=== PATIENT | male | born 1965 | race Caucasian/White ===

== ENCOUNTER → 2018-01-29 12:42 | Outpatient (CLI) | payer MEDICAID, SELFPAY | PROVIDERS: Family Provider Family Medicine; PCP Family Medicine | DX: S12.501A Unspecified nondisplaced fracture of sixth cervical vertebra, initial encounter for closed fracture (principal) | CPT/HCPCS: 72125 ==

== ENCOUNTER 2018-08-09 09:48 | Emergency (ER) | payer MEDICAID, SELFPAY ==
[2018-08-09 09:51] VITALS: BP 162/92; PULSE 89; RESP 16; TEMP 36.3; O2SAT 97; BMI 32.5
[2018-08-09 09:52] VITALS: BP 162/92; PULSE 89; RESP 16; TEMP 36.3; O2SAT 97
--- NOTE | 2018-08-09 10:00 | VDLE_ITS ---
Reason For Study: LEG SWELLING RIGHT LEFT CFV is compressible, spontaneous, phasic, GSV is normal. competent and demonstrates normal CFV is compressible, spontaneous, phasic, augmentation. competent, and demonstrates normal Procedure augmentation. Exam performed portable in ED. FV is compressible, spontaneous, phasic, A preliminary report was called and/or faxed competent and demonstrates normal to Dr. Escobar. augmentation. POP V is compressible, spontaneous, phasic, competent and demonstrates normal augmentation. T/P Trunk is compressible. PTV is compressible. LT PerV is compressible. Interpretation Summary There is no evidence of left lower extremity deep vein thrombosis. Left greater saphenous vein appears patent and compressible segmentally. Normal flow patterns right common femoral vein Ordering Physician: Damian Escobar Referring Physician: MD Jojo Azael Performed By: Nita Gay RVT
[2018-08-09 10:20] LABS: Absolute Lymphocyte Count 1.88 X10^3/ul (0.83-4.51); Absolute Neutrophil Count 8.6 X10^3/uL (2.0-7.7); Basophil# 0.04 X10^3/uL; Basophil% 0.3 % (0-1); Eosinophil# 0.06 X10^3/uL; Eosinophils% 0.5 % (0-5); Hematocrit 43.2 % (40-54); Hemoglobin 14.3 g/dl (13.0-16.5); Lymphocyte # 1.88 X10^3/ul (4.0); Lymphocyte % 16.4 % (19-41); Mean Corp Hgb Conc 33.1 g/gl (32-36); Mean Corpuscular Hgb 30.2 pg (27.0-32.0); Mean Corpuscular Volume 91.1 fL (80-94); Mean Platelet Vol. 10.2 fl (6.2-12.0); Monocyte# 0.88 X10^3/uL; Monocyte% 7.7 % (0-10); Neutrophil # 8.56 X10^3/uL (2.7-7.7); Neutrophil % 74.9 % (47-70); Platelet Count 170 K/mm3 (150-450); RBC Distribution Width CV 13.5 % (11.6-14.6); RBC Distribution Width SD 44.6 fl (35.1-43.9); Red Blood Count 4.74 M/mm3 (4.6-6.2); White Blood Count 11.4 K/mm3 (4.4-11.0)
[2018-08-09 10:21] LABS: POSITIVE COUNT NO; POSITIVE DIFFERENTIAL NO; POSITIVE MORPHOLOGY NO
[2018-08-09 10:33] LABS: Anion Gap 9 (5-15); BUN 19 mg/dL (7-18); BUN/Creat Ratio 18.8 RATIO (10-20); Calcium,Total 8.6 mg/dL (8.5-10.1); Chloride 95 mmol/L (98-107); Creatinine, Serum 1.01 mg/dL (0.70-1.30); EST Glomerular Filtration Rate 82 mL/min (>60); Est Glom Filt Rate - Afr Amer 99 mL/min (>60); Estimated Creatinine Clearance 96.69 ml/min; Glucose 139 mg/dL (74-106); Potassium 2.7 mmol/L (3.5-5.1); Sodium Level 131 mmol/L (136-145)
--- NOTE | 2018-08-09 10:34 | ED.RN ---
md and nurse notifieed of k+ level of 2.7.
--- NOTE | 2018-08-09 12:56 | ED.VIS.GEN ---
History of Present Illness Chief Complaint: Cellulitis Detail of Chief Complaint: Redness, swelling and discomfort left leg Informant: Patient Onset: Yesterday Context: Sudden Onset Timing: Continuous Quality: Swelling, discoloration and discomfort Location: Left leg circumferential Current Severity: Moderate Maximum Severity: Moderate Worsened by: Nothing Relieved by: Nothing Associated Symptoms: Previously described Narrative: Patient is a middle-aged male who presents with concern for infection of his left leg. He denies history of PE or DVT. Denies chest pain, he denies shortness of breath. He denies fever, chills night sweats. He denies weight gain weight loss. He denies myalgias arthralgias. There is no history of trauma. He has no symptoms of claudication. Prior similar symptoms: No Recent Illness/Hospitalization: No Past Medical History - Allergies and Home Meds Allergies/Adverse Reactions: Allergies Penicillins [PCN] Allergy (Verified 08/09/18 09:52) Shortness of breath Primary Care Physician: Azael Uribe MD [Primary Care Provider] - Prior records reviewed: Yes Past Medical History: - - GERD and hypertension Surgical History: noncontributory Smoking Status: Current every day smoker Alcohol: Rare Review of Systems General: Denies: Chills, Fever, Malaise, Subjective, Sweats, Weight loss Eyes: Denies: Visual changes - bilaterally, Blurred Vision - bilaterally, Diplopia ENT: Denies: Rhinorrhea, Sore throat Cardiovascular: Denies: Chest pain, Palpitations Respiratory: Denies: Dyspnea, Cough, Dyspnea on exertion Gastrointestinal: Denies: Abdominal pain, Nausea, Vomiting, Diarrhea, Melena, Hematochezia Genitourinary: Denies: Dysuria, Hematuria, Frequency Musculoskeletal: Reports: Extremity Pain. Denies: Myalgias, Arthralgias, Back pain Skin: Denies: Rash, Wounds Neurological: Denies: Headache, Weakness, Numbness Endocrine: Denies: Polyuria, Polydipsia Hematologic: Denies: Easy bruising Allergy: Denies: Uticaria Physical Exam Vital Signs/Narrative: Vital Signs Temp Pulse Resp BP Pulse Ox 08/09/18 09:52 97.3 F L 89 16 162/92 H 97 08/09/18 09:51 97.3 F L 89 16 162/92 H 97 Inital Vital Signs reviewed: Yes General: Well nourished, Well developed, No Acute Distress Head: Normocephalic, Atraumatic Eyes: Perrl, EOMI. Negative for: Pale conjunctiva, Scleral icterus ENT: Moist mucous membranes, No rhinorrhea, TM's clear. Negative for: Sinus tenderness Neck: Supple, Nontender, No lymphadenopathy, No JVD Cardiovascular: Regular rate, Regular rhythm, No murmurs, Normal S1, Normal S2 Respiratory: No distress, CTA bilaterally, Chest nontender Back: Nontender, Normal Inspection. Negative for: CVA tenderness Extremities: Tenderness, Edema, Calf Tenderness, - - Inguinal nodes appreciated on left. Negative for: Nontender, No edema Skin: Normal color, Rash - In the proximity of the kneecap it blanches otherwise it does not.. Negative for: No rash, Cyanosis, Jaundice Neurological: Alert, Oriented x3, Cranial nerves II-XII grossly intact, Normal Strength, Normal Sensation, Normal Gait Psychological: Normal affect, Normal Mood Diagnostic/Tx/Re-eval Laboratory Results 08/09/18 08/09/18 10:11 10:11 WBC 11.4 H RBC 4.74 Hgb 14.3 Hct 43.2 MCV 91.1 MCH 30.2 MCHC 33.1 RDW 13.5 RDW Differential 44.6 H Plt Count 170 MPV 10.2 Immature Gran % (Auto) 0.200 Neut % (Auto) 74.9 H Lymph % (Auto) 16.4 L [place] % (Auto) 7.7 Eos % (Auto) 0.5 Baso % (Auto) 0.3 Absolute Neuts (auto) 8.6 H Absolute Lymphs (auto) 1.88 Total Counted Not Reportable Sodium 131 L Potassium 2.7 L* Chloride 95 L Carbon Dioxide 27.0 Anion Gap 9 BUN 19 H Creatinine 1.01 Estim Creat Clear Calc 96.69 Est GFR (MDRD) Af Amer 99 Est GFR (MDRD) Non-Af 82 BUN/Creatinine Ratio 18.8 Glucose 139 H Calcium 8.6 Venous Doppler was interpreted as negative for DVT. - Rhythm Strip Rhythm Strip: Sinus Rhythm Rate: 88 Ectopy: None - Medical Decision Making Differential diagnosis includes cellulitis, DVT. Will obtain venous duplex study. If negative will treat as cellulitis. For strep and staph coverage patient received vancomycin the department. Was determined that he did not have an anaphylactic reaction to penicillin. He did not have hives, nausea vomiting orthostatic symptoms or hypotension. He reported shortness of breath. He will receive a prescription for cephalexin and Bactrim. He is to follow-up in 2 weeks for wound check with Dr. Bryson Beckwith his PCP. He was unable he was instructed to return to the emergency department for reevaluation or if his symptoms worsen. Patient has no SIRS criteria therefore will manage as outpatient. ED Disposition - Plan for ED Patient: Disposition: Home or Assisted Living Diagnosis: Cellulitis of left leg without foot, Hypokalemia Instructions: Discharge Instructions for Cellulitis Prescriptions: Potassium Chl Soln 20 meq PO BID #120 udc Smz/Tmp Ds [Bactrim Ds] 1 tab PO BID #14 tab Cephalexin [Keflex] 500 mg PO 4X/DAY #30 cap Referrals: Azael Uribe MD [Primary Care Provider] - 2 Days for wound check Additional Instructions: If you are unable to see Dr. Uribe in 2 days for reevaluation of your infected leg please return to the emergency department. If your symptoms worsen or if you develop temperature greater than 100 and shaking chills return immediately. Also will need potassium level reassessed in 5-7 days.
[2018-08-09 13:00] VITALS: BP 141/92; PULSE 71; RESP 17; TEMP 36.3; O2SAT 96
== END 2018-08-09 14:04 | disposition home or self-care (01) ==
PROVIDERS: Emergency Provider Emergency Medicine; Family Provider Family Medicine; PCP Family Medicine
DX: L03.116 Cellulitis of left lower limb (principal); E87.6 Hypokalemia; I10 Essential (primary) hypertension; K21.9 Gastro-esophageal reflux disease without esophagitis; F17.200 Nicotine dependence, unspecified, uncomplicated
CPT/HCPCS: 80048; 85025; 93971; 96365; 96366; 99284; J7030; J7040; A4216

== ENCOUNTER 2019-11-19 13:19 | Inpatient (IN) | payer MEDICAID, SELFPAY ==
[2019-11-19] VITALS (18 sets, daily range): BP systolic 94–137; BP diastolic 37–57; PULSE 66–95; RESP 17–35; TEMP 36.2–37.7; O2SAT 95–98; BMI 28.8; BMI 27.7
--- NOTE | 2019-11-19 13:32 | CT_ITS ---
STUDY: CT BRAIN WITHOUT CONTRAST REASON FOR EXAM: Male, 54 years old. OVERDOSE RADIATION DOSAGE (If Supplied By Facility): CTDIvol = ( 44.99 ) mGy, DLP = ( 796.11 ) mGycm TECHNIQUE: Transaxial CT imaging of the brain was performed without administration of intravenous contrast material. Individualized dose optimization techniques were used for this CT. COMPARISON: Comparison is made with prior study dated October 25, 2008. FINDINGS: Normal soft tissue structures. Normal calvarium. Normal size ventricles and extra-axial spaces for the patient''s age. Normal white matter tracts of the cerebral hemispheres. Small old lacunar infarct in the left basal ganglion. This is unchanged. Normal brainstem. Normal cerebellum. There is no intracranial hemorrhage. There are no findings of an acute ischemic infarction. 1.5 cm x 1.3 cm polyp or retention cyst at the base of the left maxillary sinus. CT/Brain/Head without Contrast IMPRESSION: Focal old lacunar infarct in the left basal ganglion. Electronically Signed: Matt Gardner, at 14:35 EDT , Service support ,
--- NOTE | 2019-11-19 13:32 | RAD_ITS ---
STUDY: X-RAY CHEST REASON FOR EXAM: Male, 54 years old. Shortness of breath. TECHNIQUE: Single AP portable view of the chest. COMPARISON: Comparison is made with prior study dated October 08, 2016. FINDINGS: EKG electrodes are seen. Hyperinflation. There is no demonstrated pleural abnormality. Normal size heart. Normal mediastinum and marjan. Normal visualized pulmonary arteries. There is atherosclerotic calcification of the aortic arch with tortuosity. Normal visualized thoracic spine. Normal visualized ribs, clavicles, and shoulders. There is no demonstrated abnormality of the visualized soft tissue structures of the upper abdomen. RAD/Chest 1 View (Portable) IMPRESSION: Hyperinflation. The lungs are clear. Electronically Signed: Matt Gardner, at 14:28 EDT , Service support ,
--- NOTE | 2019-11-19 13:33 | EKG12_ITS ---
Test Reason : OVERDOSE Blood Pressure : / mmHG Vent. Rate : 080 BPM Atrial Rate : 080 BPM P-R Int : 138 ms QRS Dur : 088 ms QT Int : 368 ms P-R-T Axes : 063 041 057 degrees QTc Int : 424 ms Normal sinus rhythm Normal ECG Confirmed by SAMANTHA YEUNG, ROSINA ([id number]), content editor MELY GARCIA ([id number] on 11/21/2019 11:11:06 AM Referred By: RHIANNON Confirmed By:ROSINA SINGH MD
--- NOTE | 2019-11-19 13:43 | ED.VIS.GEN ---
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 Per reports police were at the patient's house earlier this morning around 8:30 AM. When they went back this afternoon they found the patient seated in a car with the windows up inside a garage. The vehicle was not running. Patient's mental status was altered. He was found with multiple syringes and spoons around him. Family member who called did state that the patient has a history of heroin and fentanyl abuse. EMS gave 4 mg of Narcan. Patient did have some improvement in mental status. Nursing staff reports patient was in a very heavy black sweatshirt that was soaked with sweat. EMS had commented that the temperature inside the car was very high. Past Medical History - Allergies and Home Meds Allergies/Adverse Reactions: Allergies Penicillins [PCN] Allergy (Verified 11/19/19 13:24) Shortness of breath Primary Care Physician: Azael Uribe MD [Primary Care Provider] - Prior records reviewed: Yes Surgical History: noncontributory Smoking Status: Current every day smoker Review of Systems ROS: Unable to Obtain - Patient not answering questions at this time. Physical Exam Vital Signs/Narrative: Vital Signs Temp Pulse Resp BP Pulse Ox 11/19/19 13:20 97.5 F L 95 35 H 124/37 H 95 Inital Vital Signs reviewed: Yes General: Well nourished, Well developed, - - Patient lying in bed. Eyes are open and he looks around the room. He does not answer questions. Head: Normocephalic ENT: Moist mucous membranes Neck: Supple Cardiovascular: Regular rate, Regular rhythm Respiratory: No distress, - - Rales bilaterally. Abdomen: Soft, Nontender Extremities: Nontender Skin: Normal color Neurological: Alert - Looks around the room but does not answer questions. Diagnostic/Tx/Re-eval Impressions Brain CT 11/19/19 13:32 IMPRESSION: Focal old lacunar infarct in the left basal ganglion. Electronically Signed: Matt Gardner, at 14:35 EDT , Service support , Chest X-Ray 11/19/19 13:32 IMPRESSION: Hyperinflation. The lungs are clear. Electronically Signed: Matt Gardner, at 14:28 EDT , Service support , 11/19/19 13:32 Brain/Head without Contrast [CT] Stat Chest 1 View (Portable) [RAD] Stat Laboratory Results 11/19/19 11/19/19 11/19/19 13:25 13:25 13:25 WBC 14.3 H RBC 4.18 L Hgb 12.3 L Hct 36.3 L MCV 86.8 MCH 29.4 MCHC 33.9 RDW Std Deviation 41.2 RDW Coeff of John 13.1 Plt Count 75 L MPV 12.1 H Immature Gran % (Auto) 1.700 H Neut % (Auto) 83.7 H Lymph % (Auto) 5.9 L [place] % (Auto) 8.6 Eos % (Auto) 0.0 Baso % (Auto) 0.1 Absolute Neuts (auto) 12.0 H Absolute Lymphs (auto) 0.85 Nucleated RBC % 0 Platelet Estimate MOD DEC Sodium 127 L Potassium 4.2 Chloride 96 L Carbon Dioxide 21.0 Anion Gap 10 BUN 33 H Creatinine 1.19 Estim Creat Clear Calc 73.27 Est GFR (MDRD) Af Amer 82 Est GFR (MDRD) Non-Af 68 BUN/Creatinine Ratio 27.7 H Glucose 121 H Calcium 8.4 L Total Bilirubin 1.20 H Direct Bilirubin 0.63 H AST 67 H ALT 43 Alkaline Phosphatase 80 Troponin I 0.924 H* Total Protein 7.5 Albumin 2.2 L Globulin 5.3 H Lipase 136 Ethyl Alcohol < 3.0 - EKG Initial EKG Interpretation: Sinus Rhythm - Sinus at 80 with no acute ischemia. - Medical Decision Making Patient continues to be alert and look around the room while here, but is still not answering questions. Lung sounds remain with rales but chest x-ray reveals no focal infiltrate. Troponin is elevated at 0.9. I am unsure if he may have had an arrhythmia while he was sitting inside this hot car. He will be admitted for further evaluation. At this time I do not feel the patient's mental status is adequate to have him take oral aspirin for us. He will be ordered rectal aspirin. I spoke with the hospitalist for admission. ED Disposition - Plan for ED Patient: Disposition: Acute Care Hospital [facility] Diagnosis: Altered mental status, Overdose, Elevated troponin Referrals: Azael Uribe MD [Primary Care Provider] -
[2019-11-19 13:45] LABS: Absolute Lymphocyte Count 0.85 X10^3/uL (0.83-4.51); Basophil# 0.02 X10^3/uL; Basophil% 0.1 % (0-1); Hematocrit 36.3 % (40-54); Hemoglobin 12.3 g/dL (13.0-16.5); Lymphocyte # 0.85 X10^3/ul (4.0); Lymphocyte % 5.9 % (19-41); Mean Corp Hgb Conc 33.9 g/dL (32-36); Mean Corpuscular Hgb 29.4 pg (27.0-32.0); Mean Corpuscular Volume 86.8 fL (80-94); Mean Platelet Vol. 12.1 fl (6.2-12.0); Monocyte# 1.23 X10^3/uL; Monocyte% 8.6 % (0-10); NRBC Flagged by Analyzer 0 % (0-5); Neutrophil % 83.7 % (47-70); POSITIVE COUNT YES; POSITIVE MORPHOLOGY YES; Platelet Count 75 K/mm3 (150-450); RBC Distribution Width CV 13.1 % (11.6-14.6); RBC Distribution Width SD 41.2 fl (35.1-43.9); Red Blood Count 4.18 M/mm3 (4.6-6.2); White Blood Count 14.3 K/mm3 (4.4-11.0)
[2019-11-19 13:46] LABS: Differential Indicated SCAN CRITERIA MET
[2019-11-19] MEDS: 0.9% Normal Saline 1,000 ML 1000 ML IV (14:00)
[2019-11-19 14:02] LABS: AST(SGOT) 67 U/L (15-37); Alanine Aminotransfer ALT/SGPT 43 U/L (16-61); Albumin, Serum 2.2 g/dL (3.2-5.0); Alkaline Phosphatase 80 U/L (45-117); Anion Gap 10 (5-15); BUN 33 mg/dL (7-18); BUN/Creat Ratio 27.7 RATIO (10-20); Bilirubin, Direct 0.63 mg/dL (0.00-0.30); Calcium,Total 8.4 mg/dL (8.5-10.1); Chloride 96 mmol/L (98-107); Creatinine, Serum 1.19 mg/dL (0.70-1.30); EST Glomerular Filtration Rate 68 mL/min (>60); Est Glom Filt Rate - Afr Amer 82 mL/min (>60); Estimated Creatinine Clearance 73.27 ml/min; Globulin 5.3 g/dL (2.2-4.2); Glucose 121 mg/dL (74-106); Lipase 136 U/L (73-393); Potassium 4.2 mmol/L (3.5-5.1); Protein, Total 7.5 g/dL (6.4-8.2); Sodium Level 127 mmol/L (136-145)
[2019-11-19 14:05] LABS: Alcohol, Blood (Medical)-Serum < 3.0 mg/dL
[2019-11-19 14:13] LABS: Platelet Estimate MOD DEC (ADEQ)
--- NOTE | 2019-11-19 14:44 | NURSING ---
DR MARTINO FPR DR NAVARRO
--- NOTE | 2019-11-19 14:48 | NURSING ---
icu ams, od, elevated trop torin
--- NOTE | 2019-11-19 14:59 | NURSING ---
ICU 4
--- NOTE | 2019-11-19 15:13 | HP.PCM_ITS ---
<Ced Arrington - Last Filed: 11/19/19 15:13> Problem List (1) Overdose Status: Acute (2) Elevated troponin Status: Acute (3) Aspiration into airway Status: Acute (4) Altered mental status Status: Acute History of Present Illness Date of Admission: 11/19/19 Chief Complaint: altered mental status The patient is a 54 year old M with pmhx of opiate abuse who presented to the ER by squad after being found unresponsive. Police went to his house in the morning and his behavior was abnormal, they went back to check on him later and found him in the car (which was off) in the garage with needles around him, unresponsive. He later admitted to using fentanyl and heroin, and uses daily, and denies other drug use or drinking. He was given narcan twice and brought to the ER. He remains lethargic and confused. He was able to wake up and with repeated questioning able to tell me his name, , place, year, and president. He is maintaining adequate sats in the ER however is significantly rhonchorous in the upper airway as well as on auscultation lending suspicion for an aspiration event. He is very tachypneic tho denies SOB. On my ROS he seemed to stare and shake his head no with everything I asked him, so I am not confident his answers are accurate. When he is not being interviewed his tachypnea impr oves to the 20s, tho he is 40s when interviewed. He has an elevated troponin however he denies CP, pressure, tightness, heaviness, LH/dizziness, or LE edema. He denies a hx of heart or lung disease. ER staff checked with his pharmacy, at one point he had an albuterol inhaler but has not recently filled it. [] Past Medical History Allergies Penicillins [PCN] Allergy (Verified 11/19/19 13:24) Shortness of breath Home Medications: Ambulatory Orders Medication Instructions Recorded Albuterol Sulfate [Ventolin Hfa] 2 puff INHALATION Q4H PRN PRN 11/19/19 Omeprazole 20 mg PO DAILY 11/19/19 Surgical History: noncontributory Psychiatric History: No pertinent psych hx Lives: Alone Smoking Status: Current every day smoker Tobacco Use: Cigarettes Alcohol: None Drugs: Heroin, - - fentanyl - *Family History Maternal History Items: No pertinent history Paternal History Items: No pertinent history Review of Systems Constitutional: Denies: Chills, Fever, Weight Change HEENT: Denies: Head Aches, Sinus Congestion, Sinus Drainage Cardiovascular: Denies: Chest Pain, Palpitations Respiratory: Reports: Cough. Denies: Shortness of Breath, Shortness of breath at rest, Sputum production Gastrointestinal: Denies: Abdominal Pain, Diarrhea, Nausea, Vomiting Genitourinary: Denies: Dysuria Musculoskeletal: Denies: Joint Pain, Joint Tenderness Skin: Reports: - - stage 1 pressure wound buttocks and sacral coccygeal area. no open areas.. Denies: Rash, Wounds Neurological: Denies: Numbness, Tingling, Focal weakness Psychiatric: Denies: Anxiety, Depression, Homicidal Ideations, Suicidal Ideations Hematologic/ Lymphatic: Denies: Easy Bruising, Easy Bleeding VTE Information - Inpt Only VTE Present on Admission: No VTE Mechan Device Prophylaxis: None VTE Pharm Prophylaxis ordered?: Yes Patient Problems: Active and Suspected Problems Altered mental status (Acute) Overdose (Acute) Elevated troponin (Acute) Aspiration into airway (Acute) - Physical Exam Vitals/I&O's: Vital Signs Temp Pulse Resp BP Pulse Ox 97.5 F L 80 29 H 121/47 H 95 11/19/19 13:20 11/19/19 14:33 11/19/19 14:33 11/19/19 14:33 11/19/19 14:33 Oxygen Delivery Method Room Air Weight: 201 lb 0.985 oz Body Mass Index (BMI) 28.8 General: Alert, Oriented x3, Cooperative, Lethargic HEENT: Atraumatic, PERRLA, EOMI, Normocephalic Neck: Supple, No JVD, Negative Carotid Bruits Lungs: Normal air movement, No rhonchi Cardiovascular: Regular rate, No murmurs Abdomen: Bowel Sounds Present, Soft, Non Tender Extremities: No edema, Capillary Refill Less than 3 Seconds Skin: No rashes, No breakdown Musculoskeletal: No Tenderness to Palpation of Joints or Extremities Neurological: Cranial nerves II-XII grossly intact Psych/Mental Status: - - delayed response time, has difficulty focusing, Alert and oriented to time, place, person, mood and affect Laboratory Results 11/19/19 13:25: WBC 14.3 H, RBC 4.18 L, Hgb 12.3 L, Hct 36.3 L, MCV 86.8, MCH 29.4, MCHC 33.9, RDW Std Deviation 41.2, RDW Coeff of John 13.1, Plt Count 75 L, MPV 12.1 H, Immature Gran % (Auto) 1.700 H, Neut % (Auto) 83.7 H, Lymph % (Auto) 5.9 L, Upson % (Auto) 8.6, Eos % (Auto) 0.0, Baso % (Auto) 0.1, Absolute Neuts (auto) 12.0 H, Absolute Lymphs (auto) 0.85, Nucleated RBC % 0, Platelet Estimate MOD 11/19/19 13:25: Sodium 127 L, Potassium 4.2, Chloride 96 L, Carbon Dioxide 21.0, Anion Gap 10, BUN 33 H, Creatinine 1.19, Estim Creat Clear Calc 73.27, Est GFR (MDRD) Af Amer 82, Est GFR (MDRD) Non-Af 68, BUN/Creatinine Ratio 27.7 H, Glucose 121 H, Calcium 8.4 L, Total Bilirubin 1.20 H, Direct Bilirubin 0.63 H, AST 67 H, ALT 43, Alkaline Phosphatase 80, Troponin I 0.924 H*, Total Protein 7.5, Albumin 2.2 L, Globulin 5.3 H, Lipase 136 11/19/19 13:25: Ethyl Alcohol < 3.0 Current Medications Levofloxacin (Levaquin Iv) 750 mg in 150 mls @ 100 mls/hr IV X1 ONE Stop: 11/19/19 16:39 Metronidazole (Flagyl) 500 mg in 100 mls @ 100 mls/hr IV X1 ONE Stop: 11/19/19 16:09 Assessment/Plan All Active Problems Altered mental status (Acute) Overdose (Acute) Elevated troponin (Acute) Aspiration into airway (Acute) 1. Acute opiate overdose - found unresponsive with pinned pupils and with needles around him. He admits to daily fentanyl and heroin abuse unclear how much. Denies other drug use. Admit to ICU, provide IV fluids with LR @ 75cc/hr. Initiate opiate withdrawal protocol. EtOH neg. Tox screen pending. 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 Suspected aspiration pna - cxr is without infiltrate at this time, however with the above and his severe rhonchi and tachypnea, leukocytosis, left shit, pulse > 90 he is presumed sepsis, elevated T and direct bili and AST, decreased platelets. Lipase neg. Lactate pending. Given levaquin/flagyl in ER, will do renetta on floor. Provide aerosols, incentive spirometer, PEP therapy. UA pending, obtain blood cx. Currently afebrile. -CXR with hyperinflation, hx smoking. suspect underlying lung disease. 3. NSTEMI - Trop 0.924. EKG unremarkable. No CP/pressure/tightness. Repeat EKG on the floor and in the AM. Cycle enzymes. Maintain on heart monitor. Obtain Echo in AM. Continue rectal aspirin. When able to tolerate PO initiate asp/statin. 4. Thrombocytopenia - will need to trend with ongoing aspirin. This presents a significant challenge given his NSTEMI 5. Stage 1 pressure ulcer sacral/coccygeal - wound care consult. 6. 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 Gaffney. <Keely Gaffney - Last Filed: 11/19/19 16:19> History of Present Illness Date of Admission: 11/19/19 I agree with the above based my own independent history and exam The patient is a 54 year old M presented for the above. He was given narcan 4 mg by the squad and this improved his mental status some but overall his MS does not appear to be at baseline. He interacts some but doesn't answer all questions. He does admit to daily IV opiate use but was not willing to tell me the amount of opiates he uses daily. Family members who called the ED did confirm that he has a h/o opiate abuse. He does remain lethargic but is A&Ox3 at this time. His afebrile and BP/HR are within normal range, but he had marked tachypnea and his R lung was diffusely rhonchorous with upper airway rhonchi noted as well. His sats were WNL on RA. CXR is unremarkable. His white count is mildly elevated at 14.3. His Na is 127 but he appears to be volume depleted with mild TRENT. LFT's are WNL. He denies pain, SOB, N/V/Abdominal pain. Past Medical History Allergies Penicillins [PCN] Allergy (Verified 11/19/19 13:24) Shortness of breath Review of Systems Constitutional: Denies: Anorexia, Chills, Fever, Malaise, Weakness, Weight Change, Fatigue Eyes: Denies: Blurred vision, Double vision, Pain, Redness HEENT: Denies: Difficulty Hearing, Difficulty Swallowing, Ear Pain, Head Aches, Nasal bleeding, Nasal Congestion, Sinus Congestion, Sore Throat Cardiovascular: Denies: Chest Pain, Chest Pressure, Chest Tightness, Heaviness, Light Headedness, Palpitations, Syncope Respiratory: Denies: Cough, Hemoptysis, Pleuritic Pain, Shortness of Breath, Shortness of breath at rest, Shortness of breath upon exertion, Sputum production, Wheezing Genitourinary: Denies: Dysuria, Hematuria, Retention, Urgency Musculoskeletal: Denies: Back Pain, Joint Pain, Joint stiffness, Joint swelling, Joint Tenderness, Muscle pain, Neck Pain Skin: Denies: Dryness, Jaundice, Lesions, Pruritis, Rash, Skin Changes, Wounds Neurological: Denies: Balance problems, Double vision, Slurred speech, Focal weakness, Headaches, Numbness, Tingling, Tremor, Seizures Psychiatric: Denies: Anxiety, Depression, Homicidal Ideations, Suicidal Ideations Endocrine: Denies: Change in Body Habitus, Heat/ Cold Intolerance, Polydipsia, Polyuria Hematologic/ Lymphatic: Denies: Easy Bruising, Easy Bleeding, Hx of blood clot - Physical Exam Vitals/I&O's: Vital Signs Temp Pulse Resp BP Pulse Ox 97.5 F L 80 29 H 121/47 H 95 11/19/19 13:20 11/19/19 14:33 11/19/19 14:33 11/19/19 14:33 11/19/19 14:33 Oxygen Delivery Method Room Air Weight: 91.2 kg Body Mass Index (BMI) 28.8 General: Alert, Oriented x3, Cooperative, Well developed, Well nourished, Lethargic, - - tachypnea but denies SOB, disheveled WM lying in reclined bed with mask on, audible upper airway rhonchi, awake but slow to answer questions HEENT: Atraumatic, PERRLA, EOMI, Normocephalic, EAC Clear Oral: Moist Mucosa, No Gingival or Mucosal Lesions/ Ulcerations, - - poor dentition Neck: Supple, No JVD, Negative Carotid Bruits, No Nodes, No Nuchal Rigidity, Trachea Midline, Thyroid Normal Size and Texture Lungs: Diminished - diffusely diminished, Rhonchi - upper airway and R lung diffusely but worse at RLL, Tachypneic, - Cardiovascular: Regular rate, Regular Rhythm, Normal S1, Normal S2, No murmurs, No Ectopic Activity, No rub noted, No Gallop Abdomen: Bowel Sounds Present, Soft, Non Tender, Non-Distended, No Hepato- splenomegaly, No hernias noted Extremities: No clubbing, No cyanosis, No edema, Capillary Refill Less than 3 Seconds, Peripheral Pulses Normal Skin: No rashes, No breakdown, - - multiple tattoos, feet dirty with skin peeling Musculoskeletal: No Tenderness to Palpation of Joints or Extremities, No Muscle Wasting Lymphatic: No Cervical, Supraclavicular, or Inguinal Adenopathy Neurological: Cranial nerves II-XII grossly intact, Deep Tendon Reflexes 2+/4 and Symmetrical, Neuro grossly intact, Motor Exam 5/5 strength throughout, Muscle tone normal, Coordination normal Psych/Mental Status: Alert and oriented to time, place, person, mood and affect Laboratory Results 11/19/19 13:25: WBC 14.3 H, RBC 4.18 L, Hgb 12.3 L, Hct 36.3 L, MCV 86.8, MCH 29.4, MCHC 33.9, RDW Std Deviation 41.2, RDW Coeff of John 13.1, Plt Count 75 L, MPV 12.1 H, Immature Gran % (Auto) 1.700 H, Neut % (Auto) 83.7 H, Lymph % (Auto) 5.9 L, Upson % (Auto) 8.6, Eos % (Auto) 0.0, Baso % (Auto) 0.1, Absolute Neuts (auto) 12.0 H, Absolute Lymphs (auto) 0.85, Nucleated RBC % 0, Platelet Estimate MOD DEC 11/19/19 13:25: Sodium 127 L, Potassium 4.2, Chloride 96 L, Carbon Dioxide 21.0, Anion Gap 10, BUN 33 H, Creatinine 1.19, Estim Creat Clear Calc 73.27, Est GFR (MDRD) Af Amer 82, Est GFR (MDRD) Non-Af 68, BUN/Creatinine Ratio 27.7 H, Glucose 121 H, Calcium 8.4 L, Total Bilirubin 1.20 H, Direct Bilirubin 0.63 H, AST 67 H, ALT 43, Alkaline Phosphatase 80, Troponin I 0.924 H*, Total Protein 7.5, Albumin 2.2 L, Globulin 5.3 H, Lipase 136 11/19/19 13:25: Ethyl Alcohol < 3.0 Current Medications Levofloxacin (Levaquin Iv) 750 mg in 150 mls @ 100 mls/hr IV X1 ONE Stop: 11/19/19 16:39 Metronidazole (Flagyl) 500 mg in 100 mls @ 100 mls/hr IV X1 ONE Stop: 11/19/19 16:09 Assessment/Plan Agree with the above with the additional addendum Acute Opiate OD -LR at 75 cc/hr -NPO until passes eval -Tox pending IVDU-opiates -check HIV and hep studies -opiate detox order set in place TRENT -suspect dehydration -IVF and repeat in am -if not getting better would pursue further w/u NSTEMI -No CP -EKG with no changes c/w acute ischemia -suspect trop elevation 2/2 stress induced ischemia with OD -will cycle troponins -repeat EKG in am -tele -ECHO to evaluate for WMA -rectal ASA given in ED and will continue daily Suspected Aspiration PNA -CXR WNL on admission but pt dry -repeat CXR in am -Meropenem for now and if d/c prior to rx completed could complete with levoquin (Day 06/10) -blood cx ordered -Lactate pending -hyperinflation therapy -IS if pt able Tobacco Abuse -2PPD smoker -nicotine Patch 21 mcg Hyponatremia -suspect hypovolemic with TRENT -repeat in am after hydration Hyperbilirubinemia -may be related to dehydration -repeat in am -Hep studies pending Thrombocytopenia -75,000 on admission -was 170 on 08/09/2018 but this is the only other lab we have -trend -check am coags--> consider evaluation of spleen if still low Inpatient E&M: 82157 Init Hosp L3
[2019-11-19] MEDS: levoFLOXacin IV 750 MG/150 ML BAG 100 MG IV (16:25)
[2019-11-19] MEDS: metroNIDAZOLE 500 MG/100 ML BAG 100 MG IV (16:26)
[2019-11-19 16:44] LABS: Lactic Acid 1.6 mmol/L (0.4-1.9)
--- NOTE | 2019-11-19 16:44 | ED.RN ---
PATIENT GAVE PERMISSION FOR HIS NIECE, KAREN, TO BE GIVEN INFORMATION AND UPDATED. KAREN'S PHONE NUMBER IS [phone]
[2019-11-19 17:05] LABS: Amphetamine Urine VISTA NEGATIVE (<1000 ng/mL); Barbiturate Urine VISTA NEGATIVE (< 200 ng/mL); Benzodiazepine Urine VISTA NEGATIVE (< 200 ng/mL); Cocaine Urine VISTA NEGATIVE (< 300 ng/mL); Ecstacy Urine VISTA NEGATIVE (< 500 ng/mL); Methadone Urine VISTA NEGATIVE (< 300 ng/mL); PCP Urine VISTA NEGATIVE (< 25 ng/mL); THC Urine VISTA NEGATIVE (< 50 ng/mL); Vista UDS pH Range 6
[2019-11-19 17:30] LABS: CPK Total, Creatine Kinase 90 U/L (39-308)
[2019-11-19] MEDS: Lactated Ringers 1,000 ML 75 ML IV (17:44)
[2019-11-19] MEDS: Ipratropium/Albuterol Sulfate 3 ML AMPUL.NEB INHALATION (19:10)
[2019-11-19] MEDS: Methocarbamol 750 MG Tablet 1500 MG PO (20:44)
[2019-11-19] MEDS: Aspirin 325 MG Tablet PO (22:07)
[2019-11-20] VITALS (32 sets, daily range): BP systolic 81–115; BP diastolic 34–59; PULSE 68–82; RESP 19–35; TEMP 36.1–36.5; O2SAT 96–99
[2019-11-20 04:35] LABS: International Normalized Ratio 1.5; Partial Thromboplast Time 32.3 Seconds (24.1-36.2); Prothrombin Time (Protime)PT. 17.9 SECONDS (11.7-14.9)
[2019-11-20 04:38] LABS: Absolute Lymphocyte Count 1.19 X10^3/uL (0.83-4.51); Absolute Neutrophil Count 5.6 X10^3/uL (2.0-7.7); Basophil# 0.01 X10^3/uL; Basophil% 0.1 % (0-1); Eosinophil# 0.01 X10^3/uL; Eosinophils% 0.1 % (0-5); Lymphocyte # 1.19 X10^3/ul (4.0); Lymphocyte % 14.9 % (19-41); Mean Corp Hgb Conc 35.5 g/dL (32-36); Mean Corpuscular Hgb 30.6 pg (27.0-32.0); Mean Corpuscular Volume 86.4 fL (80-94); Mean Platelet Vol. 12.2 fl (6.2-12.0); Monocyte% 13.8 % (0-10); NRBC Flagged by Analyzer 0 % (0-5); Neutrophil # 5.59 X10^3/uL (2.7-7.7); Neutrophil % 70.2 % (47-70); POSITIVE COUNT YES; Platelet Count 53 K/mm3 (150-450); RBC Distribution Width SD 40.6 fl (35.1-43.9); Red Blood Count 3.59 M/mm3 (4.6-6.2)
[2019-11-20 04:40] LABS: Differential Indicated SCAN CRITERIA MET
[2019-11-20 05:09] LABS: ALB/GLOB Ratio 0.4 RATIO (0.9-2.4); AST(SGOT) 59 U/L (15-37); Alanine Aminotransfer ALT/SGPT 37 U/L (16-61); Albumin, Serum 1.7 g/dL (3.2-5.0); Alkaline Phosphatase 59 U/L (45-117); Anion Gap 9 (5-15); BUN 30 mg/dL (7-18); BUN/Creat Ratio 35.8 RATIO (10-20); Calcium,Total 7.6 mg/dL (8.5-10.1); Chloride 100 mmol/L (98-107); Creatinine, Serum 0.84 mg/dL (0.70-1.30); EST Glomerular Filtration Rate 101 mL/min (>60); Est Glom Filt Rate - Afr Amer 123 mL/min (>60); Globulin 4.5 g/dL (2.2-4.2); Glucose 129 mg/dL (74-106); Phosphorus 3.4 mg/dL (2.5-4.9); Potassium 3.7 mmol/L (3.5-5.1); Protein, Total 6.2 g/dL (6.4-8.2); Sodium Level 131 mmol/L (136-145)
[2019-11-20] MEDS: hydrOXYzine PAM 25 MG Capsule 50 MG PO (05:25)
[2019-11-20] MEDS: Methocarbamol 750 MG Tablet 1500 MG PO (05:25)
[2019-11-20] MEDS: Lactated Ringers 1,000 ML 75 ML IV (05:25)
[2019-11-20] MEDS: 0.9% Saline Lock 10 ML Syringe IV (05:27)
[2019-11-20 05:35] LABS: Differential Comment SCANNED; Platelet Estimate MOD DEC (ADEQ)
--- NOTE | 2019-11-20 05:55 | ECHOD_ITS ---
Reason For Study: NSTEMI Procedure This was a 2D Doppler, Color Flow transthoracic echocardiogram. Exam performed portable in ICU/CCU. Left Ventricle Normal LV size. The estimated ejection fraction is 70 %. No evidence for diastolic dysfunction. No regional wall motion abnormalities noted. Right Ventricle Normal RV size. Normal systolic function. Atria Normal left atrium. Normal right atrium. No doppler evidence for ASD. Mitral Valve There is no mitral valve stenosis. Trivial mitral valve insufficiency. Tricuspid Valve There is no tricuspid stenosis. Trivial tricuspid valve insufficiency. Unable to estimate RV systolic pressure due to insufficient tricuspid regurgitant envelope. Aortic Valve Trisinus/trileaflet aortic valve. Mild diffuse aortic valve thickening. There is a filamentous vegetation on the ventricular side of the aortic valve that measures about 3cm x 0.2cm. Mild aortic stenosis. Moderately severe (3+) aortic valve insufficiency. Pulmonic Valve There is no pulmonic valvular stenosis. No pulmonic valve insufficiency identified. Great Vessels Normal aortic root. Pericardium/Pleural No pericardial effusion. MMode/2D Measurements & Calculations LVIDd: 5.3 cm IVSd: 0.93 cm LVOT diam: 2.0 cm LVIDs: 3.4 cm LVPWd: 0.83 cm LVOT area: 3.3 cm2 RVDd: 4.0 cm FS: 36.8 % Ao root diam: 3.3 cm LAV(MOD-bp): 63.4 ml LA A4 area: 20.0 cm2 LAV(MOD-bp) Indexed: 30.9 ml/m2 LAV(MOD-sp2): 66.9 ml LAV(MOD-sp4): 58.1 ml LA dimension(2D): 4.1 cm RA A4 area: 12.6 cm2 Time Measurements MV dec time: 0.28 sec Doppler Measurements & Calculations MV E max cameron: 104.8 cm/sec Lat Peak E' Cameron: 7.9 cm/sec Med Peak E' Cameron: 11.6 cm/sec MV A max cameron: 66.9 cm/sec E/E' lat: 13.2 E/E' med: 9.1 MV E/A: 1.6 Ao V2 max: 268.6 cm/sec AI max cameron: 326.2 cm/sec LV V1 max: 202.7 cm/sec Ao max P.9 mmHg AI max P.6 mmHg LV V1 max P.4 mmHg Ao V2 mean: 192.7 cm/sec AI dec slope: 359.5 cm/sec2 LV V1 mean P.2 mmHg Ao mean P.4 mmHg AI P1/2t: 265.8 msec LV V1 mean: 130.9 cm/sec Ao V2 VTI: 53.1 cm LV V1 VTI: 39.3 cm HERMELINDO(I,D): 2.4 cm2 HERMELINDO(V,D): 2.5 cm2 SV(LVOT): 128.7 ml PA V2 max: 95.2 cm/sec TR max cameron: 268.5 cm/sec TR max P.8 mmHg Interpretation Summary The estimated ejection fraction is 70 %. No evidence for diastolic dysfunction. Trivial mitral valve insufficiency. Mild aortic stenosis. Moderately severe (3+) aortic valve insufficiency. There is a filamentous vegetation on the ventricular side of the aortic valve that measures about 3cm x 0.2cm. 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 Ordering Physician: Ced Arrington Referring Physician: DAVID MURPHY Performed By: Avani Lemos, EBENEZER, RVT
--- NOTE | 2019-11-20 05:55 | EKG12_ITS ---
Test Reason : AM EKG Blood Pressure : / mmHG Vent. Rate : 068 BPM Atrial Rate : 068 BPM P-R Int : 164 ms QRS Dur : 096 ms QT Int : 418 ms P-R-T Axes : 062 048 060 degrees QTc Int : 444 ms Sinus rhythm with Premature ventricular complexes or Fusion complexes Otherwise normal ECG When compared with ECG of 19-NOV-2019 13:43, MANUAL COMPARISON REQUIRED, DATA IS UNCONFIRMED Confirmed by KASANDRA YEUNG, FELIBERTO ([id number]), script editor JEREMY STEVEN ([id number]) on 11/25/2019 11:04:57 AM Referred By: GUNNER Confirmed By:FELIBERTO SLAUGHTER MD
--- NOTE | 2019-11-20 06:09 | PCM.CON.CC ---
Reason for Consult Date of Consultation: 11/20/19 Reason for Consultation: Opiate overdose History of Present Illness: The patient is a 54-year-old male, with a history as outlined below, who presented to the emergency department on November 18 with encephalopathy. The patient was apparently found by local police inside a parked vehicle surrounded by drug paraphernalia. The patient was noted to be febrile by EMS staff. He was given a total of 4 mg of Narcan. The patient does have a history of chronic heroin dependency. In addition, the patient reports that he smokes 2 packs of cigarettes per day. The patient denies any alcohol dependency. On presentation to the emergency department, the patient was noted to have a low-grade fever but was hemodynamically stable. Laboratory evaluation revealed an elevated white blood cell count of 14,000. Chemistry profile was notable for a sodium of 127, chloride of 96, and creatinine of 1.19. Lactate was within normal limits. Total bili was elevated at 1.2 with an AST elevation of 67. Troponin was elevated to 0.924. Ironically, toxicology screen was negative. CT head revealed evidence of an old lacunar infarct in the left basal ganglion. Plain film chest x-ray revealed no acute cardiopulmonary process. Given the patient's depressed mental state, he was admitted to the medical intensive care unit for overnight monitoring. No overnight issues were identified by the ICU nursing staff. The patient is alert and oriented this morning. His only complaint is for that of chronic low back pain. Past Medical History Allergies Penicillins [PCN] Allergy (Verified 11/19/19 13:24) Shortness of breath Home Medications: Ambulatory Orders Medication Instructions Recorded Albuterol Sulfate [Ventolin Hfa] 2 puff INHALATION Q4H PRN PRN 11/19/19 Omeprazole 20 mg PO DAILY 11/19/19 Surgical History: noncontributory Psychiatric History: No pertinent psych hx Lives: Alone Smoking Status: Current every day smoker Tobacco Use: Cigarettes Alcohol: None Drugs: Heroin, - - fentanyl - *Family History Maternal History Items: No pertinent history Paternal History Items: No pertinent history Review of Systems Constitutional: Denies: Chills, Fever Eyes: Denies: Blurred vision, Double vision HEENT: Denies: Head Aches, Sinus Congestion, Sinus Drainage Cardiovascular: Denies: Chest Pain, Palpitations Respiratory: Denies: Cough, Shortness of breath at rest, Sputum production Gastrointestinal: Denies: Abdominal Pain, Nausea, Vomiting Genitourinary: Denies: Dysuria Musculoskeletal: Reports: Back Pain Skin: Denies: Rash, Wounds Neurological: Denies: Numbness, Tingling, Focal weakness Psychiatric: Denies: Anxiety, Depression, Homicidal Ideations, Suicidal Ideations Hematologic/ Lymphatic: Denies: Easy Bruising, Easy Bleeding Objective: The patient's most recent lab work, culture data and imaging studies have all been personally reviewed. - Physical Exam Vitals/I&O's: Vital Signs Temp Pulse Resp BP Pulse Ox 97.6 F L 73 20 H 98/50 L 98 11/20/19 00:00 11/20/19 05:00 11/20/19 05:00 11/20/19 05:00 11/20/19 05:00 Oxygen Flow Rate (L/min) 2 Oxygen Delivery Method Room Air Weight: 193 lb 9.054 oz Body Mass Index (BMI) 27.7 Intake and Output for Last 24 Hours 11/18/19 11/19/19 11/20/19 23:59 23:59 23:59 Intake Total 1450 / 1500 1418.25 / 1418.25 Output Total 350 / 350 450 / 450 Balance 1100 / 1150 968.25 / 968.25 General: Alert, Cooperative, No apparent distress HEENT: Atraumatic, Normocephalic Oral: No Gingival or Mucosal Lesions/ Ulcerations Neck: Supple, No Nodes, Trachea Midline Lungs: No rhonchi, No wheeze, No rales, Diminished Cardiovascular: Regular rate, Regular Rhythm Abdomen: Bowel Sounds Present, Soft, Non Tender Extremities: No clubbing, No cyanosis, No edema Skin: No breakdown Musculoskeletal: No Muscle Wasting Lymphatic: No Cervical, Supraclavicular, or Inguinal Adenopathy Neurological: Neuro grossly intact Psych/Mental Status: Normal Affect, Appropriate Labs (Last 48 Hours) 11/19/19 11/19/19 11/19/19 13:25 13:25 13:25 WBC 14.3 H RBC 4.18 L Hgb 12.3 L Hct 36.3 L MCV 86.8 MCH 29.4 MCHC 33.9 RDW Std Deviation 41.2 RDW Coeff of John 13.1 Plt Count 75 L MPV 12.1 H Immature Gran % (Auto) 1.700 H Neut % (Auto) 83.7 H Lymph % (Auto) 5.9 L Worth % (Auto) 8.6 Eos % (Auto) 0.0 Baso % (Auto) 0.1 Absolute Neuts (auto) 12.0 H Absolute Lymphs (auto) 0.85 Nucleated RBC % 0 Differential Comment Platelet Estimate MOD DEC PT INR APTT Sodium 127 L Potassium 4.2 Chloride 96 L Carbon Dioxide 21.0 Anion Gap 10 BUN 33 H Creatinine 1.19 Estim Creat Clear Calc 73.27 Est GFR (MDRD) Af Amer 82 Est GFR (MDRD) Non-Af 68 BUN/Creatinine Ratio 27.7 H Glucose 121 H Lactic Acid Calcium 8.4 L Phosphorus Total Bilirubin 1.20 H Direct Bilirubin 0.63 H AST 67 H ALT 43 Alkaline Phosphatase 80 Total Creatine Kinase Troponin I 0.924 H* Total Protein 7.5 Albumin 2.2 L Globulin 5.3 H Albumin/Globulin Ratio Lipase 136 Urine Opiates Screen Urine Methadone Screen Ur Barbiturates Screen Ur Phencyclidine Scrn Ur Amphetamines Screen U Methamphetamin-MDMA U Benzodiazepines Scrn Urine Cocaine Screen U Cannabinoids Screen Ur Drug Screen Comment Ethyl Alcohol < 3.0 Hep Bs Antigen Hep Bs Antibody Hepatitis C Antibody HIV 1&2 Antibody 11/19/19 11/19/19 11/19/19 13:25 15:20 15:55 WBC RBC Hgb Hct MCV MCH MCHC RDW Std Deviation RDW Coeff of John Plt Count MPV Immature Gran % (Auto) Neut % (Auto) Lymph % (Auto) Worth % (Auto) Eos % (Auto) Baso % (Auto) Absolute Neuts (auto) Absolute Lymphs (auto) Nucleated RBC % Differential Comment Platelet Estimate PT INR APTT Sodium Potassium Chloride Carbon Dioxide Anion Gap BUN Creatinine Estim Creat Clear Calc Est GFR (MDRD) Af Amer Est GFR (MDRD) Non-Af BUN/Creatinine Ratio Glucose Lactic Acid 1.6 Calcium Phosphorus Total Bilirubin Direct Bilirubin AST ALT Alkaline Phosphatase Total Creatine Kinase 90 Troponin I Total Protein Albumin Globulin Albumin/Globulin Ratio Lipase Urine Opiates Screen NEGATIVE Urine Methadone Screen NEGATIVE Ur Barbiturates Screen NEGATIVE Ur Phencyclidine Scrn NEGATIVE Ur Amphetamines Screen NEGATIVE U Methamphetamin-MDMA NEGATIVE U Benzodiazepines Scrn NEGATIVE Urine Cocaine Screen NEGATIVE U Cannabinoids Screen NEGATIVE Ur Drug Screen Comment Ethyl Alcohol Hep Bs Antigen Hep Bs Antibody Hepatitis C Antibody HIV 1&2 Antibody 11/19/19 11/19/19 11/19/19 17:30 17:30 20:35 WBC RBC Hgb Hct MCV MCH MCHC RDW Std Deviation RDW Coeff of John Plt Count MPV Immature Gran % (Auto) Neut % (Auto) Lymph % (Auto) Worth % (Auto) Eos % (Auto) Baso % (Auto) Absolute Neuts (auto) Absolute Lymphs (auto) Nucleated RBC % Differential Comment Platelet Estimate PT INR APTT Sodium Potassium Chloride Carbon Dioxide Anion Gap BUN Creatinine Estim Creat Clear Calc Est GFR (MDRD) Af Amer Est GFR (MDRD) Non-Af BUN/Creatinine Ratio Glucose Lactic Acid Calcium Phosphorus Total Bilirubin Direct Bilirubin AST ALT Alkaline Phosphatase Total Creatine Kinase Troponin I 0.817 H* 1.010 H* Total Protein Albumin Globulin Albumin/Globulin Ratio Lipase Urine Opiates Screen Urine Methadone Screen Ur Barbiturates Screen Ur Phencyclidine Scrn Ur Amphetamines Screen U Methamphetamin-MDMA U Benzodiazepines Scrn Urine Cocaine Screen U Cannabinoids Screen Ur Drug Screen Comment Ethyl Alcohol Hep Bs Antigen Pending Hep Bs Antibody Pending Hepatitis C Antibody Pending HIV 1&2 Antibody Pending 11/20/19 11/20/19 11/20/19 00:09 04:10 04:10 WBC 8.0 RBC 3.59 L Hgb 11.0 L Hct 31.0 L MCV 86.4 MCH 30.6 MCHC 35.5 RDW Std Deviation 40.6 RDW Coeff of John 13.0 Plt Count 53 L MPV 12.2 H Immature Gran % (Auto) 0.900 Neut % (Auto) 70.2 H Lymph % (Auto) 14.9 L Worth % (Auto) 13.8 H Eos % (Auto) 0.1 Baso % (Auto) 0.1 Absolute Neuts (auto) 5.6 Absolute Lymphs (auto) 1.19 Nucleated RBC % 0 Differential Comment SCANNED Platelet Estimate MOD DEC PT INR APTT Sodium 131 L Potassium 3.7 Chloride 100 Carbon Dioxide 22.0 Anion Gap 9 BUN 30 H Creatinine 0.84 Estim Creat Clear Calc 103.80 Est GFR (MDRD) Af Amer 123 Est GFR (MDRD) Non-Af 101 BUN/Creatinine Ratio 35.8 H Glucose 129 H Lactic Acid Calcium 7.6 L Phosphorus 3.4 Total Bilirubin 0.70 Direct Bilirubin AST 59 H ALT 37 Alkaline Phosphatase 59 Total Creatine Kinase Troponin I 1.090 H* Total Protein 6.2 L Albumin 1.7 L Globulin 4.5 H Albumin/Globulin Ratio 0.4 L Lipase Urine Opiates Screen Urine Methadone Screen Ur Barbiturates Screen Ur Phencyclidine Scrn Ur Amphetamines Screen U Methamphetamin-MDMA U Benzodiazepines Scrn Urine Cocaine Screen U Cannabinoids Screen Ur Drug Screen Comment Ethyl Alcohol Hep Bs Antigen Hep Bs Antibody Hepatitis C Antibody HIV 1&2 Antibody 11/20/19 04:10 WBC RBC Hgb Hct MCV MCH MCHC RDW Std Deviation RDW Coeff of John Plt Count MPV Immature Gran % (Auto) Neut % (Auto) Lymph % (Auto) Worth % (Auto) Eos % (Auto) Baso % (Auto) Absolute Neuts (auto) Absolute Lymphs (auto) Nucleated RBC % Differential Comment Platelet Estimate PT 17.9 H INR 1.5 APTT 32.3 Sodium Potassium Chloride Carbon Dioxide Anion Gap BUN Creatinine Estim Creat Clear Calc Est GFR (MDRD) Af Amer Est GFR (MDRD) Non-Af BUN/Creatinine Ratio Glucose Lactic Acid Calcium Phosphorus Total Bilirubin Direct Bilirubin AST ALT Alkaline Phosphatase Total Creatine Kinase Troponin I Total Protein Albumin Globulin Albumin/Globulin Ratio Lipase Urine Opiates Screen Urine Methadone Screen Ur Barbiturates Screen Ur Phencyclidine Scrn Ur Amphetamines Screen U Methamphetamin-MDMA U Benzodiazepines Scrn Urine Cocaine Screen U Cannabinoids Screen Ur Drug Screen Comment Ethyl Alcohol Hep Bs Antigen Hep Bs Antibody Hepatitis C Antibody HIV 1&2 Antibody Clinical Impression(s) from Imaging Studies Brain CT 11/19/19 13:32 IMPRESSION: Focal old lacunar infarct in the left basal ganglion. Electronically Signed: Matt Gardner, at 14:35 EDT , Service support , Chest X-Ray 11/19/19 13:32 IMPRESSION: Hyperinflation. The lungs are clear. Electronically Signed: Matt Gardner, at 14:28 EDT , Service support , Current Medications Albuterol/Ipratropium (Duoneb) 3 ml INHALATION Q4HWA.RT [facility] Last Admin: 11/19/19 19:10 Dose: 3 ml Documented by: Aspirin (Aspirin, Baby) 81 mg PO DAILY@0800 [facility] Atorvastatin Calcium (Lipitor) 40 mg PO QHS [facility] Buprenorphine HCl (Buprenorphine Hcl) 0 mg SL Q8H [facility]; Taper Stop: 11/22/19 15:44 Clonidine (Catapres) 0.1 mg PO Q8H PRN PRN PRN Reason: RESTLESSNESS Dicyclomine HCl (Bentyl) 20 mg PO Q6H PRN PRN PRN Reason: Abdominal Discomfort Gabapentin (Neurontin) 300 mg PO Q8H PRN PRN PRN Reason: moderate to severe anxiety Hydroxyzine Pamoate (Vistaril Pamoate Capsule) 50 mg PO Q6H PRN PRN PRN Reason: mild anxiety Last Admin: 11/20/19 05:25 Dose: 50 mg Documented by: Meropenem 1 gm/ Sodium (Chloride) 120 mls @ 33 mls/hr IV Q8 [facility] Last Admin: 11/20/19 05:25 Dose: 33 mls/hr Documented by: Lactated Ringer's () 1,000 mls @ 75 mls/hr IV .[id number] [facility] Last Admin: 11/20/19 05:25 Dose: 75 mls/hr Documented by: Sodium Chloride () 250 mls @ 15 mls/hr IV .[id number] PRN PRN Reason: Saline Flush Sodium Chloride () 250 mls @ 15 mls/hr IV .[id number] PRN PRN Reason: Additional IVPB Infusion Loperamide HCl (Imodium) 2 mg PO Q4H PRN PRN PRN Reason: LOOSE STOOLS Methocarbamol (Methocarbamol) 1,500 mg PO Q6H PRN PRN PRN Reason: MUSCLE SPASM Last Admin: 11/20/19 05:25 Dose: 1,500 mg Documented by: Nicotine (Nicoderm Cq (Pbkc)) 21 mg TRANSDERM. DAILY [facility] Last Admin: 11/19/19 17:44 Dose: 21 mg Documented by: Ondansetron HCl (Zofran Odt) 8 mg PO Q8H PRN PRN PRN Reason: NAUSEA Ondansetron HCl (Zofran) 4 mg IV Q6H PRN PRN PRN Reason: NAUSEA Pantoprazole Sodium (Protonix) 20 mg PO DAILY [facility] Sodium Chloride () 10 - 40 ml IV UD PRN PRN Reason: SALINE FLUSH Last Admin: 11/20/19 05:27 Dose: 40 ml Documented by: Trazodone HCl (Desyrel) 100 mg PO QHS PRN PRN PRN Reason: INSOMNIA Assessment/Plan RECOMMENDATIONS: 1. Continue gentle fluid hydration. 2. Await infectious disease consultation. 3. Physical therapy evaluation. 4. Obtain repeat blood and urine cultures. 5. Continue antimicrobials. 6. Continue Protonix. IMPRESSIONS: 1. Severe sepsis The patient technically met severe sepsis criteria, due to positive SIRS criteria along with evidence of organ dysfunction, based upon platelet count of 75,000. The patient's hemodynamics have been rather tenuous as well. Preliminary blood culture was positive on November 18. Echocardiogram revealed evidence of a filamentous vegetation involving the aortic valve concerning for infective endocarditis. The patient is on appropriate antimicrobials. Infectious diseases consultation is pending. Vasopressors will be initiated if clinically indicated. 2. Acute encephalopathy secondary to opiate overdose Improved at this time. Agree with starting buprenorphine, given history of heroin dependency. 3. Acute kidney injury Likely prerenal in etiology. Anticipate improvement with volume expansion. Continue fluids as ordered. Continue to monitor urine output. No current indication for renal replacement therapy. 4. Non-ST segment elevation AR Likely secondary to demand ischemia in the setting of #1. Cardiology consultation is pending. Continue current medical management. 5. History of tobacco dependency/GERD Complicates care, management, recovery and prognosis. The patient does report a 2 pack/day smoking history. I personally spent 5 minutes discussing the deleterious effects of continued tobacco use with the patient, including modalities which could be utilized to achieve a smoke-free lifestyle. Nicotine replacement therapy will be utilized while the patient is admitted to the hospital. This note was generated with [employer] dictation software. It may contain incorrect words, spelling, and punctuation that were not noted in checking the note before signing. Inpatient E&M: 43185 Init Hosp L3 - Behavior Interventions Behavior Intervention: 72242 Smoking Cessation 3-10 min
--- NOTE | 2019-11-20 07:09 | PCM.PN.HOSP ---
Patient Problems: Active and Suspected Problems Altered mental status (Acute) Overdose (Acute) Elevated troponin (Acute) Aspiration into airway (Acute) Reason for Visit: Unresponsiveness secondary to opioid use/IV fentanyl and heroin. Objective: Hypotension. Patient is mild lethargic but answers questions appropriately. Awake and oriented x3. Vitals/I&O's: Vital Signs Temp Pulse Resp BP Pulse Ox 97.4 F L 68 30 H 98/47 L 96 11/20/19 06:00 11/20/19 06:00 11/20/19 06:00 11/20/19 06:00 11/20/19 06:00 Oxygen Flow Rate (L/min) 2 Oxygen Delivery Method Room Air Weight: 194 lb 10.691 oz Body Mass Index (BMI) 27.7 Intake and Output for Last 24 Hours 11/18/19 11/19/19 11/20/19 23:59 23:59 23:59 Intake Total 1450 / 1500 1418.25 / 1418.25 Output Total 350 / 350 850 / 850 Balance 1100 / 1150 568.25 / 568.25 General: Oriented x3, Cooperative, Lethargic HEENT: Atraumatic, PERRLA, EOMI, Normocephalic Oral: Dry Mucosa Neck: Supple, No JVD, Negative Carotid Bruits, Negative Hepatojugular Reflux Lungs: Clear to auscultation, Normal air movement, No rhonchi, No wheeze, No rales Cardiovascular: Regular rate, Regular Rhythm, Normal S1, Normal S2, No murmurs Abdomen: Bowel Sounds Present, Soft, Non Tender, Non-Distended Extremities: No clubbing, No cyanosis, No edema Skin: No rashes, No breakdown Musculoskeletal: No Tenderness to Palpation of Joints or Extremities Neurological: Cranial nerves II-XII grossly intact, Deep Tendon Reflexes 2+/4 and Symmetrical, Neuro grossly intact Laboratory Results 11/19/19 13:25: WBC 14.3 H, RBC 4.18 L, Hgb 12.3 L, Hct 36.3 L, MCV 86.8, MCH 29.4, MCHC 33.9, RDW Std Deviation 41.2, RDW Coeff of John 13.1, Plt Count 75 L, MPV 12.1 H, Immature Gran % (Auto) 1.700 H, Neut % (Auto) 83.7 H, Lymph % (Auto) 5.9 L, Todd % (Auto) 8.6, Eos % (Auto) 0.0, Baso % (Auto) 0.1, Absolute Neuts (auto) 12.0 H, Absolute Lymphs (auto) 0.85, Nucleated RBC % 0, Platelet Estimate MOD 11/19/19 13:25: Sodium 127 L, Potassium 4.2, Chloride 96 L, Carbon Dioxide 21.0, Anion Gap 10, BUN 33 H, Creatinine 1.19, Estim Creat Clear Calc 73.27, Est GFR (MDRD) Af Amer 82, Est GFR (MDRD) Non-Af 68, BUN/Creatinine Ratio 27.7 H, Glucose 121 H, Calcium 8.4 L, Total Bilirubin 1.20 H, Direct Bilirubin 0.63 H, AST 67 H, ALT 43, Alkaline Phosphatase 80, Troponin I 0.924 H*, Total Protein 7.5, Albumin 2.2 L, Globulin 5.3 H, Lipase 136 11/19/19 13:25: Ethyl Alcohol < 3.0 11/19/19 13:25: Total Creatine Kinase 90 11/19/19 15:20: Urine Opiates Screen NEGATIVE, Urine Methadone Screen NEGATIVE, Ur Barbiturates Screen NEGATIVE, Ur Phencyclidine Scrn NEGATIVE, Ur Amphetamines Screen NEGATIVE, U Methamphetamin-MDMA NEGATIVE, U Benzodiazepines Scrn NEGATIVE, Urine Cocaine Screen NEGATIVE, U Cannabinoids Screen NEGATIVE, Ur Drug Screen Comment 11/19/19 15:55: Lactic Acid 1.6 11/19/19 17:30: Hep Bs Antigen Pending, Hep Bs Antibody Pending, Hepatitis C Antibody Pending, HIV 1&2 Antibody Pending 11/19/19 17:30: Troponin I 0.817 H* 11/19/19 20:35: Troponin I 1.010 H* 11/20/19 00:09: Troponin I 1.090 H* 11/20/19 04:10: WBC 8.0, RBC 3.59 L, Hgb 11.0 L, Hct 31.0 L, MCV 86.4, MCH 30.6, MCHC 35.5, RDW Std Deviation 40.6, RDW Coeff of John 13.0, Plt Count 53 L, MPV 12.2 H, Immature Gran % (Auto) 0.900, Neut % (Auto) 70.2 H, Lymph % (Auto) 14.9 L, Todd % (Auto) 13.8 H, Eos % (Auto) 0.1, Baso % (Auto) 0.1, Absolute Neuts (auto) 5.6, Absolute Lymphs (auto) 1.19, Nucleated RBC % 0, Differential Comment SCANNED, Platelet Estimate MOD 11/20/19 04:10: Sodium 131 L, Potassium 3.7, Chloride 100, Carbon Dioxide 22.0, Anion Gap 9, BUN 30 H, Creatinine 0.84, Estim Creat Clear Calc 103.80, Est GFR (MDRD) Af Amer 123, Est GFR (MDRD) Non-Af 101, BUN/Creatinine Ratio 35.8 H, Glucose 129 H, Calcium 7.6 L, Phosphorus 3.4, Total Bilirubin 0.70, AST 59 H, ALT 37, Alkaline Phosphatase 59, Total Protein 6.2 L, Albumin 1.7 L, Globulin 4.5 H, Albumin/Globulin Ratio 0.4 L 11/20/19 04:10: PT 17.9 H, INR 1.5, APTT 32.3 Current Medications Albuterol/Ipratropium (Duoneb) 3 ml INHALATION Q4HWA.RT [facility] Last Admin: 11/19/19 19:10 Dose: 3 ml Documented by: Aspirin (Aspirin, Baby) 81 mg PO DAILY@0800 [facility] Atorvastatin Calcium (Lipitor) 40 mg PO QHS [facility] Buprenorphine HCl (Buprenorphine Hcl) 0 mg SL Q8H [facility]; Taper Stop: 11/22/19 15:44 Clonidine (Catapres) 0.1 mg PO Q8H PRN PRN PRN Reason: RESTLESSNESS Dicyclomine HCl (Bentyl) 20 mg PO Q6H PRN PRN PRN Reason: Abdominal Discomfort Gabapentin (Neurontin) 300 mg PO Q8H PRN PRN PRN Reason: moderate to severe anxiety Hydroxyzine Pamoate (Vistaril Pamoate Capsule) 50 mg PO Q6H PRN PRN PRN Reason: mild anxiety Last Admin: 11/20/19 05:25 Dose: 50 mg Documented by: Meropenem 1 gm/ Sodium (Chloride) 120 mls @ 33 mls/hr IV Q8 [facility] Last Admin: 11/20/19 05:25 Dose: 33 mls/hr Documented by: Lactated Ringer's () 1,000 mls @ 75 mls/hr IV .[id number] [facility] Last Admin: 11/20/19 05:25 Dose: 75 mls/hr Documented by: Sodium Chloride () 250 mls @ 15 mls/hr IV .[id number] PRN PRN Reason: Saline Flush Sodium Chloride () 250 mls @ 15 mls/hr IV .[id number] PRN PRN Reason: Additional IVPB Infusion Loperamide HCl (Imodium) 2 mg PO Q4H PRN PRN PRN Reason: LOOSE STOOLS Methocarbamol (Methocarbamol) 1,500 mg PO Q6H PRN PRN PRN Reason: MUSCLE SPASM Last Admin: 11/20/19 05:25 Dose: 1,500 mg Documented by: Nicotine (Nicoderm Cq (Pbkc)) 21 mg TRANSDERM. DAILY [facility] Last Admin: 11/19/19 17:44 Dose: 21 mg Documented by: Ondansetron HCl (Zofran Odt) 8 mg PO Q8H PRN PRN PRN Reason: NAUSEA Ondansetron HCl (Zofran) 4 mg IV Q6H PRN PRN PRN Reason: NAUSEA Pantoprazole Sodium (Protonix) 20 mg PO DAILY [facility] Sodium Chloride () 10 - 40 ml IV UD PRN PRN Reason: SALINE FLUSH Last Admin: 11/20/19 05:27 Dose: 40 ml Documented by: Trazodone HCl (Desyrel) 100 mg PO QHS PRN PRN PRN Reason: INSOMNIA STROKE Vital Signs/Narrative: Vital Signs Temp Pulse Resp BP Pulse Ox 11/20/19 06:00 97.4 F L 68 30 H 98/47 L 96 11/20/19 05:00 73 20 H 98/50 L 98 11/20/19 04:00 74 32 H 95/47 L 97 Medical Necessity - Tobacco Use Smoking Status: Current every day smoker Tobacco Use: Cigarettes Assessment/Plan All Active Problems Altered mental status (Acute) Overdose (Acute) Elevated troponin (Acute) Aspiration into airway (Acute) This is a 54-year-old gentleman with history of chronic opioid use IV fentanyl and heroin was brought in to ER by EMS for unresponsiveness in his car with needles around suggestive of substance abuse related unresponsiveness. Was given Narcan twice and brought in confused lethargic state. 1. Acute opioid intoxication (IV fentanyl and heroin) with unresponsiveness: The patient is being admitted in ICU. Subsequently, patient woke up and is responsive. Patient called score is 4 which is low and CINA score 2. Blood pressure is low 98/47. In ED, his blood pressure was 100/46. If blood pressure improves and patient MANAGER NICU score gets higher, will start on buprenorphine. 2. Hypotension possible secondary to severe sepsis and dehydration with prerenal azotemia: Patient previous creatinine did not meet criteria for TRENT. Most recent 30/0.84. I am still Ringer lactate 1 L bolus and then normal saline 150 mL/h. 3. Non-STEMI, seems most likely secondary to severe sepsis/infective endocarditis: Patient was admitted with troponin 0.9, peaked up 1.0 9. EKG does not show changes of acute ST-T deviation suggestive of ischemia. Aspirin is contraindicated secondary to thrombocytopenia, 53,000 and patient does not have signs or symptoms of ACS, chest pain or shortness of breath. 4. Severe sepsis secondary to gram-negative chandu bacteremia due to IVDA/infective endocarditis: Gram stain of blood culture is positive of gram-negative rods. On IV meropenem. Discussed with ID. The echo done and report as mentioned below: Interpretation Summary The estimated ejection fraction is 70 %. Trivial mitral valve insufficiency. Mild aortic stenosis.Moderately severe (3+) aortic valve insufficiency. There is a filamentous vegetation on the ventricular side of the aortic valve that measures about 3cm x 0.2cm. 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 Discussed with the collections technician and he advised at least he needs evaluation by cardiac surgeon. I further discussed the findings with the patient and he agreed for transfer to [facility]. I called the transfer line and patient is accepted on cardiac telemetry floor; accepted by Dr. Hope. Patient will be transferred when bed is available. Chest x-ray hyperinflated, looks normal. Incentive spirometry and pep. 5. Hypotonic hypovolemic hyponatremia: Patient admitted with sodium 127 which improved 131. Continue IV fluids. Monitor intake and output. Monitor electrolytes. 6. Abnormal liver chemistry probably secondary to substance abuse: Total bili 1.2, direct 0.6 and AST 67. Monitor liver chemistry test. Hepatitis and HIV test pending. GGT ordered. INR 1.5. PTT normal. A/G ratio less than 0.5. Albumin 2.2. 7. Chronic nicotine use/tobacco: Patient uses 2 packs/day. On nicotine patch. 8. Thrombocytopenia, seems secondary to substance use: Patient admitted with platelet count 75,000 which had dropped to 53,000. Last platelet count was 170,000 in August 2018. Alcohol level is normal. DVT prophylaxis: Pharmacological prophylaxis contraindicated. Bilateral SCDs.
[2019-11-20] MEDS: Ipratropium/Albuterol Sulfate 3 ML AMPUL.NEB INHALATION ×3 (07:11→15:18)
[2019-11-20 08:21] LABS: GGTP 54 U/L (15-85)
--- NOTE | 2019-11-20 08:32 | CASEMGMT ---
Social Work Note Pt is at [facility] for Heroin use and OD. SW placed a call to Go at [facility] and left message asking if she could see pt today regarding substance abuse. Charmaine Ruvalcaba CHOIR LEADER, [employer] DATA HADOOP DEVELOPER
[2019-11-20] MEDS: Pantoprazole Sodium 20 MG Tablet PO (09:14)
[2019-11-20 10:16] LABS: HIV - WCH Non-Reactive (Nonreactive); Hepatitis B Surface Antibody Non-Reactive
[2019-11-20 10:17] LABS: Hepatitis B Surface Antigen REACTIVE (Nonreactive); Hepatitis C Antibody REACTIVE (Nonreactive)
[2019-11-20] MEDS: Lactated Ringers 1,000 ML 125 ML IV (10:17)
[2019-11-20] MEDS: Lactated Ringers 1,000 ML 999 ML IV (11:44)
--- NOTE | 2019-11-20 12:04 | CASEMGMT ---
Physician would like to transfer patient to a tertiary care center. Per [employer] website the following facilities are in network: [facility], [facility], [facility], [facility], and [facility]. Saira ESPINOSA
--- NOTE | 2019-11-20 13:13 | PCM.RX.CS ---
Consult Pharmacy has been consulted to manage selected antiobiotic: Vancomycin Type of Consult: New start Suspected Infection: Endocarditis Prior Doses of Antibiotics Received/Current Regimen: Loading dose of 2000mg IV x1 given 11/19 @ 1254 Labs: Sodium 131 mmol/L (136-145) L 11/20/19 04:10 Potassium 3.7 mmol/L (3.5-5.1) 11/20/19 04:10 Chloride 100 mmol/L (98-107) 11/20/19 04:10 Carbon Dioxide 22.0 mmol/L (21.0-32.0) 11/20/19 04:10 Anion Gap 9 (5-15) 11/20/19 04:10 BUN 30 mg/dL (7-18) H 11/20/19 04:10 Creatinine 0.84 mg/dL (0.70-1.30) 11/20/19 04:10 Est GFR (MDRD) Af Amer 123 mL/min (>60) 11/20/19 04:10 Est GFR (MDRD) Non-Af 101 mL/min (>60) 11/20/19 04:10 BUN/Creatinine Ratio 35.8 RATIO (10-20) H 11/20/19 04:10 Glucose 129 mg/dL (74-106) H 11/20/19 04:10 Microbiology: Microbiology 11/19/19 18:05 Blood Culture (Wb) - Right Forearm Blood Culture - Preliminary Weight used for dosin kg Estimated Creatinine Clearance: 104 Goal Trough: 15-20 mcg/mL Pharmacy Plan for Drug Dosing: New start for infective endocarditis. Loading dose given. 1. Will start 1000mg IV Q8H starting @ 2100 (8 hours after loading dose) 2. Trough ordered prior to 4th dose of new regimen. 3. Pharmacy Service will continue to monitor and adjust dosing as required. Labs to be done on [date and time ordered]: 11/21/19 @ 1230
--- NOTE | 2019-11-20 13:40 | SEPSIS_ITS ---
Sepsis Note - Physical Exam/Vitals Objective: Temp Pulse Resp BP Pulse Ox 97.7 F L 71 29 H 105/45 L 98 11/20/19 19:28 11/20/19 19:28 11/20/19 19:28 11/20/19 19:28 11/20/19 19:28 General: Alert, Oriented x3, Cooperative Lungs: Clear to auscultation, Diminished - Air entry diminished in bilateral lung bases Cardiovascular: Regular rate, Regular Rhythm, Normal S1, Normal S2, Murmur - Early diastolic murmur present over aortic area. Capillary Refill: <3 seconds Peripheral Pulses: Normal Skin Color: [place] - Assessment/Plan As the blood pressure continued to be low even after IV bolus Ringer lactate therapy. Patient is positive fluid balance of 3.8 L. Levophed drip low-dose started as per rainbow trout farm manager recommendation. Impression: Septic shock secondary to gram-negative chandu bacteremia due to IVDA/infective endocarditis - Attestation Sepsis Attestation: Sepsis re-evaluation was performed
[2019-11-20] MEDS: 0.9% Normal Saline 1,000 ML 150 ML IV (13:41)
--- NOTE | 2019-11-20 14:42 | PCM.CONS.C ---
Reason for Consult Date of Consultation: 11/20/19 Reason for Consultation: Infective endocarditis History of Present Illness: The patient is a 54 year old M with pmhx of opiate abuse who presented to the ER by squad after being found unresponsive. Police went to his house in the morning and his behavior was abnormal, they went back to check on him later and found him in the car (which was off) in the garage with needles around him, unresponsive. He later admitted to using fentanyl and heroin, and uses daily, and denies other drug use or drinking. He was given narcan twice and brought to the ER. Patient was then admitted to the ICU and overnight his mental status improved. Currently the patient is oriented x3. He was febrile and blood cultures positive for gram-negative rods. 2D echo revealed preserved EF, moderate to severe aortic insufficiency, filamentous vegetation in the aortic valve. Patient currently denies any chest pain, shortness of breath, dizziness. Telemetry has remained unremarkable. EKG reveals sinus rhythm with no evidence of heart block. Review of systems: All systems reviewed. All else is negative except that in HPI. Past Medical History Allergies/Adverse Reactions: Allergies Penicillins [PCN] Allergy (Verified 11/19/19 13:24) Shortness of breath Home Medications: Ambulatory Orders Medication Instructions Recorded Albuterol Sulfate [Ventolin Hfa] 2 puff INHALATION Q4H PRN PRN 11/19/19 Omeprazole 20 mg PO DAILY 11/19/19 Surgical History: noncontributory Psychiatric History: No pertinent psych hx - *Family History Maternal History Items: No pertinent history Paternal History Items: No pertinent history Lives: Alone Smoking Status: Current every day smoker Tobacco Use: Cigarettes Alcohol: None Drugs: Heroin, - - fentanyl Objective: Vital Signs Temp Pulse Resp BP Pulse Ox 97.6 F L 71 29 H 89/46 L 98 11/20/19 14:00 11/20/19 14:00 11/20/19 14:00 11/20/19 14:00 11/20/19 14:00 Oxygen Flow Rate (L/min) 2 Oxygen Delivery Method Room Air Weight: 194 lb 10.691 oz Body Mass Index (BMI) 27.7 Intake and Output for Last 24 Hours 11/18/19 11/19/19 11/20/19 23:59 23:59 23:59 Intake Total 1450 / 1500 4054.50 / 4054.50 Output Total 350 / 350 1350 / 1350 Balance 1100 / 1150 2704.50 / 2704.50 General: Awake, Alert, Oriented x 3 HEENT: Atraumatic Oral: Moist Mucosa Neck: Supple Lungs: Clear to auscultation Cardiovascular: Regular Rhythm Abdomen: Soft Extremities: No edema Skin: No Rashes Psych/Mental Status: Appropriate 11/19/19 15:55: Lactic Acid 1.6 11/19/19 17:30: Troponin I 0.817 H* 11/19/19 20:35: Troponin I 1.010 H* 11/20/19 00:09: Troponin I 1.090 H* 11/20/19 04:10: WBC 8.0, RBC 3.59 L, Hgb 11.0 L, Hct 31.0 L, MCV 86.4, MCH 30.6, MCHC 35.5, Plt Count 53 L, MPV 12.2 H, Immature Gran % (Auto) 0.900, Neut % (Auto) 70.2 H, Lymph % (Auto) 14.9 L, [place] % (Auto) 13.8 H, Eos % (Auto) 0.1, Baso % (Auto) 0.1, Absolute Neuts (auto) 5.6, Nucleated RBC % 0 11/20/19 04:10: Sodium 131 L, Potassium 3.7, Chloride 100, Carbon Dioxide 22.0, Anion Gap 9, BUN 30 H, Creatinine 0.84, Est GFR (MDRD) Af Amer 123, Est GFR (MDRD) Non-Af 101, BUN/Creatinine Ratio 35.8 H, Glucose 129 H, Calcium 7.6 L, Phosphorus 3.4, Total Bilirubin 0.70 11/20/19 04:10: PT 17.9 H, INR 1.5, APTT 32.3 Rhythm: EKG: ECHO: Stress Test: Cardiac Cath: PCI: CT Surgery: Holter monitor: EPS: PPM: CXR: Chest CT Scan: Assessment/Plan 1. Infective endocarditis: Patient has history of IV drug abuse and has vegetation associated with aortic valve. He also had fever and blood culture that is positive for gram-negative rods. He has moderate to severe aortic insufficiency as well. I would recommend ID consult for management of infective endocarditis. In addition I would recommend a MEAGHAN to see if patient has abscess formation. He does have a large mobile vegetation that is at risk for embolization. While this is a relative indication for surgery, he has history of IV drug use which necessitates us to treat this medically as much as possible. He does not have any evidence of heart failure, high-grade AV blocks. He may benefit from being evaluated at a center that has CT surgery availability in case patient deteriorates and ends up needing urgent surgery. If patient is here overnight we will proceed with MEAGHAN. If there is a bed available at [facility] he can be transferred there and further work-up can be done there.
--- NOTE | 2019-11-20 15:34 | CHAPLAIN ---
Type of Pastoral Visit _x__ Initial Visit ___ Follow-up Visit ___ On-call Visit ___ General Patient Visit ___ Spiritual Assessment ___ Family Conference ___ Bereavement ___ Rapid Response ___ Code Blue ___ Other (describe below) Pastoral Care Referral From _x__ Patient ___ Family _x__ Nurse ___ Physician ___ Dynamometer Tuner ___ Shoer ___ Other (describe below) Sacrament/Intervention _x__ Active listening ___ Anointing ___ Sikhism ___ Bereavement ___ Communion _x__ Malina exploration ___ _x__ Life review _x__ Prayer ___ Reconciliation ___ Sacrament of Sick _x__ Supportive presence ___ Wedding ___ Other (describe below) Pastoral Comments RN suggested that patient would be willing to have supportive visit from this target network analyst; in fact when asked the pt was very eager to talk and have emotional and spiritual support at this time; pt was talkative and expressive about his health need and DR recommendation for heart medications that may lead to surgery; pt talks of being unsettled about decisions; pt also expresses questions of spiritual nature; pt identifies as person of Judaism and beliefs; pt welcomed prayer and presence; pt would welcome future visits of spiritual support from target network analyst
[2019-11-20] MEDS: TITRATION PARAMETER CHANGE 1 EACH IV (17:37)
--- NOTE | 2019-11-20 18:03 | PCM.DC.SUM ---
Discharge Date and Diagnosis Date of Admission: 11/19/19 Date of Discharge: 11/20/19 - Primary Discharge Diagnosis Acute Problems: Active Problems Altered mental status (Acute) Overdose (Acute) Elevated troponin (Acute) Aspiration into airway (Acute) Hospital Course and Treatment Imaging Results: 11/20/19 05:55 Echo Complete [ECHO] AM (NON MEDS) Consultations 11/19/19 16:49 Consult: Onc/Wound/apprentice painter brush Routine Comment: Reason for Consult:: pressure injury sacral/coccygeal Summary of Care Provided: [] This is a 54-year-old gentleman with history of chronic opioid use IV fentanyl and heroin was brought in to ER by EMS for unresponsiveness in his car with needles around suggestive of substance abuse related unresponsiveness. Was given Narcan twice and brought in confused lethargic state. 1. Acute opioid intoxication (IV fentanyl and heroin) with unresponsiveness: The patient is being admitted in ICU. Subsequently, patient woke up and is responsive. Patient called score is 4 which is low and CINA score 2. Blood pressure is low 98/47. In ED, his blood pressure was 100/46. Initially patient was resuscitated with IV fluid bolus but then he started on Levophed drip. If blood pressure improves and patient FIRE CODE INSPECTOR score gets higher, can start on buprenorphine. 2. Septic shock secondary to gram-negative chandu bacteremia due to IVDA/infective endocarditis: Patient was given 1 L Ringer lactate in the morning. Total positive fluid balance 3.8 L. Started on Levophed drip through peripheral line, low-dose. Patient has contraindication for central line/PICC line for now as he is bacteremic. Gram stain of blood culture is positive of gram-negative rods. On IV vancomycin and meropenem. Discussed with ID. The echo done and report as mentioned below: Interpretation Summary The estimated ejection fraction is 70 %. Trivial mitral valve insufficiency. Mild aortic stenosis.Moderately severe (3+) aortic valve insufficiency. There is a filamentous vegetation on the ventricular side of the aortic valve that measures about 3cm x 0.2cm. 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 Discussed with the weight yardage checker and he advised at least he needs evaluation by cardiac surgeon. I further discussed the findings with the patient and he agreed for transfer to [facility]. I called the transfer line and Initially patient was accepted on cardiac telemetry floor by Dr. Hope but as patient required Levophed drip therefore discussed with mortar man Dr. David for transfer to ICU and he was accepted. Patient is transferred to ICU in the evening. 3. Dehydration with mild prerenal azotemia: Patient previous creatinine did not meet criteria for TRENT. Most recent 30/0.84. I am still Ringer lactate 1 L bolus and then normal saline 150 mL/h. Chest x-ray hyperinflated, looks normal. Incentive spirometry and pep. 4. Non-STEMI, seems most likely secondary to septic shock/infective endocarditis: Patient was admitted with troponin 0.9, peaked up 1.0 9. EKG does not show changes of acute ST-T deviation suggestive of ischemia. Aspirin is contraindicated secondary to thrombocytopenia, 53,000 and patient does not have signs or symptoms of ACS, chest pain or shortness of breath. 5. Hypotonic hypovolemic hyponatremia: Patient admitted with sodium 127 which improved 131. Continue IV fluids. Monitor intake and output. Monitor electrolytes. 6. Abnormal liver chemistry probably secondary to substance abuse: Total bili 1.2, direct 0.6 and AST 67. Monitor liver chemistry test. Hepatitis and HIV test pending. GGT ordered. INR 1.5. PTT normal. A/G ratio less than 0.5. Albumin 2.2. 7. Chronic nicotine use/tobacco: Patient uses 2 packs/day. On nicotine patch. 8. Thrombocytopenia, seems secondary to substance use: Patient admitted with platelet count 75,000 which had dropped to 53,000. Last platelet count was 170,000 in August 2018. Alcohol level is normal. DVT prophylaxis: Pharmacological prophylaxis contraindicated. Bilateral SCDs. Discharge medication reconciliation done. Discharge follow-up instructions completed. Discharge process discussed with the patient and all questions were answered to patient's satisfaction. Total time spent, exact 35 minutes on discharge meds reconciliation, examination, coordination of care with nurses and ancillary staff, review of imaging and blood test and discussion with the patient on follow-up instructions Subjective: Please see physical findings and progress note of same day and sepsis note. Patient was seen and examined in afternoon. - Physical Exam Vitals/I&O's: Vital Signs Temp Pulse Resp BP Pulse Ox 97 F L 78 34 H 105/59 L 97 11/20/19 12:00 11/20/19 13:00 11/20/19 13:00 11/20/19 13:00 11/20/19 13:00 Oxygen Flow Rate (L/min) 2 Oxygen Delivery Method Room Air Weight: 194 lb 10.691 oz Body Mass Index (BMI) 27.7 Intake and Output for Last 24 Hours 11/18/19 11/19/19 11/20/19 23:59 23:59 23:59 Intake Total 1450 / 1500 3604.50 / 3604.50 Output Total 350 / 350 1350 / 1350 Balance 1100 / 1150 2254.50 / 2254.50 Microbiology Past 72 Hours 11/19/19 18:05 Blood Culture (Wb) - Right Forearm Blood Culture - Preliminary Laboratory Results 11/19/19 13:25: Platelet Estimate MOD 11/19/19 13:25: Sodium 127 L, Potassium 4.2, Chloride 96 L, Carbon Dioxide 21.0, Anion Gap 10, BUN 33 H, Creatinine 1.19, Estim Creat Clear Calc 73.27, Est GFR (MDRD) Af Amer 82, Est GFR (MDRD) Non-Af 68, BUN/Creatinine Ratio 27.7 H, Glucose 121 H, Calcium 8.4 L, Total Bilirubin 1.20 H, Direct Bilirubin 0.63 H, AST 67 H, ALT 43, Alkaline Phosphatase 80, Troponin I 0.924 H*, Total Protein 7.5, Albumin 2.2 L, Globulin 5.3 H, Lipase 136 11/19/19 13:25: Ethyl Alcohol < 3.0 11/19/19 13:25: Total Creatine Kinase 90 11/19/19 15:20: Urine Opiates Screen NEGATIVE, Urine Methadone Screen NEGATIVE, Ur Barbiturates Screen NEGATIVE, Ur Phencyclidine Scrn NEGATIVE, Ur Amphetamines Screen NEGATIVE, U Methamphetamin-MDMA NEGATIVE, U Benzodiazepines Scrn NEGATIVE, Urine Cocaine Screen NEGATIVE, U Cannabinoids Screen NEGATIVE, Ur Drug Screen Comment 11/19/19 15:55: Lactic Acid 1.6 11/19/19 17:30: Hep Bs Antigen REACTIVE, Hep Bs Antibody Non-Reactive, Hepatitis C Antibody REACTIVE, HIV 1&2 Antibody Non-Reactive 11/19/19 17:30: Troponin I 0.817 H* 11/19/19 20:35: Troponin I 1.010 H* 11/20/19 00:09: Troponin I 1.090 H* 11/20/19 04:10: WBC 8.0, RBC 3.59 L, Hgb 11.0 L, Hct 31.0 L, MCV 86.4, MCH 30.6, MCHC 35.5, RDW Std Deviation 40.6, RDW Coeff of John 13.0, Plt Count 53 L, MPV 12.2 H, Immature Gran % (Auto) 0.900, Neut % (Auto) 70.2 H, Lymph % (Auto) 14.9 L, [place] % (Auto) 13.8 H, Eos % (Auto) 0.1, Baso % (Auto) 0.1, Absolute Neuts (auto) 5.6, Absolute Lymphs (auto) 1.19, Nucleated RBC % 0, Differential Comment SCANNED, Platelet Estimate MOD 11/20/19 04:10: Sodium 131 L, Potassium 3.7, Chloride 100, Carbon Dioxide 22.0, Anion Gap 9, BUN 30 H, Creatinine 0.84, Estim Creat Clear Calc 103.80, Est GFR (MDRD) Af Amer 123, Est GFR (MDRD) Non-Af 101, BUN/Creatinine Ratio 35.8 H, Glucose 129 H, Calcium 7.6 L, Phosphorus 3.4, Total Bilirubin 0.70, AST 59 H, ALT 37, Alkaline Phosphatase 59, Total Protein 6.2 L, Albumin 1.7 L, Globulin 4.5 H, Albumin/Globulin Ratio 0.4 L 11/20/19 04:10: PT 17.9 H, INR 1.5, APTT 32.3 11/20/19 04:10: GGT 54 Current Medications Acetaminophen (Tylenol) 500 mg PO Q4H PRN PRN PRN Reason: Temp > 100.4 F Al Hydroxide/Mg Hydroxide (Mylanta Ii) 30 ml PO Q6H PRN PRN PRN Reason: dyspesia Albuterol/Ipratropium (Duoneb) 3 ml INHALATION Q4HWA.RT SMILEY Last Admin: 11/20/19 11:15 Dose: 3 ml Documented by: Atorvastatin Calcium (Lipitor) 40 mg PO QHS SMILEY Bisacodyl (Dulcolax) 10 mg RECTAL DAILY PRN PRN Reason: Constipation Buprenorphine HCl (Buprenorphine Hcl) 4 mg SL Q8H SMILEY; Taper Stop: 11/24/19 11:29 Clonidine (Catapres) 0.1 mg PO Q8H PRN PRN PRN Reason: RESTLESSNESS Dicyclomine HCl (Bentyl) 20 mg PO Q6H PRN PRN PRN Reason: Abdominal Discomfort Gabapentin (Neurontin) 300 mg PO Q8H PRN PRN PRN Reason: moderate to severe anxiety Hydroxyzine Pamoate (Vistaril Pamoate Capsule) 25 mg PO Q6H PRN PRN PRN Reason: mild anxiety Sodium Chloride () 250 mls @ 15 mls/hr IV .[id number] PRN PRN Reason: Saline Flush Meropenem 1 gm/ Sodium (Chloride) 120 mls @ 33 mls/hr IV Q8 SMILEY Vancomycin IV Pharmacy to Dose (1 ea/ Sodium Chloride) 500 mls @ 250 mls/hr IV X1 PRN; Protocol PRN Reason: Rx to Dose Vancomycin HCl 2,000 mg/ (Sodium Chloride) 540 mls @ 250 mls/hr IV X1 ONE Stop: 11/20/19 14:39 Last Admin: 11/20/19 12:54 Dose: 250 mls/hr Documented by: Sodium Chloride () 1,000 mls @ 150 mls/hr IV .[id number] [facility] Last Admin: 11/20/19 13:41 Dose: 150 mls/hr Documented by: Vancomycin HCl (Vancomycin) 1,000 mg in 200 mls @ 200 mls/hr IV Q8H SMILEY Ibuprofen (Motrin) 600 mg PO Q8H PRN PRN PRN Reason: Pain Score 1-10/10 Loperamide HCl (Imodium) 2 mg PO Q4H PRN PRN PRN Reason: LOOSE STOOLS Methocarbamol (Methocarbamol) 1,500 mg PO Q6H PRN PRN PRN Reason: MUSCLE SPASM Last Admin: 11/20/19 05:25 Dose: 1,500 mg Documented by: Nicotine (Nicoderm Cq (Pbkc)) 21 mg TRANSDERM. DAILY [facility] Last Admin: 11/20/19 09:13 Dose: Not Given Documented by: Nutritional Formula (Lactose Free) (Ensure Enlive) 120 ml PO 4X/DAY [facility] Last Admin: 11/20/19 13:41 Dose: Not Given Documented by: Ondansetron HCl (Zofran Odt) 8 mg PO Q8H PRN PRN PRN Reason: NAUSEA Ondansetron HCl (Zofran) 4 mg IV Q6H PRN PRN PRN Reason: NAUSEA Pantoprazole Sodium (Protonix) 20 mg PO DAILY SMILEY Last Admin: 11/20/19 09:14 Dose: 20 mg Documented by: Senna (Senokot) 2 tablet PO QHS PRN PRN Reason: Constipation Sodium Chloride () 10 - 40 ml IV UD PRN PRN Reason: SALINE FLUSH Last Admin: 11/20/19 05:27 Dose: 40 ml Documented by: Trazodone HCl (Desyrel) 50 mg PO QHS PRN PRN PRN Reason: .INSOMNIA Home Medications: Medications to take at Discharge Albuterol Sulfate [Ventolin Hfa] 2 puff INHALATION Q4H PRN PRN 11/19/19 Omeprazole 20 mg PO DAILY 11/19/19 Primary Care Physician: Azael Uribe MD [Primary Care Provider] - Medical Necessity - Tobacco Use Smoking Status: Current every day smoker Tobacco Use: Cigarettes Meaningful Use Info Meaningful Use Diagnoses (Choose all that apply): None applicable Inpatient E&M: 71277 [facility] Hosp
== END 2019-11-20 18:45 | disposition short-term general hospital (02) | DRG 812 ==
LOC: ED 14:38 → ICU 16:27
PROVIDERS: Hospitalist; Physician Assistant; Admitting Provider Internal Medicine; Emergency Provider Emergency Medicine; PCP Family Medicine; Visit Provider Internal Medicine
DX: T40.4X1A Poisoning by other synthetic narcotics, accidental (unintentional), initial encounter (principal); A41.50 Gram-negative sepsis, unspecified; R65.21 Severe sepsis with septic shock; J69.0 Pneumonitis due to inhalation of food and vomit; I33.0 Acute and subacute infective endocarditis; I21.4 Non-ST elevation (NSTEMI) myocardial infarction; F11.129 Opioid abuse with intoxication, unspecified; G93.40 Encephalopathy, unspecified; E86.0 Dehydration; I35.1 Nonrheumatic aortic (valve) insufficiency; E87.1 Hypo-osmolality and hyponatremia; R17 Unspecified jaundice; F17.210 Nicotine dependence, cigarettes, uncomplicated; T40.601A Poisoning by unspecified narcotics, accidental (unintentional), initial encounter; D69.6 Thrombocytopenia, unspecified; L89.151 Pressure ulcer of sacral region, stage 1; E86.1 Hypovolemia; Z86.73 Personal history of transient ischemic attack (TIA), and cerebral infarction without residual deficits; Z79.891 Long term (current) use of opiate analgesic
CPT/HCPCS: 70450; 71045; 80048; 80053; 80076; 80307; 80320; 82550; 82977; 83605; 83690; 84100; 84484; 85025; 85610; 85730; 86703; 86706; 86803; 87040; 87077; 87086; 87186; 87340; 92610; 93005; 93306; 94640; 94667; 94668; 97162; 97166; 97802; 99251; 99285; 99406; J2185; J7030; J7040; J7050; J7120; A4216; G0463; G0480

== ENCOUNTER → 2020-01-21 13:32 | Outpatient (CLI) | payer MEDICAID, SELFPAY ==
[2020-01-20 15:00] VITALS: BMI 26.9
--- NOTE | 2020-01-21 13:34 | VDLE_ITS ---
Reason For Study: PAIN, EDEMA RIGHT LEFT GSV is normal. CFV is compressible, spontaneous, phasic, CFV is compressible, spontaneous, phasic, competent, and demonstrates normal competent and demonstrates normal augmentation. augmentation. FV is compressible, spontaneous, phasic, FV is compressible, spontaneous, phasic, competent and demonstrates normal competent and demonstrates normal augmentation. augmentation. POP V is compressible, spontaneous, phasic, POP V is compressible, spontaneous, phasic, competent and demonstrates normal competent and demonstrates normal augmentation. augmentation. T/P Trunk is compressible. T/P Trunk is compressible. PTV is compressible. PTV is compressible. LT PerV is compressible. RT PerV is compressible. LT GSV is compressible above the knee and has Procedure been harvested for CABG below the knee. Exam performed in department. A preliminary report was called and/or faxed to [facility]. Interpretation Summary No evidence for acute deep venous thrombosis bilateral lower extremities. Patent and compressible right great saphenous vein Surgically harvested left below-knee great saphenous vein, patent and compressible proximally Ordering Physician: Paul Downs Referring Physician: DAVID MURPHY Performed By: Avani Lemos, EBENEZER, RVT
== END ==
PROVIDERS: PCP Family Medicine; Referring Provider Specialist; Visit Provider Specialist
DX: M79.606 Pain in leg, unspecified (principal); R60.0 Localized edema
CPT/HCPCS: 93970

== ENCOUNTER → 2020-09-02 16:07 | Outpatient (CLI) | payer MEDICAID, SELFPAY ==
[2020-09-02 15:24] VITALS: BMI 37.6
[2020-09-02 17:08] LABS: Absolute Lymphocyte Count 1.96 X10^3/uL (0.83-4.51); Absolute Neutrophil Count 3.7 X10^3/uL (2.0-7.7); Basophil# 0.06 X10^3/uL; Basophil% 0.9 % (0-1); Eosinophil# 0.08 X10^3/uL; Eosinophils% 1.2 % (0-5); Hematocrit 39.4 % (40-54); Hemoglobin 11.8 g/dL (13.0-16.5); Lymphocyte # 1.96 X10^3/ul (4.0); Lymphocyte % 30.4 % (19-41); Mean Corp Hgb Conc 29.9 g/dL (32-36); Mean Corpuscular Hgb 25.4 pg (27.0-32.0); Mean Corpuscular Volume 84.9 fL (80-94); Mean Platelet Vol. 10.6 fl (6.2-12.0); Monocyte# 0.63 X10^3/uL; Monocyte% 9.8 % (0-10); NRBC Flagged by Analyzer 0 % (0-5); Neutrophil % 57.4 % (47-70); Platelet Count 115 K/mm3 (150-450); RBC Distribution Width CV 15.1 % (11.6-14.6); RBC Distribution Width SD 47.1 fl (35.1-43.9); Red Blood Count 4.64 M/mm3 (4.6-6.2); White Blood Count 6.5 K/mm3 (4.4-11.0)
[2020-09-02 18:04] LABS: ALB/GLOB Ratio 0.6 RATIO (0.9-2.4); AST(SGOT) 109 U/L (15-37); Alanine Aminotransfer ALT/SGPT 113 U/L (16-61); Albumin, Serum 3.4 g/dL (3.2-5.0); Alkaline Phosphatase 129 U/L (45-117); Anion Gap 1 (5-15); BUN 14 mg/dL (7-18); BUN/Creat Ratio 13.9 RATIO (10-20); Calcium,Total 8.5 mg/dL (8.5-10.1); Chloride 102 mmol/L (98-107); Creatinine, Serum 1.01 mg/dL (0.70-1.30); EST Glomerular Filtration Rate 82 mL/min (>60); Est Glom Filt Rate - Afr Amer 99 mL/min (>60); Globulin 5.9 g/dL (2.2-4.2); Glucose 100 mg/dL (74-106); Potassium 4.2 mmol/L (3.5-5.1); Protein, Total 9.3 g/dL (6.4-8.2); Sodium Level 134 mmol/L (136-145)
[2020-09-02 18:36] LABS: BNP,B-Type NATRIURETIC PEPTIDE 18.3 pg/mL (0-100)
== END ==
PROVIDERS: PCP Family Medicine; Visit Provider Physician Assistant Medical
DX: R06.00 Dyspnea, unspecified (principal); I35.8 Other nonrheumatic aortic valve disorders; E78.5 Hyperlipidemia, unspecified; Z95.3 Presence of xenogenic heart valve; Z95.1 Presence of aortocoronary bypass graft
CPT/HCPCS: 36415; 80053; 83880; 85025

== ENCOUNTER → 2020-09-10 13:01 | Outpatient (CLI) | payer MEDICAID, SELFPAY ==
[2020-09-02 15:24] VITALS: BMI 37.6
--- NOTE | 2020-09-10 13:06 | ECHOCS_ITS ---
Reason For Study: S/P CABG, S/P AVR Procedure This was a 2D Doppler, Color Flow transthoracic echocardiogram. The study was technically difficult. Exam performed in department. Left Ventricle Normal LV size. The estimated ejection fraction is 65 %. No evidence for diastolic dysfunction. No regional wall motion abnormalities noted. Right Ventricle Normal RV size. Normal systolic function. Atria Normal left atrium. Normal right atrium. No doppler evidence for ASD. Mitral Valve There is no mitral valve stenosis. No mitral valve insufficiency. Tricuspid Valve There is no tricuspid stenosis. Unable to estimate RV systolic pressure due to inadequate jet, pulmonary artery pressure probably normal. Aortic Valve There is no aortic stenosis. No aortic valve insufficiency. Stable appearing bioprosthetic aortic valve apparatus. Pulmonic Valve There is no pulmonic valvular stenosis. No pulmonic valve insufficiency. Great Vessels Normal aortic root. Pericardium/Pleural No pericardial effusion. Medication 22 gauge I.V. with prn adaptor inserted into right arm. Diluted definity 2ml given slow IV push to enhance endocardial definition. MMode/2D Measurements & Calculations LVIDd: 4.8 cm IVSd: 1.1 cm LVOT diam: 2.0 cm LVIDs: 3.1 cm LVPWd: 1.1 cm RVDd: 4.2 cm FS: 35.4 % LVOT area: 3.0 cm2 Ao root diam: 3.2 cm LAV(MOD-bp): 38.2 ml LVAd ap4: 35.7 cm2 LAV(MOD-bp) Indexed: 15.0 ml/m2 EDV(MOD-sp4): 124.8 ml LAV(MOD-sp2): 42.3 ml EDV(sp4-el): 130.5 ml LAV(MOD-sp4): 33.3 ml LVAs ap4: 19.5 cm2 ESV(MOD-sp4): 42.5 ml ESV(sp4-el): 44.9 ml EF(MOD-sp4): 65.9 % EF(sp4-el): 65.6 % SV(MOD-sp4): 82.3 ml SV(sp4-el): 85.6 ml LA A4 area: 13.7 cm2 LA dimension(2D): 3.5 cm RA A4 area: 14.6 cm2 Time Measurements MV dec time: 0.27 sec Doppler Measurements & Calculations MV E max cameron: 128.8 cm/sec Lat Peak E' Cameron: 13.4 cm/sec Med Peak E' Camerno: 11.5 cm/sec MV A max cameron: 109.5 cm/sec E/E' lat: 9.6 E/E' med: 11.2 MV E/A: 1.2 Ao V2 max: 311.7 cm/sec LV V1 max: 134.7 cm/sec SV(LVOT): 98.3 ml Ao max P.9 mmHg LV V1 max P.3 mmHg Ao V2 mean: 235.5 cm/sec LV V1 mean P.2 mmHg Ao mean P.0 mmHg LV V1 mean: 95.1 cm/sec Ao V2 VTI: 67.2 cm LV V1 VTI: 32.9 cm HERMELINDO(I,D): 1.5 cm2 HERMELINDO(V,D): 1.3 cm2 PA V2 max: 111.6 cm/sec TR max cameron: 260.7 cm/sec TR max P.2 mmHg ECHO/Echo Complete W/ Contrast Interpretation Summary The estimated ejection fraction is 65 %. No evidence for diastolic dysfunction. Stable appearing bioprosthetic aortic valve apparatus. The study was technically difficult. Contrast injection was performed. Ordering Physician: Almaz Araya/BECKY Referring Physician: DAVID MURPHY Performed By: Mel Arnold RDCS
== END ==
PROVIDERS: PCP Family Medicine; Referring Provider Physician Assistant Medical; Visit Provider Physician Assistant Medical
DX: R06.00 Dyspnea, unspecified (principal); I35.8 Other nonrheumatic aortic valve disorders; E78.5 Hyperlipidemia, unspecified; Z95.1 Presence of aortocoronary bypass graft; Z95.3 Presence of xenogenic heart valve
CPT/HCPCS: 93306; Q9957; A4216; C8929

== ENCOUNTER → 2021-04-18 10:03 | Outpatient (CLI) | payer MEDICAID, SELFPAY ==
[2021-04-18 11:02] LABS: AST(SGOT) 106 U/L (15-37); Alanine Aminotransfer ALT/SGPT 109 U/L (16-61); Alkaline Phosphatase 150 U/L (45-117); Bilirubin, Direct 0.25 mg/dL (0.00-0.30); Cholesterol 108 mg/dL (200); Globulin 6.4 g/dL (2.2-4.2); High Density Lipoprotein 33 mg/dL; Protein, Total 9.4 g/dL (6.4-8.2); Triglycerides 85 mg/dL; Very Low Density Lipoprotein 17 mg/dL (5-40)
== END ==
PROVIDERS: PCP Family Medicine; Visit Provider Nurse Practitioner Gerontology
DX: E83.42 Hypomagnesemia (principal); E78.5 Hyperlipidemia, unspecified
CPT/HCPCS: 36415; 80061; 80076; 83735

== ENCOUNTER 2021-09-05 06:22 | Inpatient (IN) | payer MEDICAID, SELFPAY ==
[2021-09-05] VITALS (14 sets, daily range): BP systolic 109–178; BP diastolic 57–99; PULSE 90–108; RESP 16–18; TEMP 37.2–39.4; O2SAT 88–98; BMI 44.4; BMI 43.0
--- NOTE | 2021-09-05 06:39 | CT_ITS ---
EXAM: CT HEAD WITHOUT INTRAVENOUS CONTRAST : 1965 CLINICAL INDICATION: Altered mental status TECHNIQUE: Multiple axial images were obtained of the head without intravenous contrast. This CT exam was performed using one or more of the following dose reduction techniques: automated exposure control, adjustment of the mA and/or kV according to patient size, and/or use of iterative reconstruction technique. This report was created using [employer] report generation technology. COMPARISON: 11/19/19 FINDINGS: BRAIN AND EXTRA-AXIAL SPACES: Chronic lacunar infarcts in the basal ganglia bilaterally. No intra- or extra-axial hemorrhage. No intracranial mass or mass effect. Posterior fossa structures are unremarkable. Ventricles are appropriate for age. No hydrocephalus. Basal cisterns are patent. BONES/JOINTS: Unremarkable. No discrete lytic or blastic abnormalities. SINUSES: Bilateral maxillary sinus disease. MASTOID AIR CELLS: Unremarkable. Clear. ORBITS: Visualized globes, extraocular muscles, optic nerves and retrobulbar fat appear unremarkable. CT/Brain/Head without Contrast IMPRESSION: 1. No acute intracranial abnormalities. 2. Chronic lacunar infarcts in the basal ganglia bilaterally. 3. Bilateral maxillary sinus disease. Individualized dose optimization techniques were used for this CT. at 0756 Reported and signed by: Tim Zhao MD Electronically Signed: Tim Zhao MD at 7:55 EDT ,
--- NOTE | 2021-09-05 06:39 | RAD_ITS ---
STUDY: X-RAY CHEST REASON FOR EXAM: Male, 55 years old. fever TECHNIQUE: AP COMPARISON: 11/19/2019 FINDINGS: EKG leads project over the chest. Mild coarsening of the interstitial lung markings/central pulmonary vessels but no airspace consolidation. Lungs are relatively hypoinflated. There is no demonstrated pleural abnormality. Normal size heart. Sternal wires/plates and mediastinal surgical clips compatible with prior CABG. Normal visualized pulmonary arteries. There is atherosclerotic tortuosity of the aortic arch and descending thoracic aorta. Normal visualized thoracic spine. Normal visualized ribs, clavicles, and shoulders. There is no demonstrated abnormality of the visualized soft tissue structures of the upper abdomen. RAD/Chest 1 View (Portable) IMPRESSION: No airspace consolidation or pleural effusion. Hypoinflation likely accentuated bronchovascular markings. Electronically Signed: Blair Townsend MD (Brooks) at 8:15 EDT Reading Location ID and State: [id number] , Service support ,
--- NOTE | 2021-09-05 06:39 | EKG12_ITS ---
Test Reason : Blood Pressure : / mmHG Vent. Rate : 104 BPM Atrial Rate : 104 BPM P-R Int : 144 ms QRS Dur : 090 ms QT Int : 344 ms P-R-T Axes : 059 076 035 degrees QTc Int : 452 ms Sinus tachycardia occasional PVCs non specific T wave abnormality Confirmed by SAMANTHA YEUNG, ROSINA ([id number]), digital editor LAZARO SWENSON ([id number]) on 09/07/2021 11:32:55 AM Referred By: ROGERIO Confirmed By:ROSINA SINGH MD
[2021-09-05 06:46] LABS: Bedside Glucose 124 mg/dL (74-106)
[2021-09-05] MEDS: 0.9% Normal Saline 1,000 ML 999 ML IV (06:55)
--- NOTE | 2021-09-05 07:03 | CT_ITS ---
STUDY: CT ABDOMEN AND PELVIS WITH CONTRAST REASON FOR EXAM: Male, 55 years old. Fever, lethargy RADIATION DOSAGE (If Supplied By Facility): CTDIvol = ( 15.41 ) mGy, DLP = ( 1241.62 ) mGycm TECHNIQUE: Transaxial images were obtained from the dome of the diaphragm to the symphysis pubis without oral contrast. IV 100mL Isovue-300 was administered. Sagittal and coronal images were reconstructed. Limited by motion. Individualized dose optimization techniques were used for this CT. COMPARISON: None. FINDINGS: The visualized lung bases are unremarkable. The visualized portions of the heart are within normal limits. Normal liver. Normal gallbladder and extrahepatic biliary system. Spleen is enlarged measuring up to 14 cm in craniocaudal length. Normal pancreas. Normal bilateral adrenal glands. Normal right kidney. Normal left kidney. Normal visualized stomach. Normal small intestine. Fecal residue in the colon but no colon wall thickening or pericolonic stranding. There is non-visualization of the appendix. There is diffuse atherosclerotic calcification of the abdominal aorta, without a demonstrated aneurysm. Normal inferior vena cava. There is borderline retroperitoneal and iliac chain lymphadenopathy with enlarged nodes no greater than 10mm in the short axis diameter. Normal urinary bladder. There is a left-sided inguinal hernia containing adipose tissue. There are diffuse degenerative changes of the visualized lumbar spine. CT/Abdomen/Pelvis W IV Cont ONLY IMPRESSION: 1. No acute inflammatory process or bowel obstruction. 2. Mild splenomegaly. Reactive appearing lymph nodes of the retroperitoneum and bilateral iliac chains. Electronically Signed: Blair Townsend MD (Brooks) at 8:14 EDT ,
[2021-09-05 07:05] LABS: Bacteria 0 SEEN /hpf (None Seen); Mucous, Urine 0 SEEN /hpf (<or=2+); Red Blood Cells-Urine 0 SEEN /hpf (0-5); White Blood Cells 0 SEEN /hpf (0-5)
[2021-09-05 07:06] LABS: Absolute Lymphocyte Count 1.33 X10^3/uL (0.83-4.51); Absolute Neutrophil Count 6.5 X10^3/uL (2.0-7.7); Basophil# 0.02 X10^3/uL; Basophil% 0.2 % (0-1); Eosinophil# 0.04 X10^3/uL; Eosinophils% 0.5 % (0-5); Hematocrit 37.4 % (40-54); Hemoglobin 11.7 g/dL (13.0-16.5); Lymphocyte # 1.33 X10^3/ul (0.83-4.51); Lymphocyte % 16.2 % (19-41); Mean Corp Hgb Conc 31.3 g/dL (32-36); Mean Corpuscular Hgb 24.9 pg (27.0-32.0); Mean Corpuscular Volume 79.6 fL (80-94); Mean Platelet Vol. 10.4 fl (6.2-12.0); Monocyte# 0.33 X10^3/uL; NRBC Flagged by Analyzer 0 % (0-5); Neutrophil # 6.48 X10^3/uL (2.7-7.7); Platelet Count 119 K/mm3 (150-450); RBC Distribution Width SD 43.6 fl (35.1-43.9); White Blood Count 8.2 K/mm3 (4.4-11.0)
[2021-09-05 07:10] LABS: Color, Urine Yellow (Yellow); Glucose, Dipstick Normal (Normal); Ketone-Dipstick Negative (Negative); Leukocyte Esterase-Dipstick Negative /ul (Negative); Nitrite-Dipstick Negative (Negative); Occult Blood-Urine Negative /ul (Negative); Protein-Dipstick Negative (Negative); Specific Gravity, Urine 1.005 (1.002-1.030); Urine Bilirubin Dipstick Negative (Negative); Urine Clarity Clear (Clear); Urine Urobilinogen Normal (Normal)
--- NOTE | 2021-09-05 07:15 | EX.ED.DYSGE1 ---
HPI History of Present Illness Chief Complaint: Fever Narrative Narrative: Patient is a 55-year-old male brought in secondary to altered mental status. He does not offer history because of the change in mental status. According to his sister he did not feel well last night and had shaking chills. Following this onset of the shaking chills he progressed to a few bouts of of nausea with vomiting. After this he had depression of his mental status and EMS was called. Sister does report a remote history of heroin abuse which led to endocarditis which he had fixed about 1 year ago and since that time has been clean on his Subutex [facility] Medical History Altered mental status Aortic valve endocarditis Aspiration into airway Cerebrovascular disease, unspecified Elevated troponin Hyperlipidemia Nonrheumatic aortic (valve) insufficiency Overdose Home Medications albuterol sulfate 2 puff INHALATION Q4H PRN PRN 11/19/19 [History Last Taken Unknown] albuterol sulfate 2.5 mg INHALATION Q2H PRN ml 01/20/20 [History Last Taken Unknown] aspirin 81 mg chewable tablet 81 mg PO DAILY 01/20/20 [History Last Taken Unknown] budesonide 0.5 mg/2 mL suspension for nebulization 0.5 mg INHALATION BID 01/20/20 [History Last Taken Unknown] pantoprazole 40 mg tablet,delayed release 40 mg PO DAILY 01/20/20 [History Last Taken Unknown] atorvastatin 20 mg tablet 20 mg PO QHS #90 tablet 09/02/20 [Rx Last Taken Unknown] furosemide 20 mg tablet 20 mg PO QAM #90 tablet 09/02/20 [Rx Last Taken Unknown] metoprolol tartrate 25 mg tablet 25 mg PO BID #180 tablet 09/02/20 [Rx Last Taken Unknown] buprenorphine 8 mg-naloxone 2 mg sublingual tablet 1 tab SUBLINGUAL BID tab 03/21/21 [History Last Taken Unknown] Allergy/AdvReac Type Severity Reaction Status Date / Time Penicillins [PCN] Allergy Shortness Verified 03/21/21 15:49 of breath Family History Mother Hypertension Diabetes Father Cancer Grandmother Diabetes Surgical History History of aortic valve replacement with bioprosthetic valve (11/28/19) History of coronary artery bypass graft (11/28/19) History of foot surgery History of tonsillectomy and adenoidectomy Social History (Reviewed 03/21/21 @ 15:49 by Pam Curiel DIESEL TRUCK TECHNICIAN, DIESEL TRUCK TECHNICIAN-C) Smoking Status: Current every day smoker tobacco type: cigarettes quit status: has quit before alcohol intake: never substance use type: former substance user Date of last use: November 19, 2019 now on suboxone, heroin and other details: fentanyl caffeine: Yes Type: carbonated beverages Number of servings: 2 and coffee Number of servings: 2 ROS ROS ED Review of Systems ROS Unobtainable: due to encephalopathy and due to mental status EXAM Physical Exam Const Vital Signs: 09/05/21 06:23 09/05/21 07:56 Temperature 101.4 F H 101 F H Temperature Source Temporal Temporal Pulse Rate 94 98 Respiratory Rate 17 16 Blood Pressure 178/99 H 167/73 H Blood Pressure Mean 125 104 Pulse Ox 96 98 Oxygen Delivery Method Room Air Nasal Cannula Oxygen Flow Rate (L/min) 3 Positive well nourished, well developed and obese General Appearance ED: well developed Nutritional Appearance: obese HEENT Reports moist mucous membranes HEENT Narrative: No tongue or cheek biting to suggest seizure activity. No airway edema or compromise Eyes PERRL and EOMs intact bilaterally General Eye ED: Yes scleral icterus Neck supple Neck Narrative: No meningeal signs Chest Wall palpation of chest normal Resp Resp Narrative: Breath sounds are diminished throughout. There are brief periods of apnea. There is rhonchi present in bilateral bases Cardio regular rhythm Rate: tachycardic and other Other Details: Tachycardic rate with regular rhythm with occasional ectopic beat noted. Radial pulses are +2-4 bilaterally are equal and symmetric GI normal to inspection, nondistended, normoactive bowel sounds, non-tender, non-distended and no masses GI Narrative: No voluntary guarding or rigidity no pulsatile mass or fluid wave noted Auscultation: normoactive bowel sounds Palpation: soft Extremity Extremity Narrative: Patient has trace-+1 pitting edema to the bilateral lower extremities with chronic stasis changes Neuro Neuro Narrative: Patient is obtunded with GCS of 12. He is protecting his airway and will localize and withdraw to pain. There is no obvious focal neurologic deficit. Skin Skin Narrative: Chronic stasis changes to the bilateral lower legs as documented above with faint jaundice noted MDM MDM MDM Narrative Medical decision making narrative: Patient presented to the ER obtunded but was still protecting his airway and therefore there is no need for emergent intubation. Also there are no obvious signs of focal neurologic deficits I did not feel patient warranted a stroke activation. With sister reported he complained of shaking chills then bouts of nausea and vomiting I do feel patient most likely has some type of underlying infection leading to his fever chills and change in mental status. At this time patient will undergo a large work-up including CTs of his head and abdomen as well as chest x-ray along with blood cultures and urine sample. He will be given IV fluids and rectal Tylenol. I feel that even if work-up does not reveal an obvious source that of his mental status remains diminished no need placed in the hospital for further care. Lab Data Labs: Laboratory Results - last 24 hr 09/05/21 09/05/21 09/05/21 06:35 06:35 06:35 WBC 8.2 RBC 4.70 Hgb 11.7 L Hct 37.4 L MCV 79.6 L MCH 24.9 L MCHC 31.3 L RDW Std Deviation 43.6 RDW Coeff of John 15.0 H Plt Count 119 L MPV 10.4 Immature Gran % (Auto) 0.100 Neut % (Auto) 79.0 H Lymph % (Auto) 16.2 L Glenn % (Auto) 4.0 Eos % (Auto) 0.5 Baso % (Auto) 0.2 Absolute Neuts (auto) 6.5 Absolute Lymphs (auto) 1.33 Nucleated RBC % 0 Sodium 137 Potassium 4.0 Chloride 100 Carbon Dioxide 32.0 Anion Gap 5 BUN 13 Creatinine 1.07 Estim Creat Clear Calc 83.08 Est GFR (MDRD) Af Amer 92 Est GFR (MDRD) Non-Af 76 BUN/Creatinine Ratio 12.1 Glucose 137 H Lactic Acid Calcium 8.4 L Total Bilirubin 0.60 Direct Bilirubin 0.19 AST 80 H ALT 99 H Alkaline Phosphatase 116 Ammonia Troponin I High Sens 5 Total Protein 8.7 H Albumin 3.3 Globulin 5.4 H Lipase 92 Urine Color Urine Clarity Urine pH Ur Specific [place] Urine Protein Urine Glucose (UA) Urine Ketones Urine Occult Blood Urine Nitrite Urine Bilirubin Urine Urobilinogen Ur Leukocyte Esterase Urine RBC Urine WBC Ur Squamous Epith Cells Urine Bacteria Urine Mucus Urine Opiates Screen Urine Methadone Screen Ur Barbiturates Screen Ur Phencyclidine Scrn Ur Amphetamines Screen MDMA (Ecstasy) Screen U Benzodiazepines Scrn Urine Cocaine Screen U Cannabinoids Screen Ur Drug Screen Comment Ethyl Alcohol < 3.0 POC Glucose 09/05/21 09/05/21 09/05/21 06:35 06:35 06:35 WBC RBC Hgb Hct MCV MCH MCHC RDW Std Deviation RDW Coeff of John Plt Count MPV Immature Gran % (Auto) Neut % (Auto) Lymph % (Auto) Glenn % (Auto) Eos % (Auto) Baso % (Auto) Absolute Neuts (auto) Absolute Lymphs (auto) Nucleated RBC % Sodium Potassium Chloride Carbon Dioxide Anion Gap BUN Creatinine Estim Creat Clear Calc Est GFR (MDRD) Af Amer Est GFR (MDRD) Non-Af BUN/Creatinine Ratio Glucose Lactic Acid 2.5 H* Calcium Total Bilirubin Direct Bilirubin AST ALT Alkaline Phosphatase Ammonia Troponin I High Sens Total Protein Albumin Globulin Lipase Urine Color Yellow Urine Clarity Clear Urine pH 7.0 Ur Specific [place] 1.005 Urine Protein Negative Urine Glucose (UA) Normal Urine Ketones Negative Urine Occult Blood Negative Urine Nitrite Negative Urine Bilirubin Negative Urine Urobilinogen Normal Ur Leukocyte Esterase Negative Urine RBC 0 SEEN Urine WBC 0 SEEN Ur Squamous Epith Cells 0-5 SEEN Urine Bacteria 0 SEEN Urine Mucus 0 SEEN Urine Opiates Screen NEGATIVE Urine Methadone Screen NEGATIVE Ur Barbiturates Screen NEGATIVE Ur Phencyclidine Scrn NEGATIVE Ur Amphetamines Screen NEGATIVE MDMA (Ecstasy) Screen NEGATIVE U Benzodiazepines Scrn NEGATIVE Urine Cocaine Screen NEGATIVE U Cannabinoids Screen NEGATIVE Ur Drug Screen Comment Ethyl Alcohol POC Glucose 09/05/21 09/05/21 06:39 07:11 WBC RBC Hgb Hct MCV MCH MCHC RDW Std Deviation RDW Coeff of John Plt Count MPV Immature Gran % (Auto) Neut % (Auto) Lymph % (Auto) Glenn % (Auto) Eos % (Auto) Baso % (Auto) Absolute Neuts (auto) Absolute Lymphs (auto) Nucleated RBC % Sodium Potassium Chloride Carbon Dioxide Anion Gap BUN Creatinine Estim Creat Clear Calc Est GFR (MDRD) Af Amer Est GFR (MDRD) Non-Af BUN/Creatinine Ratio Glucose Lactic Acid Calcium Total Bilirubin Direct Bilirubin AST ALT Alkaline Phosphatase Ammonia 89.0 H Troponin I High Sens Total Protein Albumin Globulin Lipase Urine Color Urine Clarity Urine pH Ur Specific [place] Urine Protein Urine Glucose (UA) Urine Ketones Urine Occult Blood Urine Nitrite Urine Bilirubin Urine Urobilinogen Ur Leukocyte Esterase Urine RBC Urine WBC Ur Squamous Epith Cells Urine Bacteria Urine Mucus Urine Opiates Screen Urine Methadone Screen Ur Barbiturates Screen Ur Phencyclidine Scrn Ur Amphetamines Screen MDMA (Ecstasy) Screen U Benzodiazepines Scrn Urine Cocaine Screen U Cannabinoids Screen Ur Drug Screen Comment Ethyl Alcohol POC Glucose 124 H ABG Data ABG results: ABG 09/05/21 07:09 Specimen Type ART Sample Site L Radial pH 7.48 H Bicarbonate Actual 28.6 H Total CO2 30 Base Excess 5 H O2 Saturation 87 L ABG pCO2 38.6 ABG pO2 50 L Moustapha Test Positive O2 Delivery Device Room Air Radiography Diagnostic Testing: Clinical Impression(s) from Imaging Studies Brain CT 09/05/21 06:39 IMPRESSION: 1. No acute intracranial abnormalities. 2. Chronic lacunar infarcts in the basal ganglia bilaterally. 3. Bilateral maxillary sinus disease. Individualized dose optimization techniques were used for this CT. at 0756 Reported and signed by: Tim Zhao MD Electronically Signed: Tim Zhao MD at 7:55 EDT , Discharge Plan Triage Chief Complaint: Fever ED Provider: Chris Lester Dx/Rx/DC Orders Prescriptions: No Action albuterol sulfate 2.5 mg /3 mL (0.083 %) solution for nebulization 2.5 mg INHALATION Q2H PRNRF: 0 aspirin [Aspirin Childrens] 81 mg tablet,chewable 81 mg PO DAILY RF: 0 budesonide 0.5 mg/2 mL suspension for nebulization 0.5 mg INHALATION BID RF: 0 pantoprazole 40 mg tablet,delayed release (DR/EC) 40 mg PO DAILY RF: 0 atorvastatin 20 mg tablet 20 mg PO QHS Qty: 90 RF: 3 furosemide 20 mg tablet 20 mg PO QAM Qty: 90 RF: 3 metoprolol tartrate 25 mg tablet 25 mg PO BID Qty: 180 RF: 3 buprenorphine-naloxone 8-2 mg tablet, sublingual 1 tab sublingual BID RF: 0 albuterol sulfate 18 GM HFA aerosol inhaler 2 puff inhalation Q4H PRN PRN (Reason: Sob &/Or Wheezing) RF: 0 Primary Care Provider: Azael Uribe
[2021-09-05 07:16] LABS: Allen Test Positive; Base Excess 5 mmol/L (-2 to +2); Bicarbonate 28.6 mmol/L (22-26); Blood Gas Specimen Type ART; O2 Delivery Device Room Air; PO2 50 mmHG (75-100); SITE L Radial; SO2 87 % (95-99); Total Carbon Dioxide 30 mmol/L; pCO2 38.6 mmHg (35-45); pH 7.48 (7.35-7.45)
[2021-09-05 07:17] LABS: Vista UDS pH Range 6
[2021-09-05 07:19] LABS: Amphetamine Urine VISTA NEGATIVE (<1000 ng/mL); Barbiturate Urine VISTA NEGATIVE (< 200 ng/mL); Benzodiazepine Urine VISTA NEGATIVE (< 200 ng/mL); Cocaine Urine VISTA NEGATIVE (< 300 ng/mL); Ecstacy Urine VISTA NEGATIVE (< 500 ng/mL); Methadone Urine VISTA NEGATIVE (< 300 ng/mL); PCP Urine VISTA NEGATIVE (< 25 ng/mL); THC Urine VISTA NEGATIVE (< 50 ng/mL)
[2021-09-05 07:23] LABS: AST(SGOT) 80 U/L (15-37); Alanine Aminotransfer ALT/SGPT 99 U/L (16-61); Albumin, Serum 3.3 g/dL (3.2-5.0); Alkaline Phosphatase 116 U/L (45-117); Anion Gap 5 (5-15); BUN 13 mg/dL (7-18); BUN/Creat Ratio 12.1 RATIO (10-20); Bilirubin, Direct 0.19 mg/dL (0.00-0.30); Calcium,Total 8.4 mg/dL (8.5-10.1); Chloride 100 mmol/L (98-107); Creatinine, Serum 1.07 mg/dL (0.70-1.30); EST Glomerular Filtration Rate 76 mL/min (>60); Est Glom Filt Rate - Afr Amer 92 mL/min (>60); Estimated Creatinine Clearance 83.08 ml/min; Globulin 5.4 g/dL (2.2-4.2); Glucose 137 mg/dL (74-106); Lipase 92 U/L (73-393); Protein, Total 8.7 g/dL (6.4-8.2); Sodium Level 137 mmol/L (136-145); Troponin-I HS 5 pg/mL (3.0-78.0)
[2021-09-05] MEDS: Acetaminophen 650 MG Suppository RC (07:26)
[2021-09-05 07:27] LABS: Squamous Epithelial Cells - UA 0-5 SEEN /hpf (0-5)
--- NOTE | 2021-09-05 07:37 | ED.RN ---
PT LACTIC ACID OF 2.[address] BEATTY AWARE
[2021-09-05 07:38] LABS: Lactic Acid 2.5 mmol/L (0.4-1.9)
[2021-09-05 07:44] LABS: Alcohol, Blood (Medical)-Serum < 3.0 mg/dL
[2021-09-05] MEDS: Clindamycin 900 MG/50 ML BAG 75 MG IV (08:59)
--- NOTE | 2021-09-05 09:51 | NURSING ---
DR KIMBALL FOR DR VOGT
[2021-09-05] MEDS: levoFLOXacin IV 750 MG/150 ML BAG 100 MG IV (10:00)
--- NOTE | 2021-09-05 10:13 | NURSING ---
QUYEN KIMBALL AMS, REBECCA
[2021-09-05 10:54] LABS: Reflex Lactate? Y
--- NOTE | 2021-09-05 11:27 | HP.PCM.HOS_ITS ---
HPI - General General Date of Admission: 09/05/21 HPI Narrative SOREN DE GUZMAN, is a 55 M who presents to the hospital with altered mental status. He is not alert enough to provide any history so the history is obtained from chart review as there is no family members present. Per report he was not feeling last night with shaking and chills, this progressed to having an episode of nausea and vomiting and then his mental status decreased so EMS was called. Family does mention a history of having endocarditis from heroin abuse but family states that he has been clean for about a year now. ER he was found to be tachycardic with a fever to 102.9, white count is normal however. Renal function is stable hemoglobin is normal couple he does have an elevated total protein and total globulin unsure as to the relevance at this time. Upon chart review it does look like he tested positive for hepatitis B surface antigen 2 years ago as well as hepatitis C and it was noticed that his ammonia was elevated. He was given a dose of Levaquin in the ER however chest x-ray was unremarkable for an infiltrate and urine was clean. [facility] Medical History (Updated 09/05/21 @ 11:[address] Dhiraj Gill MD) Altered mental status Aortic valve endocarditis Aspiration into airway Cerebrovascular disease, unspecified Elevated troponin Hyperlipidemia Nonrheumatic aortic (valve) insufficiency Overdose Home Medications albuterol sulfate 2 puff INHALATION Q4H PRN PRN 11/19/19 [History Last Taken Unknown] albuterol sulfate 2.5 mg INHALATION Q2H PRN ml 01/20/20 [History Last Taken Un known] aspirin 81 mg chewable tablet 81 mg PO DAILY 01/20/20 [History Last Taken Unknown] budesonide 0.5 mg/2 mL suspension for nebulization 0.5 mg INHALATION BID 01/20/20 [History Last Taken Unknown] pantoprazole 40 mg tablet,delayed release 40 mg PO DAILY 01/20/20 [History Last Taken Unknown] atorvastatin 20 mg tablet 20 mg PO QHS #90 tablet 09/02/20 [Rx Last Taken Unknown] furosemide 20 mg tablet 20 mg PO QAM #90 tablet 09/02/20 [Rx Last Taken Unknown] metoprolol tartrate 25 mg tablet 25 mg PO BID #180 tablet 09/02/20 [Rx Last Taken Unknown] buprenorphine 8 mg-naloxone 2 mg sublingual tablet 1 tab SUBLINGUAL BID tab 03/21/21 [History Last Taken Unknown] Allergy/AdvReac Type Severity Reaction Status Date / Time Penicillins [PCN] Allergy Shortness Verified 03/21/21 15:49 of breath Family History (Reviewed 03/21/21 @ 15:49 by Pam Curiel FRONT DESK ADMINISTRATOR, FRONT DESK ADMINISTRATOR-C) Mother Hypertension Diabetes Father Cancer Grandmother Diabetes Surgical History History of aortic valve replacement with bioprosthetic valve (11/28/19) History of coronary artery bypass graft (11/28/19) History of foot surgery History of tonsillectomy and adenoidectomy Social History (Reviewed 03/21/21 @ 15:49 by Pam Curiel FRONT DESK ADMINISTRATOR, FRONT DESK ADMINISTRATOR-C) Smoking Status: Current every day smoker tobacco type: cigarettes quit status: has quit before alcohol intake: never substance use type: former substance user Date of last use: November 19, 2019 now on suboxone, heroin and other details: fentanyl caffeine: Yes Type: carbonated beverages Number of servings: 2 and coffee Number of servings: 2 ROS Review of Systems ROS Unobtainable: due to mental status Vital Signs Vital Signs Vital Signs: 09/05/21 06:23 09/05/21 07:56 09/05/21 09:01 Temperature 101.4 F H 101 F H Temperature Source Temporal Temporal Pulse Rate 94 98 104 H Respiratory Rate 17 16 18 Blood Pressure 178/99 H 167/73 H 145/90 H Blood Pressure Mean 125 104 108 Blood Pressure Source Blood Pressure Position Blood Pressure Location Pulse Ox 96 98 98 Oxygen Delivery Method Room Air Nasal Cannula Nasal Cannula Oxygen Flow Rate (L/min) 3 3 09/05/21 09:58 09/05/21 11:19 Temperature 99 F 102.9 F H Temperature Source Temporal Oral Pulse Rate 90 103 H Respiratory Rate 18 16 Blood Pressure 122/61 H 111/58 L Blood Pressure Mean 81 75 Blood Pressure Source Monitor Blood Pressure Position Semi-Fowlers Blood Pressure Location Right Arm Pulse Ox 94 95 Oxygen Delivery Method Nasal Cannula Room Air Oxygen Flow Rate (L/min) Weight Weight: 318 lb 5.56 oz Body Mass Index (BMI) 44.4 Physical Exam Const no apparent distress General Appearance: lethargic HEENT normocephalic Mouth: dry mucous membranes Eyes PERRL and conjunctivae normal Neck supple and no JVD Resp normal respiratory effort, no retractions and no use of accessory muscles Auscultation: rhonchi and diminished lung sounds; Negative for crackles, rales or wheezes Cardio regular rhythm, S1 normal heart sound, S2 normal heart sound and no murmurs Rate: tachycardic GI soft to palpation, non-tender and non-distended; Negative for hepatosplenomegaly Extremity no clubbing, cyanosis or edema Skin Skin Narrative: Erythema over the left lower extremity compared to right lower extremity. No signs of swelling Neuro no focal motor deficits Sensorium / Orientation: lethargic Psych Mood & Affect: flat affect Results Lab / Micro Data Result Diagrams: 09/05/21 06:35 09/05/21 06:35 Labs: Laboratory Results - last 24 hr 09/05/21 06:35: WBC 8.2, RBC 4.70, Hgb 11.7 L, Hct 37.4 L, MCV 79.6 L, MCH 24.9 L, MCHC 31.3 L, RDW Std Deviation 43.6, RDW Coeff of John 15.0 H, Plt Count 119 L , MPV 10.4, Immature Gran % (Auto) 0.100, Neut % (Auto) 79.0 H, Lymph % (Auto) 16.2 L, [place] % (Auto) 4.0, Eos % (Auto) 0.5, Baso % (Auto) 0.2, Absolute Neuts ( auto) 6.5, Absolute Lymphs (auto) 1.33, Nucleated RBC % 0 09/05/21 06:35: Sodium 137, Potassium 4.0, Chloride 100, Carbon Dioxide 32.0, Anion Gap 5, BUN 13, Creatinine 1.07, Estim Creat Clear Calc 83.08, Est GFR (MDRD) Af Amer 92, Est GFR (MDRD) Non-Af 76, BUN/Creatinine Ratio 12.1, Glucose 137 H, Calcium 8.4 L, Total Bilirubin 0.60, Direct Bilirubin 0.19, AST 80 H, ALT 99 H, Alkaline Phosphatase 116, Troponin I High Sens 5, Total Protein 8.7 H, Albumin 3.3, Globulin 5.4 H, Lipase 92 09/05/21 06:35: Ethyl Alcohol < 3.0 09/05/21 06:35: Lactic Acid 2.5 H* 09/05/21 06:35: Urine Opiates Screen NEGATIVE, Urine Methadone Screen NEGATIVE, Ur Barbiturates Screen NEGATIVE, Ur Phencyclidine Scrn NEGATIVE, Ur Amphetamines Screen NEGATIVE, MDMA (Ecstasy) Screen NEGATIVE, U Benzodiazepines Scrn NEGATIVE, Urine Cocaine Screen NEGATIVE, U Cannabinoids Screen NEGATIVE, Ur Drug Screen Comment 09/05/21 06:35: Urine Color Yellow, Urine Clarity Clear, Urine pH 7.0, Ur Specific [place] 1.005, Urine Protein Negative, Urine Glucose (UA) Normal, Urine Ketones Negative, Urine Occult Blood Negative, Urine Nitrite Negative, Urine Bilirubin Negative, Urine Urobilinogen Normal, Ur Leukocyte Esterase Negative, Urine RBC 0 SEEN, Urine WBC 0 SEEN, Ur Squamous Epith Cells 0-5 SEEN, Urine Bacteria 0 SEEN, Urine Mucus 0 SEEN 09/05/21 06:39: POC Glucose 124 H 09/05/21 07:11: Ammonia 89.0 H Micro: Microbiology 09/05/21 06:35 Nasal Secretion SARS-CoV-2 Antigen (Rapid) - Final ABG Data ABG results: ABG 09/05/21 07:09 Specimen Type ART Sample Site L Radial pH 7.48 H Bicarbonate Actual 28.6 H Total CO2 30 Base Excess 5 H O2 Saturation 87 L ABG pCO2 38.6 ABG pO2 50 L Moustapha Test Positive O2 Delivery Device Room Air Radiology Impression Brain CT 09/05/21 06:39 IMPRESSION: 1. No acute intracranial abnormalities. 2. Chronic lacunar infarcts in the basal ganglia bilaterally. 3. Bilateral maxillary sinus disease. Individualized dose optimization techniques were used for this CT. at 0756 Reported and signed by: Tim Zhao MD Electronically Signed: Tim Zhao MD at 7:55 EDT , Chest X-Ray 09/05/21 06:39 IMPRESSION: No airspace consolidation or pleural effusion. Hypoinflation likely accentuated bronchovascular markings. Electronically Signed: Blair Townsend MD (Brooks) at 8:15 EDT , Abdomen/Pelvis CT 09/05/21 07:03 IMPRESSION: 1. No acute inflammatory process or bowel obstruction. 2. Mild splenomegaly. Reactive appearing lymph nodes of the retroperitoneum and bilateral iliac chains. Electronically Signed: Blair Townsend MD (Brooks) at 8:14 EDT , Assessment & Plan Assessment/Plan (1) Cellulitis: (2) Sepsis: PLAN: 1. Cellulitis with sepsis based on SIRS but not sepsis based on qSOFA/metabolic encephalopathy ?It does look like he has some redness and warmth on his left lower extremity up to his groin which could explain the reactive retroperitoneal adenopathy on CT scan ?Continue with Ancef ?Blood cultures are pending given his previous valve repair and history of endocarditis with drug use ?Urine culture is also pending however UA was not consistent with a UTI ?We will continue with IV fluids 2. Encephalopathy due to hyperammonemia/elevated LFTs/history of IV drug use ?INR is pending to evaluate liver function ?Hepatitis panel is pending, he had a previous hepatitis panel 2 years ago with hepatitis B surface antigen was reactive as was hepatitis C ?Hepatitis panel does come back positive this could explain the elevation in total protein ?May need to get gastroenterology involved ?Continue with lactulose p.o. twice daily ?Can continue with his Subutex when verified and he is more alert 3. HTN/HLD/status post aortic valve repair ?We will continue to hold his Lasix secondary to the requirement for fluids ?Once his medications are verified can restart his metoprolol and Lipitor ?Blood culture pending if positive given his aortic valve replacement his history of IV drug use and previous endocarditis will likely need a MEAGHAN 4. GERD ?Stable ?Continue with PPI DVT: Lovenox Charges/Coding Visit Charges Inpatient E&M: 99839 Init Hosp L3
[2021-09-05] MEDS: 0.9% Normal Saline 1,000 ML 75 ML IV (11:54)
[2021-09-05 12:18] LABS: International Normalized Ratio 1.2; Prothrombin Time (Protime)PT. 14.8 SECONDS (11.7-14.9)
[2021-09-05 12:54] LABS: Lactic Acid 3.1 mmol/L (0.4-1.9)
[2021-09-05] MEDS: Cefazolin 1 GM/50 ML BAG IV ×2 (14:39→22:31)
[2021-09-05] MEDS: Lactulose 20 GM/30 ML UDC PO (15:31)
[2021-09-05] MEDS: Metoprolol Tartrate 25 MG Tablet PO (22:32)
[2021-09-05] MEDS: 0.9% Saline Lock 10 ML Syringe IV (22:34)
[2021-09-05] MEDS: BUPRENORPHINE HCL 8 MG TAB.SUBL SL (23:20)
[2021-09-06] VITALS (13 sets, daily range): BP systolic 105–129; BP diastolic 57–78; PULSE 77–88; RESP 16–18; TEMP 36.6–37.4; O2SAT 94–98
[2021-09-06] MEDS: 0.9% Normal Saline 1,000 ML 75 ML IV ×2 (02:09→15:29)
[2021-09-06] MEDS: Cefazolin 1 GM/50 ML BAG IV (06:19)
[2021-09-06 06:25] LABS: Absolute Lymphocyte Count 1.23 X10^3/uL (0.83-4.51); Absolute Neutrophil Count 15.9 X10^3/uL (2.0-7.7); Basophil# 0.05 X10^3/uL; Basophil% 0.3 % (0-1); Hematocrit 36.3 % (40-54); Hemoglobin 11.3 g/dL (13.0-16.5); Lymphocyte # 1.23 X10^3/ul (0.83-4.51); Lymphocyte % 6.7 % (19-41); Mean Corp Hgb Conc 31.1 g/dL (32-36); Mean Corpuscular Hgb 25.6 pg (27.0-32.0); Mean Corpuscular Volume 82.1 fL (80-94); Mean Platelet Vol. 10.1 fl (6.2-12.0); Monocyte# 0.89 X10^3/uL; Monocyte% 4.8 % (0-10); NRBC Flagged by Analyzer 0 % (0-5); Neutrophil # 15.87 X10^3/uL (2.7-7.7); Neutrophil % 86.4 % (47-70); POSITIVE COUNT YES; POSITIVE MORPHOLOGY YES; Platelet Count 97 K/mm3 (150-450); RBC Distribution Width CV 15.7 % (11.6-14.6); RBC Distribution Width SD 47.3 fl (35.1-43.9); Red Blood Count 4.42 M/mm3 (4.6-6.2); White Blood Count 18.4 K/mm3 (4.4-11.0)
[2021-09-06 06:29] LABS: Differential Indicated SCAN CRITERIA MET
[2021-09-06 06:41] LABS: Anisocytosis 1+
[2021-09-06 07:00] LABS: ALB/GLOB Ratio 0.5 RATIO (0.9-2.4); AST(SGOT) 58 U/L (15-37); Alanine Aminotransfer ALT/SGPT 74 U/L (16-61); Albumin, Serum 2.7 g/dL (3.2-5.0); Alkaline Phosphatase 63 U/L (45-117); Anion Gap 4 (5-15); BUN 27 mg/dL (7-18); BUN/Creat Ratio 20.5 RATIO (10-20); Chloride 100 mmol/L (98-107); Creatinine, Serum 1.32 mg/dL (0.70-1.30); EST Glomerular Filtration Rate 60 mL/min (>60); Est Glom Filt Rate - Afr Amer 72 mL/min (>60); Estimated Creatinine Clearance 65.29 ml/min; Globulin 5.5 g/dL (2.2-4.2); Glucose 124 mg/dL (74-106); Potassium 4.2 mmol/L (3.5-5.1); Protein, Total 8.2 g/dL (6.4-8.2); Sodium Level 133 mmol/L (136-145)
[2021-09-06] MEDS: Aspirin 81 MG TAB.CHEW PO (09:32)
[2021-09-06] MEDS: BUPRENORPHINE HCL 8 MG TAB.SUBL SL ×2 (09:32→21:50)
[2021-09-06] MEDS: Pantoprazole Sodium 40 MG Tablet PO (09:32)
[2021-09-06] MEDS: Enoxaparin 40 MG/0.4 ML Syringe SC (09:35)
--- NOTE | 2021-09-06 10:41 | NURSING ---
Eri, nurse from [facility], called to check on patient and to verify we have his subutex orders. Verified we have what we need and thanks Eri for calling.
--- NOTE | 2021-09-06 11:05 | CASEMGMT ---
SAMMY STEPHEN assessment: Face to Face with patient for initial transition planning/care coordination assessment. SAMMY STEPHEN introduced self and role at [facility], pt voices understanding and consents to assessment. Pt is lying in bed in no distress on room on 2L nc. Pt is A/Ox4 and answers all questions appropriately. Care providers, pharmacy, and demographics verified. Presentation: Pt c/o fever, lethargy Admitting dx: Fever, unknown origin PCP: [facility] Specialists: Hollis/Almaz, cardio [facility]erred [facility]acy: [facility] Insurance: [employer] Prescription Benefit: [employer] Living Will/HPOA: Pt does not have LW/HPOA and declines AD info. LNOK: Nuvia Rouse, son; Alma Cardenas, sister Living Arrangements: Pt lives alone in apt with a few steps in and states no concerns at home. Pt is independent with ADL's. Transportation: Pt's friend drives or he walks and states no transportation concerns. DME/HHC: Pt has a cane at home but does not use and states no further need for DME. Pt states no hx of HHC but has been to SNF in [place] s/p heart surgery and d/t heroin/fentanyl addiction. Pt states in November 2021, he will be clean from heroin/fentanyl for 2 years. Pt states no preference for DME company, if qualifies for home oxygen at d/c. Pt states no concerns with going home at time of discharge. Pt is on disability. Pt states does smoke pack cigarettes daily but but does not drink ETOH. Pt states further concerns/needs. CM to follow for home oxygen need and any further discharge planning/needs. Advised pt to ask for CM if any further questions/concerns/needs arise, voices understanding. Pt Goal: Home Plan[place] SAMMY STEPHEN
[2021-09-06 12:08] LABS: Hepatitis A IgM Antibody Negative (Negative); Hepatitis B Core AB IgM Negative (Negative)
--- NOTE | 2021-09-06 12:33 | CON.PCM.ID_ITS ---
Assessment & Plan Assessment/Plan (1) Sepsis: PLAN: Group B beta-hemolytic strep bacteremia, at this time we will treat with ceftriaxone 2 g IV daily and follow his laboratory studies and clinical course. Also obtain a hepatitis C viral load PCR and repeat the hepatitis B serology including hepatitis B surface antigen and hepatitis B e antigen. HPI Consult Data Date of Consult: 09/06/21 HPI Narrative HPI Narrative: SOREN DE GUZMAN, is a 55 M who presents with acute fever and chills, patient was admitted last evening and placed on Ancef for the concern of left leg cellulitis. Interestingly his admission blood cultures are growing group B beta-hemolytic strep. Patient does have a history of IV drug use, last used illicit drugs 2 years ago and carries a diagnosis of chronic hepatitis C untreated. Patient also had open heart surgery weight described as vascular surgery of his aorta he was in his left leg arterial as autologous graft, this surgery occurred in 2019 at [facility]. Patient states of feeling much better this morning. No cardiopulmonary distress at this time. No gastrointestinal symptoms. Currently on Ancef 1 g IV every 8 hours. [facility] Medical History (Updated 09/05/21 @ 11:[address] Dhiraj Gill MD) Altered mental status Aortic valve endocarditis Aspiration into airway Cerebrovascular disease, unspecified Elevated troponin Hyperlipidemia Nonrheumatic aortic (valve) insufficiency Overdose Medical History unable to obtain Home Medications albuterol sulfate 2 puff INHALATION Q4H PRN PRN 11/19/19 [History Last Taken Unknown] albuterol sulfate 2.5 mg INHALATION Q2H PRN ml 01/20/20 [History Last Taken Unknown] aspirin 81 mg chewable tablet 81 mg PO DAILY 01/20/20 [History Last Taken Unknown] pantoprazole 40 mg tablet,delayed release 40 mg PO DAILY 01/20/20 [History Last Taken Unknown] buprenorphine 8 mg-naloxone 2 mg sublingual tablet 1 tab SUBLINGUAL BID tab 03/21/21 [History Last Taken Unknown] furosemide 20 mg PO QAM 09/05/21 [History Last Taken Unknown] metoprolol tartrate 25 mg PO BID 09/05/21 [History Last Taken Unknown] Allergy/AdvReac Type Severity Reaction Status Date / Time Penicillins [PCN] Allergy Shortness Verified 03/21/21 15:49 of breath Family History (Reviewed 03/21/21 @ 15:49 by Pam Curiel DATA WAREHOUSE CONSULTANT, DATA WAREHOUSE CONSULTANT-C) Mother Hypertension Diabetes Father Cancer Grandmother Diabetes Surgical History History of aortic valve replacement with bioprosthetic valve (11/28/19) History of coronary artery bypass graft (11/28/19) History of foot surgery History of tonsillectomy and adenoidectomy Social History (Reviewed 03/21/21 @ 15:49 by Pam Curiel DATA WAREHOUSE CONSULTANT, DATA WAREHOUSE CONSULTANT-C) Smoking Status: Current every day smoker tobacco type: cigarettes quit status: has quit before alcohol intake: never substance use type: former substance user Date of last use: November 19, 2019 now on suboxone, heroin and other details: fentanyl caffeine: Yes Type: carbonated beverages Number of servings: 2 and coffee Number of servings: 2 Lab / Micro Data Result Diagrams: 09/06/21 06:10 09/06/21 06:10 Labs: Laboratory Results - last 24 hr 09/05/21 11:50: Lactic Acid 3.1 H* 09/06/21 06:10: WBC 18.4 H, RBC 4.42 L, Hgb 11.3 L, Hct 36.3 L, MCV 82.1, MCH 25.6 L, MCHC 31.1 L, RDW Std Deviation 47.3 H, RDW Coeff of John 15.7 H, Plt Count 97 L, MPV 10.1, Immature Gran % (Auto) 1.800 H, Neut % (Auto) 86.4 H, Lymph % (Auto) 6.7 L, [place] % (Auto) 4.8, Eos % (Auto) 0.0, Baso % (Auto) 0.3, Absolute Neuts (auto) 15.9 H, Absolute Lymphs (auto) 1.23, Nucleated RBC % 0, Anisocytosis 1+ 09/06/21 06:10: Sodium 133 L, Potassium 4.2, Chloride 100, Carbon Dioxide 29.0, Anion Gap 4 L, BUN 27 H, Creatinine 1.32 H, Estim Creat Clear Calc 65.29, Est GFR (MDRD) Af Amer 72, Est GFR (MDRD) Non-Af 60, BUN/Creatinine Ratio 20.5 H, Glucose 124 H, Calcium 8.0 L, Total Bilirubin 0.70, AST 58 H, ALT 74 H, Alkaline Phosphatase 63, Total Protein 8.2, Albumin 2.7 L, Globulin 5.5 H, Albumin/Globulin Ratio 0.5 L Micro: Microbiology 09/05/21 06:50 Urine, Clean Catch Urine Culture - Final Mixed Gram Positive Organisms 09/05/21 06:35 Blood Culture (Wb) - Anticubital Left Bacteria Detection (PCR) - Final Streptococcus agalactiae (B) 09/05/21 06:35 Blood Culture (Wb) - Anticubital Left Blood Culture - Preliminary Streptococcus agalactiae (B)
[2021-09-06 14:04] LABS: HEPATITIS B SURFACE AG Positive (Negative)
[2021-09-06 14:06] LABS: Hep C Antibodies >11.0 s/co ratio (0.0-0.9)
[2021-09-06 16:43] LABS: M R Staph aureus DNA By PCR Negative (Negative); Probe Check PASS; Specimen Processing Control PASS; Staph aureus DNA By PCR POSITIVE (Negative)
--- NOTE | 2021-09-06 18:34 | PN.HOSP_ITS ---
Subjective Subjective Patient was seen and examined today, he was alert and answers simple questions appropriately, patient did not appear to understand that he had his aortic valve replaced 2 years ago. I noticed that the patient's white blood cell count was elevated today at 18.4, I made the decision to have infectious diseases see the patient which they did today. Patient's antibiotic was changed to Rocephin today. Patient told me that he has untreated hepatitis C, patient's hepatitis panel came back positive for hepatitis C as well as positive for hepatitis B surface antigen-his core antibody however was negative (IgM) indicating this is probably chronic hepatitis B. I asked the patient today if he has been treated for his hep C, he states that I do not know who to go to-I reminded him that he has a family physician and that he could be referred by his family physician to a specialist to treat this. Objective Data Objective Data Vital Signs: Vital Signs Temp Pulse Resp BP Pulse Ox 98.1 F 86 18 113/71 94 09/06/21 15:25 09/06/21 15:25 09/06/21 15:25 09/06/21 15:25 09/06/21 15:25 Oxygen Flow Rate (L/min) 2 Oxygen Delivery Method Nasal Cannula Weight: 139.3 kg Body Mass Index (BMI) 43.0 Intake & Output: Intake and Output for Last 24 Hours 09/04/21 09/05/21 09/06/21 23:59 23:59 23:59 Intake Total 1950 / 1949 2660.00 / 2660.00 Output Total 700 / 700 Balance 1950 / 1650 1960.00 / 1960.00 Lab / Micro Data Result Diagrams: 09/06/21 06:10 09/06/21 06:10 Labs: Laboratory Results - last 24 hr 09/05/21 06:35: Hepatitis A IgM Ab Negative, Hep Bs Antigen Positive H, Hep B Core IgM Ab Negative, Hepatitis C Ab (EIA) >11.0 H 09/05/21 22:30: S.aureus Protein A PCR POSITIVE H, MRSA (PCR) Negative 09/06/21 06:10: WBC 18.4 H, RBC 4.42 L, Hgb 11.3 L, Hct 36.3 L, MCV 82.1, MCH 25.6 L, MCHC 31.1 L, RDW Std Deviation 47.3 H, RDW Coeff of John 15.7 H, Plt Count 97 L, MPV 10.1, Immature Gran % (Auto) 1.800 H, Neut % (Auto) 86.4 H, Lymph % (Auto) 6.7 L, [place] % (Auto) 4.8, Eos % (Auto) 0.0, Baso % (Auto) 0.3, Absolute Neuts (auto) 15.9 H, Absolute Lymphs (auto) 1.23, Nucleated RBC % 0, Anisocytosis 1+ 09/06/21 06:10: Sodium 133 L, Potassium 4.2, Chloride 100, Carbon Dioxide 29.0, Anion Gap 4 L, BUN 27 H, Creatinine 1.32 H, Estim Creat Clear Calc 65.29, Est GFR (MDRD) Af Amer 72, Est GFR (MDRD) Non-Af 60, BUN/Creatinine Ratio 20.5 H, Glucose 124 H, Calcium 8.0 L, Total Bilirubin 0.70, AST 58 H, ALT 74 H, Alkaline Phosphatase 63, Total Protein 8.2, Albumin 2.7 L, Globulin 5.5 H, Albumi n/Globulin Ratio 0.5 L Micro: Microbiology 09/05/21 06:50 Urine, Clean Catch Urine Culture - Final Mixed Gram Positive Organisms 09/05/21 06:35 Blood Culture (Wb) - Anticubital Left Bacteria Detection (PCR) - Final Streptococcus agalactiae (B) 09/05/21 06:35 Blood Culture (Wb) - Anticubital Left Blood Culture - Preliminary Streptococcus agalactiae (B) 09/05/21 06:35 Nasal Secretion SARS-CoV-2 Antigen (Rapid) - Final Physical Exam Const alert, oriented x3 and no apparent distress Constitutional Narrative: Patient is a poor informant, he appears older than his stated age General Appearance: cooperative, well kempt and well developed Orientation / Consciousness: awake, oriented to person, oriented to place and oriented to time HEENT normocephalic, head/scalp atraumatic and moist oral mucous membranes Head and Scalp: normocephalic Eyes PERRL, EOMs intact bilaterally and conjunctivae normal Neck nuchal rigidity, supple, no JVD, thyroid normal and no carotid bruits General: trachea midline Resp normal respiratory effort, no retractions, no use of accessory muscles and clear to auscultation bilaterally Auscultation: Negative for rales, rhonchi or wheezes Cardio regular rate, regular rhythm, S1 normal heart sound, S2 normal heart sound, no murmurs, no rub and no gallops GI normal to inspection, nondistended, normoactive bowel sounds, soft to palpation, non-tender and non-distended Extremity no clubbing, cyanosis or edema Skin no rashes or lesions noted General Skin Exam: no breakdown Neuro oriented x3, CN's II-XII intact bilaterally, no focal motor deficits and no sensory deficits noted Sensorium / Orientation: awake and alert Speech: speech normal Psych affect normal Assessment & Plan Assessment/Plan (1) Sepsis: PLAN: 1. Group B beta-hemolytic strep bacteremia-etiology unclear at this point, infectious diseases is seeing patient, his antibiotics were changed to Rocephin today, blood cultures are pending #2 metabolic encephalopathy-possibly in part secondary to elevated ammonia level, patient refuses lactulose at this time, he is alert and appropriate to this examiner although he is a poor historian, patient will be observed for any further deterioration in his mental status #3 coronary artery disease-stable at this time, patient will remain on his current medication #4 valvular heart disease-patient has a bioprosthetic aortic valve, he does not appear to know that he had his valve replaced in 2019, he does remember having a coronary artery bypass done at that time. I do not feel the patient needs a echocardiogram done at this time, last echocardiogram done in 2020 approximately 1 year ago showed a normal EF. #5 chronic hep B and C-patient states that he has not received any treatment for chronic hepatitis C, he stated to me that he did not know who to see for this, I personally do not believe that this has not been discussed with him, I may try to reach out to his PCP and have a talk with his PCP by phone tomorrow, patient will need follow-up as an outpatient regarding his positive hepatitis B and C test. I will go over this with him again when he is discharged. #6 hyperlipidemia-patient will need to go back on a statin, I will place him on low-dose Lipitor starting tonight, I do not understand why he was taken off of a statin after his coronary artery bypass surgery. Charges/Coding Visit Charges Inpatient E&M: 57689 Subs Hosp L2
[2021-09-06] MEDS: Metoprolol Tartrate 25 MG Tablet PO (21:43)
[2021-09-06] MEDS: Lactulose 20 GM/30 ML UDC PO (21:43)
[2021-09-06] MEDS: Atorvastatin Calcium 40 MG Tablet PO (21:50)
[2021-09-07] VITALS (12 sets, daily range): BP systolic 111–134; BP diastolic 65–71; PULSE 59–74; RESP 16–18; TEMP 36.7–37.1; O2SAT 93–98
[2021-09-07] MEDS: 0.9% Normal Saline 1,000 ML 75 ML IV ×2 (04:46→17:17)
[2021-09-07 06:25] LABS: ALB/GLOB Ratio 0.5 RATIO (0.9-2.4); AST(SGOT) 39 U/L (15-37); Alanine Aminotransfer ALT/SGPT 53 U/L (16-61); Albumin, Serum 2.4 g/dL (3.2-5.0); Alkaline Phosphatase 68 U/L (45-117); Anion Gap 2 (5-15); BUN 20 mg/dL (7-18); BUN/Creat Ratio 24.4 RATIO (10-20); Calcium,Total 7.9 mg/dL (8.5-10.1); Chloride 102 mmol/L (98-107); Creatinine, Serum 0.82 mg/dL (0.70-1.30); EST Glomerular Filtration Rate 104 mL/min (>60); Est Glom Filt Rate - Afr Amer 125 mL/min (>60); Glucose 102 mg/dL (74-106); Potassium 3.5 mmol/L (3.5-5.1); Protein, Total 7.4 g/dL (6.4-8.2); Sodium Level 134 mmol/L (136-145)
[2021-09-07 08:30] LABS: Hepatitis B Surface Antigen REACTIVE (Nonreactive)
[2021-09-07] MEDS: BUPRENORPHINE HCL 8 MG TAB.SUBL SL ×2 (09:44→21:58)
[2021-09-07] MEDS: Aspirin 81 MG TAB.CHEW PO (09:44)
[2021-09-07] MEDS: Pantoprazole Sodium 40 MG Tablet PO (09:45)
[2021-09-07] MEDS: Metoprolol Tartrate 25 MG Tablet PO ×2 (09:45→21:57)
[2021-09-07] MEDS: Enoxaparin 40 MG/0.4 ML Syringe SC (09:45)
[2021-09-07] MEDS: Lactulose 20 GM/30 ML UDC PO (09:45)
--- NOTE | 2021-09-07 11:08 | PCM.PN.HOSP ---
Subjective Subjective Patient was seen and examined today, he answers simple questions appropriately, he does not appear to this examiner to be confused. Patient remains afebrile at this time, I have ordered a CBC on him today. He is currently on Rocephin per ID. Objective Data Objective Data Vital Signs: Vital Signs Temp Pulse Resp BP Pulse Ox 98.0 F 68 16 134/71 H 97 09/07/21 08:10 09/07/21 09:45 09/07/21 08:10 09/07/21 08:10 09/07/21 08:10 Oxygen Flow Rate (L/min) 2 Oxygen Delivery Method Nasal Cannula Weight: 139.3 kg Body Mass Index (BMI) 43.0 Intake & Output: Intake and Output for Last 24 Hours 09/05/21 09/06/21 09/07/21 23:59 23:59 23:59 Intake Total 1950 / 1950 2882.00 / 2882.00 1050 / 1050 Output Total 1100 / 1100 400 / 400 Balance 1950 / 1650 1782.00 / 1782.00 650 / 650 Lab / Micro Data Result Diagrams: 09/06/21 06:10 09/07/21 04:22 Labs: Laboratory Results - last 24 hr 09/05/21 06:35: Hepatitis A IgM Ab Negative, Hep Bs Antigen Positive H, Hep B Core IgM Ab Negative, Hepatitis C Ab (EIA) >11.0 H 09/05/21 22:30: S.aureus Protein A PCR POSITIVE H, MRSA (PCR) Negative 09/07/21 04:22: Sodium 134 L, Potassium 3.5, Chloride 102, Carbon Dioxide 30.0, Anion Gap 2 L, BUN 20 H, Creatinine 0.82, Estim Creat Clear Calc 105.10, Est GFR (MDRD) Af Amer 125, Est GFR (MDRD) Non-Af 104, BUN/Creatinine Ratio 24.4 H, Glucose 102, Calcium 7.9 L, Total Bilirubin 0.30, AST 39 H, ALT 53, Alkaline Phosphatase 68, Total Protein 7.4, Albumin 2.4 L, Globulin 5.0 H, Albumin/Globulin Ratio 0.5 L 09/07/21 04:22: Hep Bs Antigen REACTIVE Micro: Microbiology 09/05/21 06:35 Blood Culture (Wb) - Left Hand Blood Culture - Preliminary No growth in 48 hours. 09/05/21 06:35 Blood Culture (Wb) - Anticubital Left Bacteria Detection (PCR) - Final Streptococcus agalactiae (B) 09/05/21 06:35 Blood Culture (Wb) - Anticubital Left Blood Culture - Preliminary Streptococcus agalactiae (B) 09/05/21 06:50 Urine, Clean Catch Urine Culture - Final Mixed Gram Positive Organisms 09/05/21 06:35 Nasal Secretion SARS-CoV-2 Antigen (Rapid) - Final Physical Exam Narrative alert, oriented x3 and no apparent distress Constitutional Narrative: Patient is a poor informant, he appears older than his stated age General Appearance: cooperative, well kempt and well developed Orientation / Consciousness: awake, oriented to person, oriented to place and oriented to time HEENT normocephalic, head/scalp atraumatic and moist oral mucous membranes Head and Scalp: normocephalic Eyes PERRL, EOMs intact bilaterally and conjunctivae normal Neck nuchal rigidity, supple, no JVD, thyroid normal and no carotid bruits General: trachea midline Resp normal respiratory effort, no retractions, no use of accessory muscles and clear to auscultation bilaterally Auscultation: Negative for rales, rhonchi or wheezes Cardio regular rate, regular rhythm, S1 normal heart sound, S2 normal heart sound, no murmurs, no rub and no gallops GI normal to inspection, nondistended, normoactive bowel sounds, soft to palpation, non-tender and non-distended Extremity no clubbing, cyanosis or edema Skin no rashes or lesions noted, skin over the lower legs is dry General Skin Exam: no breakdown Neuro oriented x3, CN's II-XII intact bilaterally, no focal motor deficits and no sensory deficits noted Sensorium / Orientation: awake and alert Speech: speech normal Psych affect normal Assessment & Plan Assessment/Plan (1) Sepsis: PLAN: 1. Group B beta-hemolytic strep bacteremia-etiology unclear at this point, infectious diseases is seeing patient, he remains on Rocephin at this time, CBC will be obtained today #2 metabolic encephalopathy-possibly in part secondary to elevated ammonia level, patient refuses lactulose at this time, he is alert and appropriate to this examiner although he is a poor historian, patient will be observed for any further deterioration in his mental status, I will stop his lactulose at this time #3 coronary artery disease-stable at this time, patient will remain on his current medication #4 valvular heart disease-patient has a bioprosthetic aortic valve, he does not appear to know that he had his valve replaced in 2019, he does remember having a coronary artery bypass done at that time. I do not feel the patient needs a echocardiogram done at this time, last echocardiogram done in 2020 approximately 1 year ago showed a normal EF. #5 chronic hep B and C-patient states that he has not received any treatment for chronic hepatitis C, he stated to me that he did not know who to see for this, I personally do not believe that this has not been discussed with him, I may try to reach out to his PCP and have a talk with his PCP by phone tomorrow, patient will need follow-up as an outpatient regarding his positive hepatitis B and C test. I will go over this with him again when he is discharged. #6 hyperlipidemia-patient is on Lipitor currently Charges/Coding Visit Charges Inpatient E&M: 75850 Subs Hosp L2
[2021-09-07 11:27] LABS: Absolute Lymphocyte Count 1.66 X10^3/uL (0.83-4.51); Absolute Neutrophil Count 9.2 X10^3/uL (2.0-7.7); Basophil# 0.05 X10^3/uL; Basophil% 0.4 % (0-1); Eosinophil# 0.07 X10^3/uL; Eosinophils% 0.6 % (0-5); Hematocrit 32.6 % (40-54); Hemoglobin 9.9 g/dL (13.0-16.5); Lymphocyte # 1.66 X10^3/ul (0.83-4.51); Lymphocyte % 13.9 % (19-41); Mean Corp Hgb Conc 30.4 g/dL (32-36); Mean Corpuscular Hgb 25.2 pg (27.0-32.0); Monocyte# 0.95 X10^3/uL; Monocyte% 7.9 % (0-10); NRBC Flagged by Analyzer 0 % (0-5); Neutrophil # 9.17 X10^3/uL (2.7-7.7); Neutrophil % 76.5 % (47-70); POSITIVE COUNT YES; POSITIVE MORPHOLOGY YES; Platelet Count 90 K/mm3 (150-450); RBC Distribution Width CV 15.7 % (11.6-14.6); RBC Distribution Width SD 47.8 fl (35.1-43.9); Red Blood Count 3.93 M/mm3 (4.6-6.2)
[2021-09-07 11:34] LABS: Differential Indicated SCAN CRITERIA MET
[2021-09-07 11:50] LABS: Differential Comment SCANNED
--- NOTE | 2021-09-07 12:48 | PN.ID_ITS ---
Physical Exam Narrative Patient out of bed to chair overall clinically feeling better. No fever overnight. Appetite improved. No cardiopulmonary distress. Tolerating ceftriaxone well. In better spirits. Patient alert responsive does not appear toxic. Lungs are clear heart exam S1-S2 murmur unchanged abdomen is obese but soft. Left lower extremity erythema improved over last 24 hours. ID ID: Route of nutrition/ use of supplements: [] Nutritional Intake: [] IV Site: [] La Catheter: [] Assessment & Plan Assessment/Plan (1) Sepsis: PLAN: Clinically responding to ceftriaxone 2 g IV daily. Group B beta- hemolytic strep bacteremia. Source of the bacteremia left lower extremity c ellulitic process. Overall clinically improving.
--- NOTE | 2021-09-07 16:42 | NURSING ---
This RN taking over care for pt at this time.
[2021-09-07] MEDS: Atorvastatin Calcium 40 MG Tablet PO (21:57)
[2021-09-08] VITALS (7 sets, daily range): BP systolic 108–144; BP diastolic 62–82; PULSE 57–67; RESP 12–18; TEMP 36.5–36.7; O2SAT 92–94
[2021-09-08] MEDS: 0.9% Normal Saline 1,000 ML 75 ML IV (06:54)
[2021-09-08] MEDS: Enoxaparin 40 MG/0.4 ML Syringe SC (08:10)
[2021-09-08] MEDS: Metoprolol Tartrate 25 MG Tablet PO (08:13)
[2021-09-08 08:14] LABS: Absolute Lymphocyte Count 1.47 X10^3/uL (0.83-4.51); Absolute Neutrophil Count 4.1 X10^3/uL (2.0-7.7); Basophil# 0.03 X10^3/uL; Basophil% 0.5 % (0-1); Eosinophil# 0.09 X10^3/uL; Eosinophils% 1.5 % (0-5); Hematocrit 32.8 % (40-54); Hemoglobin 10.1 g/dL (13.0-16.5); Lymphocyte # 1.47 X10^3/ul (0.83-4.51); Lymphocyte % 23.9 % (19-41); Mean Corp Hgb Conc 30.8 g/dL (32-36); Mean Corpuscular Hgb 25.5 pg (27.0-32.0); Mean Corpuscular Volume 82.8 fL (80-94); Mean Platelet Vol. 11.4 fl (6.2-12.0); Monocyte# 0.44 X10^3/uL; Monocyte% 7.1 % (0-10); NRBC Flagged by Analyzer 0 % (0-5); Neutrophil % 66.5 % (47-70); POSITIVE COUNT YES; Platelet Count 91 K/mm3 (150-450); RBC Distribution Width CV 15.8 % (11.6-14.6); RBC Distribution Width SD 47.7 fl (35.1-43.9); Red Blood Count 3.96 M/mm3 (4.6-6.2); White Blood Count 6.2 K/mm3 (4.4-11.0)
[2021-09-08] MEDS: BUPRENORPHINE HCL 8 MG TAB.SUBL SL (08:14)
[2021-09-08] MEDS: Pantoprazole Sodium 40 MG Tablet PO (08:14)
[2021-09-08] MEDS: Aspirin 81 MG TAB.CHEW PO (08:14)
--- NOTE | 2021-09-08 10:59 | PCM.DC ---
Discharge Instructions Diet Discharge Diet: No restrictions Activity Discharge Activity: Return to Normal Activity Weight Bearing Status: Full weight bearing Follow Up Care Test Results: Test results from this visit will be discussed in further detail at your follow-up appointment, if applicable. Discharge Plan Admission Admit Date/Time: 09/05/21 10:01 Primary Reason for Your Visit: cellulitis Attending Provider: Azael Briseno Primary Care Provider: Azael Uribe Consulting Providers: Leo Apodaca Discharge Orders/Prescriptions Prescriptions: New atorvastatin 40 mg Tablet 40 mg PO QHS Qty: 30 RF: 0 cefdinir 300 mg capsule 600 mg PO DAILY Qty: 12 RF: 0 Continued albuterol sulfate 2.5 mg /3 mL (0.083 %) solution for nebulization 2.5 mg INHALATION Q2H PRN (Reason: Shortness Of Breath Or Wheezing) RF: 0 aspirin [Aspirin Childrens] 81 mg tablet,chewable 81 mg PO DAILY RF: 0 pantoprazole 40 mg tablet,delayed release (DR/EC) 40 mg PO DAILY RF: 0 buprenorphine-naloxone 8-2 mg tablet, sublingual 1 tab sublingual BID RF: 0 albuterol sulfate 18 GM HFA aerosol inhaler 2 puff inhalation Q4H PRN PRN (Reason: Sob &/Or Wheezing) RF: 0 furosemide 20 mg tablet 20 mg PO QAM RF: 0 metoprolol tartrate 25 mg tablet 25 mg PO BID RF: 0 Referrals / Follow Up: Azael Uribe MD [Primary Care Provider] - Within 2 Weeks Disposition Disposition (needs filled in before D/C Order can be placed): Home, Self Care
--- NOTE | 2021-09-08 11:43 | CASEMGMT ---
SAMMY STEPHEN NOTE: Pt being discharged home. PT/OT evals reviewed. PT does not recommend additional therapy. OT does. SAMMY STEPHEN to room to discuss discharge planning. Pt denies having any discharge planning needs. He denies needing HHC or OP therapy. SAMMY STEPHEN informed him, if he feels in the future he would like therapy, to discuss this w/his PCP. Pt voices understanding. Pt states his sister will take him home @ d/c Reji ALEJO RN, CM
--- NOTE | 2021-09-08 11:43 | PCM.DC.SUM ---
Providers Date of Admission: 09/05/21 Date of Discharge: 09/08/21 Primary Care Physician: Dr. Azael Uribe MD Consultations 09/06/21 09:56 Consult: Infectious Disease Routine Consulting Provider: eLo Apodaca Reason for Consult: elevated WBC, positive blood culture EMERGENT Consult: No MD Notified: Yes Date Notified: 09/06/21 Time Notified: 09:56 Method of Notification: Verbal Reason For Visit: FEVER OF UNKNWON ORIGIN / AMS Diagnosis Discharge Diagnosis (1) Sepsis: Status: Acute Code(s): A41.9 - Sepsis, unspecified organism Plan: 1. Group B hemolytic strep bacteremia secondary to cellulitis of the left leg #2 cellulitis of the left leg #3 metabolic encephalopathy secondary to elevated ammonia level #4 coronary artery disease #5 valvular heart disease #6 chronic hepatitis B and C #7 hyperlipidemia Medications at Discharge Home Medications albuterol sulfate 2 puff INHALATION Q4H PRN PRN 11/19/19 albuterol sulfate 2.5 mg INHALATION Q2H PRN ml 01/20/20 aspirin 81 mg chewable tablet 81 mg PO DAILY 01/20/20 pantoprazole 40 mg tablet,delayed release 40 mg PO DAILY 01/20/20 buprenorphine 8 mg-naloxone 2 mg sublingual tablet 1 tab SUBLINGUAL BID tab 03/21/21 furosemide 20 mg PO QAM 09/05/21 metoprolol tartrate 25 mg PO BID 09/05/21 atorvastatin 40 mg PO QHS #30 tab 09/08/21 cefdinir 600 mg PO DAILY #12 cap 09/08/21 Hospital Course Operations None Procedures None Summary of Care Provided Minutes Spent on Discharge: 32 Hospital Course: This 55-year-old white male was seen in the emergency room at [facility] with complaints of altered mental status, patient did complain of chills the night before and feeling unwell. In the ER, patient was found to be tachycardic with a fever 102.9, white blood cell count was however normal. Ammonia level was obtained and it was noted to be elevated, on examination, patient's left lower leg was reddened, patient was admitted to PCU for cellulitis and encephalopathy secondary to increased ammonia level. Patient was given lactulose, the following day, patient was seen and evaluated, it was noted that his white blood cell count had elevated, patient was more alert and ultimately refused further lactulose administration and had been started when he was admitted. Patient's blood culture came back positive for group B strep, subsequent blood cultures however were negative. Patient was seen in consultation by infectious diseases, IV antibiotics were administered during his hospitalization, and he improved. Patient had hepatitis B and C studies drawn during his hospitalization which indicated that he has chronic hepatitis B and C, according to the patient, he had not followed up with anybody concerning this. On 09/08/2021, patient was seen and examined: On examination he appeared in good health and spirits. Vital signs as documented. Skin warm and dry and without overt rashes. Neck without JVD, neck was supple, trachea midline, thyroid was normal. Lungs clear bilaterally, normal air movement was noted. Heart exam notable for regular rhythm, normal sounds and absence of murmurs, rubs or gallops. Abdomen unremarkable and without evidence of organomegaly, masses, or abdominal aortic enlargement. Bowel sounds are present, abdomen is not distended. Extremities nonedematous, no cyanosis was noted, no clubbing was noted. Neuro: Cranial nerves II through XII are grossly intact, no focal motor deficits were noted, sensation to light touch and pinprick intact, motor exam 5/5 throughout. Psych: Patient is alert and oriented x3, he does not appear anxious or depressed, he does not appear agitated. Patient appears stable for discharge on 09/08/2021, he was instructed to follow-up with his family physician as an outpatient. I left a voice message on the personal phone of the patient's PCP-Dr. Uribe. Weight / BMI Weight Weight: 139.3 kg Body Mass Index (BMI) 43.0 ABG / Lab / Microbiology Data Result Diagrams: 09/08/21 08:05 09/07/21 04:22 Laboratory: Laboratory Results - last 24 hr 09/07/21 04:22: Differential Comment SCANNED 09/08/21 08:05: WBC 6.2, RBC 3.96 L, Hgb 10.1 L, Hct 32.8 L, MCV 82.8, MCH 25.5 L, MCHC 30.8 L, RDW Std Deviation 47.7 H, RDW Coeff of John 15.8 H, Plt Count 91 L, MPV 11.4, Immature Gran % (Auto) 0.500, Neut % (Auto) 66.5, Lymph % (Auto) 23.9, [place] % (Auto) 7.1, Eos % (Auto) 1.5, Baso % (Auto) 0.5, Absolute Neuts (auto) 4.1, Absolute Lymphs (auto) 1.47, Nucleated RBC % 0 Microbiology: Microbiology 09/06/21 06:10 Blood Culture (Wb) - Right Hand Blood Culture - Preliminary No growth in 48 hours. 09/05/21 06:35 Blood Culture (Wb) - Left Hand Blood Culture - Preliminary No growth in 48 hours. 09/05/21 06:35 Blood Culture (Wb) - Anticubital Left Bacteria Detection (PCR) - Final Streptococcus agalactiae (B) 09/05/21 06:35 Blood Culture (Wb) - Anticubital Left Blood Culture - Preliminary Streptococcus agalactiae (B) 09/05/21 06:50 Urine, Clean Catch Urine Culture - Final Mixed Gram Positive Organisms 09/05/21 06:35 Nasal Secretion SARS-CoV-2 Antigen (Rapid) - Final D/C Instructions Discharge Diet: No restrictions Weight Bearing Status: Full weight bearing Meaningful Use Info Meaningful Use Diagnoses (Choose all that apply): None applicable Discharge Plan Admission Admit Date/Time: 09/05/21 10:01 Primary Reason for Your Visit: cellulitis Attending Provider: Azael Briseno Primary Care Provider: Azael Uribe Consulting Providers: Leo Apodaca Discharge Orders/Prescriptions Prescriptions: New atorvastatin 40 mg Tablet 40 mg PO QHS Qty: 30 RF: 0 cefdinir 300 mg capsule 600 mg PO DAILY Qty: 12 RF: 0 Continued albuterol sulfate 2.5 mg /3 mL (0.083 %) solution for nebulization 2.5 mg INHALATION Q2H PRN (Reason: Shortness Of Breath Or Wheezing) RF: 0 aspirin [Aspirin Childrens] 81 mg tablet,chewable 81 mg PO DAILY RF: 0 pantoprazole 40 mg tablet,delayed release (DR/EC) 40 mg PO DAILY RF: 0 buprenorphine-naloxone 8-2 mg tablet, sublingual 1 tab sublingual BID RF: 0 albuterol sulfate 18 GM HFA aerosol inhaler 2 puff inhalation Q4H PRN PRN (Reason: Sob &/Or Wheezing) RF: 0 furosemide 20 mg tablet 20 mg PO QAM RF: 0 metoprolol tartrate 25 mg tablet 25 mg PO BID RF: 0 Referrals / Follow Up: Azael Uribe MD [Primary Care Provider] - Within 2 Weeks Disposition Disposition (needs filled in before D/C Order can be placed): Home, Self Care Charges/Coding Visit Charges Inpatient E&M: 73123 Disch Hosp
[2021-09-08 21:07] LABS: HCV Quant. RNA PCR HCV Not Detected IU/mL (.)
[2021-09-09 13:39] LABS: Hepatitis Be Ag Positive (Negative)
== END 2021-09-08 12:26 | disposition home or self-care (01) | DRG 720 ==
LOC: ED 09:37 → PCU 10:03
PROVIDERS: Emergency Medicine; Internal Medicine Infectious Disease; Admitting Provider Family Medicine; Emergency Provider Student in an Organized Health Care Education/Training Program; PCP Family Medicine; Visit Provider Internal Medicine
DX: A40.1 Sepsis due to streptococcus, group B (principal); G93.41 Metabolic encephalopathy; E66.01 Morbid (severe) obesity due to excess calories; Z68.41 Body mass index [BMI] 40.0-44.9, adult; B18.1 Chronic viral hepatitis B without delta-agent; B18.2 Chronic viral hepatitis C; E78.5 Hyperlipidemia, unspecified; F17.200 Nicotine dependence, unspecified, uncomplicated; K21.9 Gastro-esophageal reflux disease without esophagitis; I10 Essential (primary) hypertension; I25.10 Atherosclerotic heart disease of native coronary artery without angina pectoris; L03.116 Cellulitis of left lower limb; Z95.2 Presence of prosthetic heart valve
CPT/HCPCS: 36415; 36600; 70450; 71045; 74177; 80048; 80053; 80074; 80076; 80307; 81001; 82077; 82140; 82803; 82962; 83605; 83690; 84484; 85025; 85610; 87040; 87086; 87088; 87149; 87186; 87340; 87350; 87522; 87640; 87811; 93005; 97162; 97166; 97535; 97803; 99285; 99406; J7030; Q9967; A4216; J0696

== ENCOUNTER → 2022-05-02 | Outpatient (CLI) | payer MEDICAID, SELFPAY ==
[2022-05-02 09:30] LABS: AST(SGOT) 24 U/L (15-37); Alanine Aminotransfer ALT/SGPT 23 U/L (16-61); Albumin, Serum 3.6 g/dL (3.2-5.0); Alkaline Phosphatase 103 U/L (45-117); Bilirubin, Direct 0.11 mg/dL (0.00-0.30); Cholesterol 169 mg/dL (200); Globulin 5.5 g/dL (2.2-4.2); High Density Lipoprotein 37 mg/dL; Protein, Total 9.1 g/dL (6.4-8.2); Triglycerides 161 mg/dL; Very Low Density Lipoprotein 32 mg/dL (5-40)
== END | disposition home or self-care (01) ==
PROVIDERS: PCP Family Medicine; Referring Provider Nurse Practitioner Gerontology; Visit Provider Nurse Practitioner Gerontology
DX: E78.5 Hyperlipidemia, unspecified (principal)
CPT/HCPCS: 36415; 80061; 80076

== ENCOUNTER → 2022-07-27 | Outpatient (CLI) | payer MEDICAID, SELFPAY ==
--- NOTE | 2022-07-27 13:50 | RAD_ITS ---
INDICATION: LOCKE EXAMINATION/TECHNIQUE: X-RAY - XR Chest 2 Views COMPARISON: 09/05/2021. FINDINGS: The lungs are clear. Sternal cerclage wires and vascular clips are present from a prior sternotomy and coronary artery bypass graft procedure (CABG). Tortuous and calcified thoracic aorta. The heart is not enlarged. No pleural effusion or pneumothorax. No acute osseous abnormalities. RAD/Chest PA and Lateral IMPRESSION: No acute radiographic abnormalities. Electronically Signed: Gurvinder Gross MD at 18:07 [facility] ,
[2022-07-27 15:16] LABS: Absolute Lymphocyte Count 1.31 X10^3/uL (0.83-4.51); Absolute Neutrophil Count 6.3 X10^3/uL (2.0-7.7); Basophil# 0.05 X10^3/uL; Basophil% 0.6 % (0-1); Eosinophil# 0.01 X10^3/uL; Eosinophils% 0.1 % (0-5); Hematocrit 34.3 % (40-54); Hemoglobin 10.8 g/dL (13.0-16.5); Lymphocyte # 1.31 X10^3/ul (0.83-4.51); Lymphocyte % 15.9 % (19-41); Mean Corp Hgb Conc 31.5 g/dL (32-36); Mean Corpuscular Hgb 24.9 pg (27.0-32.0); Mean Corpuscular Volume 79.2 fL (80-94); Monocyte# 0.54 X10^3/uL; Monocyte% 6.6 % (0-10); NRBC Flagged by Analyzer 0 % (0-5); Neutrophil # 6.29 X10^3/uL (2.7-7.7); Neutrophil % 76.4 % (47-70); Platelet Count 120 K/mm3 (150-450); RBC Distribution Width SD 48.7 fl (35.1-43.9); Red Blood Count 4.33 M/mm3 (4.6-6.2); White Blood Count 8.2 K/mm3 (4.4-11.0)
[2022-07-27 15:38] LABS: BNP,B-Type NATRIURETIC PEPTIDE 253.3 pg/mL (0-100)
[2022-07-27 15:44] LABS: AST(SGOT) 28 U/L (15-37); Alanine Aminotransfer ALT/SGPT 12 U/L (16-61); Albumin, Serum 2.6 g/dL (3.2-5.0); Alkaline Phosphatase 78 U/L (45-117); Anion Gap 7 (5-15); BUN 11 mg/dL (7-18); BUN/Creat Ratio 11.3 RATIO (10-20); Calcium,Total 8.3 mg/dL (8.5-10.1); Chloride 89 mmol/L (98-107); Cholesterol 105 mg/dL (200); Creatinine, Serum 0.98 mg/dL (0.70-1.30); EST Glomerular Filtration Rate 84 mL/min (>60); Est Glom Filt Rate - Afr Amer 102 mL/min (>60); Globulin 5.6 g/dL (2.2-4.2); Glucose 105 mg/dL (74-106); High Density Lipoprotein 14 mg/dL; Potassium 3.1 mmol/L (3.5-5.1); Protein, Total 8.2 g/dL (6.4-8.2); Sodium Level 127 mmol/L (136-145); Triglycerides 132 mg/dL; Very Low Density Lipoprotein 26 mg/dL (5-40)
== END | disposition home or self-care (01) ==
LOC: RAD 13:48
PROVIDERS: PCP Family Medicine; Visit Provider Nurse Practitioner Gerontology
DX: R06.09 Other forms of dyspnea (principal); E78.5 Hyperlipidemia, unspecified
CPT/HCPCS: 36415; 71046; 80048; 80061; 80076; 83880; 85025

== ENCOUNTER 2022-07-31 08:00 | Emergency (ER) | payer MEDICAID, SELFPAY ==
[2022-07-31 08:01] VITALS: BP 116/76; PULSE 102; RESP 18; TEMP 36.6; O2SAT 95; BMI 35.3
[2022-07-31 08:21] VITALS: O2SAT 92
[2022-07-31 08:23] VITALS: PULSE 96; RESP 19; O2SAT 94
[2022-07-31 09:01] VITALS: O2SAT 94
--- NOTE | 2022-07-31 09:10 | RAD_ITS ---
STUDY: X-RAY CHEST REASON FOR EXAM: Male, 56 years old. Chest pain TECHNIQUE: Single AP portable view of the chest. COMPARISON: Comparison is made with prior study dated 07/27/2022. FINDINGS: EKG electrodes are seen. Stable mild degree of increased markings at the lung bases suggestive of mild degree of bibasilar scarring. There is no demonstrated pleural abnormality. Sternal cerclage wires and vascular clips are present from a prior sternotomy and coronary artery bypass graft procedure (CABG). Normal mediastinum and marjan. Normal visualized pulmonary arteries. There is atherosclerotic calcification of the aortic arch with tortuosity. There are diffuse degenerative changes of the visualized thoracic spine. Normal visualized ribs, clavicles, and shoulders. There is no demonstrated abnormality of the visualized soft tissue structures of the upper abdomen. RAD/Chest 1 View (Portable) IMPRESSION: Stable mild degree of increased linear markings at the lung bases suggest mild basilar scarring. Electronically Signed: Matt Gardner MD at 9:50 EST ,
--- NOTE | 2022-07-31 09:15 | EKG12_ITS ---
Test Reason : Blood Pressure : / mmHG Vent. Rate : 092 BPM Atrial Rate : 092 BPM P-R Int : 232 ms QRS Dur : 110 ms QT Int : 386 ms P-R-T Axes : 050 059 002 degrees QTc Int : 477 ms Sinus rhythm with 1st degree A-V block Otherwise normal ECG Confirmed by KASANDRA YEUNG, FELIBERTO ([id number]), video editor JEREMY STEVEN ([id number]) on 08/01/2022 9:54:52 AM Referred By: SIN Confirmed By:FELIBERTO SLAUGHTER MD
[2022-07-31 09:16] LABS: Absolute Neutrophil Count 6.5 X10^3/uL (2.0-7.7); Basophil# 0.04 X10^3/uL; Basophil% 0.5 % (0-1); Eosinophil# 0.03 X10^3/uL; Eosinophils% 0.4 % (0-5); Hematocrit 36.1 % (40-54); Hemoglobin 11.1 g/dL (13.0-16.5); Lymphocyte % 12.4 % (19-41); Mean Corp Hgb Conc 30.7 g/dL (32-36); Mean Corpuscular Hgb 24.6 pg (27.0-32.0); Mean Corpuscular Volume 79.9 fL (80-94); Mean Platelet Vol. 11.5 fl (6.2-12.0); Monocyte# 0.53 X10^3/uL; Monocyte% 6.6 % (0-10); NRBC Flagged by Analyzer 0 % (0-5); Neutrophil # 6.46 X10^3/uL (2.7-7.7); Neutrophil % 79.7 % (47-70); Platelet Count 100 K/mm3 (150-450); RBC Distribution Width CV 17.1 % (11.6-14.6); RBC Distribution Width SD 49.4 fl (35.1-43.9); Red Blood Count 4.52 M/mm3 (4.6-6.2); White Blood Count 8.1 K/mm3 (4.4-11.0)
[2022-07-31 09:38] LABS: Anion Gap 10 (5-15); BUN 10 mg/dL (7-18); BUN/Creat Ratio 10.9 RATIO (10-20); Calcium,Total 8.5 mg/dL (8.5-10.1); Chloride 91 mmol/L (98-107); Creatinine, Serum 0.92 mg/dL (0.70-1.30); EST Glomerular Filtration Rate 91 mL/min (>60); Est Glom Filt Rate - Afr Amer 110 mL/min (>60); Estimated Creatinine Clearance 92.57 ml/min; Glucose 153 mg/dL (74-106); Potassium 3.3 mmol/L (3.5-5.1); Sodium Level 129 mmol/L (136-145); Troponin-I HS (w/2H Reflex) 197 pg/mL (3.0-78.0)
[2022-07-31 09:39] VITALS: BP 94/67; PULSE 88; RESP 19; O2SAT 96
--- NOTE | 2022-07-31 09:48 | EDS_ITS ---
HPI History of Present Illness Chief Complaint: Abn Labs Narrative Narrative: 56-year-old male with history of COPD, asthma, CAD, CABG presenting with dyspnea on exertion. He states has been going on for about a month. He states he recently saw the heart group and had outpatient lab work drawn. Initially he states he was sent to the emergency room due to low hemoglobin and low potassium. He is describing dyspnea with exertion as his chief complaint. When he sitting in bed he does not feel like he having so much difficulty breathing. He states that typically he can walk from his car into the emergency room without being significantly short of breath but today he was out of breath just walking in. He denies fevers, chills, cough. Patient states he has not had any chest pain. [facility] Medical History Altered mental status Aortic valve endocarditis Aspiration into airway Atherosclerotic heart disease of [place] coronary artery without angina pectoris Cellulitis Cerebrovascular disease, unspecified Coronary artery disease Elevated troponin Esophageal reflux Hepatitis C Hyperlipidemia Hyponatremia Nonrheumatic aortic (valve) insufficiency ESA (obstructive sleep apnea) Overdose Sepsis Home Medications albuterol sulfate 90 mcg/actuation aerosol inhaler 2 puff inhalation Q4H PRN PRN Sob &/Or Wheezing 11/19/19 [History Last Taken 07/31/22] albuterol sulfate 2.5 mg/3 mL (0.083 %) solution for nebulization 2.5 mg inhalation Q2H PRN Shortness Of Breath Or Wheezing 01/20/20 [History Last Taken 2 Days Ago ~07/29/22] pantoprazole 40 mg tablet,delayed release 40 mg PO DAILY reflux 01/20/20 [History Last Taken 07/31/22] buprenorphine 8 mg-naloxone 2 mg sublingual tablet 1 tab sublingual BID Check with primary doctor 03/21/21 [History Last Taken 07/31/22] furosemide 20 mg tablet 20 mg PO QAM diuretic 09/05/21 [History Last Taken 07/31/22] metoprolol tartrate 25 mg tablet 25 mg PO BID blood pressure 09/05/21 [History Last Taken 07/31/22] amlodipine 5 mg tablet 5 mg PO DAILY #30 tabs 05/26/22 [Rx Last Taken 07/31/22] aspirin 81 mg chewable tablet (Aspirin Childrens) 81 mg PO BID [place] 07/27/22 [History Last Taken 07/31/22] atorvastatin 20 mg tablet 20 mg PO QHS 07/27/22 [History Last Taken Unknown] potassium chloride 20 mEq tablet,extended release 20 meq PO DAILY #30 tabs 07/28/22 [Rx Last Taken 07/31/22] Allergy/AdvReac Type Severity Reaction Status Date / Time Penicillins [PCN] Allergy Shortness Verified 07/31/22 08:00 of breath Family History Mother Hypertension Diabetes Father Cancer Grandmother Diabetes Surgical History History of aortic valve replacement with bioprosthetic valve (11/28/19) History of coronary artery bypass graft (11/28/19) History of foot surgery History of tonsillectomy and adenoidectomy Social History Smoking Status: Former smoker quit status: has quit before alcohol intake: never substance use type: former substance user Date of last use: November 19, 2019 now on suboxone, heroin and other details: fentanyl caffeine: Yes Type: carbonated beverages Number of servings: 2 and coffee Number of servings: 2 ROS ROS ED Constitutional Constitutional ED: Denies chills, fever(s) or sweats Eyes Eyes: Denies blurry vision or change in vision ENT ENT ED: Denies ear pain or sore throat Cardiovascular Cardiovascular: Denies chest pain, palpitations or racing heartbeat Respiratory/Chest Respiratory/Chest: Reports dyspnea and dyspnea on exertion; Denies sputum Gastrointestinal Gastrointestinal: Denies abdominal pain, constipation, diarrhea, nausea or vomiting Genitourinary Genitourinary ED: Denies dysuria, hematuria or urinary frequency Musculoskeletal Musculoskeletal: Denies arthralgias, myalgias or neck pain Integumentary Denies abscess, Abrasions or rash Neurologic Neurologic: Denies headache(s), paresthesias or weakness Psychiatric Psychiatric: Denies anxiety, depression, suicidal ideation or suicidal thoughts Endocrine Endocrinology: Denies polydipsia or polyuria EXAM Physical Exam Const Vital Signs: 07/31/22 08:01 07/31/22 08:19 07/31/22 08:21 Temperature 97.8 F Temperature Source Temporal Pulse Rate 102 H Respiratory Rate 18 Respiratory Effort Normal Respiratory Pattern Normal Blood Pressure 116/76 Blood Pressure Mean 89 Pulse Ox 95 92 Oxygen Delivery Method Room Air Room Air Oxygen Flow Rate (L/min) 07/31/22 08:23 07/31/22 08:23 07/31/22 09:01 Temperature Temperature Source Pulse Rate 96 Respiratory Rate 19 H Respiratory Effort Respiratory Pattern Blood Pressure Blood Pressure Mean Pulse Ox 94 94 94 Oxygen Delivery Method Nasal Cannula Nasal Cannula Nasal Cannula Oxygen Flow Rate (L/min) 2 2 23 07/31/22 09:39 Temperature Temperature Source Pulse Rate 88 Respiratory Rate 19 H Respiratory Effort Respiratory Pattern Blood Pressure 94/67 Blood Pressure Mean 76 Pulse Ox 96 Oxygen Delivery Method Nasal Cannula Oxygen Flow Rate (L/min) 2 MDM MDM MDM Narrative Medical decision making narrative: Patient presenting with dyspnea on exertion. Patient states has been ongoing for about a month. He initially stated he was sent here by the heart group. He states it was due to low hemoglobin and low potassium. He then stated that he was not actually sent here and he came in his own free will. He does complain of dyspnea on exertion but denies any sort of chest pain. I did obtain an EKG which on my interpretation shows a normal sinus rhythm with a ventricular rate of 92 bpm with first-degree AV block. No ST elevations or depressions. Chest x-ray on my interpretation shows no acute process. CBC shows a white blood cell count of 8.1, hemoglobin 11.1 which is actually increased over previous. Platelet count slightly low at 100 but his platelet count is always low. Renal function is normal. Sodium slightly low at 129. Potassium 3.3. Glucose elevated at 153 without anion gap. BNP was slightly elevated at 175.6 without evidence of CHF on exam or chest x-ray. High-sensitivity troponin came back at 197. Given the patient's dyspnea on exertion I am concerned for ACS equivalent. Discussed with hospitalist for admission. Patient was given aspirin 325 mg. After the patient was admitted to the hospitalist he was brought to my attention that he wants to leave. I went to reassess him and he states that he needs to get his to court otherwise she will go to residential and he is the only one that can drive. He does acknowledge that he was severe disability, injury, and he did sign the appropriate AMA paperwork. I did job placement counselor him that he could return at any time. He stated he will come back later today. Impression: 1. NSTEMI 2. Dyspnea on exertion 3. History of CAD 4. AMA Lab Data Attestation: I reviewed the patient's lab results. Labs: Laboratory Results - last 24 hr 07/31/22 07/31/22 07/31/22 08:20 08:20 08:20 WBC 8.1 RBC 4.52 L Hgb 11.1 L Hct 36.1 L MCV 79.9 L MCH 24.6 L MCHC 30.7 L RDW Std Deviation 49.4 H RDW Coeff of John 17.1 H Plt Count 100 L MPV 11.5 Immature Gran % (Auto) 0.400 Neut % (Auto) 79.7 H Lymph % (Auto) 12.4 L [place] % (Auto) 6.6 Eos % (Auto) 0.4 Baso % (Auto) 0.5 Absolute Neuts (auto) 6.5 Absolute Lymphs (auto) 1.00 Nucleated RBC % 0 Sodium 129 L Potassium 3.3 L Chloride 91 L Carbon Dioxide 28.0 Anion Gap 10 BUN 10 Creatinine 0.92 Estim Creat Clear Calc 92.57 Est GFR (MDRD) Af Amer 110 Est GFR (MDRD) Non-Af 91 BUN/Creatinine Ratio 10.9 Glucose 153 H Calcium 8.5 Troponin I High Sens 197 H* B-Natriuretic Peptide 175.6 H Radiography Diagnostic Testing: Clinical Impression(s) from Imaging Studies Chest X-Ray 07/31/22 09:10 IMPRESSION: Stable mild degree of increased linear markings at the lung bases suggest mild basilar scarring. Electronically Signed: Matt Gardner MD at 9:50 EST , Discharge Plan Triage Chief Complaint: Abn Labs ED Provider: Manfred Green Dx/Rx/DC Orders Clinical Impression: Acute non-ST elevation myocardial infarction (NSTEMI), LOCKE (dyspnea on exertion) Instructions: ED Dyspnea Prescriptions: No Action albuterol sulfate 2.5 mg /3 mL (0.083 %) solution for nebulization 2.5 mg INHALATION Q2H PRN (Reason: Shortness Of Breath Or Wheezing) pantoprazole 40 mg tablet,delayed release (DR/EC) 40 mg PO DAILY aspirin [Aspirin Childrens] 81 mg tablet,chewable 81 mg PO BID buprenorphine-naloxone 8-2 mg tablet, sublingual 1 tab sublingual BID Label Comments: take 1 tablet under the tongue twice a day amlodipine 5 mg tablet 5 mg PO DAILY Qty: 30 11RF atorvastatin 20 mg tablet 20 mg PO QHS albuterol sulfate 18 GM HFA aerosol inhaler 2 puff inhalation Q4H PRN PRN (Reason: Sob &/Or Wheezing) furosemide 20 mg tablet 20 mg PO QAM metoprolol tartrate 25 mg tablet 25 mg PO BID potassium chloride 20 mEq tablet extended release 20 meq PO DAILY Qty: 30 11RF Primary Care Provider: Azael Uribe Referrals: Azael Uribe MD [Primary Care Provider] - Activity Restrictions/Additional Instructions: As discussed today your heart enzymes are elevated and this is concerning for a heart attack. We discussed this at length. I recommended admission and cardiac testing. He did sign out AGAINST MEDICAL ADVICE today. You acknowledged the risk of severe disability, injury, because of this. He will counseled that you can return at any time. Disposition Disposition: Against Medical Advice
[2022-07-31 10:12] LABS: BNP,B-Type NATRIURETIC PEPTIDE 175.6 pg/mL (0-100)
[2022-07-31 11:00] VITALS: BP 115/92
[2022-07-31 11:11] LABS: Reflex Troponin-HS? (from REC) Y
[2022-07-31] MEDS: Aspirin 325 MG Tablet PO (11:16)
--- NOTE | 2022-07-31 11:53 | ED.RN ---
PT STATES THAT HE DOES NOT WANT TO STAY IN THE HOSPITAL AT THIS TIME. PT STATES THAT HE HAS TO TAKE HIS SON TO A DR NOLAND AND HIS SON'S MOTHER TO A COURT APPOINTED DR NOLAND OR SHE WILL GO TO RETIREMENT. THIS RN TELLS PATIENT THAT THERE WOULD BE RISKS OF PT LEAVING SINCE HIS TROP LEVELS ARE ELEVATED. PT STATES HE STILL WANTS TO SPEAK TO THE DR ABOUT LEAVING. THIS RN MAKES DR VOGT AWARE.
[2022-07-31 11:59] LABS: Troponin-I HS 194 pg/mL (3.0-78.0)
== END 2022-07-31 12:03 | disposition left against medical advice (07) ==
PROVIDERS: Emergency Provider Student in an Organized Health Care Education/Training Program; PCP Family Medicine; Visit Provider Student in an Organized Health Care Education/Training Program
DX: I21.4 Non-ST elevation (NSTEMI) myocardial infarction (principal); J44.9 Chronic obstructive pulmonary disease, unspecified; I25.10 Atherosclerotic heart disease of native coronary artery without angina pectoris; Z87.891 Personal history of nicotine dependence; I44.0 Atrioventricular block, first degree; R73.9 Hyperglycemia, unspecified; Z95.1 Presence of aortocoronary bypass graft
CPT/HCPCS: 71045; 85025; 80048; 83880; 84484; 93005; A4216

== ENCOUNTER 2022-07-31 12:52 | Inpatient (IN) | payer MEDICAID, SELFPAY ==
[2022-07-31] VITALS (9 sets, daily range): BP systolic 101–126; BP diastolic 66–91; PULSE 70–102; RESP 16–20; TEMP 35.8–36.8; O2SAT 91–96; BMI 38.8; BMI 37.4
--- NOTE | 2022-07-31 14:02 | HP.PCM.HOS_ITS ---
[facility] - General General Date of Service: 07/31/22 Chief Complaint: Dyspnea with exertion HPI Narrative SOREN DE GUZMAN, is a 56 M who presents 3-month history of dyspnea on exertion. Symptoms have just been progressive during this time. Patient sought evaluation today. In the emergency room, his troponin was 194. It was advised patient be admitted and the hospitalist contacted. In the interim, patient had to leave to do some things as he apparently doing when he drives in his family. He came back shortly afterwards. Subsequent troponin was 197. The hospital service was recontacted for admission. Patient does not have shortness of breath like this before. [facility] Medical History Altered mental status Aortic valve endocarditis Aspiration into airway Atherosclerotic heart disease of [place] coronary artery without angina pectoris Cellulitis Cerebrovascular disease, unspecified Coronary artery disease Elevated troponin Esophageal reflux Hepatitis C Hyperlipidemia Hyponatremia Nonrheumatic aortic (valve) insufficiency ESA (obstructive sleep apnea) Overdose Sepsis Home Medications albuterol sulfate 90 mcg/actuation aerosol inhaler 2 puff inhalation Q4H PRN PRN Sob &/Or Wheezing 11/19/19 [History Last Taken 07/31/22] albuterol sulfate 2.5 mg/3 mL (0.083 %) solution for nebulization 2.5 mg in halation Q2H PRN Shortness Of Breath Or Wheezing 01/20/20 [History Last Taken 07/31/22] pantoprazole 40 mg tablet,delayed release 40 mg PO DAILY reflux 01/20/20 [History Last Taken 07/31/22] buprenorphine 8 mg-naloxone 2 mg sublingual tablet 1 tab sublingual BID Check with primary doctor 03/21/21 [History Last Taken 07/31/22] furosemide 20 mg tablet 20 mg PO QAM diuretic 09/05/21 [History Last Taken 07/31/22] metoprolol tartrate 25 mg tablet 25 mg PO BID blood pressure 09/05/21 [History Last Taken 07/31/22] amlodipine 5 mg tablet 5 mg PO DAILY #30 tabs 05/26/22 [Rx Last Taken 07/31/22] aspirin 81 mg chewable tablet (Aspirin Childrens) 81 mg PO BID heart health 07/27/22 [History Last Taken 07/31/22] atorvastatin 20 mg tablet 20 mg PO QHS 07/27/22 [History Last Taken Unknown] potassium chloride 20 mEq tablet,extended release 20 meq PO DAILY #30 tabs 07/28/22 [Rx Last Taken 07/31/22] Allergy/AdvReac Type Severity Reaction Status Date / Time Penicillins [PCN] Allergy Shortness Verified 07/31/22 12:53 of breath Family History Mother Hypertension Diabetes Father Cancer Grandmother Diabetes Surgical History History of aortic valve replacement with bioprosthetic valve (11/28/19) History of coronary artery bypass graft (11/28/19) History of foot surgery History of tonsillectomy and adenoidectomy Social History Smoking Status: Former smoker quit status: has quit before alcohol intake: never substance use type: former substance user Date of last use: November 19, 2019 now on suboxone, heroin and other details: fentanyl caffeine: Yes Type: carbonated beverages Number of servings: 2 and coffee Number of servings: 2 ROS ROS Narrative States that since May, he is lost roughly 60 pounds. He did have lower extremity edema but that is since resolved. Does have dry skin in the lower extremities. Denies any chest pain or any palpitations. Denies any diaphoresis. No nausea or vomiting. All review of systems were negative except as mentioned above in the history of present illness and the other review of systems. Vital Signs Vital Signs Vital Signs: 07/31/22 12:53 07/31/22 13:16 Temperature 35.8 C L Temperature Source Temporal Pulse Rate 96 Respiratory Rate 18 Respiratory Effort Short of Breath Labored Blood Pressure 115/91 H Blood Pressure Mean 99 Pulse Ox 94 Oxygen Delivery Method Room Air Room Air Physical Exam Const alert and no apparent distress HEENT normocephalic and head/scalp atraumatic Eyes Eyes Narrative: No icterus Neck no lymphadenopathy and no JVD Resp normal respiratory effort, no retractions, no use of accessory muscles and clear to auscultation bilaterally Cardio regular rate, regular rhythm, S1 normal heart sound and S2 normal heart sound GI normal to inspection, nondistended, normoactive bowel sounds, soft to palpation, non-tender and non-distended Extremity normal to inspection and full ROM Skin Skin Narrative: Dry skin in the lower extremities. Neuro moves all extremities and no focal motor deficits Psych affect normal Results Lab / Micro Data Attestation: I reviewed the patient's lab results. EKG Initial EKG: Attestation: I personally reviewed and interpreted this EKG as follows: Prior EKG tracings: available for review EKG Rhythm Intrepretation: Sinus Rhythm Assessment & Plan Assessment/Plan (1) Acute non-ST elevation myocardial infarction (NSTEMI): PLAN: Start weight-based enoxaparin Check echocardiogram Consult cardiology Troponins are slightly elevated but patient does have risk factors. (2) Hyponatremia: PLAN: Unclear etiology Check urine osmolality, urine sodium, serum osmolality Additionally, check TSH and cortisol Check lipid panel PLAN: Plan Chronic conditions * History of opiate abuse: No longer using heroin. Continue with Suboxone * History of aortic valve endocarditis: Status post replacement * History of stroke: Stable VTE prophylaxis: Not indicated as patient will be on therapeutic enoxaparin. Charges/Coding Visit Charges Inpatient E&M: 38207 Init Hosp L3
[2022-07-31 15:43] LABS: Bacteria 0 SEEN /hpf (None Seen); Mucous, Urine 0 SEEN /hpf (<or=2+); Squamous Epithelial Cells - UA 0 SEEN /hpf (0-5)
[2022-07-31 15:59] LABS: Urine Sodium 9 mmol/L (Not Establ.)
[2022-07-31 16:56] LABS: Color, Urine Yellow (Yellow); Glucose, Dipstick Normal (Normal); Ketone-Dipstick Negative (Negative); Leukocyte Esterase-Dipstick Negative /ul (Negative); Nitrite-Dipstick Negative (Negative); Occult Blood-Urine 250 /ul (Negative); Protein-Dipstick 30 mg/dl (Negative); Specific Gravity, Urine 1.005 (1.002-1.030); Urine Bilirubin Dipstick Negative (Negative); Urine Clarity Clear (Clear); Urine Urobilinogen 1 mg/dl (Normal); Urine pH 6.5 (5.0 - 8.0)
[2022-07-31 17:12] LABS: Osmolality, Serum 276 mOsm/KG (275-295); Osmolality, Urine 204 mOsm/KG
[2022-07-31 17:30] LABS: Red Blood Cells-Urine 10-25 SEEN /hpf (0-5); White Blood Cells 0-5 SEEN /hpf (0-5)
--- NOTE | 2022-07-31 18:03 | PCM.CONS.C ---
Assessment & Plan Assessment/Plan (1) LOCKE (dyspnea on exertion): PLAN: He does present with dyspnea on exertion and appears to be in mild congestive heart failure. I would recommend that we obtain an echocardiogram to assess his ventricular function and depending on the findings further recommendations will be made. In the meantime he will be started on a diuretic with intravenous Lasix. (2) Essential hypertension: PLAN: His blood pressure appears to be under good control. We will continue current medical therapy with the beta-juan f as well as the calcium channel juan f. (3) History of aortic valve replacement with bioprosthetic valve: PLAN: He does have a history of aortic valve replacement with a bioprosthetic valve. This will be reevaluated with the echocardiogram. Depending on the findings further recommendations will be made. (4) History of coronary artery bypass graft: PLAN: He did have a history of coronary disease status post coronary bypass grafting. It does not appear that he is any angina at this time. His mild cardiac enzyme elevation which appears to be flat is not suggestive of a non-ST elevation myocardial infarction. Perhaps prior to discharge if pharmacologic myocardial perfusion scan can be performed. HPI Consult Data Date of Consult: 07/31/22 HPI Narrative HPI Narrative: SOREN DE GUZMAN, is a 56 M who presents to the emergency room with a more than 3-month history of progressive shortness of breath. It is not clear why he decided to present at this particular time. His history is significant for hypertension, coronary artery disease, aortic valve replacement with a 21 mm bioprosthetic InspirEase valve and single-vessel saphenous vein graft to the posterior descending artery in 2019. This was following aortic valve insufficiency for endocarditis. He has been seen in the heart group offices in a spotty manner but has not really followed up. He denies any chest pain but says that more recently he has developed significant pedal edema which is now brawny as well as shortness of breath with exertion. He denies any dizziness or diaphoresis near syncope or syncope. He presented to the emergency room was noted to have mild cardiac enzyme elevation and cardiology was called for evaluation and management. [facility] Medical History Altered mental status Aortic valve endocarditis Aspiration into airway Atherosclerotic heart disease of [place] coronary artery without angina pectoris Cellulitis Cerebrovascular disease, unspecified Coronary artery disease Elevated troponin Esophageal reflux Hepatitis C Hyperlipidemia Hyponatremia Nonrheumatic aortic (valve) insufficiency ESA (obstructive sleep apnea) Overdose Sepsis Home Medications albuterol sulfate 90 mcg/actuation aerosol inhaler 2 puff inhalation Q4H PRN PRN Sob &/Or Wheezing 11/19/19 [History Last Taken 07/31/22] albuterol sulfate 2.5 mg/3 mL (0.083 %) solution for nebulization 2.5 mg inhalation Q2H PRN Shortness Of Breath Or Wheezing 01/20/20 [History Last Taken 07/31/22] pantoprazole 40 mg tablet,delayed release 40 mg PO DAILY reflux 01/20/20 [History Last Taken 07/31/22] buprenorphine 8 mg-naloxone 2 mg sublingual tablet 1 tab sublingual BID Check with primary doctor 03/21/21 [History Last Taken 07/31/22] furosemide 20 mg tablet 20 mg PO QAM diuretic 09/05/21 [History Last Taken 07/31/22] metoprolol tartrate 25 mg tablet 25 mg PO BID blood pressure 09/05/21 [History Last Taken 07/31/22] amlodipine 5 mg tablet 5 mg PO DAILY #30 tabs 05/26/22 [Rx Last Taken 07/31/22] aspirin 81 mg chewable tablet (Aspirin Childrens) 81 mg PO BID heart health 07/27/22 [History Last Taken 07/31/22] atorvastatin 20 mg tablet 20 mg PO QHS 07/27/22 [History Last Taken Unknown] potassium chloride 20 mEq tablet,extended release 20 meq PO DAILY #30 tabs 07/28/22 [Rx Last Taken 07/31/22] Allergy/AdvReac Type Severity Reaction Status Date / Time Penicillins [PCN] Allergy Shortness Verified 07/31/22 12:53 of breath Family History Mother Hypertension Diabetes Father Cancer Grandmother Diabetes Surgical History History of aortic valve replacement with bioprosthetic valve (11/28/19) History of coronary artery bypass graft (11/28/19) History of foot surgery History of tonsillectomy and adenoidectomy Social History Smoking Status: Former smoker quit status: has quit before alcohol intake: never substance use type: former substance user Date of last use: November 19, 2019 now on suboxone, heroin and other details: fentanyl caffeine: Yes Type: carbonated beverages Number of servings: 2 and coffee Number of servings: 2 ROS Constitutional Constitutional: Denies fever(s) or weight loss Eyes Eyes: Reports systems reviewed and no addt'l complaints, except as documented ENT HEENT: Reports systems reviewed and no addt'l complaints, except as documented Cardiovascular Cardiovascular: Reports dyspnea at rest, dyspnea on exertion, edema, fatigue and paroxysmal nocturnal dyspnea; Denies chest pain at rest, chest pain with activity or palpitations Respiratory/Chest Respiratory/Chest: Reports dyspnea on exertion, shortness of breath at rest and shortness of breath with exertion; Denies productive cough Gastrointestinal Gastrointestinal: Denies change in bowel habits, nausea, vomiting or weight changes Genitourinary Genitourinary: Denies difficulty urinating Musculoskeletal Musculoskeletal: Denies joint stiffness or muscle weakness Integumentary Integumentary: Denies lesions Neurologic Neurologic: Denies dizziness or syncope Psychiatric Psychiatric: Denies anxiety Endocrine Endocrinology: Denies excessive sweating or fatigue Hematologic/Lymphatic Hematologic/Lymphatic: Denies anemia Allergic/Immunologic Allergic/Immunologic: Denies seasonal rhinorrhea Physical Exam Const alert, oriented x3 and no apparent distress General Appearance: cooperative HEENT hearing grossly normal bilaterally Head and Scalp: atraumatic Eyes EOMs intact bilaterally Neck General: normal visual inspection Chest inspection of chest normal and palpation of chest normal Resp normal respiratory effort Auscultation: clear to auscultation bilaterally Cardio regular rate, regular rhythm, S1 normal heart sound and S2 normal heart sound Jugular Venous Distention: JVD Heart Sounds: murmur systolic GI normal to inspection, nondistended, normoactive bowel sounds Extremity normal capillary refill General Extremity: edema bilateral Peripheral Pulses: Yes pulses 2+ throughout and femoral pulses present Skin Skin Narrative: Significant excoriations and brawny edema Neuro oriented x3 and CN's II-XII intact bilaterally Psych Appearance: grossly normal and appropriate Risk Stratification Risk Stratification Applicable: No Objective Data Vital Signs: Vital Signs Temp Pulse Resp BP Pulse Ox O2 Del Method O2 Flow Rate 96.5 F L 70 18 108/88 H 94 Nasal Cannula 2 07/31/22 12:53 07/31/22 17:06 07/31/22 17:06 07/31/22 17:06 07/31/22 17:06 07/31/22 17:06 07/31/22 17:06 Oxygen Flow Rate (L/min) 2 Oxygen Delivery Method Nasal Cannula Weight: 270 lb 8.115 oz Body Mass Index (BMI) 38.8 Lab / Micro Data Labs: Laboratory Results - last 24 hr 07/31/22 15:30: Serum Osmolality 276 07/31/22 15:30: Urine Color Yellow, Urine Clarity Clear, Urine pH 6.5, Ur Specific [place] 1.005, Urine Protein 30 H, Urine Glucose (UA) Normal, Urine Ketones Negative, Urine Occult Blood 250 H, Urine Nitrite Negative, Urine Bilirubin Negative, Urine Urobilinogen 1 H, Ur Leukocyte Esterase Negative, Urine RBC 10-25 SEEN, Urine WBC 0-5 SEEN, Ur Squamous Epith Cells 0 SEEN, Urine Bacteria 0 SEEN, Urine Mucus 0 SEEN 07/31/22 15:30: Urine Osmolality 204, Ur Random Sodium 9 Cardiology Labs/Tests 07/31/22 15:30: Serum Osmolality 276 07/31/22 15:30: Urine Color Yellow, Urine Clarity Clear, Urine pH 6.5, Ur Specific [place] 1.005, Urine Protein 30 H, Urine Glucose (UA) Normal, Urine Ketones Negative, Urine Occult Blood 250 H, Urine Nitrite Negative, Urine Bilirubin Negative, Urine Urobilinogen 1 H, Ur Leukocyte Esterase Negative, Urine RBC 10-25 SEEN, Urine WBC 0-5 SEEN Rhythm: EKG: ECHO: Stress Test: Cardiac Cath: PCI: CT Surgery: Holter monitor: EPS: PPM: CXR: Chest CT Scan:
--- NOTE | 2022-07-31 18:10 | ECHOD_ITS ---
Reason For Study: VALVE EVAL Procedure This was a 2D Doppler, Color Flow transthoracic echocardiogram. The study was technically difficult. Contrast injection was performed. Exam performed portable in patient room. Left Ventricle Normal LV size. Left ventricular systolic function is normal. The estimated ejection fraction is 50 %. No regional wall motion abnormalities noted. Right Ventricle Normal RV size. Atria Normal left atrium. Normal right atrium. Mitral Valve Mitral valve not well visualized. Tricuspid Valve The tricuspid valve is not well visualized. Aortic Valve Peak aortic valve gradient 56 mmHg. Mean aortic valve gradient 38 mmHg. Moderate aortic stenosis. Bioprosthetic aortic valve. Great Vessels Normal aortic root. The pulmonary is not well visualized. Pericardium/Pleural No pericardial effusion. Medication Diluted definity 2ml given slow IV push to enhance endocardial definition. MMode/2D Measurements & Calculations LVIDd: 5.8 cm IVSd: 1.3 cm LVOT diam: 2.0 cm LVIDs: 4.1 cm LVPWd: 1.5 cm LVOT area: 3.0 cm2 FS: 30.2 % LAV(MOD-sp4): 68.7 ml LA A4 area: 21.7 cm2 RA A4 area: 20.3 cm2 Time Measurements MV dec time: 0.24 sec Doppler Measurements & Calculations MV E max cameron: 102.7 cm/sec Lat Peak E' Cameron: 14.3 cm/sec Med Peak E' Cameron: 8.1 cm/sec MV A max cameron: 93.9 cm/sec E/E' lat: 7.2 E/E' med: 12.7 MV E/A: 1.1 MV V2 max: 121.5 cm/sec MV dec slope: 437.2 cm/sec2 Ao V2 max: 373.2 cm/sec MV max P.0 mmHg Ao max P.8 mmHg MV V2 mean: 87.5 cm/sec Ao V2 mean: 293.8 cm/sec MV mean P.3 mmHg Ao mean P.5 mmHg MV V2 VTI: 47.8 cm Ao V2 VTI: 90.4 cm MVA(VTI): 1.5 cm2 AV (velocity ratio): 0.27 HERMELINDO(I,D): 0.80 cm2 HERMELINDO(V,D): 0.81 cm2 LV V1 max: 100.1 cm/sec SV(LVOT): 72.3 ml LV V1 max P.0 mmHg LV V1 mean P.1 mmHg LV V1 mean: 67.0 cm/sec LV V1 VTI: 24.0 cm ECHO/Echo Complete W/ Contrast Interpretation Summary Normal LV size. Left ventricular systolic function is normal. The estimated ejection fraction is 50 %. Mean aortic valve gradient 38 mmHg. Contrast injection was performed. Ordering Physician: Dallas Urbano Referring Physician: JEFFREY Performed By: Huong Jones RCS
[2022-07-31 20:32] LABS: Troponin-I HS 162 pg/mL (3.0-78.0)
[2022-07-31 21:31] LABS: Troponin-I HS 161 pg/mL (3.0-78.0)
[2022-07-31] MEDS: Atorvastatin Calcium 20 MG Tablet PO (22:21)
[2022-07-31] MEDS: Metoprolol Tartrate 25 MG Tablet PO (22:21)
[2022-07-31] MEDS: Enoxaparin 100 MG/ML Syringe SC (22:29)
[2022-08-01] VITALS (8 sets, daily range): BP systolic 94–122; BP diastolic 64–88; PULSE 68–84; RESP 12–18; TEMP 36.6–37.4; O2SAT 88–94; BMI 37.7
[2022-08-01 01:48] LABS: Troponin-I HS 176 pg/mL (3.0-78.0)
--- NOTE | 2022-08-01 03:00 | NURSING ---
took over care of patient from SAMMY Khan at 0300
[2022-08-01] MEDS: Enoxaparin 100 MG/ML Syringe SC ×2 (05:12→17:23)
[2022-08-01 05:54] LABS: Absolute Lymphocyte Count 1.07 X10^3/uL (0.83-4.51); Absolute Neutrophil Count 3.8 X10^3/uL (2.0-7.7); Basophil# 0.04 X10^3/uL; Basophil% 0.7 % (0-1); Eosinophil# 0.02 X10^3/uL; Eosinophils% 0.4 % (0-5); Hematocrit 33.2 % (40-54); Hemoglobin 10.3 g/dL (13.0-16.5); Lymphocyte # 1.07 X10^3/ul (0.83-4.51); Lymphocyte % 19.9 % (19-41); Mean Corpuscular Hgb 24.6 pg (27.0-32.0); Mean Corpuscular Volume 79.2 fL (80-94); Mean Platelet Vol. 10.9 fl (6.2-12.0); Monocyte# 0.45 X10^3/uL; Monocyte% 8.4 % (0-10); NRBC Flagged by Analyzer 0 % (0-5); Neutrophil # 3.77 X10^3/uL (2.7-7.7); Neutrophil % 70.2 % (47-70); POSITIVE COUNT YES; Platelet Count 91 K/mm3 (150-450); RBC Distribution Width CV 16.9 % (11.6-14.6); RBC Distribution Width SD 48.2 fl (35.1-43.9); Red Blood Count 4.19 M/mm3 (4.6-6.2); White Blood Count 5.4 K/mm3 (4.4-11.0)
[2022-08-01 06:31] LABS: ALB/GLOB Ratio 0.4 RATIO (0.9-2.4); AST(SGOT) 34 U/L (15-37); Alanine Aminotransfer ALT/SGPT 15 U/L (16-61); Albumin, Serum 2.2 g/dL (3.2-5.0); Alkaline Phosphatase 66 U/L (45-117); Anion Gap 6 (5-15); BUN 9 mg/dL (7-18); BUN/Creat Ratio 11.3 RATIO (10-20); Calcium,Total 7.9 mg/dL (8.5-10.1); Chloride 93 mmol/L (98-107); Cholesterol 95 mg/dL (200); Creatinine, Serum 0.79 mg/dL (0.70-1.30); EST Glomerular Filtration Rate 107 mL/min (>60); Est Glom Filt Rate - Afr Amer 130 mL/min (>60); Estimated Creatinine Clearance 107.81 ml/min; Globulin 5.2 g/dL (2.2-4.2); Glucose 114 mg/dL (74-106); High Density Lipoprotein 15 mg/dL; Potassium 3.7 mmol/L (3.5-5.1); Protein, Total 7.4 g/dL (6.4-8.2); Sodium Level 128 mmol/L (136-145); Thyroid Stim Hormone (TSH) 2.39 uIU/mL (0.358-3.74); Triglycerides 110 mg/dL; Very Low Density Lipoprotein 22 mg/dL (5-40)
--- NOTE | 2022-08-01 07:46 | PCM.PN.CARD ---
Subjective Subjective Patient seen and evaluated. Objective Data Vital Signs: Vital Signs Temp Pulse Resp BP Pulse Ox O2 Del Method O2 Flow Rate 99.3 F H 81 18 116/70 93 Nasal Cannula 2 08/01/22 05:03 08/01/22 05:03 08/01/22 05:03 08/01/22 05:03 08/01/22 05:03 08/01/22 05:04 08/01/22 05:03 Oxygen Flow Rate (L/min) 2 Oxygen Delivery Method Nasal Cannula Weight: 263 lb 0.183 oz Body Mass Index (BMI) 37.7 Lab / Micro Data Result Diagrams: 08/01/22 05:19 08/01/22 05:19 Labs: Laboratory Results - last 24 hr 07/31/22 15:30: Serum Osmolality 276 07/31/22 15:30: Urine Color Yellow, Urine Clarity Clear, Urine pH 6.5, Ur Specific [place] 1.005, Urine Protein 30 H, Urine Glucose (UA) Normal, Urine Ketones Negative, Urine Occult Blood 250 H, Urine Nitrite Negative, Urine Bilirubin Negative, Urine Urobilinogen 1 H, Ur Leukocyte Esterase Negative, Urine RBC 10-25 SEEN, Urine WBC 0-5 SEEN, Ur Squamous Epith Cells 0 SEEN, Urine Bacteria 0 SEEN, Urine Mucus 0 SEEN 07/31/22 15:30: Urine Osmolality 204, Ur Random Sodium 9 07/31/22 19:27: Troponin I High Sens 162 H* 07/31/22 20:43: Troponin I High Sens 161 H* 08/01/22 01:10: Troponin I High Sens 176 H* 08/01/22 05:19: WBC 5.4, RBC 4.19 L, Hgb 10.3 L, Hct 33.2 L, MCV 79.2 L, MCH 24.6 L, MCHC 31.0 L, RDW Std Deviation 48.2 H, RDW Coeff of John 16.9 H, Plt Count 91 L, MPV 10.9, Immature Gran % (Auto) 0.400, Neut % (Auto) 70.2 H, Lymph % (Auto) 19.9, [place] % (Auto) 8.4, Eos % (Auto) 0.4, Baso % (Auto) 0.7, Absolute Neuts (auto) 3.8, Absolute Lymphs (auto) 1.07, Nucleated RBC % 0 08/01/22 05:19: Sodium 128 L, Potassium 3.7, Chloride 93 L, Carbon Dioxide 29.0, Anion Gap 6, BUN 9, Creatinine 0.79, Estim Creat Clear Calc 107.81, Est GFR (MDRD) Af Amer 130, Est GFR (MDRD) Non-Af 107, BUN/Creatinine Ratio 11.3, Glucose 114 H, Calcium 7.9 L, Total Bilirubin 0.80, AST 34, ALT 15 L, Alkaline Phosphatase 66, Total Protein 7.4, Albumin 2.2 L, Globulin 5.2 H, Albumin/Globulin Ratio 0.4 L, Triglycerides 110, Cholesterol 95, LDL Cholesterol 58, VLDL Cholesterol 22, HDL Cholesterol 15 L, TSH 2.39 Cardiology Labs/Tests 07/31/22 15:30: Serum Osmolality 276 07/31/22 15:30: Urine Color Yellow, Urine Clarity Clear, Urine pH 6.5, Ur Specific [place] 1.005, Urine Protein 30 H, Urine Glucose (UA) Normal, Urine Ketones Negative, Urine Occult Blood 250 H, Urine Nitrite Negative, Urine Bilirubin Negative, Urine Urobilinogen 1 H, Ur Leukocyte Esterase Negative, Urine RBC 10-25 SEEN, Urine WBC 0-5 SEEN 08/01/22 05:19: WBC 5.4, RBC 4.19 L, Hgb 10.3 L, Hct 33.2 L, MCV 79.2 L, MCH 24.6 L, MCHC 31.0 L, Plt Count 91 L, MPV 10.9, Immature Gran % (Auto) 0.400, Neut % (Auto) 70.2 H, Lymph % (Auto) 19.9, [place] % (Auto) 8.4, Eos % (Auto) 0.4, Baso % (Auto) 0.7, Absolute Neuts (auto) 3.8, Nucleated RBC % 0 08/01/22 05:19: Sodium 128 L, Potassium 3.7, Chloride 93 L, Carbon Dioxide 29.0, Anion Gap 6, BUN 9, Creatinine 0.79, Est GFR (MDRD) Af Amer 130, Est GFR (MDRD) Non-Af 107, BUN/Creatinine Ratio 11.3, Glucose 114 H, Calcium 7.9 L, Total Bilirubin 0.80, Triglycerides 110, Cholesterol 95, LDL Cholesterol 58, VLDL Cholesterol 22, HDL Cholesterol 15 L Rhythm: EKG: ECHO: Stress Test: Cardiac Cath: PCI: CT Surgery: Holter monitor: EPS: PPM: CXR: Chest CT Scan: Physical Exam Const alert, oriented x3 and no apparent distress General Appearance: cooperative HEENT hearing grossly normal bilaterally Head and Scalp: atraumatic Eyes EOMs intact bilaterally Neck General: normal visual inspection Chest inspection of chest normal and palpation of chest normal Resp normal respiratory effort Auscultation: clear to auscultation bilaterally Cardio regular rate, regular rhythm, S1 normal heart sound and S2 normal heart sound Jugular Venous Distention: JVD Heart Sounds: murmur systolic GI normal to inspection, nondistended, normoactive bowel sounds Extremity normal capillary refill General Extremity: edema bilateral Peripheral Pulses: Yes pulses 2+ throughout and femoral pulses present Skin Skin Narrative: Significant excoriations and brawny edema Neuro oriented x3 and CN's II-XII intact bilaterally Psych Appearance: grossly normal and appropriate Assessment & Plan Assessment/Plan (1) LOCKE (dyspnea on exertion): PLAN: He does present with dyspnea on exertion and appears to be in mild congestive heart failure. He appears to be breathing better this morning. I would recommend that we obtain an echocardiogram to assess his ventricular function and depending on the findings further recommendations will be made. In the meantime he will be started on a diuretic with intravenous Lasix. (2) Essential hypertension: PLAN: His blood pressure appears to be under good control. We will continue current medical therapy with the beta-juan f as well as the calcium channel juan f. (3) History of aortic valve replacement with bioprosthetic valve: PLAN: He does have a history of aortic valve replacement with a bioprosthetic valve. This will be reevaluated with the echocardiogram. Depending on the findings further recommendations will be made. (4) History of coronary artery bypass graft: PLAN: He did have a history of coronary disease status post coronary bypass grafting. It does not appear that he is any angina at this time. His mild cardiac enzyme elevation which appears to be flat is not suggestive of a non-ST elevation myocardial infarction. Perhaps prior to discharge if pharmacologic myocardial perfusion scan can be performed.
[2022-08-01] MEDS: buprenorphine HCL 8 MG TAB.SUBL SL ×2 (09:20→21:35)
[2022-08-01] MEDS: Aspirin 81 MG TAB.CHEW PO ×2 (09:21→17:23)
[2022-08-01] MEDS: Pantoprazole Sodium 40 MG Tablet PO (09:21)
[2022-08-01] MEDS: Metoprolol Tartrate 25 MG Tablet PO ×2 (09:21→21:30)
[2022-08-01] MEDS: Potassium Chloride Oral Tablet 20 MEQ PO (09:21)
[2022-08-01] MEDS: amLODIPine 5 MG Tablet PO (09:21)
[2022-08-01] MEDS: Furosemide 20 MG Tablet PO (09:21)
--- NOTE | 2022-08-01 12:54 | PN.HOSP_ITS ---
Reason for Visit Reason for Visit: Diagnoses Hypo-osmolality and hyponatremia (07/31/22) Essential (primary) hypertension (07/31/22) Non-ST elevation (NSTEMI) myocardial infarction (07/31/22) Other forms of dyspnea (07/31/22) Presence of aortocoronary bypass graft (07/31/22) Presence of xenogenic heart valve (07/31/22) Subjective Subjective No chest pain at this time, still shortness of breath at rest is fair at this time. Objective Data Objective Data Vital Signs: Vital Signs Temp Pulse Resp BP Pulse Ox O2 Del Method O2 Flow Rate 97.9 F 78 14 122/78 H 93 Room Air 2 08/01/22 09:20 08/01/22 09:21 08/01/22 09:20 08/01/22 09:20 08/01/22 09:20 08/01/22 10:25 08/01/22 05:03 Oxygen Flow Rate (L/min) 2 Oxygen Delivery Method Room Air Weight: 119.3 kg Body Mass Index (BMI) 37.7 Lab / Micro Data Result Diagrams: 08/01/22 05:19 08/01/22 05:19 Labs: Laboratory Results - last 24 hr 07/31/22 15:30: Serum Osmolality 276 07/31/22 15:30: Urine Color Yellow, Urine Clarity Clear, Urine pH 6.5, Ur Specific [place] 1.005, Urine Protein 30 H, Urine Glucose (UA) Normal, Urine Ketones Negative, Urine Occult Blood 250 H, Urine Nitrite Negative, Urine Bilirubin Negative, Urine Urobilinogen 1 H, Ur Leukocyte Esterase Negative, Urine RBC 10-25 SEEN, Urine WBC 0-5 SEEN, Ur Squamous Epith Cells 0 SEEN, Urine Bacteria 0 SEEN, Urine Mucus 0 SEEN 07/31/22 15:30: Urine Osmolality 204, Ur Random Sodium 9 07/31/22 19:27: Troponin I High Sens 162 H* 07/31/22 20:43: Troponin I High Sens 161 H* 08/01/22 01:10: Troponin I High Sens 176 H* 08/01/22 05:19: WBC 5.4, RBC 4.19 L, Hgb 10.3 L, Hct 33.2 L, MCV 79.2 L, MCH 24.6 L, MCHC 31.0 L, RDW Std Deviation 48.2 H, RDW Coeff of John 16.9 H, Plt Count 91 L, MPV 10.9, Immature Gran % (Auto) 0.400, Neut % (Auto) 70.2 H, Lymph % (Auto) 19.9, [place] % (Auto) 8.4, Eos % (Auto) 0.4, Baso % (Auto) 0.7, Absolute Neuts (auto) 3.8, Absolute Lymphs (auto) 1.07, Nucleated RBC % 0 08/01/22 05:19: Sodium 128 L, Potassium 3.7, Chloride 93 L, Carbon Dioxide 29.0, Anion Gap 6, BUN 9, Creatinine 0.79, Estim Creat Clear Calc 107.81, Est GFR (MDRD) Af Amer 130, Est GFR (MDRD) Non-Af 107, BUN/Creatinine Ratio 11.3, Glucose 114 H, Calcium 7.9 L, Total Bilirubin 0.80, AST 34, ALT 15 L, Alkaline Phosphatase 66, Total Protein 7.4, Albumin 2.2 L, Globulin 5.2 H, Album in/Globulin Ratio 0.4 L, Triglycerides 110, Cholesterol 95, LDL Cholesterol 58, VLDL Cholesterol 22, HDL Cholesterol 15 L, TSH 2.39 08/01/22 05:19: Cortisol 19.70 Radiography Diagnostic Testing: Radiology Impression Echocardiogram 07/31/22 18:10 Interpretation Summary Normal LV size. Left ventricular systolic function is normal. The estimated ejection fraction is 50 %. Mean aortic valve gradient 38 mmHg. Contrast injection was performed. Ordering Physician: Dallas Urbano Referring Physician: JEFFREY Performed By: Huong Jones RCS Physical Exam Narrative General: Alert, oriented, no apparent distress HEENT: Atraumatic, normocephalic Eyes: Anicteric, normal conjunctiva, extraocular movements grossly intact Neck: Supple Respiratory: Somewhat diminished at the bases, normal respiratory effort Cardiovascular: Regular rate and rhythm GI: Soft, nontender, nondistended Extremities: No edema Musculoskeletal: Moving all extremities Neuro: No overt focal neurological deficits Skin: No rashes appreciated Psych: Cooperative Assessment & Plan Assessment/Plan (1) LOCKE (dyspnea on exertion): (2) Essential hypertension: (3) History of aortic valve replacement with bioprosthetic valve: (4) History of coronary artery bypass graft: PLAN: Plan #NSTEMI -Cardiology following -Likely type II, relatively flat, will change full dose Lovenox to DVT prophylaxis -Continue aspirin, statin, beta-juan f -Echo with no wall motion abnormalities #Dyspnea on exertion -Progressive over 3 months -Chest x-ray on admission with a stable mild degree of increased linear markings at the lung bases suggestive of mild basilar scarring -Lasix increased to 40 mg -Echocardiogram 07/31: Normal LV size, EF 50%, mean aortic valve gradient 38 mmHg -Given his worsening shortness of breath with smoking history and hyponatremia we will get CT of the chest -If all unrevealing may need outpatient PFTs and pulm follow-up #History of coronary artery disease status post CABG and aortic valve replacement with bioprosthetic valve 11/28/2019 -Echo demonstrated peak aortic valve gradient of 56 mmHg indicating moderate aortic stenosis #Hypertension -Continue beta-juan f and calcium channel juan f #DVT ppx: Subcu Lovenox Hannah Nance MD Time spent in the patient's overall evaluation,decision-making process, review of diagnostic data, adjustment of management, discussion with other providers, nursing nursing and ancillary staff involved in patient's care documentation, 30 minutes Charges/Coding Visit Charges Inpatient E&M: 66291 Subs Hosp L2
--- NOTE | 2022-08-01 14:19 | CHAPLAIN ---
Type of Pastoral Visit _x__ Initial Visit ___ Follow-up Visit ___ On-call Visit ___ General Patient Visit ___ Spiritual Assessment ___ Family Conference ___ Bereavement ___ Rapid Response ___ Code Blue ___ Other (describe below) Pastoral Care Referral From _x__ Patient ___ Family ___ Nurse ___ Physician ___ Spa Host ___ Pmp Project Manager ___ Other (describe below) Sacrament/Intervention _x__ Active listening ___ Anointing ___ Gnosticism ___ Bereavement ___ Communion ___ Malina exploration ___ ___ Life review _x__ Prayer ___ Reconciliation ___ Sacrament of Sick ___ Supportive presence ___ Wedding ___ Other (describe below) Pastoral Comments patient had a medical scare yesterday and explains how that felt; pt has little to say about personal needs but does ask for help to the bathroom; instead 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
--- NOTE | 2022-08-01 14:30 | CASEMGMT ---
SAMMY STEPHEN DC Planning Assessment: Face to Face with patient for initial transition planning/care coordination assessment. SAMMY STEPHEN introduced self and role at [facility], pt voices understanding. Pt easily awoken, alert, oriented x4 and agreeable to participating in assessment. Care providers, pharmacy, and demographics verified. Admitting Dx: CHF, possible NSTEMI PCP: Jo[facility] Specialists: denies Preferred Pharmacy: [facility] Insurance: [facility] Prescription Benefit: yes Living Will/HPOA: none LNOK: son Nuvia (16yo), sister Alma Living Arrangements: Pt lives in an apartment located on the second floor with his 16yo son. Pt unable to recall the number of steps to get to the apartment, but denies any difficulty navigating these steps. Pt states he is independent with his ADLs including self care and household tasks. Transportation: Pt states he drives and denies any concerns with transportation. DME: Pt uses a cane to ambulate. also has a shower chair. SNF/HHC: Denies any previous providers Substance Abuse hx: Pt states he is active with [facility] for substance abuse recovery including Suboxone treatment. Plan: Pt plans to return home at discharge and denies any needs or concerns. Will continue to monitor and assist with DC needs as identified. Cristino Samson RN CM
--- NOTE | 2022-08-01 18:31 | CT_ITS ---
STUDY: CTA CHEST REASON FOR EXAM: Male, 56 years old. Worsening LOCKE, smoking hx, hyponatremia RADIATION DOSAGE (If Supplied By Facility): CTDIvol = ( 17.42 ) mGy, DLP = ( 560.04 ) mGycm TECHNIQUE: The examination was performed with the intravenous administration of IV 100mL Isovue-370. Post-processing of the angiographic images was performed, with multiplanar reformation and 3D reconstruction. Individualized dose optimization techniques were used for this CT. COMPARISON: None. FINDINGS: Normal enhancement of the main pulmonary artery and right and left pulmonary arteries. Normal enhancement of the bilateral peripheral pulmonary arteries. There is no demonstrated central or segmental pulmonary embolism. Respiratory motion complicated by dissection of the subsegmental pulmonary arteries. Normal thoracic aorta and visualized great vessels. There is no demonstrated aortic dissection. Normal heart and pericardium. Aortic valve prosthesis. Normal mediastinum. Normal hilar regions. Small secretions in the trachea. Mild bilateral dependent atelectasis. Normal pulmonary parenchyma. Normal pleura. Normal chest wall structures. Normal thoracic vertebral alignment. Splenomegaly CT/CTA Chest W/WO Contrast IMPRESSION: Mild bilateral dependent pulmonary atelectasis. Normal CTA chest examination, without a demonstrated central or segmental pulmonary embolism or arterial dissection. Respiratory motion limits evaluation of the subsegmental pulmonary arteries. Electronically Signed: Emmanuel Laura MD at 19:43 EST ,
[2022-08-01] MEDS: Atorvastatin Calcium 20 MG Tablet PO (21:35)
[2022-08-02] VITALS (9 sets, daily range): BP systolic 109–130; BP diastolic 64–84; PULSE 77–86; RESP 16–20; TEMP 36.3–37.1; O2SAT 86–96; BMI 37.5
[2022-08-02 05:48] LABS: Absolute Lymphocyte Count 1.05 X10^3/uL (0.83-4.51); Absolute Neutrophil Count 4.3 X10^3/uL (2.0-7.7); Basophil# 0.03 X10^3/uL; Basophil% 0.5 % (0-1); Eosinophil# 0.01 X10^3/uL; Eosinophils% 0.2 % (0-5); Hematocrit 31.4 % (40-54); Hemoglobin 9.9 g/dL (13.0-16.5); Lymphocyte # 1.05 X10^3/ul (0.83-4.51); Mean Corp Hgb Conc 31.5 g/dL (32-36); Mean Corpuscular Hgb 24.5 pg (27.0-32.0); Mean Corpuscular Volume 77.7 fL (80-94); Mean Platelet Vol. 10.6 fl (6.2-12.0); Monocyte# 0.42 X10^3/uL; Monocyte% 7.2 % (0-10); NRBC Flagged by Analyzer 0 % (0-5); Neutrophil # 4.32 X10^3/uL (2.7-7.7); Neutrophil % 73.9 % (47-70); POSITIVE COUNT YES; Platelet Count 85 K/mm3 (150-450); RBC Distribution Width SD 48.1 fl (35.1-43.9); Red Blood Count 4.04 M/mm3 (4.6-6.2); White Blood Count 5.8 K/mm3 (4.4-11.0)
[2022-08-02 06:16] LABS: ALB/GLOB Ratio 0.4 RATIO (0.9-2.4); AST(SGOT) 28 U/L (15-37); Alanine Aminotransfer ALT/SGPT 13 U/L (16-61); Albumin, Serum 2.2 g/dL (3.2-5.0); Alkaline Phosphatase 65 U/L (45-117); Anion Gap 5 (5-15); BUN 14 mg/dL (7-18); BUN/Creat Ratio 16.2 RATIO (10-20); Calcium,Total 8.1 mg/dL (8.5-10.1); Chloride 93 mmol/L (98-107); Creatinine, Serum 0.86 mg/dL (0.70-1.30); EST Glomerular Filtration Rate 97 mL/min (>60); Est Glom Filt Rate - Afr Amer 118 mL/min (>60); Estimated Creatinine Clearance 99.03 ml/min; Globulin 5.1 g/dL (2.2-4.2); Glucose 122 mg/dL (74-106); Magnesium 1.5 mg/dL (1.6-2.6); Potassium 3.8 mmol/L (3.5-5.1); Protein, Total 7.3 g/dL (6.4-8.2); Sodium Level 128 mmol/L (136-145)
--- NOTE | 2022-08-02 06:49 | NURSING ---
Patient states that Haleigh is able to receive information on him over the phone.
--- NOTE | 2022-08-02 06:56 | PN.CARD_ITS ---
Subjective Subjective Patient seen and evaluated. Appears to be doing well this morning. Objective Data Vital Signs: Vital Signs Temp Pulse Resp BP Pulse Ox O2 Del Method O2 Flow Rate 98.8 F 80 20 H 121/84 H 93 Nasal Cannula 2 08/02/22 03:20 08/02/22 05:15 08/02/22 05:15 08/02/22 03:20 08/02/22 03:20 08/02/22 05:16 08/02/22 05:16 Oxygen Flow Rate (L/min) 2 Oxygen Delivery Method Nasal Cannula Weight: 261 lb 11.019 oz Body Mass Index (BMI) 37.5 Intake & Output: Intake and Output for Last 24 Hours 07/31/22 08/01/22 08/02/22 23:59 23:59 23:59 Output Total 200 / 200 200 / 200 Balance -200 / -200 -200 / -200 Lab / Micro Data Result Diagrams: 08/02/22 05:23 08/02/22 05:23 Labs: Laboratory Results - last 24 hr 08/01/22 05:19: Cortisol 19.70 08/02/22 05:23: WBC 5.8, RBC 4.04 L, Hgb 9.9 L, Hct 31.4 L, MCV 77.7 L, MCH 24.5 L, MCHC 31.5 L, RDW Std Deviation 48.1 H, RDW Coeff of John 17.0 H, Plt Count 85 L, MPV 10.6, Immature Gran % (Auto) 0.200, Neut % (Auto) 73.9 H, Lymph % (Auto) 18.0 L, [place] % (Auto) 7.2, Eos % (Auto) 0.2, Baso % (Auto) 0.5, Absolute Neuts (auto) 4.3, Absolute Lymphs (auto) 1.05, Nucleated RBC % 0 08/02/22 05:23: Sodium 128 L, Potassium 3.8, Chloride 93 L, Carbon Dioxide 30.0, Anion Gap 5, BUN 14, Creatinine 0.86, Estim Creat Clear Calc 99.03, Est GFR (MDRD) Af Amer 118, Est GFR (MDRD) Non-Af 97, BUN/Creatinine Ratio 16.2, Glucose 122 H, Calcium 8.1 L, Magnesium 1.5 L, Total Bilirubin 1.00, AST 28, ALT 13 L, Alkaline Phosphatase 65, Total Protein 7.3, Albumin 2.2 L, Globulin 5.1 H, Albumin/Globulin Ratio 0.4 L Cardiology Labs/Tests 08/02/22 05:23: WBC 5.8, RBC 4.04 L, Hgb 9.9 L, Hct 31.4 L, MCV 77.7 L, MCH 24.5 L, MCHC 31.5 L, Plt Count 85 L, MPV 10.6, Immature Gran % (Auto) 0.200, Neut % (Auto) 73.9 H, Lymph % (Auto) 18.0 L, [place] % (Auto) 7.2, Eos % (Auto) 0.2, Baso % (Auto) 0.5, Absolute Neuts (auto) 4.3, Nucleated RBC % 0 08/02/22 05:23: Sodium 128 L, Potassium 3.8, Chloride 93 L, Carbon Dioxide 30.0, Anion Gap 5, BUN 14, Creatinine 0.86, Est GFR (MDRD) Af Amer 118, Est GFR (MDRD) Non-Af 97, BUN/Creatinine Ratio 16.2, Glucose 122 H, Calcium 8.1 L, Magnesium 1.5 L, Total Bilirubin 1.00 Rhythm: EKG: ECHO: Stress Test: Cardiac Cath: PCI: CT Surgery: Holter monitor: EPS: PPM: CXR: Chest CT Scan: Radiography Diagnostic Testing: Radiology Impression Echocardiogram 07/31/22 18:10 Interpretation Summary Normal LV size. Left ventricular systolic function is normal. The estimated ejection fraction is 50 %. Mean aortic valve gradient 38 mmHg. Contrast injection was performed. Ordering Physician: Dallas Urbano Referring Physician: JEFFREY Performed By: Huong Jones RCS Chest CTA 08/01/22 18:31 IMPRESSION: Mild bilateral dependent pulmonary atelectasis. Normal CTA chest examination, without a demonstrated central or segmental pulmonary embolism or arterial dissection. Respiratory motion limits evaluation of the subsegmental pulmonary arteries. Electronically Signed: Emmanuel Laura MD at 19:43 EST , Physical Exam Const alert, oriented x3 and no apparent distress General Appearance: cooperative HEENT hearing grossly normal bilaterally Head and Scalp: atraumatic Eyes EOMs intact bilaterally Neck General: normal visual inspection Chest inspection of chest normal and palpation of chest normal Resp normal respiratory effort Auscultation: clear to auscultation bilaterally Cardio regular rate, regular rhythm, S1 normal heart sound and S2 normal heart sound Jugular Venous Distention: JVD Heart Sounds: murmur systolic GI normal to inspection, nondistended, normoactive bowel sounds Extremity normal capillary refill General Extremity: edema bilateral Peripheral Pulses: Yes pulses 2+ throughout and femoral pulses present Skin Skin Narrative: Significant excoriations and brawny edema Neuro oriented x3 and CN's II-XII intact bilaterally Psych Appearance: grossly normal and appropriate Assessment & Plan Assessment/Plan (1) LOCKE (dyspnea on exertion): PLAN: He does present with dyspnea on exertion and appears to be in mild congest hansel heart failure. He appears to be breathing better this morning. His echocardiogram demonstrated preserved left ventricular systolic function. He can be converted onto oral Lasix. (2) Essential hypertension: PLAN: His blood pressure appears to be under good control. We will continue current medical therapy with the beta-juan f as well as the calcium channel juan f. (3) History of aortic valve replacement with bioprosthetic valve: PLAN: He does have a history of aortic valve replacement with a bioprosthetic valve. * His echocardiographic evaluation demonstrated overall preserved systolic function. His mean gradient however was noted to be elevated. We will continue to monitor the above. (4) History of coronary artery bypass graft: PLAN: He did have a history of coronary disease status post coronary bypass grafting. It does not appear that he is any angina at this time. His mild cardiac enzyme elevation which appears to be flat is not suggestive of a non-ST elevation myocardial infarction. Further testing can be performed on him on an outpatient basis. Thank you for allowing me to participate in the care of your patient. Please don't hesitate to call if any issues arise.
--- NOTE | 2022-08-02 09:21 | PCM.PN.HOSP ---
Reason for Visit Reason for Visit: Diagnoses Hypo-osmolality and hyponatremia (07/31/22) Essential (primary) hypertension (07/31/22) Non-ST elevation (NSTEMI) myocardial infarction (07/31/22) Other forms of dyspnea (07/31/22) Presence of aortocoronary bypass graft (07/31/22) Presence of xenogenic heart valve (07/31/22) Objective Data Objective Data Vital Signs: Vital Signs Temp Pulse Resp BP Pulse Ox O2 Del Method O2 Flow Rate 98.8 F 80 20 H 121/84 H 94 Nasal Cannula 2 08/02/22 03:20 08/02/22 05:15 08/02/22 05:15 08/02/22 03:20 08/02/22 08:07 08/02/22 08:07 08/02/22 08:07 Oxygen Flow Rate (L/min) 2 Oxygen Delivery Method Nasal Cannula Weight: 118.7 kg Body Mass Index (BMI) 37.5 Intake & Output: Intake and Output for Last 24 Hours 07/31/22 08/01/22 08/02/22 23:59 23:59 23:59 Output Total 200 / 200 200 / 200 Balance -200 / -200 -200 / -200 Lab / Micro Data Result Diagrams: 08/02/22 05:23 08/02/22 05:23 Labs: Laboratory Results - last 24 hr 08/02/22 05:23: WBC 5.8, RBC 4.04 L, Hgb 9.9 L, Hct 31.4 L, MCV 77.7 L, MCH 24.5 L, MCHC 31.5 L, RDW Std Deviation 48.1 H, RDW Coeff of John 17.0 H, Plt Count 85 L, MPV 10.6, Immature Gran % (Auto) 0.200, Neut % (Auto) 73.9 H, Lymph % (Auto) 18.0 L, [place] % (Auto) 7.2, Eos % (Auto) 0.2, Baso % (Auto) 0.5, Absolute Neuts (auto) 4.3, Absolute Lymphs (auto) 1.05, Nucleated RBC % 0 08/02/22 05:23: Sodium 128 L, Potassium 3.8, Chloride 93 L, Carbon Dioxide 30.0, Anion Gap 5, BUN 14, Creatinine 0.86, Estim Creat Clear Calc 99.03, Est GFR (MDRD) Af Amer 118, Est GFR (MDRD) Non-Af 97, BUN/Creatinine Ratio 16.2, Glucose 122 H, Calcium 8.1 L, Magnesium 1.5 L, Total Bilirubin 1.00, AST 28, ALT 13 L, Alkaline Phosphatase 65, Total Protein 7.3, Albumin 2.2 L, Globulin 5.1 H, Albumin/Globulin Ratio 0.4 L Radiography Diagnostic Testing: Radiology Impression Echocardiogram 07/31/22 18:10 Interpretation Summary Normal LV size. Left ventricular systolic function is normal. The estimated ejection fraction is 50 %. Mean aortic valve gradient 38 mmHg. Contrast injection was performed. Ordering Physician: Dallas Urbano Referring Physician: JEFFREY Performed By: Huong Jones RCS Chest CTA 08/01/22 18:31 IMPRESSION: Mild bilateral dependent pulmonary atelectasis. Normal CTA chest examination, without a demonstrated central or segmental pulmonary embolism or arterial dissection. Respiratory motion limits evaluation of the subsegmental pulmonary arteries. Electronically Signed: Emmanuel Laura MD at 19:43 EST ,
[2022-08-02] MEDS: Enoxaparin 40 MG/0.4 ML Syringe SC (09:32)
[2022-08-02] MEDS: Furosemide 40 MG Tablet PO (09:33)
[2022-08-02] MEDS: Pantoprazole Sodium 40 MG Tablet PO (09:33)
[2022-08-02] MEDS: Metoprolol Tartrate 25 MG Tablet PO (09:33)
[2022-08-02] MEDS: Potassium Chloride Oral Tablet 20 MEQ PO (09:33)
[2022-08-02] MEDS: amLODIPine 5 MG Tablet PO (09:33)
[2022-08-02] MEDS: Aspirin 81 MG TAB.CHEW PO (09:33)
[2022-08-02] MEDS: buprenorphine HCL 8 MG TAB.SUBL SL (09:43)
[2022-08-02] MEDS: Magnesium Sulfate 4gm/100mL 4 GM/100 ML IV.SOLN. IV (10:27)
[2022-08-02] MEDS: 0.9% Saline Lock 10 ML Syringe IV (10:27)
--- NOTE | 2022-08-02 12:30 | CASEMGMT ---
SAMMY STEPHEN updated that patient will need home oxygen at discharge. Patient is requiring 2lpm with ambulation. SAMMY STEPHEN received script for oxygen. Patient's insurance prefers [facility]. SAMMY STEPHEN sent referral to [facility] and arranged for oxygen tank to be delivered to patient's room prior to discharge. Patient had no further questions or concerns at this time. CM will continue to follow this patient and plan for a safe discharge.
[2022-08-02] MEDS: Ipratropium/Albuterol Sulfate 3 ML AMPUL.NEB INHALATION (13:48)
--- NOTE | 2022-08-02 14:24 | DCINST_ITS ---
Discharge Instructions Diet Discharge Diet: - (DASH diet) Activity Discharge Activity: Return to Normal Activity Follow Up Care Test Results: Test results from this visit will be discussed in further detail at your follow- up appointment, if applicable. Discharge Plan Admission Admit Date/Time: 07/31/22 14:01 Primary Reason for Your Visit: Worsening shortness of breath Attending Provider: Hannah Nance Primary Care Provider: Azael Uribe Consulting Providers: Dallas Urbano ; Vernon Alex Instructions Patient Instructions: Using an Inhaler Additional Instructions / Restrictions: DISCHARGE INSTRUCTIONS PLEASE READ *Please take this with you to your next doctors appointment* -Please follow-up with cardiology upon discharge, please call the office upon discharge to schedule hospital follow-up appointment -You will be discharged on a new inhaler, Spiriva, that you will use daily and continue albuterol as needed -You will also be discharged on oxygen and will be important to follow-up with a lung doctor on discharge, contact information provided, please call upon discharge to schedule an appointment -Please call your primary care provider's office upon discharge to schedule a hospital follow up within 1 week. -For any concerning signs or symptoms please call 911 or proceed to the nearest emergency department Discharge Orders/Prescriptions Prescriptions: New Spiriva with HandiHaler 18 mcg capsule, w/inhalation device 1 cap inhalation DAILY 30 Days Qty: 30 0RF Rx Instructions: puncture 1 cap using device; one dose = 2 inhalations Continued albuterol sulfate 2.5 mg /3 mL (0.083 %) solution for nebulization 2.5 mg INHALATION Q2H PRN (Reason: Shortness Of Breath Or Wheezing) pantoprazole 40 mg tablet,delayed release (DR/EC) 40 mg PO DAILY aspirin [Aspirin Childrens] 81 mg tablet,chewable 81 mg PO BID buprenorphine-naloxone 8-2 mg tablet, sublingual 1 tab sublingual BID Label Comments: take 1 tablet under the tongue twice a day amlodipine 5 mg tablet 5 mg PO DAILY Qty: 30 11RF atorvastatin 20 mg tablet 20 mg PO QHS albuterol sulfate 18 GM HFA aerosol inhaler 2 puff inhalation Q4H PRN PRN (Reason: Sob &/Or Wheezing) furosemide 20 mg tablet 20 mg PO QAM metoprolol tartrate 25 mg tablet 25 mg PO BID potassium chloride 20 mEq tablet extended release 20 meq PO DAILY Qty: 30 11RF Referrals / Follow Up: Dallas Urbano MD [Med Staff - Active Staff] - Within 1 Month (You will need to follow-up with cardiology upon discharge, please call the office of Dr. Urbano upon discharge to schedule your hospital follow-up appointment )) Aries Garcia DO [Med Staff - Active Staff] - Within 1 Month (It is recommended that you establish with pulmonology upon discharge, please call to schedule an establish care appointment) Azael Uribe MD [Primary Care Provider] - Within 1 Week Disposition Disposition (needs filled in before D/C Order can be placed): Home, Self Care
--- NOTE | 2022-08-02 14:32 | DS.PCM_ITS ---
Providers Date of Admission: 07/31/22 Date of Discharge: 08/02/22 Primary Care Physician: Dr. Azael Uribe MD Consultations 07/31/22 18:46 Consult: Cardiology Routine Consulting Provider: Dallas Urbano Reason for Consult: NSTEMI EMERGENT Consult: No MD Notified: Yes Date Notified: 07/31/22 Time Notified: 13:58 Method of Notification: Text Reason For Visit: NSTEMI Diagnosis Discharge Diagnosis (1) LOCKE (dyspnea on exertion): Status: Acute Code(s): R06.09 - Other forms of dyspnea (2) Essential hypertension: Status: Acute Code(s): I10 - Essential (primary) hypertension (3) History of aortic valve replacement with bioprosthetic valve: Status: Chronic Code(s): Z95.3 - Presence of xenogenic heart valve (4) History of coronary artery bypass graft: Status: Chronic Code(s): Z95.1 - Presence of aortocoronary bypass graft Plan #NSTEMI type II #Dyspnea on exertion #History of coronary artery disease status post CABG and aortic valve replacement with bioprosthetic valve 11/28/2019 #Hypertension Medications at Discharge Home Medications albuterol sulfate 90 mcg/actuation aerosol inhaler 2 puff inhalation Q4H PRN PRN Sob &/Or Wheezing 11/19/19 albuterol sulfate 2.5 mg/3 mL (0.083 %) solution for nebulization 2.5 mg inhalation Q2H PRN Shortness Of Breath Or Wheezing 01/20/20 pantoprazole 40 mg tablet,delayed release 40 mg PO DAILY reflux 01/20/20 buprenorphine 8 mg-naloxone 2 mg sublingual tablet 1 tab sublingual BID Check with primary doctor 03/21/21 furosemide 20 mg tablet 20 mg PO QAM diuretic 09/05/21 metoprolol tartrate 25 mg tablet 25 mg PO BID blood pressure 09/05/21 amlodipine 5 mg tablet 5 mg PO DAILY #30 tabs 05/26/22 aspirin 81 mg chewable tablet (Aspirin Childrens) 81 mg PO BID heart health 07/27/22 atorvastatin 20 mg tablet 20 mg PO QHS 07/27/22 potassium chloride 20 mEq tablet,extended release 20 meq PO DAILY #30 tabs 07/28/22 tiotropium bromide 18 mcg capsule with inhalation device (Spiriva with HandiHaler) 1 cap inhalation DAILY 30 days #30 inhalations 08/02/22 Hospital Course Procedures Transthoracic echo Summary of Care Provided Minutes Spent on Discharge: 36 Hospital Course: Patient is a 56-year-old male with a history of coronary artery disease status post bypass and November 2019 as well as aortic valve bioprosthetic replacement and hypertension who presented to [facility] 07/31/2022 with dyspnea on exertion worsening over 3 months. He had a troponin in the ED of 194 and he was admitted for NSTEMI and given full dose Lovenox and cardiology consulted. Also was noted to have hyponatremia of unclear etiology and work-up was started for this as well. Cardiology evaluated and given his symptoms of chronic dyspnea, flat troponins and echo with preserved function but no regional wall motion abnormalities it was felt that he was not having a type I NSTEMI and he did not need further inpatient work-up and could have further work-up as an outpatient. His anticoagulation was converted to DVT prophylaxis and for his dyspnea he had a CTA especially with his hyponatremia to evaluate for mass or any other etiology, no acute abnormalities noted. Patient did have wheezing on exam and does have smoking history, suspect he has COPD. Given information for pulmonology follow-up outpatient and discharged with Spiriva, albuterol as needed and he did qualify for home O2. Will need PFTs and further outpatient management. On day of discharge he had no chest pain and no worsening of his breathing. Hyponatremia work-up unremarkable at this time but he is asymptomatic, can be worked up as an outpatient. Discharge instructions as below: -Please follow-up with cardiology upon discharge, please call the office upon discharge to schedule hospital follow-up appointment -You will be discharged on a new inhaler, Spiriva, that you will use daily and continue albuterol as needed -You will also be discharged on oxygen and will be important to follow-up with a lung doctor on discharge, contact information provided, please call upon discharge to schedule an appointment -Please call your primary care provider's office upon discharge to schedule a hospital follow up within 1 week. -For any concerning signs or symptoms please call 911 or proceed to the nearest emergency department Physical Exam Narrative General: Alert, oriented, no apparent distress HEENT: Atraumatic, normocephalic Eyes: Anicteric, normal conjunctiva, extraocular movements grossly intact Neck: Supple Respiratory: Scattered wheezes, normal respiratory effort Cardiovascular: Regular rate and rhythm GI: Soft, nontender, nondistended Extremities: Trace edema Musculoskeletal: Moving all extremities Neuro: No overt focal neurological deficits Skin: No rashes appreciated Psych: Cooperative Weight / BMI Weight Weight: 118.7 kg Body Mass Index (BMI) 37.5 ABG / Lab / Microbiology Data Result Diagrams: 08/02/22 05:23 08/02/22 05:23 Laboratory: Laboratory Results - last 24 hr 08/02/22 05:23: WBC 5.8, RBC 4.04 L, Hgb 9.9 L, Hct 31.4 L, MCV 77.7 L, MCH 24.5 L, MCHC 31.5 L, RDW Std Deviation 48.1 H, RDW Coeff of John 17.0 H, Plt Count 85 L, MPV 10.6, Immature Gran % (Auto) 0.200, Neut % (Auto) 73.9 H, Lymph % (Auto) 18.0 L, [place] % (Auto) 7.2, Eos % (Auto) 0.2, Baso % (Auto) 0.5, Absolute Neuts (auto) 4.3, Absolute Lymphs (auto) 1.05, Nucleated RBC % 0 08/02/22 05:23: Sodium 128 L, Potassium 3.8, Chloride 93 L, Carbon Dioxide 30.0, Anion Gap 5, BUN 14, Creatinine 0.86, Estim Creat Clear Calc 99.03, Est GFR (MDRD) Af Amer 118, Est GFR (MDRD) Non-Af 97, BUN/Creatinine Ratio 16.2, Glucose 122 H, Calcium 8.1 L, Magnesium 1.5 L, Total Bilirubin 1.00, AST 28, ALT 13 L, Alkaline Phosphatase 65, Total Protein 7.3, Albumin 2.2 L, Globulin 5.1 H, Albumin/Globulin Ratio 0.4 L Radiography Diagnostic Testing: Radiology Impression Chest CTA 08/01/22 18:31 IMPRESSION: Mild bilateral dependent pulmonary atelectasis. Normal CTA chest examination, without a demonstrated central or segmental pulmonary embolism or arterial dissection. Respiratory motion limits evaluation of the subsegmental pulmonary arteries. Electronically Signed: Emmanuel Laura MD at 19:43 EST , D/C Instructions Discharge Diet: - (DASH diet) Meaningful Use Info Meaningful Use Diagnoses (Choose all that apply): None applicable Discharge Plan Admission Admit Date/Time: 07/31/22 14:01 Primary Reason for Your Visit: Worsening shortness of breath Attending Provider: Hannah Nance Primary Care Provider: Azael Uribe Consulting Providers: Dallas Urbano ; Vernon Alex Instructions Patient Instructions: Using an Inhaler Additional Instructions / Restrictions: DISCHARGE INSTRUCTIONS PLEASE READ *Please take this with you to your next doctors appointment* -Please follow-up with cardiology upon discharge, please call the office upon discharge to schedule hospital follow-up appointment -You will be discharged on a new inhaler, Spiriva, that you will use daily and continue albuterol as needed -You will also be discharged on oxygen and will be important to follow-up with a lung doctor on discharge, contact information provided, please call upon discharge to schedule an appointment -Please call your primary care provider's office upon discharge to schedule a hospital follow up within 1 week. -For any concerning signs or symptoms please call 911 or proceed to the nearest emergency department Discharge Orders/Prescriptions Prescriptions: New Spiriva with HandiHaler 18 mcg capsule, w/inhalation device 1 cap inhalation DAILY 30 Days Qty: 30 0RF Rx Instructions: puncture 1 cap using device; one dose = 2 inhalations Continued albuterol sulfate 2.5 mg /3 mL (0.083 %) solution for nebulization 2.5 mg INHALATION Q2H PRN (Reason: Shortness Of Breath Or Wheezing) pantoprazole 40 mg tablet,delayed release (DR/EC) 40 mg PO DAILY aspirin [Aspirin Childrens] 81 mg tablet,chewable 81 mg PO BID buprenorphine-naloxone 8-2 mg tablet, sublingual 1 tab sublingual BID Label Comments: take 1 tablet under the tongue twice a day amlodipine 5 mg tablet 5 mg PO DAILY Qty: 30 11RF atorvastatin 20 mg tablet 20 mg PO QHS albuterol sulfate 18 GM HFA aerosol inhaler 2 puff inhalation Q4H PRN PRN (Reason: Sob &/Or Wheezing) furosemide 20 mg tablet 20 mg PO QAM metoprolol tartrate 25 mg tablet 25 mg PO BID potassium chloride 20 mEq tablet extended release 20 meq PO DAILY Qty: 30 11RF Referrals / Follow Up: Dallas Urbano MD [Med Staff - Active Staff] - Within 1 Month (You will need to follow-up with cardiology upon discharge, please call the office of Dr. Urbano upon discharge to schedule your hospital follow-up appointment )) Aries Garcia DO [Med Staff - Active Staff] - Within 1 Month (It is recommended that you establish with pulmonology upon discharge, please call to schedule an establish care appointment) Azael Uribe MD [Primary Care Provider] - Within 1 Week Disposition Disposition (needs filled in before D/C Order can be placed): Home, Self Care Charges/Coding Visit Charges Inpatient E&M: 71175 Disch Hosp >30min
--- NOTE | 2022-08-02 15:37 | PHA.DC.MC ---
Pharmacy Service has performed discharge medication reconciliation and counseling for this patient. 1. TIOTROPIUM HANDIHALER 18MG CAPSULE (2PUFFS) INHALATION ONCE DAILY The patient's discharge medication list was reviewed for discrepancies and discrepancies were resolved. Home Medications albuterol sulfate 90 mcg/actuation aerosol inhaler 2 puff inhalation Q4H PRN PRN Sob &/Or Wheezing 11/19/19 albuterol sulfate 2.5 mg/3 mL (0.083 %) solution for nebulization 2.5 mg inhalation Q2H PRN Shortness Of Breath Or Wheezing 01/20/20 pantoprazole 40 mg tablet,delayed release 40 mg PO DAILY reflux 01/20/20 buprenorphine 8 mg-naloxone 2 mg sublingual tablet 1 tab sublingual BID Check with primary doctor 03/21/21 furosemide 20 mg tablet 20 mg PO QAM diuretic 09/05/21 metoprolol tartrate 25 mg tablet 25 mg PO BID blood pressure 09/05/21 amlodipine 5 mg tablet 5 mg PO DAILY #30 tabs 05/26/22 aspirin 81 mg chewable tablet (Aspirin Childrens) 81 mg PO BID heart health 07/27/22 atorvastatin 20 mg tablet 20 mg PO QHS 07/27/22 potassium chloride 20 mEq tablet,extended release 20 meq PO DAILY #30 tabs 07/28/22 tiotropium bromide 18 mcg capsule with inhalation device (Spiriva with HandiHaler) 1 cap inhalation DAILY 30 days #30 inhalations 08/02/22 The patient was counseled on the following discharge medications and changes in medications for homegoing were reviewed. The Reason for Use, instructions for use, and potential side effects were reviewed for all new medications. The patient's questions regarding all of their medications were answered. The patient was able to verbally demonstrate an understanding of their discharge medications.
== END 2022-08-02 16:48 | disposition home or self-care (01) | DRG 194 ==
LOC: ED 13:36 → PCU 16:57
PROVIDERS: Emergency Provider Student in an Organized Health Care Education/Training Program; PCP Family Medicine; Visit Provider Internal Medicine
DX: I50.33 Acute on chronic diastolic (congestive) heart failure (principal); E87.1 Hypo-osmolality and hyponatremia; Z95.3 Presence of xenogenic heart valve; Z95.1 Presence of aortocoronary bypass graft; I11.0 Hypertensive heart disease with heart failure; J44.9 Chronic obstructive pulmonary disease, unspecified; I25.10 Atherosclerotic heart disease of native coronary artery without angina pectoris; E78.5 Hyperlipidemia, unspecified; G47.33 Obstructive sleep apnea (adult) (pediatric); K21.9 Gastro-esophageal reflux disease without esophagitis; R06.09 Other forms of dyspnea; Z87.891 Personal history of nicotine dependence; Z79.82 Long term (current) use of aspirin; Z79.899 Other long term (current) drug therapy
CPT/HCPCS: 36415; 71045; 71275; 80048; 80053; 80061; 81001; 82533; 83735; 83880; 83930; 83935; 84300; 84443; 84484; 85025; 93005; 93306; 94640; 97161; 97165; 97802; 99281; 99284; Q9957; Q9967; A4216; C8929

== ENCOUNTER 2022-08-15 12:34 | Inpatient (IN) | payer MEDICAID, SELFPAY ==
[2022-08-15] VITALS (8 sets, daily range): BP systolic 90–122; BP diastolic 64–76; PULSE 90–116; RESP 16–21; TEMP 36.8–37.1; O2SAT 87–95; BMI 38.7; BMI 38.0
--- NOTE | 2022-08-15 14:17 | RAD_ITS ---
STUDY: X-RAY CHEST REASON FOR EXAM: Male, 56 years old. Cough and dyspnea TECHNIQUE: PA and 2 lateral views of the chest. COMPARISON: 07/31/2022 FINDINGS: EKG leads overlie the chest Lungs are expanded, interstitial edema has developed since the previous study without organized infiltrate or effusion. Sternal cerclage wires and vascular clips are present from a prior sternotomy and coronary artery bypass graft procedure (CABG). Normal mediastinum and marjan. Normal visualized pulmonary arteries. Normal visualized aortic arch and descending thoracic aorta. Normal visualized thoracic spine. Normal visualized ribs, clavicles, and shoulders. There is no demonstrated abnormality of the visualized soft tissue structures of the upper abdomen. RAD/Chest PA and Lateral IMPRESSION: Diffuse interstitial edema has developed since the previous study without organized infiltrate or effusion. Follow-up recommended to assure complete resolution Electronically Signed: Kenyon Peterson MD at 15:26 EDT ,
--- NOTE | 2022-08-15 14:17 | EKG12_ITS ---
Test Reason : ALT LOC Blood Pressure : / mmHG Vent. Rate : 091 BPM Atrial Rate : 091 BPM P-R Int : 234 ms QRS Dur : 104 ms QT Int : 400 ms P-R-T Axes : 050 065 025 degrees QTc Int : 492 ms Sinus rhythm with 1st degree A-V block with occasional Premature ventricular complexes Prolonged QT Abnormal ECG Confirmed by BECKY YEUNG, BRIA ([id number]), mapping editor JEREMY STEVEN ([id number]) on 08/18/2022 6:53:32 AM Referred By: Confirmed By:JERRY PENA MD
[2022-08-15 15:02] LABS: Absolute Lymphocyte Count 1.27 X10^3/uL (0.83-4.51); Absolute Neutrophil Count 8.1 X10^3/uL (2.0-7.7); Basophil# 0.05 X10^3/uL; Basophil% 0.5 % (0-1); Eosinophil# 0.01 X10^3/uL; Eosinophils% 0.1 % (0-5); Hematocrit 32.4 % (40-54); Hemoglobin 10.1 g/dL (13.0-16.5); Lymphocyte # 1.27 X10^3/ul (0.83-4.51); Lymphocyte % 12.7 % (19-41); Mean Corp Hgb Conc 31.2 g/dL (32-36); Mean Corpuscular Hgb 24.2 pg (27.0-32.0); Mean Corpuscular Volume 77.5 fL (80-94); Mean Platelet Vol. 10.4 fl (6.2-12.0); Monocyte# 0.49 X10^3/uL; Monocyte% 4.9 % (0-10); NRBC Flagged by Analyzer 0 % (0-5); Neutrophil # 8.13 X10^3/uL (2.7-7.7); Neutrophil % 81.5 % (47-70); Platelet Count 129 K/mm3 (150-450); RBC Distribution Width CV 17.2 % (11.6-14.6); RBC Distribution Width SD 48.1 fl (35.1-43.9); Red Blood Count 4.18 M/mm3 (4.6-6.2)
[2022-08-15 15:12] LABS: Color, Urine Amber (Yellow); Glucose, Dipstick Normal (Normal); Ketone-Dipstick 5 mg/dl (Negative); Leukocyte Esterase-Dipstick 100 /ul (Negative); Nitrite-Dipstick Positive (Negative); Occult Blood-Urine 250 /ul (Negative); Protein-Dipstick 100 mg/dl (Negative); Urine Clarity Sl. Cloudy (Clear); Urine Urobilinogen 4 mg/dl (Normal)
[2022-08-15 15:13] LABS: Urine Bilirubin Dipstick 1 mg/dL (Negative)
[2022-08-15 15:22] LABS: Bacteria 1+ /hpf (None Seen); Mucous, Urine 1+ /hpf (<or=2+); Red Blood Cells-Urine 25-50 SEEN /hpf (0-5); Squamous Epithelial Cells - UA 0-5 SEEN /hpf (0-5); White Blood Cells 10-25 SEEN /hpf (0-5); Yeast-Urine 1+ /hpf (None Seen)
[2022-08-15 15:22] LABS: International Normalized Ratio 1.3
--- NOTE | 2022-08-15 15:23 | EDS_ITS ---
HPI History of Present Illness Chief Complaint: Alt LOC Detail of Chief Complaint: Altered level of conscious, wheezing and pulse ox 90% on room air Informant: patient, mental health staff and other Onset/Context/Timing Onset: - (Uncertain) Context: - (Unknown) Timing: Continuous (Presumed) Quality: Confusion Location: Presents from 180 Current Severity: Mild Maximum Severity: Moderate Worsened by: Unknown Relieved by: Nothing Associated Symptoms Associated Symptoms: Dark urine and jaundice Narrative Narrative: Patient is a 56-year-old male who was recently admitted for non-ST elevation SD type II, hypertension, dyspnea on exertion, and elevated liver enzymes. He does have history of coronary disease. He also has history of aortic valve e ndocarditis. Patient is not a good informant. He is very slow. He is not oriented. He is no longer hypoxic. He is disheveled and unkept. He does endorse cough. He presently denies shortness of breath. He may have slight shortness of breath with activity. He denies vomiting or diarrhea. He denies urologic symptoms. He denies fever or chills. [facility] Medical History (Updated 08/15/22 @ 16:[address] Damain Escobar MD) Acute non-ST elevation myocardial infarction (NSTEMI) Altered mental status Aortic valve endocarditis Aspiration into airway Asthma Atherosclerotic heart disease of [place] coronary artery without angina pectoris Cellulitis Cerebrovascular disease, unspecified Coronary artery disease Elevated troponin Esophageal reflux Hepatitis C Hyperlipidemia Hyponatremia Nonrheumatic aortic (valve) insufficiency ESA (obstructive sleep apnea) Overdose Sepsis Sleep apnea Home Medications albuterol sulfate 90 mcg/actuation aerosol inhaler 2 puff inhalation Q4H PRN PRN Sob &/Or Wheezing 11/19/19 [History Last Taken 07/31/22] albuterol sulfate 2.5 mg/3 mL (0.083 %) solution for nebulization 2.5 mg inhalation Q2H PRN Shortness Of Breath Or Wheezing 01/20/20 [History Last Taken 07/31/22] pantoprazole 40 mg tablet,delayed release 40 mg PO DAILY reflux 01/20/20 [History Last Taken 08/15/22] buprenorphine 8 mg-naloxone 2 mg sublingual tablet 1 tab sublingual BID Check with primary doctor 03/21/21 [History Last Taken 08/14/22] furosemide 20 mg tablet 20 mg PO QAM diuretic 09/05/21 [History Last Taken 08/15/22] metoprolol tartrate 25 mg tablet 25 mg PO BID blood pressure 09/05/21 [History Last Taken 08/15/22] amlodipine 5 mg tablet 5 mg PO DAILY #30 tabs 05/26/22 [Rx Last Taken 08/15/22] aspirin 81 mg chewable tablet (Aspirin Childrens) 81 mg PO BID heart health 07/27/22 [History Last Taken 08/15/22] atorvastatin 20 mg tablet 20 mg PO QHS 07/27/22 [History Last Taken 3 Days Ago ~08/12/22] potassium chloride 20 mEq tablet,extended release 20 meq PO DAILY #30 tabs 07/28/22 [Rx Last Taken 08/15/22] tiotropium bromide 18 mcg capsule with inhalation device (Spiriva with HandiHaler) 1 cap inhalation DAILY 30 days #30 inhalations 08/02/22 [Rx Last Taken Unknown] Allergy/AdvReac Type Severity Reaction Status Date / Time Penicillins [PCN] Allergy Shortness Verified 08/15/22 12:44 of breath Family History Mother Hypertension Diabetes Father Cancer Grandmother Diabetes Surgical History History of aortic valve replacement with bioprosthetic valve (11/28/19) History of coronary artery bypass graft (11/28/19) History of foot surgery History of tonsillectomy and adenoidectomy Social History Smoking Status: Former smoker quit status: has quit before alcohol intake: never substance use type: former substance user Date of last use: November 19, 2019 now on suboxone, heroin and other details: fentanyl caffeine: Yes Type: carbonated beverages Number of servings: 2 and coffee Number of servings: 2 ROS ROS ED Review of Systems ROS Unobtainable: due to mental status Constitutional Constitutional ED: Denies chills or fever(s) Eyes Eyes: Denies blurry vision or change in vision ENT ENT ED: Denies ear pain, rhinorrhea or sore throat Cardiovascular Cardiovascular: Denies chest pain or palpitations Respiratory/Chest Respiratory/Chest: Reports cough; Denies dyspnea on exertion Gastrointestinal Gastrointestinal: Denies diarrhea, nausea or vomiting Integumentary Denies Abrasions or rash Neurologic Neurologic: Denies headache(s), paresthesias or weakness Psychiatric Psychiatric: Denies anxiety or depression Endocrine Endocrinology: Denies cold intolerance or heat intolerance Hematologic/Lymphatic Hematologic/Lymphatic: Reports systems reviewed and no addt'l complaints, except as documented Allergic/Immunologic Allergic/Immunologic ED: Denies mouth swelling or tongue swelling EXAM Physical Exam Const Vital Signs: 08/15/22 12:38 08/15/22 15:10 Temperature 98.4 F Temperature Source Temporal Pulse Rate 90 116 H Respiratory Rate 16 20 H Blood Pressure 118/67 Blood Pressure Mean 84 Pulse Ox 95 95 Oxygen Delivery Method Room Air Positive well nourished, well developed and unkempt General Appearance ED: unkempt, well developed and NAD; Negative for cyanotic, diaphoretic or pallor HEENT Reports dry mucous membranes HEENT Narrative: Head is atraumatic normocephalic. Ears normal. TMs normal. Nares patent. Posterior pharynx is normal. Mouth ED: Yes dry mucous membranes Mouth: dry mucous membranes Eyes PERRL and EOMs intact bilaterally General Eye ED: Yes scleral icterus; Negative for pale conjunctiva Neck no lymphadenopathy, supple and no JVD Chest Wall inspection of chest normal and palpation of chest normal Resp normal respiratory effort and No clear to auscultation bilaterally Auscultation: rales bilateral lower and wheezes expiratory wheezes (Scattered with forced expiration) Cardio regular rate, regular rhythm, S1 normal heart sound, S2 normal heart sound and no murmurs GI normal to inspection, nondistended, normoactive bowel sounds, non-tender, non- distended and no masses; Negative for hepatosplenomegaly Back/Spine no CVA tenderness Cervical Spine: Negative for cervical spine tenderness Thoracic Spine / Upper Back: Negative for thoracic spinal tenderness Extremity normal to inspection Neuro No oriented x3, CN's II-XII intact bilaterally and no sensory deficits noted Sensorium / Orientation: Negative for alert Motor Exam: strength 5/5 throughout Psych Appearance: unkempt Skin no rashes or lesions noted and no wounds General Skin Exam: jaundice; Negative for pallor MDM MDM MDM Narrative Medical decision making narrative: Patient was in town to see his doctor regarding Suboxone. He states he has not taken more than he should have. He was sent in because of a pulse ox of 90% confusion compared to normal. Patient is slow. He is not oriented. He appears jaundiced. He does endorse dark-colored urine. Concerned he may have hepatic encephalopathy. Also need to evaluate for infectious causes and reason for chest x-ray and UA. Since patient has new interstitial infiltrates and UTI with allergy to penicillin with shortness of breath we will treat with levofloxacin which will cover both respiratory and urologic pathogens. History & Record Review Additional record(s) reviewed:: Prior inpatient record (Admission for non-STEMI type II, [place] exertion, hypertension. Patient does have history of drug use.) Lab Data Attestation: I reviewed the patient's lab results. Lab results narrative: White count is normal with mild anemia. Indices are slightly low. INR is normal. Ammonia is elevated at urine is consistent with infection. We will send a UA. We will also treat with Rocephin since he has encephalopathy. Labs: Laboratory Results - last 24 hr 08/15/22 08/15/22 08/15/22 14:45 14:45 14:45 WBC 10.0 RBC 4.18 L Hgb 10.1 L Hct 32.4 L MCV 77.5 L MCH 24.2 L MCHC 31.2 L RDW Std Deviation 48.1 H RDW Coeff of John 17.2 H Plt Count 129 L MPV 10.4 Immature Gran % (Auto) 0.300 Neut % (Auto) 81.5 H Lymph % (Auto) 12.7 L [place] % (Auto) 4.9 Eos % (Auto) 0.1 Baso % (Auto) 0.5 Absolute Neuts (auto) 8.1 H Absolute Lymphs (auto) 1.27 Nucleated RBC % 0 PT 16.0 H INR 1.3 Lactic Acid Ammonia 34.0 H Urine Color Urine Clarity Urine pH Ur Specific [place] Urine Protein Urine Glucose (UA) Urine Ketones Urine Occult Blood Urine Nitrite Urine Bilirubin Urine Urobilinogen Ur Leukocyte Esterase Urine RBC Urine WBC Ur Squamous Epith Cells Urine Bacteria Urine Mucus Urine Yeast 08/15/22 08/15/22 14:45 15:02 WBC RBC Hgb Hct MCV MCH MCHC RDW Std Deviation RDW Coeff of John Plt Count MPV Immature Gran % (Auto) Neut % (Auto) Lymph % (Auto) [place] % (Auto) Eos % (Auto) Baso % (Auto) Absolute Neuts (auto) Absolute Lymphs (auto) Nucleated RBC % PT INR Lactic Acid 2.0 Ammonia Urine Color Cathi Urine Clarity Sl. Cloudy Urine pH 6.0 Ur Specific [place] 1.020 Urine Protein 100 H Urine Glucose (UA) Normal Urine Ketones 5 H Urine Occult Blood 250 H Urine Nitrite Positive H Urine Bilirubin 1 H Urine Urobilinogen 4 H Ur Leukocyte Esterase 100 H Urine RBC 25-50 SEEN Urine WBC 10-25 SEEN Ur Squamous Epith Cells 0-5 SEEN Urine Bacteria 1+ Urine Mucus 1+ Urine Yeast 1+ Radiography Chest X-Ray - ED: 2 View and Read by ED Physician (Minute inspiratory volume. Cardiac silhouette and size unremarkable. Perihilar region unremarkable. He has chronic changes noted. The lung parenchyma has increased interstitial markings compared to chest x-ray performed earlier this month. Since there is no history of heart failure this may rep) Diagnostic Testing: Clinical Impression(s) from Imaging Studies Chest X-Ray 08/15/22 14:17 IMPRESSION: Diffuse interstitial edema has developed since the previous study without organized infiltrate or effusion. Follow-up recommended to assure complete resolution Electronically Signed: Kenyon Peterson MD at 15:26 EDT , EKG Initial EKG: Attestation: I personally reviewed and interpreted this EKG as follows: Interpretation: Sinus Rhythm (Rate is 91. There is evidence of a first- degree block with MS interval of 234 ms. Cures duration is 104 ms. QT duration is 400 ms. QTc is 492. There are premature ventricular beats noted. There is no acute ischemic changes.) Discharge Plan Triage Chief Complaint: Alt LOC ED Provider: Damian Escobar Dx/Rx/DC Orders Clinical Impression: Acute encephalopathy, Complicated urinary tract infection, Bilateral interstitial pneumonia, Acute bronchospasm, Jaundice, History of CAD (coronary artery disease) Prescriptions: No Action albuterol sulfate 2.5 mg /3 mL (0.083 %) solution for nebulization 2.5 mg INHALATION Q2H PRN (Reason: Shortness Of Breath Or Wheezing) pantoprazole 40 mg tablet,delayed release (DR/EC) 40 mg PO DAILY aspirin [Aspirin Childrens] 81 mg tablet,chewable 81 mg PO BID buprenorphine-naloxone 8-2 mg tablet, sublingual 1 tab sublingual BID Label Comments: take 1 tablet under the tongue twice a day amlodipine 5 mg tablet 5 mg PO DAILY Qty: 30 11RF atorvastatin 20 mg tablet 20 mg PO QHS albuterol sulfate 18 GM HFA aerosol inhaler 2 puff inhalation Q4H PRN PRN (Reason: Sob &/Or Wheezing) furosemide 20 mg tablet 20 mg PO QAM metoprolol tartrate 25 mg tablet 25 mg PO BID Spiriva with HandiHaler 18 mcg capsule, w/inhalation device 1 cap inhalation DAILY 30 Days Qty: 30 0RF Rx Instructions: puncture 1 cap using device; one dose = 2 inhalations potassium chloride 20 mEq tablet extended release 20 meq PO DAILY Qty: 30 11RF Primary Care Provider: Azael Uribe Referrals: Azael Uribe MD [Primary Care Provider] - Disposition Disposition: Acute Care Hospital [facility]
[2022-08-15] MEDS: Lactulose 20 GM/30 ML UDC 10 GM PO (15:52)
[2022-08-15] MEDS: levoFLOXacin IV 750 MG/150 ML BAG 100 MG IV (15:53)
--- NOTE | 2022-08-15 17:09 | NURSING ---
MED SURG FERNÁNDEZ ENCEPHALOPATHY, PNEUMONIA, UTI, JUANDICE
[2022-08-15 17:45] LABS: BNP,B-Type NATRIURETIC PEPTIDE 724.9 pg/mL (0-100)
--- NOTE | 2022-08-15 17:50 | PCM.HP.STD ---
HPI - General General Date of Admission: 08/15/22 Date of Service: 08/15/22 Chief Complaint: AMS HPI Narrative SOREN DE GUZMAN, is a 56 M with a history of substance abuse, coronary artery disease, hypertension who presented to [facility] 08/15/2022 with some confusion. He was recently admitted for an NSTEMI type II and was discharged home in stable condition. Patient presented to the ED and was confused and disheveled and was a poor informant. He had gone to [facility] to see his doctor regarding Suboxone but was sent to the ED because of a pulse ox of 90% as well as some confusion. In the ED he had a slightly elevated ammonia, x-ray with new interstitial infiltrates and UTI. He was started on Levaquin to cover both respiratory and neurologic pathogens. In the ED blood pressure was 118/67, heart rate 90, 95% on room air. Hemoglobin 10.1, platelet count 129. Lactic acid normal at 2 and ammonia was 34. UA with nitrites, blood, leuk esterase, bacteria. Hospitalist consulted for admission. Patient evaluated at bedside and was awake but slow to answer questions and a poor historian. He reports that he has had some intermittent diarrhea but has been drinking a lot of chocolate milk because there was a doctor previously that told him to decrease his water intake but then said that he is drinking plenty of water. Has had somewhat dark urine for several weeks. Does have a cough but did not endorse shortness of breath. Has no chest pain. Does have some hurting in his neck and back which is chronic. Patient reports that he is on Suboxone chronically but has not been taking it for 2 weeks but was unable to say why but he was trying to get reestablished so he could resume this. Adamant that he does not drink alcohol and has not used any other substances. [facility] Medical History (Updated 08/15/22 @ 18:31 by Kerri Perez) Acute non-ST elevation myocardial infarction (NSTEMI) Altered mental status Aortic valve endocarditis Aspiration into airway Asthma Atherosclerotic heart disease of [place] coronary artery without angina pectoris Cellulitis Cerebrovascular disease, unspecified Coronary artery disease Elevated troponin Esophageal reflux Former smoker Hepatitis Hepatitis C Hyperlipidemia Hyponatremia Nonrheumatic aortic (valve) insufficiency On home oxygen therapy ESA (obstructive sleep apnea) Overdose Sepsis Sleep apnea Substance abuse TIA (transient ischemic attack) Home Medications albuterol sulfate 90 mcg/actuation aerosol inhaler 2 puff inhalation Q4H PRN PRN Sob &/Or Wheezing 11/19/19 [History Last Taken 07/31/22] albuterol sulfate 2.5 mg/3 mL (0.083 %) solution for nebulization 2.5 mg inhalation Q2H PRN Shortness Of Breath Or Wheezing 01/20/20 [History Last Taken 07/31/22] pantoprazole 40 mg tablet,delayed release 40 mg PO DAILY reflux 01/20/20 [History Last Taken 08/15/22] buprenorphine 8 mg-naloxone 2 mg sublingual tablet 1 tab sublingual BID Check with primary doctor 03/21/21 [History Last Taken 08/14/22] furosemide 20 mg tablet 20 mg PO QAM diuretic 09/05/21 [History Last Taken 08/15/22] metoprolol tartrate 25 mg tablet 25 mg PO BID blood pressure 09/05/21 [History Last Taken 08/15/22] amlodipine 5 mg tablet 5 mg PO DAILY #30 tabs 05/26/22 [Rx Last Taken 08/15/22] aspirin 81 mg chewable tablet (Aspirin Childrens) 81 mg PO BID heart health 07/27/22 [History Last Taken 08/15/22] atorvastatin 20 mg tablet 20 mg PO QHS 07/27/22 [History Last Taken 3 Days Ago ~08/12/22] potassium chloride 20 mEq tablet,extended release 20 meq PO DAILY #30 tabs 07/28/22 [Rx Last Taken 08/15/22] tiotropium bromide 18 mcg capsule with inhalation device (Spiriva with HandiHaler) 1 cap inhalation DAILY 30 days #30 inhalations 08/02/22 [Rx Last Taken Unknown] Allergy/AdvReac Type Severity Reaction Status Date / Time Penicillins [PCN] Allergy Shortness Verified 08/15/22 12:44 of breath Family History Mother Hypertension Diabetes Father Cancer Grandmother Diabetes Surgical History History of aortic valve replacement with bioprosthetic valve (11/28/19) History of coronary artery bypass graft (11/28/19) History of foot surgery History of tonsillectomy and adenoidectomy Social History Smoking Status: Former smoker quit status: has quit before alcohol intake: never substance use type: former substance user Date of last use: November 19, 2019 now on suboxone, heroin and other details: fentanyl caffeine: Yes Type: carbonated beverages Number of servings: 2 and coffee Number of servings: 2 Vital Signs Vital Signs Vital Signs: 08/15/22 12:38 08/15/22 15:10 08/15/22 17:16 Temperature 98.4 F 98.7 F Temperature Source Temporal Oral Pulse Rate 90 116 H 95 Respiratory Rate 16 20 H 21 H Blood Pressure 118/67 90/64 Blood Pressure Mean 84 74 Pulse Ox 95 95 94 Oxygen Delivery Method Room Air Room Air Weight Weight: 122.6 kg Body Mass Index (BMI) 38.7 Results Lab / Micro Data Result Diagrams: 08/15/22 14:45 08/15/22 16:29 Labs: Laboratory Results - last 24 hr 08/15/22 14:45: WBC 10.0, RBC 4.18 L, Hgb 10.1 L, Hct 32.4 L, MCV 77.5 L, MCH 24.2 L, MCHC 31.2 L, RDW Std Deviation 48.1 H, RDW Coeff of John 17.2 H, Plt Count 129 L, MPV 10.4, Immature Gran % (Auto) 0.300, Neut % (Auto) 81.5 H, Lymph % (Auto) 12.7 L, [place] % (Auto) 4.9, Eos % (Auto) 0.1, Baso % (Auto) 0.5, Absolute Neuts (auto) 8.1 H, Absolute Lymphs (auto) 1.27, Nucleated RBC % 0 08/15/22 14:45: PT 16.0 H, INR 1.3 08/15/22 14:45: Ammonia 34.0 H 08/15/22 14:45: Lactic Acid 2.0 08/15/22 14:45: B-Natriuretic Peptide 724.9 H 08/15/22 15:02: Urine Color Cathi, Urine Clarity Sl. Cloudy, Urine pH 6.0, Ur Specific [place] 1.020, Urine Protein 100 H, Urine Glucose (UA) Normal, Urine Ketones 5 H, Urine Occult Blood 250 H, Urine Nitrite Positive H, Urine Bilirubin 1 H, Urine Urobilinogen 4 H, Ur Leukocyte Esterase 100 H, Urine RBC 25-50 SEEN, Urine WBC 10-25 SEEN, Ur Squamous Epith Cells 0-5 SEEN, Urine Bacteria 1+, Urine Mucus 1+, Urine Yeast 1+ Radiology Impression Chest X-Ray 08/15/22 14:17 IMPRESSION: Diffuse interstitial edema has developed since the previous study without organized infiltrate or effusion. Follow-up recommended to assure complete resolution Electronically Signed: Kenyon Peterson MD at 15:26 EDT , Assessment & Plan Assessment/Plan (1) Acute encephalopathy: (2) Complicated urinary tract infection: (3) History of CAD (coronary artery disease): PLAN: Plan #Encephalopathy, suspect metabolic -Multifactorial, has slightly elevated ammonia of 34, also has UA suggestive of UTI -Urine culture sent, given a dose of lactulose in the ED. Ammonia only barely elevated at 34 so do not feel we need scheduled lactulose at this time especially given reports of diarrhea recently -UDS, alcohol level -BMP was not sent in the ED and repeat draw was not sufficient quantity, currently attempting to add on or redraw BMP/CMP for further management, spoke with lab and this is actively being worked on #Cough/elevated BNP -Denies significant shortness of breath or productive sputum -Suspicion for pneumonia in the ED but chest x-ray demonstrates diffuse interstitial edema without organized infiltrate or effusion and BNP is 724 and previously was 175.6 -Suspect noncompliance with 20 of home Lasix, will give 20 IV x1 as blood pressure was somewhat soft earlier and can redose pending clinical response -Last echo with an EF of 50% and a mean aortic valve gradient of 38 mm per mercury, will obtain limited echo to assess EF and any significant valve pathology -EKG sinus rhythm with first-degree AV block and no other overt abnormalities -We will also test for COVID and respiratory pathogen's #Urinary tract infection -We will continue Levaquin -Culture pending -Not febrile, no elevated white count, lactic within normal limits, blood cultures not drawn and do not believe patient is septic #Substance use -Reports that he has not taken his Suboxone in 2 weeks and that is why he went to 180, was unable to tell me why he has not had it but denies other substance use. Will not continue Suboxone on MAR given patient's report that he is not taking this -With his altered status will obtain UDS and EtOH #Coronary artery disease status post CABG and aortic valve replacement with bioprosthetic valve 11/27/2028 -Continue aspirin and statin #DVT ppx: Lovenox Hannah Nance MD Time spent in the patient's overall evaluation,decision-making process, review of diagnostic data, adjustment of management, discussion with other providers, nursing nursing and ancillary staff involved in patient's care documentation, 60 Minutes Charges/Coding Visit Charges Inpatient E&M: 71943 Init Hosp L2
[2022-08-15 18:56] LABS: Reflex Lactate? Y
--- NOTE | 2022-08-15 19:46 | ECHOL_ITS ---
Reason For Study: DYSPNEA Procedure This was a limited 2D transthoracic echocardiogram. The study was technically difficult. Patient was uncooperative and scanned in right lateral position. Exam performed portable in patient room. Left Ventricle Based upon the 2D echocardiographic images obtained there appears to be grossly normal left ventricular size, wall motion, and systolic function. The estimated ejection fraction is 55 %. Unable to assess diastolic dysfunction. Right Ventricle Based upon the 2D echocardiographic images obtained there appears to be grossly normal right ventricular size and systolic function. Atria The left atrium is mildly enlarged. Normal right atrium. No doppler evidence for ASD. Mitral Valve There is mild mitral annular calcification. Extension of the mitral annular calcification onto the base of the mitral valve leaflets. Mild (1+) mitral valve insufficiency. Tricuspid Valve The tricuspid valve is not well visualized. Aortic Valve Trivial aortic valve insufficiency. Stable appearing bioprosthetic aortic valve apparatus. Pulmonic Valve The pulmonic valve is not well visualized. Great Vessels Normal sized aortic root. Pericardium/Pleural No pericardial effusion. MMode/2D Measurements & Calculations LVIDd: 5.3 cm IVSd: 1.2 cm Ao root diam: 3.5 cm LVIDs: 4.4 cm LVPWd: 1.2 cm FS: 17.7 % LA dimension(2D): 4.2 cm Doppler Measurements & Calculations Ao V2 max: 218.8 cm/sec LV V1 max: 135.9 cm/sec Ao max P.2 mmHg LV V1 max P.4 mmHg Ao V2 mean: 148.1 cm/sec LV V1 mean P.7 mmHg Ao mean P.3 mmHg LV V1 mean: 102.2 cm/sec Ao V2 VTI: 57.0 cm LV V1 VTI: 32.6 cm AV (velocity ratio): 0.57 ECHO/Echo, Limited Study Interpretation Summary The study was technically difficult. Based upon the 2D echocardiographic images obtained there appears to be grossly normal left ventricular size, wall motion, and systolic function. The estimated ejection fraction is 55 %. The left atrium is mildly enlarged. There is mild mitral annular calcification. Extension of the mitral annular calcification onto the base of the mitral valve leaflets. Mild (1+) mitral valve insufficiency. Stable appearing bioprosthetic aortic valve apparatus. Trivial aortic valve insufficiency. Unable to assess diastolic dysfunction. Ordering Physician: Hannah Nance Referring Physician: MD Jojo Azael Performed By: Huong Jones RCS
[2022-08-15 20:03] LABS: ALB/GLOB Ratio 0.4 RATIO (0.9-2.4); AST(SGOT) 29 U/L (15-37); Alanine Aminotransfer ALT/SGPT 15 U/L (16-61); Albumin, Serum 2.1 g/dL (3.2-5.0); Alkaline Phosphatase 75 U/L (45-117); Anion Gap 7 (5-15); BUN 12 mg/dL (7-18); BUN/Creat Ratio 12.1 RATIO (10-20); Chloride 94 mmol/L (98-107); Creatinine, Serum 0.99 mg/dL (0.70-1.30); EST Glomerular Filtration Rate 83 mL/min (>60); Est Glom Filt Rate - Afr Amer 100 mL/min (>60); Estimated Creatinine Clearance 86.03 ml/min; Globulin 5.5 g/dL (2.2-4.2); Glucose 137 mg/dL (74-106); Magnesium 1.3 mg/dL (1.6-2.6); Potassium 4.2 mmol/L (3.5-5.1); Protein, Total 7.6 g/dL (6.4-8.2); Sodium Level 128 mmol/L (136-145)
[2022-08-15 20:16] LABS: Lactic Acid 1.1 mmol/L (0.4-1.9)
[2022-08-15] MEDS: Ipratropium 0.5 MG/2.5 ML SOLUTION INHALATION (20:21)
[2022-08-15] MEDS: Furosemide 20 MG/2 ML VIAL IV (20:41)
[2022-08-15] MEDS: Magnesium Sulfate 4gm/100mL 4 GM/100 ML IV.SOLN. IV (20:41)
[2022-08-15] MEDS: Metoprolol Tartrate 25 MG Tablet PO (20:51)
[2022-08-15] MEDS: Atorvastatin Calcium 20 MG Tablet PO (20:52)
[2022-08-15 21:10] LABS: Alcohol, Blood (Medical)-Serum < 3.0 mg/dL
--- NOTE | 2022-08-15 21:42 | CT_ITS ---
INDICATION: Headache, fall. EXAMINATION: CT Head or Brain W/O Contrast Injection TECHNIQUE: Multiple axial images were obtained of the head without intravenous contrast. A radiation dose optimization technique was used for this scan. IV Contrast dosage and agent: None. COMPARISON: September 05, 2021 CT brain. FINDINGS: BRAIN PARENCHYMA: No intra- or extra-axial hemorrhage. No evidence of acute infarct. 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 No intracranial mass or mass effect. No vasogenic edema. There is preservation of the nicole/white matter interface. Posterior fossa structures are unremarkable. CSF SPACES: Appropriate for age. No hydrocephalus. Basal cisterns are patent. CALVARIUM, SKULL BASE, PARANASAL SINUSES AND MASTOID AIR CELLS: Mucus retention cysts in the left maxillary sinus. Moderate degree of mucosal thickening in the right maxillary sinus. Asymmetric decreased aeration of the right mastoid temporal bone. No discrete lytic or blastic abnormalities. Calvarium is intact. Right nares rings in place. ORBITS: Both globes, extraocular muscles, optic nerves and retrobulbar fat appear unremarkable. ASPECTS Score for Acute Strokes: 10 CT/Brain/Head without Contrast IMPRESSION: No acute intracranial findings. Electronically Signed: Emmanuel Bateman MD at 22:37 EDT ,
[2022-08-16] VITALS (8 sets, daily range): BP systolic 101–110; BP diastolic 65–73; PULSE 64–88; RESP 18; TEMP 36.1–36.4; O2SAT 91–95; BMI 37.5
[2022-08-16 01:29] LABS: Amphetamine Urine VISTA NEGATIVE (<1000 ng/mL); Barbiturate Urine VISTA NEGATIVE (< 200 ng/mL); Benzodiazepine Urine VISTA NEGATIVE (< 200 ng/mL); Cocaine Urine VISTA NEGATIVE (< 300 ng/mL); Ecstacy Urine VISTA NEGATIVE (< 500 ng/mL); Methadone Urine VISTA NEGATIVE (< 300 ng/mL); PCP Urine VISTA NEGATIVE (< 25 ng/mL); THC Urine VISTA NEGATIVE (< 50 ng/mL); Vista UDS pH Range 5
[2022-08-16 05:53] LABS: Absolute Lymphocyte Count 1.12 X10^3/uL (0.83-4.51); Absolute Neutrophil Count 3.5 X10^3/uL (2.0-7.7); Basophil# 0.03 X10^3/uL; Basophil% 0.6 % (0-1); Eosinophil# 0.02 X10^3/uL; Eosinophils% 0.4 % (0-5); Hematocrit 29.9 % (40-54); Hemoglobin 9.2 g/dL (13.0-16.5); Lymphocyte # 1.12 X10^3/ul (0.83-4.51); Lymphocyte % 21.7 % (19-41); Mean Corp Hgb Conc 30.8 g/dL (32-36); Mean Corpuscular Hgb 24.3 pg (27.0-32.0); Mean Corpuscular Volume 78.9 fL (80-94); Mean Platelet Vol. 10.5 fl (6.2-12.0); Monocyte# 0.44 X10^3/uL; Monocyte% 8.5 % (0-10); NRBC Flagged by Analyzer 0 % (0-5); Neutrophil # 3.54 X10^3/uL (2.7-7.7); Neutrophil % 68.4 % (47-70); POSITIVE COUNT YES; Platelet Count 92 K/mm3 (150-450); RBC Distribution Width CV 17.4 % (11.6-14.6); RBC Distribution Width SD 50.1 fl (35.1-43.9); Red Blood Count 3.79 M/mm3 (4.6-6.2); White Blood Count 5.2 K/mm3 (4.4-11.0)
[2022-08-16 06:02] LABS: International Normalized Ratio 1.4; Prothrombin Time (Protime)PT. 16.4 SECONDS (11.7-14.9)
[2022-08-16 06:14] LABS: ALB/GLOB Ratio 0.3 RATIO (0.9-2.4); AST(SGOT) 26 U/L (15-37); Alanine Aminotransfer ALT/SGPT 15 U/L (16-61); Albumin, Serum 1.9 g/dL (3.2-5.0); Alkaline Phosphatase 67 U/L (45-117); Anion Gap 5 (5-15); BUN 14 mg/dL (7-18); BUN/Creat Ratio 13.3 RATIO (10-20); Calcium,Total 7.9 mg/dL (8.5-10.1); Chloride 93 mmol/L (98-107); Creatinine, Serum 1.05 mg/dL (0.70-1.30); EST Glomerular Filtration Rate 77 mL/min (>60); Est Glom Filt Rate - Afr Amer 94 mL/min (>60); Estimated Creatinine Clearance 81.11 ml/min; Globulin 5.5 g/dL (2.2-4.2); Glucose 114 mg/dL (74-106); Potassium 3.7 mmol/L (3.5-5.1); Protein, Total 7.4 g/dL (6.4-8.2); Sodium Level 128 mmol/L (136-145)
[2022-08-16] MEDS: Ipratropium 0.5 MG/2.5 ML SOLUTION INHALATION ×2 (07:01→13:23)
[2022-08-16] MEDS: Enoxaparin 40 MG/0.4 ML Syringe SC (08:01)
[2022-08-16] MEDS: Furosemide 20 MG Tablet PO (08:01)
[2022-08-16] MEDS: Aspirin 81 MG TAB.CHEW PO (08:01)
[2022-08-16] MEDS: Pantoprazole Sodium 40 MG Tablet PO (08:01)
[2022-08-16] MEDS: Metoprolol Tartrate 25 MG Tablet PO ×2 (08:02→21:12)
[2022-08-16] MEDS: 0.9% Saline Lock 10 ML Syringe IV (09:50)
[2022-08-16] MEDS: levoFLOXacin IV 750 MG/150 ML BAG 100 MG IV (09:50)
[2022-08-16 12:17] LABS: BUP Internal Control LINE = VALID (VALID); Buprenorphine Drug Screen Positive (<10 ng/mL)
--- NOTE | 2022-08-16 12:21 | PN.HOSP_ITS ---
Subjective Subjective No issues overnight, this does have some tremors in Objective Data Objective Data Vital Signs: Vital Signs Temp Pulse Resp BP Pulse Ox O2 Del Method O2 Flow Rate 97.4 F L 67 18 107/65 94 Room Air 2 08/16/22 07:58 08/16/22 08:02 08/16/22 07:58 08/16/22 07:58 08/16/22 07:58 08/16/22 07:58 08/16/22 03:45 Oxygen Flow Rate (L/min) 2 Oxygen Delivery Method Room Air Weight: 262 lb 9.129 oz Body Mass Index (BMI) 37.5 Intake & Output: Intake and Output for Last 24 Hours 08/15/22 08/16/22 08/17/22 03:59 03:59 03:59 Intake Total 757 / 757 550 / 550 Output Total 300 / 300 550 / 550 Balance 457 / 457 0 / 0 Lab / Micro Data Result Diagrams: 08/16/22 05:40 08/16/22 05:40 Labs: Laboratory Results - last 24 hr 08/15/22 14:45: WBC 10.0, RBC 4.18 L, Hgb 10.1 L, Hct 32.4 L, MCV 77.5 L, MCH 24.2 L, MCHC 31.2 L, RDW Std Deviation 48.1 H, RDW Coeff of John 17.2 H, Plt Count 129 L, MPV 10.4, Immature Gran % (Auto) 0.300, Neut % (Auto) 81.5 H, Lymph % (Auto) 12.7 L, Caroline % (Auto) 4.9, Eos % (Auto) 0.1, Baso % (Auto) 0.5, Absolu te Neuts (auto) 8.1 H, Absolute Lymphs (auto) 1.27, Nucleated RBC % 0 08/15/22 14:45: PT 16.0 H, INR 1.3 08/15/22 14:45: Ammonia 34.0 H 08/15/22 14:45: Lactic Acid 2.0 08/15/22 14:45: B-Natriuretic Peptide 724.9 H 08/15/22 14:45: Sodium Cancelled, Potassium Cancelled, Chloride Cancelled, Carbon Dioxide Cancelled, Anion Gap Cancelled, BUN Cancelled, Creatinine Cancelled, Estim Creat Clear Calc Cancelled, Est GFR (MDRD) Af Amer Cancelled, Est GFR (MDRD) Non-Af Cancelled, BUN/Creatinine Ratio Cancelled, Glucose Cancelled, Calcium Cancelled, Magnesium Cancelled, Total Bilirubin Cancelled, AST Cancelled, ALT Cancelled, Alkaline Phosphatase Cancelled, Total Protein Cancelled, Albumin Cancelled, Globulin Cancelled, Albumin/Globulin Ratio Cancelled 08/15/22 15:02: Urine Color Cathi, Urine Clarity Sl. Cloudy, Urine pH 6.0, Ur Specific [place] 1.020, Urine Protein 100 H, Urine Glucose (UA) Normal, Urine Ketones 5 H, Urine Occult Blood 250 H, Urine Nitrite Positive H, Urine Bilirubin 1 H, Urine Urobilinogen 4 H, Ur Leukocyte Esterase 100 H, Urine RBC 25-50 SEEN, Urine WBC 10-25 SEEN, Ur Squamous Epith Cells 0-5 SEEN, Urine Bacteria 1+, Urine Mucus 1+, Urine Yeast 1+ 08/15/22 16:29: Sodium Cancelled, Potassium Cancelled, Chloride Cancelled, Carbon Dioxide Cancelled, Anion Gap Cancelled, BUN Cancelled, Creatinine Cancelled, Estim Creat Clear Calc Cancelled, Est GFR (MDRD) Af Amer Cancelled, Est GFR (MDRD) Non-Af Cancelled, BUN/Creatinine Ratio Cancelled, Glucose Cancelled, Calcium Cancelled, Total Bilirubin Cancelled, AST Cancelled, ALT Cancelled, Alkaline Phosphatase Cancelled, Total Protein Cancelled, Albumin Cancelled, Globulin Cancelled, Albumin/Globulin Ratio Cancelled 08/15/22 19:31: Lactic Acid 1.1 08/15/22 19:31: Sodium 128 L, Potassium 4.2, Chloride 94 L, Carbon Dioxide 27.0, Anion Gap 7, BUN 12, Creatinine 0.99, Estim Creat Clear Calc 86.03, Est GFR (MDRD) Af Amer 100, Est GFR (MDRD) Non-Af 83, BUN/Creatinine Ratio 12.1, Glucose 137 H, Calcium 8.0 L, Magnesium 1.3 L, Total Bilirubin 1.20 H, AST 29, ALT 15 L, Alkaline Phosphatase 75, Total Protein 7.6, Albumin 2.1 L, Globulin 5.5 H, Albumin/Globulin Ratio 0.4 L 08/15/22 20:20: COVID-19 (SWETA) Not Detected 08/15/22 20:25: Ethyl Alcohol < 3.0 08/16/22 00:55: Urine Opiates Screen POSITIVE H, Urine Methadone Screen NEGATIVE, Ur Barbiturates Screen NEGATIVE, Ur Phencyclidine Scrn NEGATIVE, Ur Amphetamines Screen NEGATIVE, MDMA (Ecstasy) Screen NEGATIVE, U Benzodiazepines Scrn NEGATIVE, Urine Cocaine Screen NEGATIVE, U Cannabinoids Screen NEGATIVE, Ur Drug Screen Comment 08/16/22 00:55: Ur Buprenorphine Scrn Positive, Ur Drug Screen Comment 08/16/22 05:40: WBC 5.2, RBC 3.79 L, Hgb 9.2 L, Hct 29.9 L, MCV 78.9 L, MCH 24.3 L, MCHC 30.8 L, RDW Std Deviation 50.1 H, RDW Coeff of John 17.4 H, Plt Count 92 L, MPV 10.5, Immature Gran % (Auto) 0.400, Neut % (Auto) 68.4, Lymph % (Auto) 21.7, Caroline % (Auto) 8.5, Eos % (Auto) 0.4, Baso % (Auto) 0.6, Absolute Neuts (auto) 3.5, Absolute Lymphs (auto) 1.12, Nucleated RBC % 0 08/16/22 05:40: PT 16.4 H, INR 1.4 08/16/22 05:40: Sodium 128 L, Potassium 3.7, Chloride 93 L, Carbon Dioxide 30.0, Anion Gap 5, BUN 14, Creatinine 1.05, Estim Creat Clear Calc 81.11, Est GFR (MDRD) Af Amer 94, Est GFR (MDRD) Non-Af 77, BUN/Creatinine Ratio 13.3, Glucose 114 H, Calcium 7.9 L, Total Bilirubin 1.00, AST 26, ALT 15 L, Alkaline Phosphatase 67, Total Protein 7.4, Albumin 1.9 L, Globulin 5.5 H, Albumin/Globulin Ratio 0.3 L 08/16/22 05:40: Ammonia 14.0 Micro: Microbiology 08/15/22 20:20 Interface Orders Respiratory Panel (PCR) - Final Radiography Diagnostic Testing: Radiology Impression Chest X-Ray 08/15/22 14:17 IMPRESSION: Diffuse interstitial edema has developed since the previous study without organized infiltrate or effusion. Follow-up recommended to assure complete resolution Electronically Signed: Kenyon Peterson MD at 15:26 EDT , Brain CT 08/15/22 21:42 IMPRESSION: No acute intracranial findings. Electronically Signed: Emmanuel Bateman MD at 22:37 EDT , Physical Exam Narrative General: Alert, Oriented x3, Cooperative, No apparent distress HEENT: Atraumatic, PERRLA, EOMI, Normocephalic Oral: Moist Mucosa Neck: Supple, No JVD Lungs: Diminished, Normal air movement, No rhonchi, No wheeze, No rales Cardiovascular: Regular rate, Regular Rhythm, Normal S1, Normal S2, No murmurs Abdomen: Soft, Non Tender, Non-Distended, No Hepato-splenomegaly Extremities: No edema, Capillary Refill Less than 3 Seconds Skin: No rashes, No breakdown Musculoskeletal: No Tenderness to Palpation of Joints or Extremities Neurological: Cranial nerves II-XII grossly intact, Motor Exam 5/5 strength throughout, Sensory exam intact to light touch and pain Psych/Mental Status: Normal Affect, Appropriate Assessment & Plan Assessment/Plan (1) Acute encephalopathy: (2) Complicated urinary tract infection: (3) History of CAD (coronary artery disease): PLAN: Plan 1. Metabolic encephalopathy due to UTI and possible pneumonia ? Urine culture is pending continue with Levaquin ? Encephalopathy has resolved ? She does have a slight tremor at times may be due to to his substance use ? Respiratory panel and COVID is negative is maintaining his oxygen saturations on room air 2. Coronary artery disease status post CABG and AVR/HTN/HLD ? Recent echo with an EF of 50% and a valve gradient of 38 mmHg ?BNP was elevated to 724, will continue to with oral Lasix ? Continue with metoprolol and Norvasc ? Continue with Lipitor and aspirin 3. Substance use ? Has not taken his Suboxone in 2 weeks ? We will need to follow-up with 180 as an outpatient ? Will not restart his Suboxone while here ? Urine drug screen is positive for opiates and negative for alcohol DVT: Lovenox Charges/Coding Visit Charges Inpatient E&M: 98268 Subs Hosp L2
--- NOTE | 2022-08-16 15:30 | CASEMGMT ---
SAMMY STEPHEN Readmission Note Previous Admission:? 07/31/22-08/02/22 Diagnosis:? NSTEMI DC Disposition: Home with? oxygen through [employer] Current Admission? Current Diagnosis: AMS, PNA, UTI Pt is a 56 M with a history of substance abuse, coronary artery disease, hypertension who presented to [facility] 08/15/2022 with some confusion. He was recently admitted for an NSTEMI type II and was discharged home in stable condition. Patient presented to the ED and was confused and disheveled and was a poor informant. He had gone [facility] to see his doctor regarding Suboxone but was sent to the ED because of a pulse ox of 90% as well as some confusion. Pt was sent in after an appt with 180. SAMMY STEPHEN in to pt room, pt lying in bed. Pt states he has been taking his medications as ordered since last hospital stay. He reports that he has not been using his oxygen although it is in his home and set up. Pt is currently on RA. Pt states he has not yet had a follow up appt with his PCP. PT worked with pt and no therapy recommended. Pt declines any homegoing services/needs at ok. He states he does have transportation as he drives. No needs at this time. SAMMY STEPHEN to follow. [place] Plan: Home ?
[2022-08-16] MEDS: Atorvastatin Calcium 20 MG Tablet PO (21:12)
[2022-08-17] VITALS (8 sets, daily range): BP systolic 95–113; BP diastolic 60–73; PULSE 62–71; RESP 16–18; TEMP 36.4–36.6; O2SAT 90–100; BMI 37.3
[2022-08-17 06:55] LABS: Absolute Lymphocyte Count 0.88 X10^3/uL (0.83-4.51); Absolute Neutrophil Count 2.7 X10^3/uL (2.0-7.7); Basophil# 0.04 X10^3/uL; Eosinophil# 0.03 X10^3/uL; Eosinophils% 0.8 % (0-5); Hematocrit 29.3 % (40-54); Lymphocyte # 0.88 X10^3/ul (0.83-4.51); Lymphocyte % 22.2 % (19-41); Mean Corp Hgb Conc 30.7 g/dL (32-36); Mean Corpuscular Hgb 24.4 pg (27.0-32.0); Mean Corpuscular Volume 79.4 fL (80-94); Mean Platelet Vol. 11.6 fl (6.2-12.0); Monocyte# 0.34 X10^3/uL; Monocyte% 8.6 % (0-10); NRBC Flagged by Analyzer 0 % (0-5); Neutrophil # 2.66 X10^3/uL (2.7-7.7); Neutrophil % 67.1 % (47-70); Platelet Count 101 K/mm3 (150-450); RBC Distribution Width CV 17.2 % (11.6-14.6); RBC Distribution Width SD 49.5 fl (35.1-43.9); Red Blood Count 3.69 M/mm3 (4.6-6.2)
[2022-08-17] MEDS: Ipratropium 0.5 MG/2.5 ML SOLUTION INHALATION ×2 (07:23→19:30)
[2022-08-17 07:24] LABS: Anion Gap 7 (5-15); BUN 17 mg/dL (7-18); BUN/Creat Ratio 20.4 RATIO (10-20); Calcium,Total 8.1 mg/dL (8.5-10.1); Chloride 95 mmol/L (98-107); Creatinine, Serum 0.83 mg/dL (0.70-1.30); EST Glomerular Filtration Rate 101 mL/min (>60); Est Glom Filt Rate - Afr Amer 123 mL/min (>60); Estimated Creatinine Clearance 102.61 ml/min; Glucose 113 mg/dL (74-106); Sodium Level 129 mmol/L (136-145)
[2022-08-17] MEDS: Aspirin 81 MG TAB.CHEW PO (07:57)
--- NOTE | 2022-08-17 10:05 | PCM.PN.HOSP ---
Subjective Subjective Feels better than when he came in no issues overnight Objective Data Objective Data Vital Signs: Vital Signs Temp Pulse Resp BP Pulse Ox O2 Del Method O2 Flow Rate 97.8 F 63 18 105/60 92 Room Air 2 08/17/22 07:45 08/17/22 07:45 08/17/22 07:45 08/17/22 07:45 08/17/22 07:45 08/17/22 07:49 08/17/22 02:40 Oxygen Flow Rate (L/min) 2 Oxygen Delivery Method Room Air Weight: 261 lb 3.964 oz Body Mass Index (BMI) 37.3 Intake & Output: Intake and Output for Last 24 Hours 08/16/22 08/17/22 08/18/22 03:59 03:59 03:59 Intake Total 757 / 757 550 / 550 Output Total 300 / 300 550 / 550 Balance 457 / 457 0 / 0 Lab / Micro Data Result Diagrams: 08/17/22 06:11 08/17/22 06:11 Labs: Laboratory Results - last 24 hr 08/16/22 00:55: Ur Buprenorphine Scrn Positive, Ur Drug Screen Comment 08/17/22 06:11: WBC 4.0 L, RBC 3.69 L, Hgb 9.0 L, Hct 29.3 L, MCV 79.4 L, MCH 24.4 L, MCHC 30.7 L, RDW Std Deviation 49.5 H, RDW Coeff of John 17.2 H, Plt Count 101 L, MPV 11.6, Immature Gran % (Auto) 0.300, Neut % (Auto) 67.1, Lymph % (Auto) 22.2, [place] % (Auto) 8.6, Eos % (Auto) 0.8, Baso % (Auto) 1.0, Absolute Neuts (auto) 2.7, Absolute Lymphs (auto) 0.88, Nucleated RBC % 0 08/17/22 06:11: Sodium 129 L, Potassium 4.0, Chloride 95 L, Carbon Dioxide 27.0, Anion Gap 7, BUN 17, Creatinine 0.83, Estim Creat Clear Calc 102.61, Est GFR (MDRD) Af Amer 123, Est GFR (MDRD) Non-Af 101, BUN/Creatinine Ratio 20.4 H, Glucose 113 H, Calcium 8.1 L Micro: Microbiology 08/15/22 15:50 Urine, Clean Catch Urine Culture - Final Mixed Gram Positive Organisms 08/15/22 20:20 Interface Orders Respiratory Panel (PCR) - Final Radiography Diagnostic Testing: Radiology Impression Echocardiogram 08/15/22 19:46 Interpretation Summary The study was technically difficult. Based upon the 2D echocardiographic images obtained there appears to be grossly normal left ventricular size, wall motion, and systolic function. The estimated ejection fraction is 55 %. The left atrium is mildly enlarged. There is mild mitral annular calcification. Extension of the mitral annular calcification onto the base of the mitral valve leaflets. Mild (1+) mitral valve insufficiency. Stable appearing bioprosthetic aortic valve apparatus. Trivial aortic valve insufficiency. Unable to assess diastolic dysfunction. Ordering Physician: Hannah Nance Referring Physician: MD Jojo Azael Performed By: Huong Jones RCS Physical Exam Narrative General: Alert, Oriented x3, Cooperative, No apparent distress HEENT: Atraumatic, PERRLA, EOMI, Normocephalic Oral: Moist Mucosa Neck: Supple, No JVD Lungs: Diminished, Normal air movement, No rhonchi, No wheeze, No rales Cardiovascular: Regular rate, Regular Rhythm, Normal S1, Normal S2, No murmurs Abdomen: Soft, Non Tender, Non-Distended, No Hepato-splenomegaly Extremities: No edema, Capillary Refill Less than 3 Seconds Skin: No rashes, No breakdown Musculoskeletal: No Tenderness to Palpation of Joints or Extremities Neurological: Cranial nerves II-XII grossly intact, Motor Exam 5/5 strength throughout, Sensory exam intact to light touch and pain Psych/Mental Status: Normal Affect, Appropriate Assessment & Plan Assessment/Plan (1) Acute encephalopathy: (2) Complicated urinary tract infection: (3) History of CAD (coronary artery disease): PLAN: Plan 1. Metabolic encephalopathy due to UTI and possible pneumonia ?Urine culture shows no growth ? Encephalopathy has resolved ? She does have a slight tremor at times may be due to to his substance use ? Respiratory panel and COVID is negative is maintaining his oxygen saturations on room air 2. Coronary artery disease status post CABG and AVR/HTN/HLD ? Recent echo with an EF of 50% and a valve gradient of 38 mmHg ?BNP was elevated to 724, will continue to with oral Lasix ? Continue with metoprolol and Norvasc ? Continue with Lipitor and aspirin 3. Substance use ? Has not taken his Suboxone in 2 weeks ?We will have him see 180 while he is here and if they can come up with a reasonable discharge plan could consider discharge today ? Will not restart his Suboxone while here ? Urine drug screen is positive for opiates and negative for alcohol DVT: Lovenox Charges/Coding Visit Charges Inpatient E&M: 75939 Subs Hosp L2
--- NOTE | 2022-08-17 10:12 | ADDICTION ---
Addiction therapist met with pt to discuss d/c planning and restarting his buprenorphine. [facility] and has been sober for 3 years. He reports no desire to relapse. He will follow up with Dr. Aguiar once discharged.
[2022-08-17] MEDS: levoFLOXacin IV 750 MG/150 ML BAG 100 MG IV (10:18)
[2022-08-17] MEDS: Metoprolol Tartrate 25 MG Tablet PO ×2 (10:18→21:29)
[2022-08-17] MEDS: Pantoprazole Sodium 40 MG Tablet PO (10:18)
[2022-08-17] MEDS: Furosemide 20 MG Tablet PO (10:18)
[2022-08-17] MEDS: Atorvastatin Calcium 20 MG Tablet PO (21:29)
[2022-08-18 03:27] VITALS: BP 120/69; PULSE 67; RESP 16; TEMP 36.7; O2SAT 94
[2022-08-18 03:51] VITALS: BMI 37.8
[2022-08-18 06:36] VITALS: PULSE 70; RESP 16; O2SAT 91
[2022-08-18] MEDS: Ipratropium 0.5 MG/2.5 ML SOLUTION INHALATION (06:37)
[2022-08-18] MEDS: Aspirin 81 MG TAB.CHEW PO (08:09)
--- NOTE | 2022-08-18 08:56 | DCINST_ITS ---
Discharge Instructions Diet Discharge Diet: Low fat / Low cholesterol Activity Discharge Activity: Return to Normal Activity Dressing / Incision Call your doctor if you observe: Fever of 101 or Higher, Shortness of breath, Dizziness, Fainting spells, Swelling in the ankles, Chest pain and Increased palpitations (irregular heartbeat) Follow Up Care Test Results: Test results from this visit will be discussed in further detail at your follow- up appointment, if applicable. Discharge Plan Admission Admit Date/Time: 08/15/22 17:50 Attending Provider: Dhiraj Gill Primary Care Provider: Azael Uribe Consulting Providers: Hannah Nance ; Vicky Aguiar Instructions Additional Instructions / Restrictions: Follow-up with your PCP as an outpatient to monitor your hemoglobin and follow- up with [facility] for rehab. Discharge Orders/Prescriptions Prescriptions: New levofloxacin 750 mg tablet 750 mg PO DAILY Qty: 5 0RF Continued albuterol sulfate 2.5 mg /3 mL (0.083 %) solution for nebulization 2.5 mg INHALATION Q2H PRN (Reason: Shortness Of Breath Or Wheezing) pantoprazole 40 mg tablet,delayed release (DR/EC) 40 mg PO DAILY aspirin [Aspirin Childrens] 81 mg tablet,chewable 81 mg PO BID buprenorphine-naloxone 8-2 mg tablet, sublingual 1 tab sublingual BID Label Comments: take 1 tablet under the tongue twice a day amlodipine 5 mg tablet 5 mg PO DAILY Qty: 30 11RF atorvastatin 20 mg tablet 20 mg PO QHS albuterol sulfate 18 GM HFA aerosol inhaler 2 puff inhalation Q4H PRN PRN (Reason: Sob &/Or Wheezing) furosemide 20 mg tablet 20 mg PO QAM metoprolol tartrate 25 mg tablet 25 mg PO BID Spiriva with HandiHaler 18 mcg capsule, w/inhalation device 1 cap inhalation DAILY 30 Days Qty: 30 0RF Rx Instructions: puncture 1 cap using device; one dose = 2 inhalations potassium chloride 20 mEq tablet extended release 20 meq PO DAILY Qty: 30 11RF Referrals / Follow Up: Azael Uribe MD [Primary Care Provider] - Within 1 Week Disposition Disposition (needs filled in before D/C Order can be placed): Home, Self Care
[2022-08-18 09:00] VITALS: BP 116/68; PULSE 65; RESP 18; TEMP 36.4; O2SAT 93
[2022-08-18 09:23] VITALS: PULSE 65
[2022-08-18] MEDS: Metoprolol Tartrate 25 MG Tablet PO (09:23)
[2022-08-18] MEDS: Pantoprazole Sodium 40 MG Tablet PO (09:23)
[2022-08-18] MEDS: Furosemide 20 MG Tablet PO (09:24)
--- NOTE | 2022-08-18 11:16 | PHA.DC.MR ---
Pharmacy Service has performed discharge medication reconciliation for this patient. The patient's discharge medication list was reviewed for discrepancies and discrepancies were resolved. Medication education papers prepared, patient being wheeled out, did not milieu counselor. Home Medications albuterol sulfate 90 mcg/actuation aerosol inhaler 2 puff inhalation Q4H PRN PRN Sob &/Or Wheezing 11/19/19 albuterol sulfate 2.5 mg/3 mL (0.083 %) solution for nebulization 2.5 mg inhalation Q2H PRN Shortness Of Breath Or Wheezing 01/20/20 pantoprazole 40 mg tablet,delayed release 40 mg PO DAILY reflux 01/20/20 buprenorphine 8 mg-naloxone 2 mg sublingual tablet 1 tab sublingual BID Check with primary doctor 03/21/21 furosemide 20 mg tablet 20 mg PO QAM diuretic 09/05/21 metoprolol tartrate 25 mg tablet 25 mg PO BID blood pressure 09/05/21 amlodipine 5 mg tablet 5 mg PO DAILY #30 tabs 05/26/22 aspirin 81 mg chewable tablet (Aspirin Childrens) 81 mg PO BID heart health 07/27/22 atorvastatin 20 mg tablet 20 mg PO QHS 07/27/22 potassium chloride 20 mEq tablet,extended release 20 meq PO DAILY #30 tabs 07/28/22 tiotropium bromide 18 mcg capsule with inhalation device (Spiriva with HandiHaler) 1 cap inhalation DAILY 30 days #30 inhalations 08/02/22 levofloxacin 750 mg tablet 750 mg PO DAILY #5 tabs 08/18/22
--- NOTE | 2022-08-18 13:51 | DS.PCM_ITS ---
Providers Date of Admission: 08/15/22 Primary Care Physician: Dr. Azael Uribe MD Consultations 08/17/22 09:18 Consult: Addiction Medicine Routine Consulting Provider: Vicky Aguiar Reason for Consult: discharge planning EMERGENT Consult: No MD Notified: Yes Date Notified: 08/17/22 Time Notified: 09:19 Method of Notification: Answering Service Reason For Visit: AMS, PNA, UTI Diagnosis Discharge Diagnosis (1) Acute encephalopathy: Status: Acute Code(s): G93.40 - Encephalopathy, unspecified (2) Complicated urinary tract infection: Status: Acute Code(s): N39.0 - Urinary tract infection, site not specified (3) History of CAD (coronary artery disease): Status: Acute Code(s): Z86.79 - Personal history of other diseases of the circulatory system Medications at Discharge Home Medications albuterol sulfate 90 mcg/actuation aerosol inhaler 2 puff inhalation Q4H PRN PRN Sob &/Or Wheezing 11/19/19 albuterol sulfate 2.5 mg/3 mL (0.083 %) solution for nebulization 2.5 mg inhalation Q2H PRN Shortness Of Breath Or Wheezing 01/20/20 pantoprazole 40 mg tablet,delayed release 40 mg PO DAILY reflux 01/20/20 buprenorphine 8 mg-naloxone 2 mg sublingual tablet 1 tab sublingual BID Check with primary doctor 03/21/21 furosemide 20 mg tablet 20 mg PO QAM diuretic 09/05/21 metoprolol tartrate 25 mg tablet 25 mg PO BID blood pressure 09/05/21 amlodipine 5 mg tablet 5 mg PO DAILY #30 tabs 05/26/22 aspirin 81 mg chewable tablet (Aspirin Childrens) 81 mg PO BID heart health 07/27/22 atorvastatin 20 mg tablet 20 mg PO QHS 07/27/22 potassium chloride 20 mEq tablet,extended release 20 meq PO DAILY #30 tabs 07/28/22 tiotropium bromide 18 mcg capsule with inhalation device (Spiriva with H andiHaler) 1 cap inhalation DAILY 30 days #30 inhalations 08/02/22 levofloxacin 750 mg tablet 750 mg PO DAILY #5 tabs 08/18/22 Hospital Course Operations None Procedures 2-D Echocardiogram Summary of Care Provided Minutes Spent on Discharge: 34 Hospital Course: Per HPI: SOREN DE GUZMAN, is a 56 M with a history of substance abuse, coronary artery disease, hypertension who presented to [facility] with some confusion.? He was recently admitted for an NSTEMI type II and was discharged home in stable condition.? Patient presented to the ED and was confused and disheveled and was a poor informant.? He had [facility] to see his doctor regarding Suboxone but was sent to the ED because of a pulse ox of 90% as well as some confusion.? In the ED he had a slightly elevated ammonia, x-ray with new interstitial infiltrates and UTI.? He was started on Levaquin to cover both respiratory and neurologic pathogens.? In the ED blood pressure was 118/67, heart rate 90, 95% on room air.? Hemoglobin 10.1, platelet count 129.? Lactic acid normal at 2 and ammonia was 34.? UA with nitrites, blood, leuk esterase, bacteria.? Hospitalist consulted for admission.? Patient evaluated at bedside and was awake but slow to answer questions and a poor historian.? He reports that he has had some intermittent diarrhea but has been drinking a lot of chocolate milk because there was a doctor previously that told him to decrease his water intake but then said that he is drinking plenty of water.? Has had somewhat dark urine for several weeks.? Does have a cough but did not endorse shortness of breath.? Has no chest pain.? Does have some hurting in his neck and back which is chronic.? Patient reports that he is on Suboxone chronically but has not been taking it for 2 weeks but was unable to say why but he was trying to get reestablished so he could resume this.? Adamant that he does not drink alcohol and has not used any other substances. Hospital Course: 1. Metabolic encephalopathy due to UTI and possible pneumonia ?Urine culture shows no growth ? Encephalopathy has resolved ? he does have a slight tremor at times may be due to to his substance use ? Respiratory panel and COVID is negative is maintaining his oxygen saturations on room air ? I discussed the plan for discharge today he expressed understanding of the risk and benefits of going home and he wants to go home today. We will plan to complete a course of Levaquin for possible pneumonia based on the chest x-ray findings with his Lasix. I do recommend that he follow-up with his PCP in 3 to 5 days and with 180 as an outpatient for substance abuse. 2. Coronary artery disease status post CABG and AVR/HTN/HLD ? Recent echo with an EF of 50% and a valve gradient of 38 mmHg ?BNP was elevated to 724, will continue to with oral Lasix ? Continue with metoprolol and Norvasc ? Continue with Lipitor and aspirin 3. Substance use ? Has not taken his Suboxone in 2 weeks ?We will have him see 180 while he is here and if they can come up with a reasonable discharge plan could consider discharge today ? Will not restart his Suboxone while here ? Urine drug screen is positive for opiates and negative for alcohol Physical Exam Narrative General: Alert, Oriented x3, Cooperative, No apparent distress HEENT: Atraumatic, PERRLA, EOMI, Normocephalic Oral: Moist Mucosa Neck: Supple, No JVD Lungs: Diminished, Normal air movement, No rhonchi, No wheeze, No rales Cardiovascular: Regular rate, Regular Rhythm, Normal S1, Normal S2, No murmurs Abdomen: Soft, Non Tender, Non-Distended, No Hepato-splenomegaly Extremities: No edema, Capillary Refill Less than 3 Seconds Skin: No rashes, No breakdown Musculoskeletal: No Tenderness to Palpation of Joints or Extremities Neurological: Cranial nerves II-XII grossly intact, Motor Exam 5/5 strength throughout, Sensory exam intact to light touch and pain Psych/Mental Status: Normal Affect, Appropriate Weight / BMI Weight Weight: 264 lb 5.348 oz Body Mass Index (BMI) 37.8 ABG / Lab / Microbiology Data Result Diagrams: 08/17/22 06:11 08/17/22 06:11 Microbiology: Microbiology 08/15/22 15:50 Urine, Clean Catch Urine Culture - Final Mixed Gram Positive Organisms 08/15/22 20:20 Interface Orders Respiratory Panel (PCR) - Final D/C Instructions Discharge Diet: Low fat / Low cholesterol Call your doctor if you observe: Fever of 101 or Higher, Shortness of breath, Dizziness, Fainting spells, Swelling in the ankles, Chest pain and Increased palpitations (irregular heartbeat) Meaningful Use Info Meaningful Use Diagnoses (Choose all that apply): None applicable Discharge Plan Admission Admit Date/Time: 08/15/22 17:50 Attending Provider: Dhiraj Gill Primary Care Provider: Azael Uribe Consulting Providers: Hannah Nance ; Vicky Aguiar Instructions Additional Instructions / Restrictions: Follow-up with your PCP as an outpatient to monitor your hemoglobin and follow- up with [facility] for rehab. Discharge Orders/Prescriptions Prescriptions: New levofloxacin 750 mg tablet 750 mg PO DAILY Qty: 5 0RF Continued albuterol sulfate 2.5 mg /3 mL (0.083 %) solution for nebulization 2.5 mg INHALATION Q2H PRN (Reason: Shortness Of Breath Or Wheezing) pantoprazole 40 mg tablet,delayed release (DR/EC) 40 mg PO DAILY aspirin [Aspirin Childrens] 81 mg tablet,chewable 81 mg PO BID buprenorphine-naloxone 8-2 mg tablet, sublingual 1 tab sublingual BID Label Comments: take 1 tablet under the tongue twice a day amlodipine 5 mg tablet 5 mg PO DAILY Qty: 30 11RF atorvastatin 20 mg tablet 20 mg PO QHS albuterol sulfate 18 GM HFA aerosol inhaler 2 puff inhalation Q4H PRN PRN (Reason: Sob &/Or Wheezing) furosemide 20 mg tablet 20 mg PO QAM metoprolol tartrate 25 mg tablet 25 mg PO BID Spiriva with HandiHaler 18 mcg capsule, w/inhalation device 1 cap inhalation DAILY 30 Days Qty: 30 0RF Rx Instructions: puncture 1 cap using device; one dose = 2 inhalations potassium chloride 20 mEq tablet extended release 20 meq PO DAILY Qty: 30 11RF Referrals / Follow Up: Azael Uribe MD [Primary Care Provider] - Within 1 Week Disposition Disposition (needs filled in before D/C Order can be placed): Home, Self Care Charges/Coding Visit Charges Inpatient E&M: 30592 Disch Hosp >30min
== END 2022-08-18 10:50 | disposition home or self-care (01) | DRG 463 ==
LOC: ED 16:54 → MS3 18:02
PROVIDERS: Family Medicine; Admitting Provider Internal Medicine; Emergency Provider Emergency Medicine; PCP Family Medicine; Visit Provider Family Medicine
DX: N39.0 Urinary tract infection, site not specified (principal); E87.1 Hypo-osmolality and hyponatremia; J18.9 Pneumonia, unspecified organism; I44.0 Atrioventricular block, first degree; J98.01 Acute bronchospasm; I25.10 Atherosclerotic heart disease of native coronary artery without angina pectoris; E78.5 Hyperlipidemia, unspecified; R19.7 Diarrhea, unspecified; I25.2 Old myocardial infarction; Z79.82 Long term (current) use of aspirin; Z87.891 Personal history of nicotine dependence; Z95.1 Presence of aortocoronary bypass graft; Z95.2 Presence of prosthetic heart valve
CPT/HCPCS: 36415; 70450; 71046; 80048; 80053; 80307; 81001; 82077; 82140; 83605; 83735; 83880; 85025; 85610; 87086; 87088; 87633; 87635; 93005; 93308; 94640; 94668; 97162; 97166; 97535; 99252; 99285; 99406; J7050; A4216; G0463; J1940; U0003; U0005

== ENCOUNTER 2022-08-29 14:34 | Inpatient (IN) | payer MEDICAID, SELFPAY ==
[2022-08-29] VITALS (16 sets, daily range): BP systolic 79–98; BP diastolic 58–75; PULSE 66–80; RESP 14–20; TEMP 35.8–36.6; O2SAT 90–99; BMI 37.8; BMI 36.3
--- NOTE | 2022-08-29 15:13 | EKG12_ITS ---
Test Reason : SOB Blood Pressure : / mmHG Vent. Rate : 075 BPM Atrial Rate : 075 BPM P-R Int : 206 ms QRS Dur : 118 ms QT Int : 446 ms P-R-T Axes : 055 097 139 degrees QTc Int : 498 ms Sinus rhythm with frequent Premature ventricular complexes Rightward axis Non-specific intra-ventricular conduction delay Nonspecific ST and T wave abnormality Prolonged QT Abnormal ECG Confirmed by BECKY YEUNG, BRIA ([id number]), staff editor LAZARO SWENSON ([id number]) on 09/04/2022 6:53:34 AM Referred By: ANNETTE Confirmed By:JERRY PENA MD
--- NOTE | 2022-08-29 15:30 | EDS_ITS ---
HPI History of Present Illness Chief Complaint: Shortness of Breath Informant: patient Onset/Context/Timing Onset: - (Uncertain. Patient is a poor informant) Context: Gradual Onset Timing: Continuous Quality: Shortness of breath, not feeling well, lightheadedness Location: Cardiovascular and respiratory Current Severity: Moderate Maximum Severity: Severe Worsened by: Orthostatic symptoms with standing. Increase shortness of breath with acti Relieved by: Nothing Associated Symptoms Associated Symptoms: Limited since patient is a poor informant Narrative Narrative: Patient is a 56-year-old male with chronic respiratory failure on home oxygen at 2 L, coronary disease with non-ST elevation MD earlier this month, hypertension, hyperlipidemia, endocarditis of the aortic valve, tobacco use, complicated urinary tract infection and bilateral interstitial pneumonia. Patient did have an echo performed on August 01, 2022. Estimated ejection fraction is 50%. Mean aortic valve gradient is 38 mm. Contrast injection was performed. Left ventricular systolic function is normal. Patient endorses dyspnea, [place] exertion and cough. He denies headache, visual, ocular auditory symptoms. He denies chest discomfort. He denies abdominal pain. He denies vomiting or diarrhea. He denies urologic symptoms. Prior similar symptoms: No Recent Illness/Hospitalization: Yes [facility] Medical History Acute non-ST elevation myocardial infarction (NSTEMI) Altered mental status Aortic valve endocarditis Aspiration into airway Asthma Atherosclerotic heart disease of [place] coronary artery without angina pectoris Cellulitis Cerebrovascular disease, unspecified Coronary artery disease Elevated troponin Esophageal reflux Former smoker Hepatitis Hepatitis C Hyperlipidemia Hyponatremia Nonrheumatic aortic (valve) insufficiency On home oxygen therapy ESA (obstructive sleep apnea) Overdose Sepsis Sleep apnea Substance abuse TIA (transient ischemic attack) Home Medications albuterol sulfate 90 mcg/actuation aerosol inhaler 2 puff inhalation Q4H PRN PRN Sob &/Or Wheezing 11/19/19 [History Last Taken 07/31/22] pantoprazole 40 mg tablet,delayed release 40 mg PO DAILY reflux 01/20/20 [History Last Taken 08/15/22] buprenorphine 8 mg-naloxone 2 mg sublingual tablet 1 tab sublingual BID Check with primary doctor 03/21/21 [History Last Taken 08/14/22] furosemide 20 mg tablet 20 mg PO QAM diuretic 09/05/21 [History Last Taken 08/15/22] metoprolol tartrate 25 mg tablet 25 mg PO BID blood pressure 09/05/21 [History Last Taken 08/15/22] amlodipine 5 mg tablet 5 mg PO DAILY #30 tabs 05/26/22 [Rx Last Taken 08/15/22] aspirin 81 mg chewable tablet (Aspirin Childrens) 81 mg PO BID heart health 07/27/22 [History Last Taken 08/15/22] atorvastatin 20 mg tablet 20 mg PO QHS 07/27/22 [History Last Taken 3 Days Ago ~08/12/22] potassium chloride 20 mEq tablet,extended release 20 meq PO DAILY #30 tabs 07/28/22 [Rx Last Taken 08/15/22] Allergy/AdvReac Type Severity Reaction Status Date / Time Penicillins [PCN] Allergy Shortness Verified 08/29/22 14:35 of breath Family History Mother Hypertension Diabetes Father Cancer Grandmother Diabetes Surgical History History of aortic valve replacement with bioprosthetic valve (11/28/19) History of coronary artery bypass graft (11/28/19) History of foot surgery History of tonsillectomy and adenoidectomy Social History Smoking Status: Former smoker quit status: has quit before alcohol intake: never substance use type: former substance user Date of last use: November 19, 2019 now on suboxone, heroin and other details: fentanyl caffeine: Yes Type: carbonated beverages Number of servings: 2 and coffee Number of servings: 2 ROS ROS ED Review of Systems ROS Unobtainable: due to mental status Constitutional Constitutional ED: Denies chills, fever(s) or sweats Eyes Eyes: Denies blurry vision, change in vision or diplopia ENT ENT ED: Denies ear pain, rhinorrhea or sore throat Cardiovascular Cardiovascular: Reports orthopnea; Denies chest pain, palpitations, paroxysmal nocturnal dyspnea or racing heartbeat Respiratory/Chest Respiratory/Chest: Reports cough, dyspnea, dyspnea on exertion, orthopnea and other Details: Orthopnea is chronic. There is no change in the amount of elevation. ; Denies paroxysmal nocturnal dyspnea Gastrointestinal Gastrointestinal: Denies abdominal pain, constipation, diarrhea, melena, nausea or vomiting Genitourinary Genitourinary ED: Denies dysuria, hematuria or urinary frequency Musculoskeletal Musculoskeletal: Denies arthralgias, back pain or myalgias Integumentary Denies rash Neurologic Neurologic: Reports weakness; Denies headache(s) Endocrine Endocrinology: Denies cold intolerance Hematologic/Lymphatic Hematologic/Lymphatic: Reports systems reviewed and no addt'l complaints, except as documented EXAM Physical Exam Const Vital Signs: 08/29/22 14:36 08/29/22 14:43 08/29/22 15:37 Temperature 97.2 F L Temperature Source Oral Pulse Rate 76 75 Respiratory Rate 16 18 Respiratory Effort Short of Breath Blood Pressure 80/58 L 91/70 Blood Pressure Mean 65 77 Pulse Ox 90 94 Oxygen Delivery Method Room Air Nasal Cannula Nasal Cannula Oxygen Flow Rate (L/min) 2 2 08/29/22 16:37 08/29/22 16:38 Temperature 97.7 F L Temperature Source Oral Pulse Rate 76 76 Respiratory Rate 18 18 Respiratory Effort Blood Pressure 85/64 L 85/64 L Blood Pressure Mean 71 71 Pulse Ox 93 93 Oxygen Delivery Method Nasal Cannula Nasal Cannula Oxygen Flow Rate (L/min) 2 2 Positive well developed and unkempt Constitutional Narrative: Patient appears pale. There is slight mottling. There is delayed cap refill. His mentation is not normal. He is slow as well as confused. General Appearance ED: unkempt, well developed and pallor; Negative for diaphoretic or NAD HEENT Reports dry mucous membranes HEENT Narrative: Head is atraumatic normocephalic. Ears are normal. Nares are patent. Posterior pharynx out erythema or exudate. Mouth ED: Yes dry mucous membranes Mouth: dry mucous membranes Eyes PERRL and EOMs intact bilaterally General Eye ED: Yes pale conjunctiva; Negative for scleral icterus Neck no lymphadenopathy, supple and no JVD Neck Narrative: Trachea is midline. There is no in-store expiratory. Chest Wall inspection of chest normal and palpation of chest normal Resp normal respiratory effort and No clear to auscultation bilaterally Auscultation: rales bilateral 1/[address] way up and wheezes expiratory wheezes, scattered wheezes and throughout Cardio regular rate, regular rhythm, S1 normal heart sound, S2 normal heart sound and no murmurs GI normal to inspection, nondistended, normoactive bowel sounds, non-tender, non- distended and no masses; Negative for hepatosplenomegaly Palpation: soft Back/Spine no CVA tenderness Extremity Negative for normal to inspection Extremity Narrative: Patient has stigmata of peripheral arterial disease with thickened toenails, absence of hair on his toes and nonpalpable DP PT pulse. Patient has significant pitting edema with evidence of venous stasis dermatitis. There is also small wounds that are not infected. Neuro No oriented x3 and CN's II-XII intact bilaterally Neuro Narrative: He moves all extremities. Sensorium / Orientation: Negative for alert Psych Psych Narrative: Affect is flat. He appears depressed. Appearance: unkempt Skin No no rashes or lesions noted, No no wounds and skin turgor normal General Skin Exam: pallor; Negative for elasticity normal or jaundice MDM MDM MDM Narrative Medical decision making narrative: 500 cc bolus of normal saline was ordered to treat his hypotension. Since he had a recent MRI and did not know if he does or does not have heart failure opted to give smaller bolus than normal. After reviewing echo larger bolus if warranted should be tolerated. Differential diagnosis would include congestive heart failure, pneumonia, with history of COPD on chronic oxygen need to rule out Hypercapnia. ABG was obtained. Since he has history of complicated urinary tract infections in the past with his mental status being altered we will obtain a UA. Appropriate blood work was obtained to assess for pulmonary, cardiac as well as infectious etiology of his complaints and presentation. Patient's rales may be due to pneumonia. We will not treat his wheezing until x-ray is reviewed since this may also be due to heart failure Case was discussed with Dr. Amaral regarding use of dobutamine. He recommended t his time not the place person on dobutamine. Reviewed his most recent echo and results. It was his opinion that patient would not have deteriorated rapidly to cause his symptoms. He will see patient in consultation. The hospitalist was made aware. Hospitalist will see patient in the ER and will admit to ICU. Blood pressure did improve slightly to 90 with the 500 cc bolus. Discussed use of Lasix with Dr. Urbano. He is presently on Lasix 20 mg. Will administer 40 mg in the department. History & Record Review Discussion w/independent historian: Patient and Friend Additional record(s) reviewed:: Prior inpatient record, Prior outpatient record, Prior ED visit, Prior labs and Other (Results of his prior visits were summarized in the HPI narrative.) Lab Data Attestation: I reviewed the patient's lab results. Lab results narrative: CBC reveals mild anemia. Patient has chronic mild anemia. Competence metabolic panel remarkable for sodium 127 and chloride 95. This is about his baseline, recently. Lactate is normal at 1 9. Troponin is elevated 1402. BNP is elevated at 2686. Labs: Laboratory Results - last 24 hr 08/29/22 08/29/22 08/29/22 15:10 15:10 15:10 WBC 8.4 RBC 4.00 L Hgb 9.7 L Hct 31.2 L MCV 78.0 L MCH 24.3 L MCHC 31.1 L RDW Std Deviation 48.8 H RDW Coeff of John 17.7 H Plt Count 109 L MPV 10.5 Immature Gran % (Auto) 0.500 Neut % (Auto) 79.7 H Lymph % (Auto) 13.0 L [place] % (Auto) 6.1 Eos % (Auto) 0.1 Baso % (Auto) 0.6 Absolute Neuts (auto) 6.7 Absolute Lymphs (auto) 1.09 Nucleated RBC % 0 Sodium 127 L Potassium 3.5 Chloride 95 L Carbon Dioxide 27.0 Anion Gap 5 BUN 14 Creatinine 1.05 Estim Creat Clear Calc 83.67 Est GFR (MDRD) Af Amer 94 Est GFR (MDRD) Non-Af 77 BUN/Creatinine Ratio 13.3 Glucose 137 H Lactic Acid 1.9 Calcium 7.5 L Total Bilirubin 1.20 H AST 47 H ALT 15 L Alkaline Phosphatase 88 Troponin I High Sens 1402 H* B-Natriuretic Peptide Total Protein 7.5 Albumin 2.0 L Globulin 5.5 H Albumin/Globulin Ratio 0.4 L 08/29/22 15:10 WBC RBC Hgb Hct MCV MCH MCHC RDW Std Deviation RDW Coeff of John Plt Count MPV Immature Gran % (Auto) Neut % (Auto) Lymph % (Auto) [place] % (Auto) Eos % (Auto) Baso % (Auto) Absolute Neuts (auto) Absolute Lymphs (auto) Nucleated RBC % Sodium Potassium Chloride Carbon Dioxide Anion Gap BUN Creatinine Estim Creat Clear Calc Est GFR (MDRD) Af Amer Est GFR (MDRD) Non-Af BUN/Creatinine Ratio Glucose Lactic Acid Calcium Total Bilirubin AST ALT Alkaline Phosphatase Troponin I High Sens B-Natriuretic Peptide 2686.3 H Total Protein Albumin Globulin Albumin/Globulin Ratio ABG is remarkable for chronic hypoxia. pH 7.44, PCO2 39.0, PO2 67.5, bicarb 26.8 with a base excess of +2.7. Saturation is 93% which correlates with pulse ox. ABG Data ABG results: ABG 08/29/22 15:31 Specimen Type ART Sample Site L Radial pH 7.45 Bicarbonate Actual 26.8 H Total CO2 28 Base Excess 3 H O2 Saturation 94 L ABG pCO2 39.0 ABG pO2 68 L Moustapha Test Positive O2 Delivery Device Cannula Liter Flow 2.0 Radiography Chest X-Ray - ED: 1 View and Read by ED Physician (Patient has congestive heart failure. Cardiac silhouette is slightly obscured at the bases. Size is unremarkable. Perihilar region is remarkable for slight fluffiness. [place] structures unremarkable. This was independent reviewed by me. The radiology read was reviewed. The x-ray is worse nelson) Diagnostic Testing: Clinical Impression(s) from Imaging Studies Chest X-Ray 08/29/22 16:10 IMPRESSION: Pulmonary findings appear worse. Electronically Signed: Tim Moise MD at 16:40 EDT , EKG Initial EKG: Attestation: I personally reviewed and interpreted this EKG as follows: Interpretation: Sinus Rhythm (Rate is 75. There is premature ventricular beats noted. [place] interval is 206 ms. QRS duration 118 ms. QT duration 446 ms. [place] to the right. There is a nonspecific conduction delay. The EKG essentially unchanged from August 15, 2022.) Prior: Unchanged Differential Diagnosis Chest pain/SOB: ACS, pneumothorax Reason(s) pneumothorax less likely: Positive for bilateral breath sounds and WOOL PULLER withhout PTX, pneumonia Reason(s) pneumonia less likely: Positive for no elevation in WBC count, no noted fever and symptoms not consistent with acute infection, aortic dissection Reason(s) Aortic dissection less likely:: Positive for normal neurological exam, no widened mediastinum on CXR, pain not sudden onset, no ripping/tearing pain, no pain to back and blood pressure appropriate in ED and CHF Management Discussion w/another healthcare provider: Hospitalist (Documented in the MDM portion of the chart) and Asic Design Engineer (Documented the MDM portion of the chart) Treatment and Re-Evaluation :: Documented the MDM portion of the chart Critical Care Time Critical Care Time: Yes Critical care time (excluding procedures): 30-74 minutes (32), Including time spent: (History, physical, documentation, independent rotation of laboratory results and chest x-ray), Discussing w/Patient &/or Family/Extrusion Press Operator, Discussing w/Consultants (Documented MDM portion of the chart) and Arranging Admission or Transfer Discharge Plan Triage Chief Complaint: Shortness of Breath ED Provider: Damian Escobar Dx/Rx/DC Orders Clinical Impression: Non-ST elevated myocardial infarction, Hyperlipidemia, Atherosclerotic heart disease of [place] coronary artery without angina pectoris, Cigarette smoker, Congestive heart failure, Acute hypotension Prescriptions: No Action pantoprazole 40 mg tablet,delayed release (DR/EC) 40 mg PO DAILY aspirin [Aspirin Childrens] 81 mg tablet,chewable 81 mg PO BID buprenorphine-naloxone 8-2 mg tablet, sublingual 1 tab sublingual BID Label Comments: take 1 tablet under the tongue twice a day amlodipine 5 mg tablet 5 mg PO DAILY Qty: 30 11RF atorvastatin 20 mg tablet 20 mg PO QHS albuterol sulfate 18 GM HFA aerosol inhaler 2 puff inhalation Q4H PRN PRN (Reason: Sob &/Or Wheezing) furosemide 20 mg tablet 20 mg PO QAM metoprolol tartrate 25 mg tablet 25 mg PO BID potassium chloride 20 mEq tablet extended release 20 meq PO DAILY Qty: 30 11RF Primary Care Provider: Azael Uribe Referrals: Azael Uribe MD [Primary Care Provider] - Disposition Disposition: Acute Care Hospital [facility]
[2022-08-29 15:36] LABS: Allen Test Positive; Base Excess 3 mmol/L (-2 to +2); Bicarbonate 26.8 mmol/L (22-26); Blood Gas Specimen Type ART; O2 Delivery Device Cannula; PO2 68 mmHG (75-100); SITE L Radial; SO2 94 % (95-99); Total Carbon Dioxide 28 mmol/L; pH 7.45 (7.35-7.45)
[2022-08-29 15:55] LABS: Absolute Lymphocyte Count 1.09 X10^3/uL (0.83-4.51); Absolute Neutrophil Count 6.7 X10^3/uL (2.0-7.7); Basophil# 0.05 X10^3/uL; Basophil% 0.6 % (0-1); Eosinophil# 0.01 X10^3/uL; Eosinophils% 0.1 % (0-5); Hematocrit 31.2 % (40-54); Hemoglobin 9.7 g/dL (13.0-16.5); Lymphocyte # 1.09 X10^3/ul (0.83-4.51); Mean Corp Hgb Conc 31.1 g/dL (32-36); Mean Corpuscular Hgb 24.3 pg (27.0-32.0); Mean Platelet Vol. 10.5 fl (6.2-12.0); Monocyte# 0.51 X10^3/uL; Monocyte% 6.1 % (0-10); NRBC Flagged by Analyzer 0 % (0-5); Neutrophil # 6.71 X10^3/uL (2.7-7.7); Neutrophil % 79.7 % (47-70); Platelet Count 109 K/mm3 (150-450); RBC Distribution Width CV 17.7 % (11.6-14.6); RBC Distribution Width SD 48.8 fl (35.1-43.9); White Blood Count 8.4 K/mm3 (4.4-11.0)
--- NOTE | 2022-08-29 16:10 | RAD_ITS ---
STUDY: XR Chest 1 View 08/29/2022 4:05 PM REASON FOR EXAM: Male, 56 years old. CHEST PAIN Shortness of breath, bilateral rales, pedal edema COMPARISON: 08/15/2022 TECHNIQUE: XR Chest 1 View FINDINGS: There are bilateral pleural effusions. There are bilateral infiltrates. There are multiple median sternotomy wires. Enlarged heart size. Normal mediastinum. Normal marjan. Prominent appearing increased interstitial lung markings. Normal visualized pulmonary arteries. There is atherosclerotic calcification of the aortic arch with tortuosity. There are diffuse degenerative changes of the visualized thoracic spine. There is degenerative osteoarthritis of the bilateral shoulders. There is no demonstrated abnormality of the visualized soft tissue structures of the upper abdomen. RAD/Chest 1 View (Portable) IMPRESSION: Pulmonary findings appear worse. Electronically Signed: Tim Moise MD at 16:40 EDT ,
[2022-08-29 16:27] LABS: Lactic Acid 1.9 mmol/L (0.4-1.9)
[2022-08-29 16:28] LABS: BNP,B-Type NATRIURETIC PEPTIDE 2686.3 pg/mL (0-100)
[2022-08-29 16:30] LABS: ALB/GLOB Ratio 0.4 RATIO (0.9-2.4); AST(SGOT) 47 U/L (15-37); Alanine Aminotransfer ALT/SGPT 15 U/L (16-61); Alkaline Phosphatase 88 U/L (45-117); Anion Gap 5 (5-15); BUN 14 mg/dL (7-18); BUN/Creat Ratio 13.3 RATIO (10-20); Calcium,Total 7.5 mg/dL (8.5-10.1); Chloride 95 mmol/L (98-107); Creatinine, Serum 1.05 mg/dL (0.70-1.30); EST Glomerular Filtration Rate 77 mL/min (>60); Est Glom Filt Rate - Afr Amer 94 mL/min (>60); Estimated Creatinine Clearance 83.67 ml/min; Globulin 5.5 g/dL (2.2-4.2); Glucose 137 mg/dL (74-106); Potassium 3.5 mmol/L (3.5-5.1); Protein, Total 7.5 g/dL (6.4-8.2); Sodium Level 127 mmol/L (136-145)
[2022-08-29 16:31] LABS: Troponin-I HS (w/2H Reflex) 1402 pg/mL (3.0-78.0)
--- NOTE | 2022-08-29 17:33 | HP.PCM.HOS_ITS ---
HPI - General General Date of Admission: 08/29/22 Date of Service: 08/29/22 Chief Complaint: Shortness of breath HPI Narrative SOREN DE GUZMAN, is a 56 M with a history of substance abuse, coronary artery disease, chronic respiratory failure on 2 L O2, hypertension hypertension who presented to [facility] 08/15/2022 with some confusion.? He was admitted for NSTEMI type II beginning of the month and was discharged home in stable condition and was subsequently evaluated in the ER 08/15 with progressive altered mental status and was admitted and discharged 08/18 in stable condition. He re presents today due to worsening dyspnea. In the ED he was found to have troponin of 1400 with previous of 170, BNP 2686 which was significantly elevated from baseline, PO2 on ABG 68, blood pressure 80/58 with dizziness on standing and heart rate of 76. Chest x-ray suggestive of fluid overload. ED contacted cardiology about possible dobutamine drip but at the time systolic in the 90s and heart rate 70s with EF July 24 2022 to 50% and he was advised to give Lasix. Hospitalist consulted for admission. Patient evaluated at bedside with 2 young family members in the room. Patient alert and oriented and answered questions appropriately but had very difficult time with timeline of symptoms. Does report increased shortness of breath over couple weeks and possible cough but unsure if this was productive. Denies fevers or chills. Denies chest pain. Does not think he is more swollen than usual although does have some swelling. Reports he was given oxygen at home but has at times he does not wear it due to convenience and has possibly missed some medication. [facility] Medical History Acute non-ST elevation myocardial infarction (NSTEMI) Altered mental status Aortic valve endocarditis Aspiration into airway Asthma Atherosclerotic heart disease of [place] coronary artery without angina pectoris Cellulitis Cerebrovascular disease, unspecified Coronary artery disease Elevated troponin Esophageal reflux Former smoker Hepatitis Hepatitis C Hyperlipidemia Hyponatremia Nonrheumatic aortic (valve) insufficiency On home oxygen therapy ESA (obstructive sleep apnea) Overdose Sepsis Sleep apnea Substance abuse TIA (transient ischemic attack) Home Medications albuterol sulfate 90 mcg/actuation aerosol inhaler 2 puff inhalation Q4H PRN PRN Sob &/Or Wheezing 11/19/19 [History Last Taken 08/27/22] pantoprazole 40 mg tablet,delayed release 40 mg PO DAILY reflux 01/20/20 [History Last Taken 08/29/22] buprenorphine 8 mg-naloxone 2 mg sublingual tablet 1 tab sublingual BID Check with primary doctor 03/21/21 [History Last Taken 08/28/22] furosemide 20 mg tablet 20 mg PO QAM diuretic 09/05/21 [History Last Taken 08/29/22] metoprolol tartrate 25 mg tablet 25 mg PO BID blood pressure 09/05/21 [History Last Taken 08/29/22] amlodipine 5 mg tablet 5 mg PO DAILY #30 tabs 05/26/22 [Rx Last Taken 08/29/22] aspirin 81 mg chewable tablet (Aspirin Childrens) 81 mg PO BID heart health 07/27/22 [History Last Taken 08/29/22] atorvastatin 20 mg tablet 20 mg PO QHS 07/27/22 [History Last Taken 08/28/22] potassium chloride 20 mEq tablet,extended release 20 meq PO DAILY #30 tabs 07/28/22 [Rx Last Taken 08/29/22] Allergy/AdvReac Type Severity Reaction Status Date / Time Penicillins [PCN] Allergy Shortness Verified 08/29/22 14:35 of breath Family History Mother Hypertension Diabetes Father Cancer Grandmother Diabetes Surgical History History of aortic valve replacement with bioprosthetic valve (11/28/19) History of coronary artery bypass graft (11/28/19) History of foot surgery History of tonsillectomy and adenoidectomy Social History Smoking Status: Former smoker quit status: has quit before alcohol intake: never substance use type: former substance user Date of last use: November 19, 2019 now on suboxone, heroin and other details: fentanyl caffeine: Yes Type: carbonated beverages Number of servings: 2 and coffee Number of servings: 2 ROS ROS Narrative General: Denies fever/chills HENT: Denies headache, denies stuffy nose, denies sore throat EYES: Denies changes in vision Resp: Possibly cough, has had increasing shortness of breath over the past 1 to 2 weeks but he reports Cardiac: Denies chest pain GI: Denies abdominal pain, denies changes in bowel, denies nausea/vomiting : Denies changes in urination Extremity: Denies swelling MSK: Denies weakness Neuro: Denies any numbness/tingling Heme: Denies any bleeding or bruising Skin: Denies rashes Psychiatric: No complaints voiced Vital Signs Vital Signs Vital Signs: 08/29/22 14:36 08/29/22 14:43 08/29/22 15:37 Temperature 97.2 F L Temperature Source Oral Pulse Rate 76 75 Respiratory Rate 16 18 Respiratory Effort Short of Breath Blood Pressure 80/58 L 91/70 Blood Pressure Mean 65 77 Pulse Ox 90 94 Oxygen Delivery Method Room Air Nasal Cannula Nasal Cannula Oxygen Flow Rate (L/min) 2 2 08/29/22 16:37 08/29/22 16:38 Temperature 97.7 F L Temperature Source Oral Pulse Rate 76 76 Respiratory Rate 18 18 Respiratory Effort Blood Pressure 85/64 L 85/64 L Blood Pressure Mean 71 71 Pulse Ox 93 93 Oxygen Delivery Method Nasal Cannula Nasal Cannula Oxygen Flow Rate (L/min) 2 2 Weight Weight: 123.1 kg Body Mass Index (BMI) 37.8 Physical Exam Narrative General: Alert, able to answer orientation questions but poor historian HEENT: Atraumatic, normocephalic Eyes: Anicteric, normal conjunctiva, extraocular movements grossly intact Neck: Supple Respiratory: Diminished bilaterally, slight increased work of breathing Cardiovascular: Regular rate and rhythm GI: Soft, nontender, nondistended Extremities: 1+ bilateral lower extremity pitting edema Musculoskeletal: Moving all extremities Neuro: No overt focal neurological deficits Skin: No rashes appreciated Psych: Attempts to be cooperative Results Lab / Micro Data Result Diagrams: 08/29/22 15:10 08/29/22 15:10 Labs: Laboratory Results - last 24 hr 08/29/22 15:10: WBC 8.4, RBC 4.00 L, Hgb 9.7 L, Hct 31.2 L, MCV 78.0 L, MCH 24.3 L, MCHC 31.1 L, RDW Std Deviation 48.8 H, RDW Coeff of John 17.7 H, Plt Count 109 L, MPV 10.5, Immature Gran % (Auto) 0.500, Neut % (Auto) 79.7 H, Lymph % (Auto) 13.0 L, [place] % (Auto) 6.1, Eos % (Auto) 0.1, Baso % (Auto) 0.6, Absolute Neuts (auto) 6.7, Absolute Lymphs (auto) 1.09, Nucleated RBC % 0 08/29/22 15:10: Sodium 127 L, Potassium 3.5, Chloride 95 L, Carbon Dioxide 27.0, Anion Gap 5, BUN 14, Creatinine 1.05, Estim Creat Clear Calc 83.67, Est GFR (MDRD) Af Amer 94, Est GFR (MDRD) Non-Af 77, BUN/Creatinine Ratio 13.3, Glucose 137 H, Calcium 7.5 L, Total Bilirubin 1.20 H, AST 47 H, ALT 15 L, Alkaline Phosphatase 88, Troponin I High Sens 1402 H*, Total Protein 7.5, Albumin 2.0 L, Globulin 5.5 H, Albumin/Globulin Ratio 0.4 L 08/29/22 15:10: Lactic Acid 1.9 08/29/22 15:10: B-Natriuretic Peptide 2686.3 H ABG Data ABG results: ABG 08/29/22 15:31 Specimen Type ART Sample Site L Radial pH 7.45 Bicarbonate Actual 26.8 H Total CO2 28 Base Excess 3 H O2 Saturation 94 L ABG pCO2 39.0 ABG pO2 68 L Moustapha Test Positive O2 Delivery Device Cannula Liter Flow 2.0 Radiology Impression Chest X-Ray 08/29/22 16:10 IMPRESSION: Pulmonary findings appear worse. Electronically Signed: Tim Moise MD at 16:40 EDT Reading Location ID and State: [facility] / [place] , Service support , Assessment & Plan Assessment/Plan (1) Non-ST elevated myocardial infarction: (2) Congestive heart failure: PLAN: Plan #Acute on chronic hypoxic respiratory failure 2/2 acute fluid overload/pulmonary edema -BNP on presentation over 1999, chest x-ray with effusions, patient edematous -Hypotensive, initially was going to get fluids but given picture was given 40 of IV Lasix -We will obtain limited echo to assess EF -Last echo 08/16/2022 with EF of 55%, bioprosthetic aortic valve appeared stable, unable to assess diastolic dysfunction -I's and O's, daily weights -Cardiology consulted #Hypotension -Improved slightly in the ED, patient not symptomatic at time of exam -Given Lasix, cardiology contacted in ED and at this time did not recommend dobutamine -However given blood pressure with need for diuresis but hypotensive he was admitted to ICU -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 -Given improvement and lack of symptoms without tachycardia and does not appear to be septic or in shock at this time with normal lactic acid do not believe pressors are indicated but will monitor closely in ICU -One-time 40 IV Lasix given in ED -Holding beta-juan f and antihypertensives #NSTEMI -Suspect type II secondary to exacerbation of heart failure -no chest pain but troponin is over 1400, trend -EKG normal sinus rhythm with PVCs -Cardiology consulted, given suspicion that this is a type II he has not been started on full dose anticoagulation, trend troponin -Continue aspirin and statin -Once blood pressure improves will resume beta-juan f #History of coronary artery disease status post CABG and aortic valve repair -Continue aspirin, statin #History of substance use -UDS ordered -Unclear if he is actively taking Suboxone, will need to follow-up and once blood pressure improved resume if applicable #DVT ppx: Jess Nance MD Time spent in the patient's overall evaluation,decision-making process, review of diagnostic data, adjustment of management, discussion with other providers, nursing nursing and ancillary staff involved in patient's care documentation, 60 minutes Charges/Coding Visit Charges Inpatient E&M: 68817 Init Hosp L2
[2022-08-29] MEDS: Furosemide 40 MG/4 ML Vial IV (17:35)
--- NOTE | 2022-08-29 17:40 | ECHOLC_ITS ---
Reason For Study: CHF, Assess EF Procedure This was a limited 2D transthoracic echocardiogram. Contrast injection was performed. Exam performed portable in ICU/CCU. Left Ventricle Normal LV size. The estimated ejection fraction is 53 %. Mid-Inferior: Mildly hypokinetic. Infero- Basal: Mildly hypokinetic. Right Ventricle Normal RV size. Normal systolic function. Aortic Valve Bioprosthetic aortic valve. Great Vessels Normal aortic root. Pericardium/Pleural No pericardial effusion. Medication Diluted definity 5ml given slow IV push to enhance endocardial definition. MMode/2D Measurements & Calculations LVIDd: 5.8 cm IVSd: 1.3 cm LVIDs: 4.2 cm LVPWd: 1.3 cm FS: 26.4 % Doppler Measurements & Calculations TR max samy: 323.4 cm/sec TR max P.8 mmHg ECHO/Echo Limited w/Contrast Interpretation Summary Normal LV size. The estimated ejection fraction is 53 %. Contrast injection was performed. Ordering Physician: Hannah Nance Referring Physician: Azael Uribe Performed By: Shaila Patel, EBENEZER, RVT
[2022-08-29 17:43] LABS: Reflex Troponin-HS? (from REC) Y
--- NOTE | 2022-08-29 18:14 | ED.RN ---
1813: Report called to Theresa CHRISTIANSON on floor.
[2022-08-29 19:05] LABS: Amphetamine Urine VISTA NEGATIVE (<1000 ng/mL); Barbiturate Urine VISTA NEGATIVE (< 200 ng/mL); Benzodiazepine Urine VISTA NEGATIVE (< 200 ng/mL); Cocaine Urine VISTA NEGATIVE (< 300 ng/mL); Ecstacy Urine VISTA NEGATIVE (< 500 ng/mL); Methadone Urine VISTA NEGATIVE (< 300 ng/mL); PCP Urine VISTA NEGATIVE (< 25 ng/mL); THC Urine VISTA NEGATIVE (< 50 ng/mL); Vista UDS pH Range 6
[2022-08-29 19:07] LABS: Troponin-I HS 1447 pg/mL (3.0-78.0)
--- NOTE | 2022-08-29 19:23 | PCM.CONS.C ---
Assessment & Plan Assessment/Plan (1) Non-ST elevated myocardial infarction: PLAN: He presents with a non-ST elevation myocardial infarction. My recommendation at this time would be to reevaluate a limited echocardiogram for his ventricular function and then further recommendations made as to whether he would require an invasive approach. He will likely need this before he is discharged. (2) History of CAD (coronary artery disease): PLAN: He does have a history of coronary artery disease as noted below. This may need to be reevaluated with an angiogram prior to his discharge. (3) History of coronary artery bypass graft: PLAN: He is status post coronary bypass grafting with a single-vessel saphenous vein graft to the right coronary artery. This will need to be evaluated. (4) History of aortic valve replacement with bioprosthetic valve: PLAN: He is status post aortic valve replacement with a bioprosthetic valve. This was evaluated with an echocardiogram and was noted to be functioning quite well. No major changes will be made. (5) Congestive heart failure: PLAN: He does have a history of congestive heart failure which I suspect is preserved ejection fraction and diastolic dysfunction. We will hold some of his antihypertensive medications at this time and see what happens to his blood pressure. I do not think that he is in cardiogenic shock to warrant intravenous dobutamine at this time. He is mentating quite fully he has good capillary refill. Thank you for allowing me to participate in the care of your patient. Please don't hesitate to call if any issues arise. HPI Consult Data Date of Consult: 08/29/22 HPI Narrative HPI Narrative: SOREN DE GUZMAN, is a 56 M who presents to the emergency room with some mild confusion. He had been admitted earlier in the month with shortness of breath and minimal troponin elevation with a flat pattern. He had an echocardiogram performed which had demonstrated preserved ejection fraction of 55% with a stable prosthetic valve. He does have a history of coronary artery bypass surgery with a bioprosthetic valve and single-vessel coronary bypass surgery with a saphenous vein graft to the right coronary artery. After he was discharged was post to be seen in the office and then undergo a pharmacologic myocardial perfusion stress test. This time he presented with worsening dyspnea in the emergency room he was noted to have an elevated troponin as well as natruretic peptide level he was mentating well however. There was a consideration to whether he should be given intravenous dobutamine. He does report some pedal edema and a cough he is supposed to be on oxygen at home but he does not really use this. His EKG demonstrated sinus rhythm with a rate of 70 bpm and no acute changes [facility] Medical History Acute non-ST elevation myocardial infarction (NSTEMI) Altered mental status Aortic valve endocarditis Aspiration into airway Asthma Atherosclerotic heart disease of [place] coronary artery without angina pectoris Cellulitis Cerebrovascular disease, unspecified Coronary artery disease Elevated troponin Esophageal reflux Former smoker Hepatitis Hepatitis C Hyperlipidemia Hyponatremia Nonrheumatic aortic (valve) insufficiency On home oxygen therapy ESA (obstructive sleep apnea) Overdose Sepsis Sleep apnea Substance abuse TIA (transient ischemic attack) Home Medications albuterol sulfate 90 mcg/actuation aerosol inhaler 2 puff inhalation Q4H PRN PRN Sob &/Or Wheezing 11/19/19 [History Last Taken 08/27/22] pantoprazole 40 mg tablet,delayed release 40 mg PO DAILY reflux 01/20/20 [History Last Taken 08/29/22] buprenorphine 8 mg-naloxone 2 mg sublingual tablet 1 tab sublingual BID Check with primary doctor 03/21/21 [History Last Taken 08/28/22] furosemide 20 mg tablet 20 mg PO QAM diuretic 09/05/21 [History Last Taken 08/29/22] metoprolol tartrate 25 mg tablet 25 mg PO BID blood pressure 09/05/21 [History Last Taken 08/29/22] amlodipine 5 mg tablet 5 mg PO DAILY #30 tabs 05/26/22 [Rx Last Taken 08/29/22] aspirin 81 mg chewable tablet (Aspirin Childrens) 81 mg PO BID heart health 07/27/22 [History Last Taken 08/29/22] atorvastatin 20 mg tablet 20 mg PO QHS 07/27/22 [History Last Taken 08/28/22] potassium chloride 20 mEq tablet,extended release 20 meq PO DAILY #30 tabs 07/28/22 [Rx Last Taken 08/29/22] Allergy/AdvReac Type Severity Reaction Status Date / Time Penicillins [PCN] Allergy Shortness Verified 08/29/22 14:35 of breath Family History Mother Hypertension Diabetes Father Cancer Grandmother Diabetes Surgical History (Updated 08/29/22 @ 19:[address] Dallas Urbano MD) History of aortic valve replacement with bioprosthetic valve (11/28/19) History of coronary artery bypass graft (11/28/19) History of foot surgery History of tonsillectomy and adenoidectomy Social History Smoking Status: Former smoker quit status: has quit before alcohol intake: never substance use type: former substance user Date of last use: November 19, 2019 now on suboxone, heroin and other details: fentanyl caffeine: Yes Type: carbonated beverages Number of servings: 2 and coffee Number of servings: 2 ROS Constitutional Constitutional: Denies fever(s) or weight loss Eyes Eyes: Reports systems reviewed and no addt'l complaints, except as documented ENT HEENT: Reports systems reviewed and no addt'l complaints, except as documented Cardiovascular Cardiovascular: Reports dyspnea at rest, dyspnea on exertion, edema, fatigue and paroxysmal nocturnal dyspnea; Denies chest pain at rest, chest pain with activity or palpitations Respiratory/Chest Respiratory/Chest: Reports dyspnea on exertion, shortness of breath at rest and shortness of breath with exertion; Denies productive cough Gastrointestinal Gastrointestinal: Denies change in bowel habits, nausea, vomiting or weight changes Genitourinary Genitourinary: Denies difficulty urinating Musculoskeletal Musculoskeletal: Denies joint stiffness or muscle weakness Integumentary Integumentary: Denies lesions Neurologic Neurologic: Denies dizziness or syncope Psychiatric Psychiatric: Denies anxiety Endocrine Endocrinology: Denies excessive sweating or fatigue Hematologic/Lymphatic Hematologic/Lymphatic: Denies anemia Allergic/Immunologic Allergic/Immunologic: Denies seasonal rhinorrhea Physical Exam Const alert, oriented x3 and no apparent distress General Appearance: cooperative HEENT hearing grossly normal bilaterally Head and Scalp: atraumatic Eyes EOMs intact bilaterally Neck General: normal visual inspection Chest inspection of chest normal and palpation of chest normal Resp normal respiratory effort Auscultation: clear to auscultation bilaterally Cardio regular rate, regular rhythm, S1 normal heart sound and S2 normal heart sound Jugular Venous Distention: JVD GI normal to inspection, nondistended, normoactive bowel sounds Extremity normal capillary refill General Extremity: edema bilateral Peripheral Pulses: Yes pulses 2+ throughout and femoral pulses present Skin no rashes or lesions noted Neuro oriented x3 and CN's II-XII intact bilaterally Psych Appearance: grossly normal and appropriate Risk Stratification Risk Stratification Applicable: Yes Age >/= 65: No >/= 3 CAD Risk Factors (HTN, HLD, DM, family hx of CAD, or current smoker): No Aspirin Use in the Past 7 Days: Yes Severe Angina (>/= episodes in 24 hours): No EKG ST Changes >/= 0.5mm: No Positive Cardiac Marker: No PEÑA Risk Stratification Score: 1 PEÑA % Risk: 5% Risk Objective Data Vital Signs: Vital Signs Temp Pulse Resp BP Pulse Ox O2 Del Method O2 Flow Rate 96.5 F L 70 20 H 98/75 96 Nasal Cannula 2 08/29/22 17:45 08/29/22 17:45 08/29/22 17:45 08/29/22 17:45 08/29/22 17:45 08/29/22 17:45 08/29/22 17:45 Oxygen Flow Rate (L/min) 2 Oxygen Delivery Method Nasal Cannula Weight: 260 lb 14.4 oz Body Mass Index (BMI) 36.3 Intake & Output: Intake and Output for Last 24 Hours 08/27/22 08/28/22 08/29/22 23:59 23:59 23:59 Intake Total 500 / 500 Output Total 450 / 450 Balance 50 / 50 Lab / Micro Data Result Diagrams: 08/29/22 15:10 08/29/22 15:10 Labs: Laboratory Results - last 24 hr 08/29/22 15:10: WBC 8.4, RBC 4.00 L, Hgb 9.7 L, Hct 31.2 L, MCV 78.0 L, MCH 24.3 L, MCHC 31.1 L, RDW Std Deviation 48.8 H, RDW Coeff of John 17.7 H, Plt Count 109 L, MPV 10.5, Immature Gran % (Auto) 0.500, Neut % (Auto) 79.7 H, Lymph % (Auto) 13.0 L, [place] % (Auto) 6.1, Eos % (Auto) 0.1, Baso % (Auto) 0.6, Absolute Neuts (auto) 6.7, Absolute Lymphs (auto) 1.09, Nucleated RBC % 0 08/29/22 15:10: Sodium 127 L, Potassium 3.5, Chloride 95 L, Carbon Dioxide 27.0, Anion Gap 5, BUN 14, Creatinine 1.05, Estim Creat Clear Calc 83.67, Est GFR (MDRD) Af Amer 94, Est GFR (MDRD) Non-Af 77, BUN/Creatinine Ratio 13.3, Glucose 137 H, Calcium 7.5 L, Total Bilirubin 1.20 H, AST 47 H, ALT 15 L, Alkaline Phosphatase 88, Troponin I High Sens 1402 H*, Total Protein 7.5, Albumin 2.0 L, Globulin 5.5 H, Albumin/Globulin Ratio 0.4 L 08/29/22 15:10: Lactic Acid 1.9 08/29/22 15:10: B-Natriuretic Peptide 2686.3 H 08/29/22 18:30: Urine Opiates Screen NEGATIVE, Urine Methadone Screen NEGATIVE, Ur Barbiturates Screen NEGATIVE, Ur Phencyclidine Scrn NEGATIVE, Ur Amphetamines Screen NEGATIVE, MDMA (Ecstasy) Screen NEGATIVE, U Benzodiazepines Scrn NEGATIVE, Urine Cocaine Screen NEGATIVE, U Cannabinoids Screen NEGATIVE, Ur Drug Screen Comment 08/29/22 18:30: Troponin I High Sens 1447 H* ABG Data ABG results: ABG 08/29/22 15:31 Specimen Type ART Sample Site L Radial pH 7.45 Bicarbonate Actual 26.8 H Total CO2 28 Base Excess 3 H O2 Saturation 94 L ABG pCO2 39.0 ABG pO2 68 L Moustapha Test Positive O2 Delivery Device Cannula Liter Flow 2.0 Cardiology Labs/Tests 08/29/22 15:10: WBC 8.4, RBC 4.00 L, Hgb 9.7 L, Hct 31.2 L, MCV 78.0 L, MCH 24.3 L, MCHC 31.1 L, Plt Count 109 L, MPV 10.5, Immature Gran % (Auto) 0.500, Neut % (Auto) 79.7 H, Lymph % (Auto) 13.0 L, [place] % (Auto) 6.1, Eos % (Auto) 0.1, Baso % (Auto) 0.6, Absolute Neuts (auto) 6.7, Nucleated RBC % 0 08/29/22 15:10: Sodium 127 L, Potassium 3.5, Chloride 95 L, Carbon Dioxide 27.0, Anion Gap 5, BUN 14, Creatinine 1.05, Est GFR (MDRD) Af Amer 94, Est GFR (MDRD) Non-Af 77, BUN/Creatinine Ratio 13.3, Glucose 137 H, Calcium 7.5 L, Total Bilirubin 1.20 H 08/29/22 15:10: Lactic Acid 1.9 08/29/22 15:10: B-Natriuretic Peptide 2686.3 H 08/29/22 15:31: pH 7.45, Bicarbonate Actual 26.8 H, Base Excess 3 H, O2 Saturation 94 L, ABG pCO2 39.0, ABG pO2 68 L, Moustapha Test Positive Rhythm: EKG: ECHO: Stress Test: Cardiac Cath: PCI: CT Surgery: Holter monitor: EPS: PPM: CXR: Chest CT Scan: Radiography Diagnostic Testing: Radiology Impression Chest X-Ray 08/29/22 16:10 IMPRESSION: Pulmonary findings appear worse. Electronically Signed: Tim Moise MD at 16:40 EDT Reading Location ID and State: [id number] / [place] , Service support ,
[2022-08-29] MEDS: Ipratropium/Albuterol Sulfate 3 ML AMPUL.NEB INHALATION (19:37)
[2022-08-29] MEDS: Atorvastatin Calcium 20 MG Tablet PO (21:17)
[2022-08-29 22:12] LABS: Troponin-I HS 1394 pg/mL (3.0-78.0)
[2022-08-30] VITALS (23 sets, daily range): BP systolic 76–97; BP diastolic 52–74; PULSE 67–104; RESP 14–21; TEMP 36.4–36.7; O2SAT 90–99; BMI 36.3
[2022-08-30] MEDS: Ipratropium/Albuterol Sulfate 3 ML AMPUL.NEB INHALATION ×4 (00:41→18:58)
[2022-08-30 04:51] LABS: Absolute Lymphocyte Count 1.18 X10^3/uL (0.83-4.51); Absolute Neutrophil Count 4.6 X10^3/uL (2.0-7.7); Basophil# 0.05 X10^3/uL; Basophil% 0.8 % (0-1); Eosinophil# 0.03 X10^3/uL; Eosinophils% 0.5 % (0-5); Hematocrit 31.9 % (40-54); Hemoglobin 9.8 g/dL (13.0-16.5); Lymphocyte # 1.18 X10^3/ul (0.83-4.51); Lymphocyte % 18.8 % (19-41); Mean Corp Hgb Conc 30.7 g/dL (32-36); Mean Corpuscular Hgb 24.5 pg (27.0-32.0); Mean Corpuscular Volume 79.8 fL (80-94); Mean Platelet Vol. 9.4 fl (6.2-12.0); Monocyte# 0.41 X10^3/uL; Monocyte% 6.5 % (0-10); NRBC Flagged by Analyzer 0 % (0-5); Neutrophil # 4.58 X10^3/uL (2.7-7.7); Neutrophil % 72.9 % (47-70); Platelet Count 101 K/mm3 (150-450); RBC Distribution Width CV 18.1 % (11.6-14.6); RBC Distribution Width SD 51.4 fl (35.1-43.9); White Blood Count 6.3 K/mm3 (4.4-11.0)
[2022-08-30 05:06] LABS: ALB/GLOB Ratio 0.4 RATIO (0.9-2.4); AST(SGOT) 38 U/L (15-37); Alanine Aminotransfer ALT/SGPT 13 U/L (16-61); Alkaline Phosphatase 79 U/L (45-117); Anion Gap 6 (5-15); BUN 15 mg/dL (7-18); BUN/Creat Ratio 14.9 RATIO (10-20); Calcium,Total 7.9 mg/dL (8.5-10.1); Chloride 94 mmol/L (98-107); Creatinine, Serum 1.01 mg/dL (0.70-1.30); EST Glomerular Filtration Rate 81 mL/min (>60); Est Glom Filt Rate - Afr Amer 98 mL/min (>60); Estimated Creatinine Clearance 86.98 ml/min; Globulin 5.4 g/dL (2.2-4.2); Glucose 110 mg/dL (74-106); Potassium 3.3 mmol/L (3.5-5.1); Protein, Total 7.4 g/dL (6.4-8.2); Sodium Level 130 mmol/L (136-145)
--- NOTE | 2022-08-30 07:33 | EX.PCM.CONCC ---
Assessment & Plan Assessment/Plan (1) Congestive heart failure: PLAN: Plan RECOMMENDATIONS: 1. Continue gentle diuresis 2. Potassium supplementation as ordered 3. Check orthostatic blood pressures 4. Doubt need for antibiotics 5. Okay to make PCU status 6. Hemodynamically stable on baseline oxygen requirements. Will sign off if orthostatic negative IMPRESSIONS: 1. Acute on chronic hypoxic respiratory failure secondary to fluid overload Patient has responded well to diuretic therapy. Patient will need potassium repletion. We will continue to hold antihypertensives. Patient is back down to his 2 L nasal cannula. Blood pressures do remain marginal, so we will have to check orthostatic blood pressures. Patient does not appear that he will need any BiPAP rescue at this time. Outpatient work-up for concomitant COPD would be reasonable. 2. Hypotension Clinical suspicion for cardiac etiology. Patient did have a recent NSTEMI with decrease in EF. Cardiology is following. Would likely hold on beta-juan f for now. Check orthostatics. Defer to cardiology on initiation of full anticoagulation. Patient is on hypertensive medications at baseline and these have been discontinued. Patient does not have significant renal dysfunction to suggest accumulation of antihypertensives as an etiology. Defer to cardiology on reinitiation of medications in a stepwise fashion. 3. History of substance abuse/poor historian/history of tobacco abuse Complicates care, management, recovery and prognosis. Patient not willing to provide much additional information at this time. Patient will need to follow-up as an outpatient. Okay to give nicotine patches if requested. HPI Consult Data Date of Consult: 08/30/22 HPI Narrative Reason for Consultation: Respiratory failure HPI Narrative: SOREN DE GUZMAN is a 56 M, with past medical history listed below, who presents to [facility] on 08/29/2022 secondary to progressive shortness of breath, lightheadedness and an overall sensation of not feeling well. Patient did have a recent non-ST elevation AR this month and was recently discharged with supplemental oxygen. Patient did have a complicated UTI and bilateral interstitial pneumonia noted at that time. Patient did have an echo at the end of July showing an EF of 50%. Patient does have a history of infective endocarditis in the past. In the ER, patient was afebrile, but hypotensive at 80/58. Patient was not significantly tachycardic, but did require 2 L nasal cannula to maintain saturations. Laboratory work-up showed a white blood cell count of 8.4, hemoglobin of 9.7 and platelets of 109. Chemistry showed a sodium of 127, chloride of 95 and a creatinine of 1.05. Lactate was within normal limits. High-sensitivity troponin was slightly elevated at 1402, but BNP was elevated at 2686. An ABG showed adequate ventilation with a mild metabolic alkalosis and increased AA gradient. Chest x-ray showed worsening bilateral infiltrates compared to previous. EKG showed PVCs with a slightly prolonged QT interval, but grossly unchanged compared to August. Patient was initially treated with saline secondary to hypotension. There was some discussion with cardiology about possible dobutamine. However, it was determined the patient would benefit from Lasix, so this was initiated. Since being in the intensive care unit, patient has done better. Patient has not had any chest pain reported. Patient has been able to be weaned to his 2 L nasal cannula. Blood pressures have been marginal intermittently, but no further interventions have been required. Patient does believe that his shortness of breath is much improved compared to previous patient is a relatively poor historian and unable to provide much additional information at this time. COUNT INCLUDES THE [facility] Medical History Acute non-ST elevation myocardial infarction (NSTEMI) Altered mental status Aortic valve endocarditis Aspiration into airway Asthma Atherosclerotic heart disease of [place] coronary artery without angina pectoris Cellulitis Cerebrovascular disease, unspecified Coronary artery disease Elevated troponin Esophageal reflux Former smoker Hepatitis Hepatitis C Hyperlipidemia Hyponatremia Nonrheumatic aortic (valve) insufficiency On home oxygen therapy ESA (obstructive sleep apnea) Overdose Sepsis Sleep apnea Substance abuse TIA (transient ischemic attack) Home Medications albuterol sulfate 90 mcg/actuation aerosol inhaler 2 puff inhalation Q4H PRN PRN Sob &/Or Wheezing 11/19/19 [History Last Taken 08/27/22] pantoprazole 40 mg tablet,delayed release 40 mg PO DAILY reflux 01/20/20 [History Last Taken 08/29/22] buprenorphine 8 mg-naloxone 2 mg sublingual tablet 1 tab sublingual BID Check with primary doctor 03/21/21 [History Last Taken 08/28/22] furosemide 20 mg tablet 20 mg PO QAM diuretic 09/05/21 [History Last Taken 08/29/22] metoprolol tartrate 25 mg tablet 25 mg PO BID blood pressure 09/05/21 [History Last Taken 08/29/22] amlodipine 5 mg tablet 5 mg PO DAILY #30 tabs 05/26/22 [Rx Last Taken 08/29/22] aspirin 81 mg chewable tablet (Aspirin Childrens) 81 mg PO BID heart health 07/27/22 [History Last Taken 08/29/22] atorvastatin 20 mg tablet 20 mg PO QHS 07/27/22 [History Last Taken 08/28/22] potassium chloride 20 mEq tablet,extended release 20 meq PO DAILY #30 tabs 07/28/22 [Rx Last Taken 08/29/22] Allergy/AdvReac Type Severity Reaction Status Date / Time Penicillins [PCN] Allergy Shortness Verified 08/29/22 14:35 of breath Family History Mother Hypertension Diabetes Father Cancer Grandmother Diabetes Surgical History History of aortic valve replacement with bioprosthetic valve (11/28/19) History of coronary artery bypass graft (11/28/19) History of foot surgery History of tonsillectomy and adenoidectomy Social History Smoking Status: Former smoker quit status: has quit before alcohol intake: never substance use type: former substance user Date of last use: November 19, 2019 now on suboxone, heroin and other details: fentanyl caffeine: Yes Type: carbonated beverages Number of servings: 2 and coffee Number of servings: 2 ROS ROS Narrative Poor historian. See HPI Physical Exam Const alert, oriented x3 and no apparent distress Constitutional Narrative: Appears older than stated age General Appearance: cooperative HEENT hearing grossly normal bilaterally HEENT Narrative: Edentulous Head and Scalp: atraumatic Eyes PERRL, EOMs intact bilaterally and conjunctivae normal Neck General: normal visual inspection Chest inspection of chest normal and palpation of chest normal Resp normal respiratory effort Auscultation: rales diffuse (Slight) Cardio regular rate, regular rhythm, S1 normal heart sound, S2 normal heart sound, no murmurs, no rub and no gallops Jugular Venous Distention: JVD GI normal to inspection, nondistended, normoactive bowel sounds Extremity normal capillary refill General Extremity: edema bilateral Peripheral Pulses: Yes pulses 2+ throughout and femoral pulses present Skin no rashes or lesions noted Neuro oriented x3, CN's II-XII intact bilaterally and moves all extremities Psych Appearance: grossly normal and appropriate Medical Records Data Attestation: I reviewed the patient's medical records Lab / Micro Data Attestation: I reviewed the patient's lab results. Result Diagrams: 08/30/22 04:40 08/30/22 04:40 Labs: Laboratory Results - last 24 hr 08/29/22 15:10: WBC 8.4, RBC 4.00 L, Hgb 9.7 L, Hct 31.2 L, MCV 78.0 L, MCH 24.3 L, MCHC 31.1 L, RDW Std Deviation 48.8 H, RDW Coeff of John 17.7 H, Plt Count 109 L, MPV 10.5, Immature Gran % (Auto) 0.500, Neut % (Auto) 79.7 H, Lymph % (Auto) 13.0 L, [place] % (Auto) 6.1, Eos % (Auto) 0.1, Baso % (Auto) 0.6, Absolute Neuts (auto) 6.7, Absolute Lymphs (auto) 1.09, Nucleated RBC % 0 08/29/22 15:10: Sodium 127 L, Potassium 3.5, Chloride 95 L, Carbon Dioxide 27.0, Anion Gap 5, BUN 14, Creatinine 1.05, Estim Creat Clear Calc 83.67, Est GFR (MDRD) Af Amer 94, Est GFR (MDRD) Non-Af 77, BUN/Creatinine Ratio 13.3, Glucose 137 H, Calcium 7.5 L, Total Bilirubin 1.20 H, AST 47 H, ALT 15 L, Alkaline Phosphatase 88, Troponin I High Sens 1402 H*, Total Protein 7.5, Albumin 2.0 L, Globulin 5.5 H, Albumin/Globulin Ratio 0.4 L 08/29/22 15:10: Lactic Acid 1.9 08/29/22 15:10: B-Natriuretic Peptide 2686.3 H 08/29/22 18:30: Urine Opiates Screen NEGATIVE, Urine Methadone Screen NEGATIVE, Ur Barbiturates Screen NEGATIVE, Ur Phencyclidine Scrn NEGATIVE, Ur Amphetamines Screen NEGATIVE, MDMA (Ecstasy) Screen NEGATIVE, U Benzodiazepines Scrn NEGATIVE, Urine Cocaine Screen NEGATIVE, U Cannabinoids Screen NEGATIVE, Ur Drug Screen Comment 08/29/22 18:30: Troponin I High Sens 1447 H* 08/29/22 21:30: Troponin I High Sens 1394 H* 08/30/22 04:40: WBC 6.3, RBC 4.00 L, Hgb 9.8 L, Hct 31.9 L, MCV 79.8 L, MCH 24.5 L, MCHC 30.7 L, RDW Std Deviation 51.4 H, RDW Coeff of John 18.1 H, Plt Count 101 L, MPV 9.4, Immature Gran % (Auto) 0.500, Neut % (Auto) 72.9 H, Lymph % (Auto) 18.8 L, Cooper % (Auto) 6.5, Eos % (Auto) 0.5, Baso % (Auto) 0.8, Absolute Neuts (auto) 4.6, Absolute Lymphs (auto) 1.18, Nucleated RBC % 0 08/30/22 04:40: Sodium 130 L, Potassium 3.3 L, Chloride 94 L, Carbon Dioxide 30.0, Anion Gap 6, BUN 15, Creatinine 1.01, Estim Creat Clear Calc 86.98, Est GFR (MDRD) Af Amer 98, Est GFR (MDRD) Non-Af 81, BUN/Creatinine Ratio 14.9, Glucose 110 H, Calcium 7.9 L, Total Bilirubin 1.40 H, AST 38 H, ALT 13 L, Alkaline Phosphatase 79, Total Protein 7.4, Albumin 2.0 L, Globulin 5.4 H, Albumin/Globulin Ratio 0.4 L ABG Data ABG results: ABG 08/29/22 15:31 Specimen Type ART Sample Site L Radial pH 7.45 Bicarbonate Actual 26.8 H Total CO2 28 Base Excess 3 H O2 Saturation 94 L ABG pCO2 39.0 ABG pO2 68 L Moustapha Test Positive O2 Delivery Device Cannula Liter Flow 2.0 Attestation: I personally reviewed and interpreted this ABG as follows: (See HPI) Radiology Impression Chest X-Ray 08/29/22 16:10 IMPRESSION: Pulmonary findings appear worse. Electronically Signed: Tim Moise MD at 16:40 EDT , Charges/Coding Visit Charges Inpatient E&M: 07525 Init Hosp L3
--- NOTE | 2022-08-30 08:13 | PCM.PN.HOSP ---
Reason for Visit Reason for Visit: Diagnoses Non-ST elevation (NSTEMI) myocardial infarction (08/29/22) Heart failure, unspecified (08/29/22) Personal history of other diseases of the circulatory system (08/29/22) Presence of aortocoronary bypass graft (08/29/22) Presence of xenogenic heart valve (08/29/22) Subjective Subjective Still having some rest of breath, reporting primarily that he is thirsty. BP 79/62 but has been staying there and does not report any dizziness. Still has some swelling in his lower extremities Objective Data Objective Data Vital Signs: Vital Signs Temp Pulse Resp BP Pulse Ox O2 Del Method O2 Flow Rate 97.6 F L 90 16 79/62 L 96 Nasal Cannula 2 08/30/22 07:57 08/30/22 07:57 08/30/22 07:57 08/30/22 07:57 08/30/22 07:57 08/30/22 07:57 08/30/22 07:57 FiO2 21 08/30/22 02:00 Oxygen Flow Rate (L/min) 2 Oxygen Delivery Method Nasal Cannula Weight: 118 kg Body Mass Index (BMI) 36.3 Intake & Output: Intake and Output for Last 24 Hours 08/28/22 08/29/22 08/30/22 23:59 23:59 23:59 Intake Total 500 / 500 Output Total 700 / 700 450 / 450 Balance -200 / -200 -450 / -450 Lab / Micro Data Result Diagrams: 08/30/22 04:40 08/30/22 04:40 Labs: Laboratory Results - last 24 hr 08/29/22 15:10: WBC 8.4, RBC 4.00 L, Hgb 9.7 L, Hct 31.2 L, MCV 78.0 L, MCH 24.3 L, MCHC 31.1 L, RDW Std Deviation 48.8 H, RDW Coeff of John 17.7 H, Plt Count 109 L, MPV 10.5, Immature Gran % (Auto) 0.500, Neut % (Auto) 79.7 H, Lymph % (Auto) 13.0 L, [place] % (Auto) 6.1, Eos % (Auto) 0.1, Baso % (Auto) 0.6, Absolute Neuts (auto) 6.7, Absolute Lymphs (auto) 1.09, Nucleated RBC % 0 08/29/22 15:10: Sodium 127 L, Potassium 3.5, Chloride 95 L, Carbon Dioxide 27.0, Anion Gap 5, BUN 14, Creatinine 1.05, Estim Creat Clear Calc 83.67, Est GFR (MDRD) Af Amer 94, Est GFR (MDRD) Non-Af 77, BUN/Creatinine Ratio 13.3, Glucose 137 H, Calcium 7.5 L, Total Bilirubin 1.20 H, AST 47 H, ALT 15 L, Alkaline Phosphatase 88, Troponin I High Sens 1402 H*, Total Protein 7.5, Albumin 2.0 L, Globulin 5.5 H, Albumin/Globulin Ratio 0.4 L 08/29/22 15:10: Lactic Acid 1.9 08/29/22 15:10: B-Natriuretic Peptide 2686.3 H 08/29/22 18:30: Urine Opiates Screen NEGATIVE, Urine Methadone Screen NEGATIVE, Ur Barbiturates Screen NEGATIVE, Ur Phencyclidine Scrn NEGATIVE, Ur Amphetamines Screen NEGATIVE, MDMA (Ecstasy) Screen NEGATIVE, U Benzodiazepines Scrn NEGATIVE, Urine Cocaine Screen NEGATIVE, U Cannabinoids Screen NEGATIVE, Ur Drug Screen Comment 08/29/22 18:30: Troponin I High Sens 1447 H* 08/29/22 21:30: Troponin I High Sens 1394 H* 08/30/22 04:40: WBC 6.3, RBC 4.00 L, Hgb 9.8 L, Hct 31.9 L, MCV 79.8 L, MCH 24.5 L, MCHC 30.7 L, RDW Std Deviation 51.4 H, RDW Coeff of John 18.1 H, Plt Count 101 L, MPV 9.4, Immature Gran % (Auto) 0.500, Neut % (Auto) 72.9 H, Lymph % (Auto) 18.8 L, [place] % (Auto) 6.5, Eos % (Auto) 0.5, Baso % (Auto) 0.8, Absolute Neuts (auto) 4.6, Absolute Lymphs (auto) 1.18, Nucleated RBC % 0 08/30/22 04:40: Sodium 130 L, Potassium 3.3 L, Chloride 94 L, Carbon Dioxide 30.0, Anion Gap 6, BUN 15, Creatinine 1.01, Estim Creat Clear Calc 86.98, Est GFR (MDRD) Af Amer 98, Est GFR (MDRD) Non-Af 81, BUN/Creatinine Ratio 14.9, Glucose 110 H, Calcium 7.9 L, Total Bilirubin 1.40 H, AST 38 H, ALT 13 L, Alkaline Phosphatase 79, Total Protein 7.4, Albumin 2.0 L, Globulin 5.4 H, Albumin/Globulin Ratio 0.4 L ABG Data ABG results: ABG 08/29/22 15:31 Specimen Type ART Sample Site L Radial pH 7.45 Bicarbonate Actual 26.8 H Total CO2 28 Base Excess 3 H O2 Saturation 94 L ABG pCO2 39.0 ABG pO2 68 L Moustapha Test Positive O2 Delivery Device Cannula Liter Flow 2.0 Radiography Diagnostic Testing: Radiology Impression Chest X-Ray 08/29/22 16:10 IMPRESSION: Pulmonary findings appear worse. Electronically Signed: Tim Moise MD at 16:40 EDT Reading Location ID and State: [facility] / [place] , Service support , Physical Exam Narrative General: Alert, able to answer orientation questions but poor historian HEENT: Atraumatic, normocephalic Eyes: Anicteric, normal conjunctiva, extraocular movements grossly intact Neck: Supple Respiratory: Diminished bilaterally, improved WOB Cardiovascular: Regular rate and rhythm GI: Soft, nontender, nondistended Extremities: 1+ bilateral lower extremity pitting edema Musculoskeletal: Moving all extremities Neuro: No overt focal neurological deficits Skin: No rashes appreciated Psych: Attempts to be cooperative Assessment & Plan Assessment/Plan (1) Non-ST elevated myocardial infarction: (2) Congestive heart failure: PLAN: Plan #Acute on chronic hypoxic respiratory failure 2/2 acute fluid overload/pulmonary edema -BNP on presentation over 1999, chest x-ray with effusions, patient edematous -Hypotensive, initially was going to get fluids but given picture was given 40 of IV Lasix -We will obtain limited echo to assess EF -Last echo 08/16/2022 with EF of 55%, bioprosthetic aortic valve appeared stable, unable to assess diastolic dysfunction -I's and O's, daily weights -Cardiology consulted 08/30: Continue 40 of IV Lasix daily and DuoNebs. 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 Continue to monitor, orthostatic blood pressure to be checked #NSTEMI -Suspect type II secondary to exacerbation of heart failure -no chest pain but troponin is over 1400, trend -EKG normal sinus rhythm with PVCs -Cardiology consulted, given suspicion that this is a type II he has not been started on full dose anticoagulation, trend troponin -Continue aspirin and statin -Once blood pressure improves will resume beta-juan f -08/30: Second troponin at 1447and then down trended to 1394, no chest pain, cardiology following #History of coronary artery disease status post CABG and aortic valve repair -Continue aspirin, statin #History of substance use -UDS ordered -Unclear if he is actively taking Suboxone, will need to follow-up and once blood pressure improved resume if applicable #DVT ppx: Lovenox subcu Hannah Nance MD Time spent in the patient's overall evaluation,decision-making process, review of diagnostic data, adjustment of management, discussion with other providers, nursing nursing and ancillary staff involved in patient's care documentation, 30 minutes Charges/Coding Visit Charges Inpatient E&M: 86289 Subs Hosp L2
--- NOTE | 2022-08-30 08:32 | NURSING ---
Echo in progress
[2022-08-30] MEDS: Pantoprazole Sodium 40 MG Tablet PO (10:16)
[2022-08-30] MEDS: Enoxaparin 40 MG/0.4 ML Syringe SC (10:16)
[2022-08-30] MEDS: Aspirin 81 MG TAB.CHEW PO (10:16)
[2022-08-30] MEDS: Potassium Chloride Oral Tablet 20 MEQ 40 MEQ PO (10:19)
--- NOTE | 2022-08-30 12:13 | CASEMGMT ---
SAMMY STEPHEN Readmission Review: Index: 07/31 thru 08/02 Dx: NSTEMI II and 08/15 thru 08/18 Dx: metabolic encephalopathy, UTI, and possible pneumonia. Readmission: 08/29/22 Dx: A/C hypoxic respiratory failure 2/2 pulmonary edema, hypotension, NSTEMI type II Pt with comorbidities including CAD, HTN, s/p CABG and AVR, CHF, and substance use. Pt has been admitted and readmitted on the above noted dates with the noted diagnoses. Per previous DC Planning assessment, pt was independent with ADLs, drove, and lived in a second floor apartment with his 16yo son. Pt was discharged on 08/02 with home O2 at 2l/min w/ambulation. Pt reported on first readmission 08/15 to not be using the O2. O2 supplier is [employer]. Pt is active with [facility] for substance use treatment. Pt has denied any discharge needs previously. Will review readmission with pt and evaluate for any discharge needs. Cristino Samson RN CM
[2022-08-30] MEDS: Atorvastatin Calcium 20 MG Tablet PO (22:29)
[2022-08-31] VITALS (30 sets, daily range): BP systolic 76–114; BP diastolic 57–97; PULSE 88–128; RESP 15–26; TEMP 36–36.8; O2SAT 90–100; BMI 36.8
[2022-08-31] MEDS: Ipratropium/Albuterol Sulfate 3 ML AMPUL.NEB INHALATION ×3 (01:56→19:15)
[2022-08-31 04:22] LABS: Absolute Lymphocyte Count 1.72 X10^3/uL (0.83-4.51); Absolute Neutrophil Count 8.5 X10^3/uL (2.0-7.7); Basophil# 0.07 X10^3/uL; Basophil% 0.6 % (0-1); Eosinophil# 0.02 X10^3/uL; Eosinophils% 0.2 % (0-5); Hematocrit 33.9 % (40-54); Hemoglobin 10.5 g/dL (13.0-16.5); Lymphocyte # 1.72 X10^3/ul (0.83-4.51); Lymphocyte % 15.7 % (19-41); Mean Corpuscular Hgb 24.4 pg (27.0-32.0); Mean Corpuscular Volume 78.8 fL (80-94); Monocyte# 0.58 X10^3/uL; Monocyte% 5.3 % (0-10); NRBC Flagged by Analyzer 0 % (0-5); Neutrophil # 8.49 X10^3/uL (2.7-7.7); Neutrophil % 77.7 % (47-70); POSITIVE COUNT YES; Platelet Count 104 K/mm3 (150-450); RBC Distribution Width CV 18.8 % (11.6-14.6); RBC Distribution Width SD 51.7 fl (35.1-43.9); White Blood Count 10.9 K/mm3 (4.4-11.0)
[2022-08-31 04:25] LABS: Differential Indicated SCAN CRITERIA MET
--- NOTE | 2022-08-31 04:25 | RAD_ITS ---
EXAM: XR CHEST, 1 VIEW CLINICAL INDICATION: SOB SOB TECHNIQUE: Frontal view of the chest. This report was created using [employer] report generation technology. COMPARISON: 08/29/2022. FINDINGS: LUNGS AND PLEURAL SPACES: Bilateral pulmonary infiltrates and small bilateral pleural effusions which probably represents CHF with pulmonary edema. Overlying pneumonia is not excluded. Findings are worsened from previous study. No pneumothorax. HEART: The heart is mildly enlarged. There is an aortic valve prosthesis appears. MEDIASTINUM: Central airways and mediastinal contour are unremarkable. BONES/JOINTS: There are sternotomy wires as well as fixation plates and screws overlying the sternum. SOFT TISSUES: Unremarkable. RAD/Chest 1 View (Portable) IMPRESSION: 1. Interval worsening of bilateral pulmonary infiltrates and pleural effusions, probably representing CHF with pulmonary edema. 2. Mild cardiomegaly. Aortic valve prosthesis. Electronically Signed: Raulito Bello MD at 4:50 EDT Reading Location ID and State: [facility] / [place] , Service support ,
[2022-08-31 04:43] LABS: ALB/GLOB Ratio 0.4 RATIO (0.9-2.4); AST(SGOT) 61 U/L (15-37); Alanine Aminotransfer ALT/SGPT 15 U/L (16-61); Albumin, Serum 2.2 g/dL (3.2-5.0); Alkaline Phosphatase 100 U/L (45-117); Anion Gap 8 (5-15); BUN 18 mg/dL (7-18); BUN/Creat Ratio 14.9 RATIO (10-20); Calcium,Total 7.9 mg/dL (8.5-10.1); Chloride 94 mmol/L (98-107); Creatinine, Serum 1.21 mg/dL (0.70-1.30); EST Glomerular Filtration Rate 66 mL/min (>60); Est Glom Filt Rate - Afr Amer 80 mL/min (>60); Glucose 153 mg/dL (74-106); Potassium 4.6 mmol/L (3.5-5.1); Protein, Total 8.2 g/dL (6.4-8.2); Sodium Level 128 mmol/L (136-145)
[2022-08-31 04:46] LABS: Differential Comment SCANNED
[2022-08-31 04:47] LABS: Platelet Estimate SLT DEC (ADEQ)
[2022-08-31 04:50] LABS: Allen Test Positive; Base Excess 2 mmol/L (-2 to +2); Bicarbonate 26.5 mmol/L (22-26); Blood Gas Specimen Type ART; O2 Delivery Device Cannula; PO2 61 mmHG (75-100); SITE L Radial; SO2 92 % (95-99); Total Carbon Dioxide 28 mmol/L; pCO2 39.9 mmHg (35-45); pH 7.43 (7.35-7.45)
--- NOTE | 2022-08-31 05:01 | NURSING ---
PT HAVING NOTICEABLE INCREASE IN WOB, RESP RATE, HR. STATES HE DOES NOT FEEL WELL, BUT ONLY ABLE TO DESCRIBE VAGUE SYMPTOMS. CXRAY, ABG AND D-DIMER OBTAINED.
[2022-08-31 05:05] LABS: D-Dimer Quantitative (DVT/PE) 7.13 FEU/ug/m (0.27-0.49)
[2022-08-31] MEDS: 0.9% Normal Saline 1,000 ML 15 ML IV (05:32)
[2022-08-31] MEDS: Aspirin 81 MG TAB.CHEW PO (05:35)
[2022-08-31] MEDS: Furosemide 40 MG/4 ML Vial IV (06:48)
[2022-08-31] MEDS: 0.9% Saline Lock 10 ML Syringe IV (06:48)
--- NOTE | 2022-08-31 07:36 | PCM.PN.INT ---
Assessment & Plan Assessment/Plan (1) Congestive heart failure: PLAN: Plan RECOMMENDATIONS: 1. Administer morning Lasix now 2. Await results of heart cath 3. Possible additional Lasix versus anticoagulation pending work-up 4. Doubt need for antibiotics 5. We will continue to follow for further recommendations IMPRESSIONS: 1. Acute on chronic hypoxic respiratory failure secondary to fluid overload Patient has responded well to diuretic therapy initially. Patient responded well to potassium repletion. We will continue to hold antihypertensives. Patient with significant increase in FiO2 requirements at approximately 4 AM. Differential would include flash pulmonary edema, pulmonary embolism, acute coronary event and aspiration. Patient to have a heart cath plus or minus a CTA of the chest. Blood pressures have been improving. Cannot exclude the need for BiPAP moving forward. Outpatient work-up for concomitant COPD would be reasonable. 2. Hypotension Clinical suspicion for cardiac etiology. Patient did have a recent NSTEMI with decrease in EF. Repeat echocardiogram is done and shows no significant change compared to previous. Cardiology is following. Would likely hold on beta-juan f for now. Check orthostatics. Defer to cardiology on initiation of full anticoagulation. Patient is on hypertensive medications at baseline and these have been discontinued. Patient does not have significant renal dysfunction to suggest accumulation of antihypertensives as an etiology. Defer to cardiology on reinitiation of medications in a stepwise fashion. 3. History of substance abuse/poor historian/history of tobacco abuse Complicates care, management, recovery and prognosis. Patient not willing to provide much additional information at this time. Patient will need to follow-up as an outpatient. Okay to give nicotine patches if requested. Subjective Subjective Patient did okay for most of the evening. However, at about 4 AM patient started to develop some nausea and worsening shortness of breath. Patient's oxygen requirements did go up and he became more tachycardic. Patient stated this had resolved, but chest x-ray showed increased infiltrates and D-dimer was elevated. Discussed with Dr. Urbano at approximately 7:30 AM. Patient will have a heart cath this morning. Possible CTA of the chest pending dye load. Objective Data Objective Data Echocardiogram was grossly unchanged compared to previous. Vital Signs: Vital Signs Temp Pulse Resp BP Pulse Ox O2 Del Method O2 Flow Rate 36.5 C L 114 H 24 H 97/74 94 Nasal Cannula 4 08/31/22 07:00 08/31/22 07:00 08/31/22 07:00 08/31/22 07:00 08/31/22 07:00 08/31/22 07:00 08/31/22 07:00 FiO2 21 08/30/22 02:00 Oxygen Flow Rate (L/min) 4 Oxygen Delivery Method Nasal Cannula Weight: 120 kg Body Mass Index (BMI) 36.8 Intake & Output: Intake and Output for Last 24 Hours 08/29/22 08/30/22 08/31/22 23:59 23:59 23:59 Intake Total 500 / 500 480 / 480 50 / 50 Output Total 700 / 700 1150 / 1550 700 / 700 Balance -200 / -200 -670 / -1070 -650 / -650 Lab / Micro Data Attestation: I reviewed the patient's lab results. Result Diagrams: 08/31/22 04:10 08/31/22 04:10 Labs: Laboratory Results - last 24 hr 08/31/22 04:10: WBC 10.9, RBC 4.30 L, Hgb 10.5 L, Hct 33.9 L, MCV 78.8 L, MCH 24.4 L, MCHC 31.0 L, RDW Std Deviation 51.7 H, RDW Coeff of John 18.8 H, Plt Count 104 L, MPV TNP, Immature Gran % (Auto) 0.500, Neut % (Auto) 77.7 H, Lymph % (Auto) 15.7 L, Haines % (Auto) 5.3, Eos % (Auto) 0.2, Baso % (Auto) 0.6, Absolute Neuts (auto) 8.5 H, Absolute Lymphs (auto) 1.72, Nucleated RBC % 0, Differential Comment SCANNED, Platelet Estimate SLT DEC 08/31/22 04:10: Sodium 128 L, Potassium 4.6, Chloride 94 L, Carbon Dioxide 26.0, Anion Gap 8, BUN 18, Creatinine 1.21, Estim Creat Clear Calc 72.60, Est GFR (MDRD) Af Amer 80, Est GFR (MDRD) Non-Af 66, BUN/Creatinine Ratio 14.9, Glucose 153 H, Calcium 7.9 L, Total Bilirubin 1.70 H, AST 61 H, ALT 15 L, Alkaline Phosphatase 100, Total Protein 8.2, Albumin 2.2 L, Globulin 6.0 H, Albumin/Globulin Ratio 0.4 L 08/31/22 04:35: D-Dimer Quant (PE/DVT) 7.13 H* ABG Data ABG results: ABG 08/31/22 04:45 Specimen Type ART Sample Site L Radial pH 7.43 Bicarbonate Actual 26.5 H Total CO2 28 Base Excess 2 O2 Saturation 92 L ABG pCO2 39.9 ABG pO2 61 L Moustapha Test Positive O2 Delivery Device Cannula Liter Flow 4.0 Attestation: I personally reviewed and interpreted this ABG as follows: (Normal acid-base with increased AA gradient) Radiography Diagnostic Testing: Radiology Impression Echocardiogram 08/29/22 17:40 Interpretation Summary Normal LV size. The estimated ejection fraction is 53 %. Contrast injection was performed. Ordering Physician: Hannah Nance Referring Physician: Azael Uribe Performed By: Shaila Patel, CARITOCS, RVT Chest X-Ray 08/31/22 04:25 IMPRESSION: 1. Interval worsening of bilateral pulmonary infiltrates and pleural effusions, probably representing CHF with pulmonary edema. 2. Mild cardiomegaly. Aortic valve prosthesis. Electronically Signed: Raulito Bello MD at 4:50 EDT Reading Location ID and State: [facility] / [place] , Service support , Physical Exam Const alert, oriented x3 and no apparent distress Constitutional Narrative: Appears older than stated age General Appearance: cooperative HEENT hearing grossly normal bilaterally Eyes PERRL, EOMs intact bilaterally and conjunctivae normal Neck General: normal visual inspection Chest inspection of chest normal and palpation of chest normal Resp normal respiratory effort Auscultation: rales diffuse (Slight); Negative for rhonchi or wheezes Cardio regular rate, regular rhythm, S1 normal heart sound, S2 normal heart sound, no murmurs, no rub and no gallops GI normal to inspection, nondistended, normoactive bowel sounds Extremity normal capillary refill General Extremity: edema bilateral Skin no rashes or lesions noted Neuro oriented x3, CN's II-XII intact bilaterally and moves all extremities Psych Appearance: grossly normal and appropriate Charges/Coding Visit Charges Inpatient E&M: 79816 Subs Hosp L3
--- NOTE | 2022-08-31 07:57 | CT_ITS ---
STUDY: CTA CHEST REASON FOR EXAM: Male, 56 years old. Elevated d dimer RADIATION DOSAGE (If Supplied By Facility): CTDIvol = ( 13.85 ) mGy, DLP = ( 567.85 ) mGycm TECHNIQUE: The examination was performed with the intravenous administration of IV 100mL Isovue-370. Post-processing of the angiographic images was performed, with multiplanar reformation and 3D reconstruction. Individualized dose optimization techniques were used for this CT. COMPARISON: Comparison is made with prior study dated August 01, 2022. FINDINGS: Normal enhancement of the main pulmonary artery and right and left pulmonary arteries. Normal enhancement of the bilateral peripheral pulmonary arteries. There is no demonstrated pulmonary embolism. Normal thoracic aorta and visualized great vessels. There is no demonstrated aortic dissection. Sternal cerclage wires and vascular clips are present from a prior sternotomy and coronary artery bypass graft procedure (CABG). There are calcifications of the coronary arteries. Aortic valve prosthesis. Normal mediastinum. Normal hilar regions. Normal visualized trachea and bronchi. The lungs are well expanded. Small bilateral pleural effusions with bibasilar infiltration and/or atelectasis. Is evidence of increase interstitial markings suggestive of a superimposed CHF. Small amount of fluid is also seen in the right major fissure. Normal chest wall structures. There are degenerative changes of thoracic spine. Splenomegaly. CT/CTA Chest W/WO Contrast IMPRESSION: Bilateral pleural effusions with bibasilar atelectasis and/or infiltration superimposed on CHF. No evidence of pulmonary embolism. Splenomegaly. Electronically Signed: Matt Gardner MD at 9:07 EDT ,
--- NOTE | 2022-08-31 07:58 | PN.HOSP_ITS ---
Reason for Visit Reason for Visit: Diagnoses Non-ST elevation (NSTEMI) myocardial infarction (08/29/22) Heart failure, unspecified (08/29/22) Personal history of other diseases of the circulatory system (08/29/22) Presence of aortocoronary bypass graft (08/29/22) Presence of xenogenic heart valve (08/29/22) Subjective Subjective Patient laying in bed, had some increased shortness of breath and has had some cough. BP was worse this a.m. around 4 AM and sats dropped around the same time. Objective Data Objective Data Vital Signs: Vital Signs Temp Pulse Resp BP Pulse Ox O2 Del Method O2 Flow Rate 97.7 F L 114 H 24 H 97/74 94 Nasal Cannula 4 08/31/22 07:00 08/31/22 07:00 08/31/22 07:00 08/31/22 07:00 08/31/22 07:00 08/31/22 07:00 08/31/22 07:00 FiO2 21 08/30/22 02:00 Oxygen Flow Rate (L/min) 4 Oxygen Delivery Method Nasal Cannula Weight: 120 kg Body Mass Index (BMI) 36.8 Intake & Output: Intake and Output for Last 24 Hours 08/29/22 08/30/22 08/31/22 23:59 23:59 23:59 Intake Total 500 / 500 480 / 480 50 / 50 Output Total 700 / 700 1150 / 1550 700 / 700 Balance -200 / -200 -670 / -1070 -650 / -650 Lab / Micro Data Result Diagrams: 08/31/22 04:10 08/31/22 04:10 Labs: Laboratory Results - last 24 hr 08/31/22 04:10: WBC 10.9, RBC 4.30 L, Hgb 10.5 L, Hct 33.9 L, MCV 78.8 L, MCH 24.4 L, MCHC 31.0 L, RDW Std Deviation 51.7 H, RDW Coeff of John 18.8 H, Plt Count 104 L, MPV TNP, Immature Gran % (Auto) 0.500, Neut % (Auto) 77.7 H, Lymph % (Auto) 15.7 L, Bound[place] % (Auto) 5.3, Eos % (Auto) 0.2, Baso % (Auto) 0.6, Absolute Neuts (auto) 8.5 H, Absolute Lymphs (auto) 1.72, Nucleated RBC % 0, Differential Comment SCANNED, Platelet Estimate SLT 08/31/22 04:10: Sodium 128 L, Potassium 4.6, Chloride 94 L, Carbon Dioxide 26.0, Anion Gap 8, BUN 18, Creatinine 1.21, Estim Creat Clear Calc 72.60, Est GFR (MDRD) Af Amer 80, Est GFR (MDRD) Non-Af 66, BUN/Creatinine Ratio 14.9, Glucose 153 H, Calcium 7.9 L, Total Bilirubin 1.70 H, AST 61 H, ALT 15 L, Alkaline Phosphatase 100, Total Protein 8.2, Albumin 2.2 L, Globulin 6.0 H, Albumin/Globulin Ratio 0.4 L 08/31/22 04:35: D-Dimer Quant (PE/DVT) 7.13 H* ABG Data ABG results: ABG 08/31/22 04:45 Specimen Type ART Sample Site L Radial pH 7.43 Bicarbonate Actual 26.5 H Total CO2 28 Base Excess 2 O2 Saturation 92 L ABG pCO2 39.9 ABG pO2 61 L Moustapha Test Positive O2 Delivery Device Cannula Liter Flow 4.0 Radiography Diagnostic Testing: Radiology Impression Echocardiogram 08/29/22 17:40 Interpretation Summary Normal LV size. The estimated ejection fraction is 53 %. Contrast injection was performed. Ordering Physician: Hannah Nance Referring Physician: Azael Uribe Performed By: Shaila Patel, RDCS, RVT Chest X-Ray 08/31/22 04:25 IMPRESSION: 1. Interval worsening of bilateral pulmonary infiltrates and pleural effusions, probably representing CHF with pulmonary edema. 2. Mild cardiomegaly. Aortic valve prosthesis. Electronically Signed: Raulito Bello MD at 4:50 EDT , Physical Exam Narrative General: Alert, able to answer questions HEENT: Atraumatic, normocephalic Eyes: Anicteric, normal conjunctiva, extraocular movements grossly intact Neck: Supple Respiratory: Coarse at the bases, somewhat increased WOB Cardiovascular: Slightly tachycardic GI: Soft, nontender, nondistended Extremities: 1+ bilateral lower extremity pitting edema Musculoskeletal: Moving all extremities Neuro: No overt focal neurological deficits Skin: No rashes appreciated Psych: Attempts to be cooperative Assessment & Plan Assessment/Plan (1) Non-ST elevated myocardial infarction: (2) Congestive heart failure: PLAN: Plan #Acute on chronic hypoxic respiratory failure 2/2 acute fluid overload/pulmonary edema -BNP on presentation over 1999, chest x-ray with effusions, patient edematous -Hypotensive, initially was going to get fluids but given picture was given 40 of IV Lasix -We will obtain limited echo to assess EF -Last echo 08/16/2022 with EF of 55%, bioprosthetic aortic valve appeared stable, unable to assess diastolic dysfunction -I's and O's, daily weights -Cardiology consulted 08/30: Continue 40 of IV Lasix daily and DuoNebs. O2 sats now 96% on room air, awaiting limited echo -08/31: O2 sat decreased and heart rate increased this a.m. and Lasix ordered early. Concern for PE versus coronary event versus aspiration versus flash pulmonary edema from untreated ESA. Patient for heart cath this morning. Discussed with ciaio counter molder, can consider CTA though given kidneys and that he is going for heart cath may consider treating with full dose anticoagulation empirically. #Hypotension -Improved slightly in the ED, patient not symptomatic at time of exam -Given Lasix, cardiology contacted in ED and at this time did not recommend dobutamine -However given blood pressure with need for diuresis but hypotensive he was admitted to ICU -c/s ciaio counter molder -Given improvement and lack of symptoms without tachycardia and does not appear to be septic or in shock at this time with normal lactic acid do not believe pressors are indicated but will monitor closely in ICU -One-time 40 IV Lasix given in ED -Holding beta-juan f and antihypertensives -08/30: SBP*90 and 79/62, gently diuresing, asymptomatic. Continue to monitor, orthostatic blood pressure to be checked -08/31: Echo roughly unchanged from previous, patient for heart cath today. May need evaluation for PE pending results #NSTEMI -Suspect type II secondary to exacerbation of heart failure -no chest pain but troponin is over 1400, trend -EKG normal sinus rhythm with PVCs -Cardiology consulted, given suspicion that this is a type II he has not been started on full dose anticoagulation, trend troponin -Continue aspirin and statin -Once blood pressure improves will resume beta-juan f -08/30: Second troponin at 1447and then down trended to 1394, no chest pain, cardiology following -08/31: Heart cath this a.m. #History of coronary artery disease status post CABG and aortic valve repair -Continue aspirin, statin #History of substance use -UDS ordered -Unclear if he is actively taking Suboxone, will need to follow-up and once blood pressure improved resume if applicable #DVT ppx: Lovenox subcu Hannah Nance MD Time spent in the patient's overall evaluation,decision-making process, review of diagnostic data, adjustment of management, discussion with other providers, nursing nursing and ancillary staff involved in patient's care documentation, 30 minutes Charges/Coding Visit Charges Inpatient E&M: 21449 Subs Hosp L2
--- NOTE | 2022-08-31 08:22 | PCM.PN.CARD ---
Subjective Subjective Patient seen and evaluated. Events of yesterday noted. Objective Data Vital Signs: Vital Signs Temp Pulse Resp BP Pulse Ox O2 Del Method O2 Flow Rate 97.7 F L 114 H 24 H 97/74 94 Nasal Cannula 4 08/31/22 07:00 08/31/22 07:00 08/31/22 07:00 08/31/22 07:00 08/31/22 07:00 08/31/22 07:00 08/31/22 07:00 FiO2 21 08/30/22 02:00 Oxygen Flow Rate (L/min) 4 Oxygen Delivery Method Nasal Cannula Weight: 264 lb 8.875 oz Body Mass Index (BMI) 36.8 Intake & Output: Intake and Output for Last 24 Hours 08/29/22 08/30/22 08/31/22 23:59 23:59 23:59 Intake Total 500 / 500 480 / 480 50 / 50 Output Total 700 / 700 1150 / 1550 700 / 700 Balance -200 / -200 -670 / -1070 -650 / -650 Lab / Micro Data Result Diagrams: 08/31/22 04:10 08/31/22 04:10 Labs: Laboratory Results - last 24 hr 08/31/22 04:10: WBC 10.9, RBC 4.30 L, Hgb 10.5 L, Hct 33.9 L, MCV 78.8 L, MCH 24.4 L, MCHC 31.0 L, RDW Std Deviation 51.7 H, RDW Coeff of John 18.8 H, Plt Count 104 L, MPV TNP, Immature Gran % (Auto) 0.500, Neut % (Auto) 77.7 H, Lymph % (Auto) 15.7 L, Alcorn % (Auto) 5.3, Eos % (Auto) 0.2, Baso % (Auto) 0.6, Absolute Neuts (auto) 8.5 H, Absolute Lymphs (auto) 1.72, Nucleated RBC % 0, Differential Comment SCANNED, Platelet Estimate SLT 08/31/22 04:10: Sodium 128 L, Potassium 4.6, Chloride 94 L, Carbon Dioxide 26.0, Anion Gap 8, BUN 18, Creatinine 1.21, Estim Creat Clear Calc 72.60, Est GFR (MDRD) Af Amer 80, Est GFR (MDRD) Non-Af 66, BUN/Creatinine Ratio 14.9, Glucose 153 H, Calcium 7.9 L, Total Bilirubin 1.70 H, AST 61 H, ALT 15 L, Alkaline Phosphatase 100, Total Protein 8.2, Albumin 2.2 L, Globulin 6.0 H, Albumin/Globulin Ratio 0.4 L 08/31/22 04:35: D-Dimer Quant (PE/DVT) 7.13 H* ABG Data ABG results: ABG 08/31/22 04:45 Specimen Type ART Sample Site L Radial pH 7.43 Bicarbonate Actual 26.5 H Total CO2 28 Base Excess 2 O2 Saturation 92 L ABG pCO2 39.9 ABG pO2 61 L Moustapha Test Positive O2 Delivery Device Cannula Liter Flow 4.0 Cardiology Labs/Tests 08/31/22 04:10: WBC 10.9, RBC 4.30 L, Hgb 10.5 L, Hct 33.9 L, MCV 78.8 L, MCH 24.4 L, MCHC 31.0 L, Plt Count 104 L, MPV TNP, Immature Gran % (Auto) 0.500, Neut % (Auto) 77.7 H, Lymph % (Auto) 15.7 L, Alcorn % (Auto) 5.3, Eos % (Auto) 0.2, Baso % (Auto) 0.6, Absolute Neuts (auto) 8.5 H, Nucleated RBC % 0 08/31/22 04:10: Sodium 128 L, Potassium 4.6, Chloride 94 L, Carbon Dioxide 26.0, Anion Gap 8, BUN 18, Creatinine 1.21, Est GFR (MDRD) Af Amer 80, Est GFR (MDRD) Non-Af 66, BUN/Creatinine Ratio 14.9, Glucose 153 H, Calcium 7.9 L, Total Bilirubin 1.70 H 08/31/22 04:35: D-Dimer Quant (PE/DVT) 7.13 H* 08/31/22 04:45: pH 7.43, Bicarbonate Actual 26.5 H, Base Excess 2, O2 Saturation 92 L, ABG pCO2 39.9, ABG pO2 61 L, Moustapha Test Positive Rhythm: EKG: ECHO: Stress Test: Cardiac Cath: PCI: CT Surgery: Holter monitor: EPS: PPM: CXR: Chest CT Scan: Radiography Diagnostic Testing: Radiology Impression Echocardiogram 08/29/22 17:40 Interpretation Summary Normal LV size. The estimated ejection fraction is 53 %. Contrast injection was performed. Ordering Physician: Hannah Nance Referring Physician: Azael Uribe Performed By: Shaila Patel, EBENEZER, RVT Chest X-Ray 08/31/22 04:25 IMPRESSION: 1. Interval worsening of bilateral pulmonary infiltrates and pleural effusions, probably representing CHF with pulmonary edema. 2. Mild cardiomegaly. Aortic valve prosthesis. Electronically Signed: Raulito Bello MD at 4:50 EDT Reading Location ID and State: [facility] / [place] , Service support , Physical Exam Const alert, oriented x3 and no apparent distress General Appearance: cooperative HEENT hearing grossly normal bilaterally Head and Scalp: atraumatic Eyes EOMs intact bilaterally Neck General: normal visual inspection Chest inspection of chest normal and palpation of chest normal Resp normal respiratory effort Auscultation: clear to auscultation bilaterally Cardio regular rate, regular rhythm, S1 normal heart sound and S2 normal heart sound Jugular Venous Distention: JVD Rate: tachycardic GI normal to inspection, nondistended, normoactive bowel sounds Extremity normal capillary refill General Extremity: edema bilateral Peripheral Pulses: Yes pulses 2+ throughout and femoral pulses present Skin no rashes or lesions noted Neuro oriented x3 and CN's II-XII intact bilaterally Psych Appearance: grossly normal and appropriate Assessment & Plan Assessment/Plan (1) Non-ST elevated myocardial infarction: PLAN: He presents with a non-ST elevation myocardial infarction. His echocardiogram demonstrated preserved left ventricular systolic function. Due to the elevated troponin we decided to pursue an angiogram today Demonstrated mild left main coronary artery disease Left anterior descending artery with mild luminal irregularities Codominant circumflex artery with mild luminal irregularities Saphenous vein graft to the right coronary artery which is patent with no significant stenosis noted. We will continue medical management for his coronary artery disease. We will pursue CT scan of his chest (2) History of CAD (coronary artery disease): PLAN: He does have a history of coronary artery disease as noted above. (3) History of coronary artery bypass graft: PLAN: He is status post coronary bypass grafting with a single-vessel saphenous vein graft to the right coronary artery. (4) History of aortic valve replacement with bioprosthetic valve: PLAN: He is status post aortic valve replacement with a bioprosthetic valve. This was evaluated with an echocardiogram and was noted to be functioning quite well. No major changes will be made. (5) Congestive heart failure: PLAN: He does have a history of congestive heart failure which I suspect is preserved ejection fraction and diastolic dysfunction. His repeat echocardiogram confirms the above. My suspicion is that his shortness of breath is likely due to a pulmonary problem. Agree with trying to exclude pulmonary embolism. Thank you for allowing me to participate in the care of your patient. Please don't hesitate to call if any issues arise.
--- NOTE | 2022-08-31 08:51 | CL.D_ITS ---
Patient Name: SOREN DE GUZMAN Study Date: 08/31/2022 Performing: Dallas Urbano MD Ht: 71 inches 180.34 cm : 1965 Wt: 264.9 lbs 120 kg Age: 56 Gender: male BSA: 2.38 PROCEDURE(S) PERFORMED [id number])LHC/COR/CABG CLINICAL PROFILE AND INDICATIONS Indications: Suspected CAD Heart Failure: NYHA Class: 2 Stress/Imaging Stress/Image Study Performed: No CAD Presentations: Non-STEMI. Symptom onset Date/Time: 08/29/22 Time Estimated CONCLUSIONS Non obstructive coronary arteries RECOMMENDATIONS Medical therapy DESCRIPTION OF PROCEDURE The patient arrived to the procedure lab. The risks and benefits of the procedure as well as a full description of our services here and current unavailability of surgical backup were fully explained to the patient and/or their significant other prior to the catheterization. The Timeout was completed, verifying the correct patient and procedure. The patient's procedural site was prepped and draped in the usual fashion. Local anesthetic was given subcutaneously to right radial region with Lidocaine 2%. Using a modified Seldinger technique, arterial access was obtained via the right radial artery, a 6Fr sheath was inserted. Left Coronary Artery selective angiography was performed in multiple views using a 5 Fr. 4.0 [place] catheter. Saphenous Vein graft to the RCA selective angiography was performed in multiple views using a 5 Fr. 4.0 [place] catheter. Right Coronary Artery selective angiography was then performed in multiple views using a 5 Fr. 4.0 [place] catheter.The arterial sheath was pulled and a TR Band was applied for hemostasis w/ 12ml air CORONARY ANGIOGRAPHY DOMINANCE: Co- Dominant LEFT HEART ASSESSMENT Left Ventricular Ejection Fraction: by Echo 53 % Normal LV wall motion Normal Left Ventricular systolic function LEFT MAIN: Ostial 30% stenosis LEFT ANTERIOR DESCENDING ARTERY: Mild luminal irregularities less than 30% CIRCUMFLEX ARTERY: Mild luminal irregularities less than 30% RIGHT CORONARY ARTERY: Not engaged due to proximity of the prosthetic valve GRAFTS: Saphenous Vein graft to the RPDA is patent COMPLICATIONS No Complications PROCEDURE MEDICATIONS Versed 1.5 mg IV Oxygen: 4 L/min via nasal cannula Heparin given IA 08/31/2022 08:14:49 SUMMARY OF HEMODYNAMIC DATA Time AIR REST ECG 07:52:10 Art 96/55 (70) 08:13:53 AO 89/61 (78) SA 08:16:02 Signed By Dallas Urbano MD On 08/31/2022 08:50:30 Dallas Urbano MD
[2022-08-31] MEDS: Pantoprazole Sodium 40 MG Tablet PO (10:13)
[2022-08-31] MEDS: Enoxaparin 40 MG/0.4 ML Syringe SC (10:13)
[2022-08-31 17:32] LABS: Absolute Neutrophil Count 4.7 X10^3/uL (2.0-7.7); Basophil# 0.04 X10^3/uL; Basophil% 0.6 % (0-1); Eosinophil# 0.02 X10^3/uL; Eosinophils% 0.3 % (0-5); Hematocrit 30.8 % (40-54); Hemoglobin 9.4 g/dL (13.0-16.5); Lymphocyte % 18.7 % (19-41); Mean Corp Hgb Conc 30.5 g/dL (32-36); Mean Corpuscular Hgb 24.4 pg (27.0-32.0); Monocyte# 0.45 X10^3/uL; NRBC Flagged by Analyzer 0 % (0-5); Neutrophil # 4.68 X10^3/uL (2.7-7.7); Neutrophil % 72.9 % (47-70); Platelet Count 118 K/mm3 (150-450); RBC Distribution Width CV 18.6 % (11.6-14.6); RBC Distribution Width SD 53.1 fl (35.1-43.9); Red Blood Count 3.85 M/mm3 (4.6-6.2); White Blood Count 6.4 K/mm3 (4.4-11.0)
[2022-08-31 17:52] LABS: ALB/GLOB Ratio 0.3 RATIO (0.9-2.4); AST(SGOT) 50 U/L (15-37); Alanine Aminotransfer ALT/SGPT 14 U/L (16-61); Albumin, Serum 1.9 g/dL (3.2-5.0); Alkaline Phosphatase 86 U/L (45-117); Anion Gap 7 (5-15); BUN 21 mg/dL (7-18); BUN/Creat Ratio 19.1 RATIO (10-20); CPK Total, Creatine Kinase 56 U/L (39-308); Calcium,Total 7.8 mg/dL (8.5-10.1); Chloride 94 mmol/L (98-107); EST Glomerular Filtration Rate 73 mL/min (>60); Est Glom Filt Rate - Afr Amer 89 mL/min (>60); Estimated Creatinine Clearance 79.86 ml/min; Globulin 5.6 g/dL (2.2-4.2); Glucose 136 mg/dL (74-106); LDH 493 U/L (87-241); Potassium 3.8 mmol/L (3.5-5.1); Protein, Total 7.5 g/dL (6.4-8.2); Sodium Level 129 mmol/L (136-145)
[2022-08-31 18:50] LABS: Erythrocyte Sedimentation Rate 64 mm/hr (0-20)
[2022-08-31 18:54] LABS: International Normalized Ratio 1.3; Prothrombin Time (Protime)PT. 15.4 SECONDS (11.7-14.9)
[2022-08-31 18:55] LABS: Partial Thromboplast Time 41.4 Seconds (24.1-36.2)
[2022-08-31 18:56] LABS: Fibrinogen 250 mg/dl (203-444)
[2022-08-31] MEDS: Atorvastatin Calcium 20 MG Tablet PO (22:12)
[2022-09-01] VITALS (30 sets, daily range): BP systolic 76–96; BP diastolic 54–74; PULSE 90–124; RESP 15–27; TEMP 35.9–36.8; O2SAT 91–100; BMI 37.4
[2022-09-01] MEDS: Ipratropium/Albuterol Sulfate 3 ML AMPUL.NEB INHALATION ×4 (01:10→19:43)
[2022-09-01 05:02] LABS: Absolute Lymphocyte Count 1.02 X10^3/uL (0.83-4.51); Absolute Neutrophil Count 5.9 X10^3/uL (2.0-7.7); Basophil# 0.04 X10^3/uL; Basophil% 0.5 % (0-1); Eosinophil# 0.04 X10^3/uL; Eosinophils% 0.5 % (0-5); Hematocrit 30.1 % (40-54); Hemoglobin 9.1 g/dL (13.0-16.5); Lymphocyte # 1.02 X10^3/ul (0.83-4.51); Lymphocyte % 13.6 % (19-41); Mean Corp Hgb Conc 30.2 g/dL (32-36); Mean Corpuscular Hgb 24.3 pg (27.0-32.0); Mean Corpuscular Volume 80.5 fL (80-94); Mean Platelet Vol. 10.6 fl (6.2-12.0); Monocyte# 0.43 X10^3/uL; Monocyte% 5.7 % (0-10); NRBC Flagged by Analyzer 0 % (0-5); Neutrophil # 5.93 X10^3/uL (2.7-7.7); Neutrophil % 79.3 % (47-70); Platelet Count 122 K/mm3 (150-450); RBC Distribution Width CV 18.7 % (11.6-14.6); Red Blood Count 3.74 M/mm3 (4.6-6.2); White Blood Count 7.5 K/mm3 (4.4-11.0)
[2022-09-01 05:08] LABS: Color, Urine Yellow (Yellow); Glucose, Dipstick Normal (Normal); Ketone-Dipstick 5 mg/dl (Negative); Leukocyte Esterase-Dipstick 100 /ul (Negative); Mucous, Urine 0 SEEN /hpf (<or=2+); Nitrite-Dipstick Negative (Negative); Occult Blood-Urine 250 /ul (Negative); Protein-Dipstick 100 mg/dl (Negative); Specific Gravity, Urine 1.015 (1.002-1.030); Urine Clarity Sl. Cloudy (Clear); Urine Urobilinogen 8 mg/dl (Normal); Urine pH 6.5 (5.0 - 8.0)
[2022-09-01 05:14] LABS: Urine Bilirubin Dipstick 1 mg/dL (Negative)
[2022-09-01 05:15] LABS: Red Blood Cells-Urine 50-100 SEEN /hpf (0-5); White Blood Cells 25-50 SEEN /hpf (0-5)
[2022-09-01 05:16] LABS: Bacteria 2+ /hpf (None Seen)
[2022-09-01 05:31] LABS: ALB/GLOB Ratio 0.4 RATIO (0.9-2.4); AST(SGOT) 47 U/L (15-37); Alanine Aminotransfer ALT/SGPT 13 U/L (16-61); Albumin, Serum 1.9 g/dL (3.2-5.0); Alkaline Phosphatase 83 U/L (45-117); Anion Gap 2 (5-15); BUN 21 mg/dL (7-18); Calcium,Total 7.7 mg/dL (8.5-10.1); Chloride 95 mmol/L (98-107); Creatinine, Serum 1.05 mg/dL (0.70-1.30); EST Glomerular Filtration Rate 77 mL/min (>60); Est Glom Filt Rate - Afr Amer 94 mL/min (>60); Estimated Creatinine Clearance 83.67 ml/min; Globulin 5.4 g/dL (2.2-4.2); Glucose 146 mg/dL (74-106); LDH 503 U/L (87-241); Potassium 3.9 mmol/L (3.5-5.1); Protein, Total 7.3 g/dL (6.4-8.2); Sodium Level 128 mmol/L (136-145)
--- NOTE | 2022-09-01 05:55 | RAD_ITS ---
EXAM: XR CHEST, 1 VIEW CLINICAL INDICATION: Hypoxia COMPARISON: XR Chest dated 08/31/2022 FINDINGS: LUNGS AND PLEURAL SPACES: Persistent small bilateral pleural effusions with pneumonia or atelectasis of the lower lobes. Persistent pulmonary vascular congestion. No pneumothorax. HEART: Stable normal heart size. Aortic valve prosthesis again seen. MEDIASTINUM: No mediastinal or hilar mass. BONES/JOINTS: No acute abnormality. RAD/Chest 1 View (Portable) IMPRESSION: CHF/fluid overload no significant interval change. Electronically Signed: Matt Harry MD at 10:04 EDT ,
--- NOTE | 2022-09-01 08:25 | PN.HOSP_ITS ---
Reason for Visit Reason for Visit: Diagnoses Non-ST elevation (NSTEMI) myocardial infarction (08/29/22) Heart failure, unspecified (08/29/22) Personal history of other diseases of the circulatory system (08/29/22) Presence of aortocoronary bypass graft (08/29/22) Presence of xenogenic heart valve (08/29/22) Subjective Subjective Denies any worsening or improvement in his breathing. Somewhat tired but was oriented and able to answer questions Objective Data Objective Data Vital Signs: Vital Signs Temp Pulse Resp BP Pulse Ox O2 Del Method O2 Flow Rate 97.9 F 110 H 22 H 79/64 L 92 Nasal Cannula 2 09/01/22 01:00 09/01/22 07:00 09/01/22 07:00 09/01/22 06:00 09/01/22 07:00 09/01/22 07:00 09/01/22 07:00 FiO2 21 08/30/22 02:00 Oxygen Flow Rate (L/min) 2 Oxygen Delivery Method Nasal Cannula Weight: 121.7 kg Body Mass Index (BMI) 37.4 Intake & Output: Intake and Output for Last 24 Hours 08/30/22 08/31/22 09/01/22 23:59 23:59 23:59 Intake Total 480 / 480 747 / 747 200 / 200 Output Total 1150 / 1550 2850 / 2850 700 / 700 Balance -670 / -1070 -2103 / -2103 -500 / -500 Lab / Micro Data Result Diagrams: 09/01/22 04:45 09/01/22 04:45 Labs: Laboratory Results - last 24 hr 08/31/22 17:20: WBC 6.4, RBC 3.85 L, Hgb 9.4 L, Hct 30.8 L, MCV 80.0, MCH 24.4 L , MCHC 30.5 L, RDW Std Deviation 53.1 H, RDW Coeff of John 18.6 H, Plt Count 118 L, MPV 11.0, Immature Gran % (Auto) 0.500, Neut % (Auto) 72.9 H, Lymph % (Auto) 18.7 L, [place] % (Auto) 7.0, Eos % (Auto) 0.3, Baso % (Auto) 0.6, Absolute Neuts (auto) 4.7, Absolute Lymphs (auto) 1.20, Nucleated RBC % 0, ESR 64 H 08/31/22 17:20: PT 15.4 H, INR 1.3, APTT 41.4 H, Fibrinogen 250, D-Dimer Quant (PE/DVT) 4.60 H* 08/31/22 17:20: Sodium 129 L, Potassium 3.8, Chloride 94 L, Carbon Dioxide 28.0, Anion Gap 7, BUN 21 H, Creatinine 1.10, Estim Creat Clear Calc 79.86, Est GFR (MDRD) Af Amer 89, Est GFR (MDRD) Non-Af 73, BUN/Creatinine Ratio 19.1, Glucose 136 H, Calcium 7.8 L, Total Bilirubin 1.50 H, AST 50 H, ALT 14 L, Alkaline Phosphatase 86, Lactate Dehydrogenase 493 H, Total Creatine Kinase 56, C-React Prot Ext Range 68.30 H, Total Protein 7.5, Albumin 1.9 L, Globulin 5.6 H, Albumin/Globulin Ratio 0.3 L 08/31/22 17:20: Ammonia 70.0 H 09/01/22 04:45: WBC 7.5, RBC 3.74 L, Hgb 9.1 L, Hct 30.1 L, MCV 80.5, MCH 24.3 L , MCHC 30.2 L, RDW Std Deviation 53.0 H, RDW Coeff of John 18.7 H, Plt Count 122 L, MPV 10.6, Immature Gran % (Auto) 0.400, Neut % (Auto) 79.3 H, Lymph % (Auto) 13.6 L, [place] % (Auto) 5.7, Eos % (Auto) 0.5, Baso % (Auto) 0.5, Absolute Neuts (auto) 5.9, Absolute Lymphs (auto) 1.02, Nucleated RBC % 0 09/01/22 04:45: Sodium 128 L, Potassium 3.9, Chloride 95 L, Carbon Dioxide 31.0, Anion Gap 2 L, BUN 21 H, Creatinine 1.05, Estim Creat Clear Calc 83.67, Est GFR (MDRD) Af Amer 94, Est GFR (MDRD) Non-Af 77, BUN/Creatinine Ratio 20.0, Glucose 146 H, Calcium 7.7 L, Total Bilirubin 1.40 H, AST 47 H, ALT 13 L, Alkaline Phosphatase 83, Lactate Dehydrogenase 503 H, C-React Prot Ext Range 72.40 H, Total Protein 7.3, Albumin 1.9 L, Globulin 5.4 H, Albumin/Globulin Ratio 0.4 L 09/01/22 05:00: Urine Color Yellow, Urine Clarity Sl. Cloudy, Urine pH 6.5, Ur Specific [place] 1.015, Urine Protein 100 H, Urine Glucose (UA) Normal, Urine Ketones 5 H, Urine Occult Blood 250 H, Urine Nitrite Negative, Urine Bilirubin 1 H, Urine Urobilinogen 8 H, Ur Leukocyte Esterase 100 H, Urine RBC 50-100 SEEN, Urine WBC 25-50 SEEN, Urine Bacteria 2+, Urine Mucus 0 SEEN Micro: Microbiology 08/31/22 09:32 Nasal Secretion SARS-CoV-2 & FLU Antigen (Rapid) - Final Radiography Diagnostic Testing: Radiology Impression Chest CTA 08/31/22 07:57 IMPRESSION: Bilateral pleural effusions with bibasilar atelectasis and/or infiltration superimposed on CHF. No evidence of pulmonary embolism. Splenomegaly. Electronically Signed: Matt Gardner MD at 9:07 EDT , Physical Exam Narrative General: Alert, able to answer questions, was making jokes HEENT: Atraumatic, normocephalic Eyes: Anicteric, normal conjunctiva, extraocular movements grossly intact Neck: Supple Respiratory: Coarse at the bases, somewhat increased WOB Cardiovascular: Slightly tachycardic GI: Soft, nontender, nondistended Extremities: 1+ bilateral lower extremity pitting edema Musculoskeletal: Moving all extremities Neuro: No overt focal neurological deficits Skin: No rashes appreciated Psych: Attempts to be cooperative Assessment & Plan Assessment/Plan (1) Non-ST elevated myocardial infarction: (2) Congestive heart failure: PLAN: Plan #Acute on chronic hypoxic respiratory failure 2/2 acute fluid overload/pulmonary edema -BNP on presentation over 1999, chest x-ray with effusions, patient edematous -Hypotensive, initially was going to get fluids but given picture was given 40 of IV Lasix -We will obtain limited echo to assess EF -Last echo 08/16/2022 with EF of 55%, bioprosthetic aortic valve appeared stable, unable to assess diastolic dysfunction -I's and O's, daily weights -Cardiology consulted 08/30: Continue 40 of IV Lasix daily and DuoNebs. O2 sats now 96% on room air, awaiting limited echo -08/31: O2 sat decreased and heart rate increased this a.m. and Lasix ordered ear ly. Concern for PE versus coronary event versus aspiration versus flash pulmonary edema from untreated ESA. Patient for heart cath this morning. Discussed with supervisor personnel clerks, can consider CTA though given kidneys and that he is going for heart cath may consider treating with full dose anticoagulation empirically. -09/01: Heart cath without obstruction, EF unchanged though echo did show some mild inferior hypokinesis but presentation seems out of proportion to this. CTA with no PE but did have some effusions noted with bibasilar atelectasis and/or infiltration superimposed on CHF. Repeat a.m. chest x-ray pending. Did send off cultures but have not yet start empiric antibiotics, no fever, no white count. Will check Pro-Alexandre and repeat lactic acid. At this time can continue IV Lasix as he certainly does have overload #Hypotension -Improved slightly in the ED, patient not symptomatic at time of exam -Given Lasix, cardiology contacted in ED and at this time did not recommend dobutamine -However given blood pressure with need for diuresis but hypotensive he was admitted to ICU -c/s supervisor personnel clerks -Given improvement and lack of symptoms without tachycardia and does not appear to be septic or in shock at this time with normal lactic acid do not believe pressors are indicated but will monitor closely in ICU -One-time 40 IV Lasix given in ED -Holding beta-juan f and antihypertensives -08/30: SBP*90 and 79/62, gently diuresing, asymptomatic. Continue to monitor, orthostatic blood pressure to be checked -08/31: Echo roughly unchanged from previous, patient for heart cath today. May need evaluation for PE pending results -09/01: Elevated D-dimer but CTA negative, heart cath without need for intervention, afebrile and no white count but will check Pro-Alexandre. Sent cultures. D-dimer still elevated and CRP elevated. Low threshold to begin antibiotics given rest of work-up unrevealing. Echo with preserved EF and did not comment on any overt lab abnormalities. Did have ammonia elevated from baseline, will start lactulose #NSTEMI -Suspect type II secondary to exacerbation of heart failure -no chest pain but troponin is over 1400, trend -EKG normal sinus rhythm with PVCs -Cardiology consulted, given suspicion that this is a type II he has not been started on full dose anticoagulation, trend troponin -Continue aspirin and statin -Once blood pressure improves will resume beta-juan f -08/30: Second troponin at 1447and then down trended to 1394, no chest pain, cardiology following -08/31: Heart cath this a.m. 09/01: Heart cath with no need for intervention #History of coronary artery disease status post CABG and aortic valve repair -Continue aspirin, statin #History of substance use -UDS ordered -Unclear if he is actively taking Suboxone, will need to follow-up and once blood pressure improved resume if applicable #DVT ppx: Lovenox subcu Hannah Nance MD Time spent in the patient's overall evaluation,decision-making process, review of diagnostic data, adjustment of management, discussion with other providers, nursing nursing and ancillary staff involved in patient's care documentation, 30 minutes Charges/Coding Visit Charges Inpatient E&M: 28880 Subs Hosp L2
[2022-09-01] MEDS: Enoxaparin 40 MG/0.4 ML Syringe SC (09:24)
[2022-09-01] MEDS: Aspirin 81 MG TAB.CHEW PO (09:24)
[2022-09-01] MEDS: Lactulose 20 GM/30 ML UDC PO ×3 (09:24→21:58)
[2022-09-01] MEDS: Pantoprazole Sodium 40 MG Tablet PO (09:24)
[2022-09-01] MEDS: 0.9% Saline Lock 10 ML Syringe IV ×4 (09:25→19:57)
[2022-09-01 09:42] LABS: Lactic Acid 1.8 mmol/L (0.4-1.9)
--- NOTE | 2022-09-01 10:37 | PN.CC_ITS ---
Assessment & Plan Assessment/Plan (1) History of aortic valve replacement with bioprosthetic valve: (2) History of coronary artery bypass graft: (3) Congestive heart failure: (4) Elevated liver enzymes: (5) Cigarette smoker: (6) Hyperammonemia: (7) Hyponatremia: PLAN: Plan 1. Acute exacerbation of congestive heart failure, likely due to NSTEMI, related to hypoxemia, related to supplemental O2 noncompliance at home, recently started. 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 - Maintain SPO2 greater than 92% due to CHF - Maintain hemoglobin greater than 8 secondary to CHF - Diuresis, monitor electrolytes closely, patient is mildly hyponatremic likely due to CHF 2. Acute hepatic failure of uncertain etiology, needs further work-up, possibly passive congestion or other infectious or toxic process . -Tylenol level and a drug screen on admission serum if still available in the lab - Hepatitis screen - Notably patient's prior CT showed hepatic enlargement, suggesting chronicity - Additional toxin history when patient has received lactulose and improves his mental status. - Right upper quadrant sono - Serial ammonia level and continue lactulose as ordered - Procalcitonin is mildly elevated but is nonspecific; in his current clinical context afebrile with normal white count this is unlikely to be due to infection. 3. Acute on chronic hypoxic respiratory failure, multifactorial. Likely CHF and COPD - Titrate O2 - Bronchodilators, continue Breo when able - Obtain PFTs when possible, to guide further treatment - Follow-up with pulmonary as an outpatient to monitor COPD and O2 needs 4. No evidence of coronary artery disease, on yesterday's cardiac catheterization 4. Type II NSTEMI, likely due to preadmission hypoxemia, noncompliant with home O2 - Patient was educated about the importance of supplemental oxygen, this will likely need much reinforcement due to his confusion. 5. Possible COPD, incomplete history 6. Metabolic encephalopathy with severe confusion, likely due to hyperammonemia and/or recent hypoxic insult - Supportive care - Treat hyperammonemia Patient remains critically ill due to severe metabolic encephalopathy, ongoing hypoxemia and uncontrolled CHF. Critical care time: 40 minutes including bedside care, chart review, discussion with colleagues, and interdisciplinary rounds in ICU Subjective Subjective Patient is confused today, encountered after having taken off his nasal cannula O2 which was in the bed with an O2 saturation of 88%. Per patient was unaware of having taken it off. He had no complaint of chest pain, cough, abdominal pain, or other pain. He was able to say he got out of bed to chair yesterday without difficulty, with assist. He stated he has only been on oxygen for about a month at home, lives with his son, has no home health aides, history is possibly unreliable due to altered mental status. Ammonia level was 70 On service summary: The patient was admitted with acute on chronic hypoxic respiratory failure 08/29/2022 due to CHF exacerbation. This is likely related to having been noncompliant with his home O2. His cardiac catheterization was negative, therefore the recent NSTEMI was likely hypoxia. CTA for pulmonary embolism was negative. He was noted to be hypotensive with bilateral pleural effusions, his elevated troponins decreased. His O2 has been weaned from 5 L to 3 L and he is off pressors with MAP greater than 65 although his systolic blood pressures are low. Blood cultures and chest x-ray have been ordered by hospitalist. Cardiology is following. Beta-juan f held, etiology of liver dysfunction unknown at this rhett e but likely passive congestion. Procalcitonin today is 0.3, lactate is normal at 1.8. Objective Data Objective Data Medications reviewed Vital Signs: Vital Signs Temp Pulse Resp BP Pulse Ox O2 Del Method O2 Flow Rate 97.2 F L 106 H 15 86/65 L 96 Nasal Cannula 3 09/01/22 10:00 09/01/22 10:00 09/01/22 10:00 09/01/22 10:00 09/01/22 10:00 09/01/22 10:00 09/01/22 10:00 FiO2 21 08/30/22 02:00 Oxygen Flow Rate (L/min) 3 Oxygen Delivery Method Nasal Cannula SPO2 is 88% on room air today Weight: 268 lb 4.841 oz Body Mass Index (BMI) 37.4 Intake & Output: Intake and Output for Last 24 Hours 08/30/22 08/31/22 09/01/22 23:59 23:59 23:59 Intake Total 480 / 480 747 / 747 200 / 200 Output Total 1150 / 1550 2850 / 2850 700 / 700 Balance -670 / -1070 -2103 / -2103 -500 / -500 Lab / Micro Data Attestation: I reviewed the patient's lab results. Result Diagrams: 09/01/22 04:45 09/01/22 04:45 Labs: Laboratory Results - last 24 hr 08/31/22 17:20: WBC 6.4, RBC 3.85 L, Hgb 9.4 L, Hct 30.8 L, MCV 80.0, MCH 24.4 L , MCHC 30.5 L, RDW Std Deviation 53.1 H, RDW Coeff of John 18.6 H, Plt Count 118 L, MPV 11.0, Immature Gran % (Auto) 0.500, Neut % (Auto) 72.9 H, Lymph % (Auto) 18.7 L, [place] % (Auto) 7.0, Eos % (Auto) 0.3, Baso % (Auto) 0.6, Absolute Neuts (auto) 4.7, Absolute Lymphs (auto) 1.20, Nucleated RBC % 0, ESR 64 H 08/31/22 17:20: PT 15.4 H, INR 1.3, APTT 41.4 H, Fibrinogen 250, D-Dimer Quant (PE/DVT) 4.60 H* 08/31/22 17:20: Sodium 129 L, Potassium 3.8, Chloride 94 L, Carbon Dioxide 28.0, Anion Gap 7, BUN 21 H, Creatinine 1.10, Estim Creat Clear Calc 79.86, Est GFR (MDRD) Af Amer 89, Est GFR (MDRD) Non-Af 73, BUN/Creatinine Ratio 19.1, Glucose 136 H, Calcium 7.8 L, Total Bilirubin 1.50 H, AST 50 H, ALT 14 L, Alkaline Phosphatase 86, Lactate Dehydrogenase 493 H, Total Creatine Kinase 56, C-React Prot Ext Range 68.30 H, Total Protein 7.5, Albumin 1.9 L, Globulin 5.6 H, Albumin/Globulin Ratio 0.3 L 08/31/22 17:20: Ammonia 70.0 H 09/01/22 04:45: WBC 7.5, RBC 3.74 L, Hgb 9.1 L, Hct 30.1 L, MCV 80.5, MCH 24.3 L , MCHC 30.2 L, RDW Std Deviation 53.0 H, RDW Coeff of John 18.7 H, Plt Count 122 L, MPV 10.6, Immature Gran % (Auto) 0.400, Neut % (Auto) 79.3 H, Lymph % (Auto) 13.6 L, [place] % (Auto) 5.7, Eos % (Auto) 0.5, Baso % (Auto) 0.5, Absolute Neuts (auto) 5.9, Absolute Lymphs (auto) 1.02, Nucleated RBC % 0 09/01/22 04:45: Sodium 128 L, Potassium 3.9, Chloride 95 L, Carbon Dioxide 31.0, Anion Gap 2 L, BUN 21 H, Creatinine 1.05, Estim Creat Clear Calc 83.67, Est GFR (MDRD) Af Amer 94, Est GFR (MDRD) Non-Af 77, BUN/Creatinine Ratio 20.0, Glucose 146 H, Calcium 7.7 L, Total Bilirubin 1.40 H, AST 47 H, ALT 13 L, Alkaline Phosphatase 83, Lactate Dehydrogenase 503 H, C-React Prot Ext Range 72.40 H, Total Protein 7.3, Albumin 1.9 L, Globulin 5.4 H, Albumin/Globulin Ratio 0.4 L 09/01/22 05:00: Urine Color Yellow, Urine Clarity Sl. Cloudy, Urine pH 6.5, Ur Specific [place] 1.015, Urine Protein 100 H, Urine Glucose (UA) Normal, Urine Ketones 5 H, Urine Occult Blood 250 H, Urine Nitrite Negative, Urine Bilirubin 1 H, Urine Urobilinogen 8 H, Ur Leukocyte Esterase 100 H, Urine RBC 50-100 SEEN, Urine WBC 25-50 SEEN, Urine Bacteria 2+, Urine Mucus 0 SEEN 09/01/22 08:48: Procalcitonin 0.30 H 09/01/22 08:58: Lactic Acid 1.8 Micro: Microbiology 08/31/22 09:32 Nasal Secretion SARS-CoV-2 & FLU Antigen (Rapid) - Final Radiography Diagnostic Testing: Radiology Impression Chest X-Ray 09/01/22 05:55 LUNGS AND PLEURAL SPACES: Persistent small bilateral pleural effusions with pneumonia or atelectasis of the lower lobes. Persistent pulmonary vascular congestion. No pneumothorax. HEART: Stable normal heart size. Aortic valve prosthesis again seen. MEDIASTINUM: No mediastinal or hilar mass. BONES/JOINTS: No acute abnormality. IMPRESSION: CHF/fluid overload no significant interval change. Electronically Signed: Matt Harry MD at 10:04 EDT , CT/CTA Chest W/WO Contrast IMPRESSION: Bilateral pleural effusions with bibasilar atelectasis and/or infiltration superimposed on CHF. No evidence of pulmonary embolism. Splenomegaly. Physical Exam Narrative Acutely ill-appearing disheveled confused gentleman in no respiratory distress, with O2 saturation 88% and nasal cannula lying in the bed HEENT mucous membranes moist Neck is supple Lungs are diminished bilaterally patient would not cooperate with exam. No gross consolidation wheezing or rhonchi. Abdomen is soft, nontender, no palpable fluid wave, no organomegaly. : Pure wick or similar device in place Heart normal S1-S2 with no murmurs rubs or gallops Extremities have 4+ pitting edema, shiny lower extremity distal skin, no oozing, multiple tattoos. Neuro grossly nonfocal, strength normal Skin as above. Charges/Coding Procedures Hospitalists Procedures: 47122 Critial Care 1st Hr
[2022-09-01] MEDS: Furosemide 40 MG/4 ML Vial IV (10:43)
[2022-09-01 11:58] LABS: TCA Internal Control -Neg LINE = VALID (- VALID); TCA Urine Drug Screen Negative (<1000 ng/mL)
[2022-09-01 13:33] LABS: Hepatitis B Surface Antibody Reactive; Hepatitis B Surface Antigen Non-Reactive (Nonreactive); Hepatitis C Antibody Preliminary Reactive (Nonreactive)
--- NOTE | 2022-09-01 16:50 | CASEMGMT ---
Social Work SW received referral that pt will need SNF at discharge. SW met with pt and discussed short term SNF prior to return home. Pt is agreeable and A list of SNF providers including quality and resource use data and consistent with the patient?s preferred geographic region, medical needs, and insurance network were provided from the [employer] Guide. Pt preferred provider is [facility]. Referral sent to [facility] via [employer]. [facility] will review referral and pt made aware that SW will follow up on Sunday to notify if pt has been accepted and that precert will be started at that time. Plan: [facility], pending acceptance and precert CARROL Bo
--- NOTE | 2022-09-01 21:15 | PCM.PN.BLA ---
Progress Note Notified of a gram gram-positive cocci in chain x2 bottles. Patient with no fever or white count in the last 24 hours. I think is reasonable to wait for speciation at this time.
[2022-09-01] MEDS: Atorvastatin Calcium 20 MG Tablet PO (21:58)
[2022-09-02] VITALS (23 sets, daily range): BP systolic 77–113; BP diastolic 54–77; PULSE 90–117; RESP 14–25; TEMP 36.4–37.1; O2SAT 90–99; BMI 37.2
--- NOTE | 2022-09-02 01:41 | CPS ---
Pt was too short of breath to do PEP Therapy this treatment.
[2022-09-02] MEDS: Ipratropium/Albuterol Sulfate 3 ML AMPUL.NEB INHALATION ×4 (02:05→18:59)
[2022-09-02] MEDS: Lactulose 20 GM/30 ML UDC PO ×3 (05:14→21:14)
[2022-09-02 07:06] LABS: Absolute Lymphocyte Count 1.25 X10^3/uL (0.83-4.51); Absolute Neutrophil Count 7.7 X10^3/uL (2.0-7.7); Basophil# 0.07 X10^3/uL; Basophil% 0.7 % (0-1); Eosinophil# 0.04 X10^3/uL; Eosinophils% 0.4 % (0-5); Hematocrit 30.4 % (40-54); Hemoglobin 9.3 g/dL (13.0-16.5); Lymphocyte # 1.25 X10^3/ul (0.83-4.51); Lymphocyte % 12.9 % (19-41); Mean Corp Hgb Conc 30.6 g/dL (32-36); Mean Corpuscular Hgb 24.5 pg (27.0-32.0); Mean Platelet Vol. 10.4 fl (6.2-12.0); Monocyte# 0.55 X10^3/uL; Monocyte% 5.7 % (0-10); NRBC Flagged by Analyzer 0 % (0-5); Neutrophil % 79.8 % (47-70); Platelet Count 130 K/mm3 (150-450); RBC Distribution Width CV 18.6 % (11.6-14.6); RBC Distribution Width SD 52.1 fl (35.1-43.9); White Blood Count 9.7 K/mm3 (4.4-11.0)
[2022-09-02 07:38] LABS: ALB/GLOB Ratio 0.4 RATIO (0.9-2.4); AST(SGOT) 43 U/L (15-37); Alanine Aminotransfer ALT/SGPT 14 U/L (16-61); Albumin, Serum 2.1 g/dL (3.2-5.0); Alkaline Phosphatase 88 U/L (45-117); Anion Gap 3 (5-15); BUN 22 mg/dL (7-18); BUN/Creat Ratio 22.7 RATIO (10-20); Calcium,Total 8.2 mg/dL (8.5-10.1); Chloride 90 mmol/L (98-107); Creatinine, Serum 0.97 mg/dL (0.70-1.30); EST Glomerular Filtration Rate 85 mL/min (>60); Est Glom Filt Rate - Afr Amer 103 mL/min (>60); Estimated Creatinine Clearance 90.57 ml/min; Globulin 5.6 g/dL (2.2-4.2); Glucose 138 mg/dL (74-106); Potassium 4.1 mmol/L (3.5-5.1); Protein, Total 7.7 g/dL (6.4-8.2); Sodium Level 125 mmol/L (136-145)
[2022-09-02] MEDS: Pantoprazole Sodium 40 MG Tablet PO (10:09)
[2022-09-02] MEDS: 0.9% Saline Lock 10 ML Syringe IV (10:09)
[2022-09-02] MEDS: Furosemide 40 MG/4 ML Vial IV (10:09)
[2022-09-02] MEDS: Enoxaparin 40 MG/0.4 ML Syringe SC (10:09)
[2022-09-02] MEDS: Aspirin 81 MG TAB.CHEW PO (10:10)
--- NOTE | 2022-09-02 10:47 | PCM.PN.HOSP ---
Reason for Visit Reason for Visit: Diagnoses Disorder of urea cycle metabolism, unspecified (08/29/22) Hypo-osmolality and hyponatremia (08/29/22) Nicotine dependence, cigarettes, uncomplicated (08/29/22) Non-ST elevation (NSTEMI) myocardial infarction (08/29/22) Heart failure, unspecified (08/29/22) Abnormal levels of other serum enzymes (08/29/22) Personal history of other diseases of the circulatory system (08/29/22) Presence of aortocoronary bypass graft (08/29/22) Presence of xenogenic heart valve (08/29/22) Subjective Subjective Tired and still short of breath, no significant change from yesterday Objective Data Objective Data Vital Signs: Vital Signs Temp Pulse Resp BP Pulse Ox O2 Del Method O2 Flow Rate 97.7 F L 95 18 90/69 94 Nasal Cannula 3 09/02/22 10:00 09/02/22 10:00 09/02/22 10:00 09/02/22 10:00 09/02/22 10:00 09/02/22 10:00 09/02/22 10:00 FiO2 21 08/30/22 02:00 Oxygen Flow Rate (L/min) 3 Oxygen Delivery Method Nasal Cannula Weight: 121 kg Body Mass Index (BMI) 37.2 Intake & Output: Intake and Output for Last 24 Hours 08/31/22 09/01/22 09/02/22 23:59 23:59 23:59 Intake Total 747 / 747 580 / 580 Output Total 2850 / 2850 2450 / 2450 350 / 350 Balance -2103 / -2103 -1870 / -1870 -350 / -350 Lab / Micro Data Result Diagrams: 09/02/22 06:52 09/02/22 06:52 Labs: Laboratory Results - last 24 hr 09/01/22 11:30: Tricyclics Screen Negative, Ur Drug Screen Comment 09/01/22 11:30: Hep Bs Antigen Non-Reactive, Hep Bs Antibody Reactive, Hepatitis C Antibody Preliminary Reactive 09/01/22 15:25: Ammonia 72.0 H 09/02/22 06:52: WBC 9.7, RBC 3.80 L, Hgb 9.3 L, Hct 30.4 L, MCV 80.0, MCH 24.5 L, MCHC 30.6 L, RDW Std Deviation 52.1 H, RDW Coeff of John 18.6 H, Plt Count 130 L, MPV 10.4, Immature Gran % (Auto) 0.500, Neut % (Auto) 79.8 H, Lymph % (Auto) 12.9 L, Dougherty % (Auto) 5.7, Eos % (Auto) 0.4, Baso % (Auto) 0.7, Absolute Neuts (auto) 7.7, Absolute Lymphs (auto) 1.25, Nucleated RBC % 0 09/02/22 06:52: Sodium 125 L, Potassium 4.1, Chloride 90 L, Carbon Dioxide 32.0, Anion Gap 3 L, BUN 22 H, Creatinine 0.97, Estim Creat Clear Calc 90.57, Est GFR (MDRD) Af Amer 103, Est GFR (MDRD) Non-Af 85, BUN/Creatinine Ratio 22.7 H, Glucose 138 H, Calcium 8.2 L, Total Bilirubin 1.60 H, AST 43 H, ALT 14 L, Alkaline Phosphatase 88, C-React Prot Ext Range 66.80 H, Total Protein 7.7, Albumin 2.1 L, Globulin 5.6 H, Albumin/Globulin Ratio 0.4 L 09/02/22 06:52: Ammonia 69.0 H 09/02/22 10:00: Ammonia 61.0 H Micro: Microbiology 09/01/22 05:00 Urine, Random Urine Culture - Final Mixed Gram Pos & Gram Neg Org 08/31/22 17:25 Sputum, Expectorated/Coughed Gram Stain - Final 08/31/22 17:25 Sputum, Expectorated/Coughed Respiratory Culture - Preliminary Streptococcus pneumoniae 08/31/22 18:05 Blood Culture (Wb) - Right Hand Blood Culture - Preliminary 08/31/22 17:20 Blood Culture (Wb) - Anticubital Right Bacteria Detection (PCR) - Final Strep not Strep pneumo 08/31/22 17:20 Blood Culture (Wb) - Anticubital Right Blood Culture - Preliminary 08/31/22 09:32 Mucosa - Nasopharyngeal Respiratory Panel (PCR) - Final 08/31/22 09:32 Nasal Secretion SARS-CoV-2 & FLU Antigen (Rapid) - Final Physical Exam Narrative General: Wakes up and answers questions but is tired HEENT: Atraumatic, normocephalic Eyes: Anicteric, normal conjunctiva, extraocular movements grossly intact Neck: Supple Respiratory: Coarse at the bases, work of breathing the same Cardiovascular: Regular rate GI: Soft, nontender, nondistended Extremities: 1+ bilateral lower extremity pitting edema Musculoskeletal: Moving all extremities Neuro: No overt focal neurological deficits Skin: No rashes appreciated Psych: Attempts to be cooperative Assessment & Plan Assessment/Plan (1) Non-ST elevated myocardial infarction: (2) Congestive heart failure: PLAN: Plan #Acute on chronic hypoxic respiratory failure 2/2 acute fluid overload/pulmonary edema -BNP on presentation over 1999, chest x-ray with effusions, patient edematous -Hypotensive, initially was going to get fluids but given picture was given 40 of IV Lasix -We will obtain limited echo to assess EF -Last echo 08/16/2022 with EF of 55%, bioprosthetic aortic valve appeared stable, unable to assess diastolic dysfunction -I's and O's, daily weights -Cardiology consulted 08/30: Continue 40 of IV Lasix daily and DuoNebs. O2 sats now 96% on room air, awaiting limited echo -08/31: O2 sat decreased and heart rate increased this a.m. and Lasix ordered early. Concern for PE versus coronary event versus aspiration versus flash pulmonary edema from untreated EAS. Patient for heart cath this morning. Discussed with community health promoter, can consider CTA though given kidneys and that he is going for heart cath may consider treating with full dose anticoagulation empirically. -09/01: Heart cath without obstruction, EF unchanged though echo did show some mild inferior hypokinesis but presentation seems out of proportion to this. CTA with no PE but did have some effusions noted with bibasilar atelectasis and/or infiltration superimposed on CHF. Repeat a.m. chest x-ray pending. Did send off cultures but have not yet start empiric antibiotics, no fever, no white count. Will check Pro-Alexandre and repeat lactic acid. At this time can continue IV Lasix as he certainly does have overload -09/02: Concern for strep pneumonia causing bacteremia as sputum growing strep pneumo and both blood cultures positive for strep with 1 speciate and strep pneumonia. He has never been febrile, multiple lactic acid is within normal limits, no kidney dysfunction, no elevation white blood cell count, no significant tachycardia, blood pressure has been low but consistent and MAP has been greater than 65. Intermittently has been slightly tachypneic and has been somewhat confused though his ammonia is elevated and fluid overload could account for his tachypnea and well it seems he is bacteremic I do not think that he met full criteria for sepsis during this admission. We will however treat him for the pneumonia and bacteremia with Levaquin and await sensitivities though suspect Levaquin will cover. Continue Lasix as this has been helping his breathing continue lactulose to help with his ammonia #Hypotension -Improved slightly in the ED, patient not symptomatic at time of exam -Given Lasix, cardiology contacted in ED and at this time did not recommend dobutamine -However given blood pressure with need for diuresis but hypotensive he was admitted to ICU -c/s community health promoter -Given improvement and lack of symptoms without tachycardia and does not appear to be septic or in shock at this time with normal lactic acid do not believe pressors are indicated but will monitor closely in ICU -One-time 40 IV Lasix given in ED -Holding beta-juan f and antihypertensives -08/30: SBP*90 and 79/62, gently diuresing, asymptomatic. Continue to monitor, orthostatic blood pressure to be checked -08/31: Echo roughly unchanged from previous, patient for heart cath today. May need evaluation for PE pending results -09/01: Elevated D-dimer but CTA negative, heart cath without need for intervention, afebrile and no white count but will check Pro-Alexandre. Sent cultures. D-dimer still elevated and CRP elevated. Low threshold to begin antibiotics given rest of work-up unrevealing. Echo with preserved EF and did not comment on any overt lab abnormalities. Did have ammonia elevated from baseline, will start lactulose -09/02: BP soft but stable and MAP has been consistently over 65. Was found to have strep pneumo in his sputum and thus far and 1 out of 2 blood cultures and was started on Levaquin. Given his fluid over load and respiratory distress that has been improving with Lasix we will continue with 40 IV Lasix daily while monitoring closely #NSTEMI -Suspect type II secondary to exacerbation of heart failure -no chest pain but troponin is over 1400, trend -EKG normal sinus rhythm with PVCs -Cardiology consulted, given suspicion that this is a type II he has not been started on full dose anticoagulation, trend troponin -Continue aspirin and statin -Once blood pressure improves will resume beta-juan f -08/30: Second troponin at 1447and then down trended to 1394, no chest pain, cardiology following -08/31: Heart cath this a.m. 09/01: Heart cath with no need for intervention #History of coronary artery disease status post CABG and aortic valve repair -Continue aspirin, statin #History of substance use -UDS ordered -Unclear if he is actively taking Suboxone, will need to follow-up and once blood pressure improved resume if applicable #DVT ppx: Lovenox subcu Hannah Nance MD Time spent in the patient's overall evaluation,decision-making process, review of diagnostic data, adjustment of management, discussion with other providers, nursing nursing and ancillary staff involved in patient's care documentation, 30 minutes Charges/Coding Visit Charges Inpatient E&M: 24648 Subs Hosp L2
[2022-09-02] MEDS: levoFLOXacin IV 750 MG/150 ML BAG 100 MG IV (11:00)
[2022-09-02 14:19] LABS: Hepatitis B Core Ab Total Positive (Negative)
[2022-09-02 14:19] LABS: Haptoglobin < 10 mg/dL (29-370)
--- NOTE | 2022-09-02 15:01 | CASEMGMT ---
Social Work Note RAÚL reviewed message via [employer] inquiring about patient's Suboxone use and facility he uses. RAÚL met with patient and introduced herself and role as [facility] SW. Patient sitting up in bed and agreeable to speak with SW. SW explained admissions staff with [facility] was inquiring about his use of Suboxone and facility that assists him with this. 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 Patient reports [facility] is aware he is currently at the hospital. RAÚL informed [facility] admissions staff patient is currently using Suboxone under the care of Dr. Aguiar at [facility]. Sanna Dinero MSW, MARVIN
[2022-09-02] MEDS: Atorvastatin Calcium 20 MG Tablet PO (21:14)
[2022-09-03] VITALS (17 sets, daily range): BP systolic 80–98; BP diastolic 64–79; PULSE 88–97; RESP 13–19; TEMP 36.3–36.7; O2SAT 94–100; BMI 36.9
[2022-09-03] MEDS: Ipratropium/Albuterol Sulfate 3 ML AMPUL.NEB INHALATION ×3 (00:48→19:25)
[2022-09-03] MEDS: Lactulose 20 GM/30 ML UDC PO ×3 (05:18→20:40)
--- NOTE | 2022-09-03 06:45 | RAD_ITS ---
STUDY: X-RAY CHEST REASON FOR EXAM: Male, 56 years old. Shortness of breath. TECHNIQUE: Single frontal view of the chest. COMPARISON: September 01, 2022. FINDINGS: Stable cardiomegaly, sternotomy wires, malleable plate and screw fixation of the sternum, aortic tortuosity, diffuse interstitial pattern, worse at the bases, and bilateral pleural effusions, left greater than right. No acute or emergent superimposed finding. RAD/Chest 1 View (Portable) IMPRESSION: Stable chest with no acute finding. Electronically Signed: Prabhakar Morin, at 10:48 EDT ,
[2022-09-03] MEDS: Furosemide 40 MG/4 ML Vial IV (08:06)
[2022-09-03] MEDS: Pantoprazole Sodium 40 MG Tablet PO (08:06)
[2022-09-03] MEDS: Aspirin 81 MG TAB.CHEW PO (08:06)
[2022-09-03] MEDS: Enoxaparin 40 MG/0.4 ML Syringe SC (08:06)
[2022-09-03 08:23] LABS: Absolute Lymphocyte Count 1.24 X10^3/uL (0.83-4.51); Absolute Neutrophil Count 4.5 X10^3/uL (2.0-7.7); Basophil# 0.05 X10^3/uL; Basophil% 0.8 % (0-1); Eosinophil# 0.04 X10^3/uL; Eosinophils% 0.6 % (0-5); Hematocrit 31.6 % (40-54); Hemoglobin 9.6 g/dL (13.0-16.5); Lymphocyte # 1.24 X10^3/ul (0.83-4.51); Lymphocyte % 19.7 % (19-41); Mean Corp Hgb Conc 30.4 g/dL (32-36); Mean Corpuscular Hgb 24.7 pg (27.0-32.0); Mean Corpuscular Volume 81.2 fL (80-94); Mean Platelet Vol. 10.3 fl (6.2-12.0); Monocyte# 0.43 X10^3/uL; Monocyte% 6.8 % (0-10); NRBC Flagged by Analyzer 0 % (0-5); Neutrophil % 71.6 % (47-70); Platelet Count 118 K/mm3 (150-450); RBC Distribution Width CV 19.4 % (11.6-14.6); RBC Distribution Width SD 54.5 fl (35.1-43.9); Red Blood Count 3.89 M/mm3 (4.6-6.2); White Blood Count 6.3 K/mm3 (4.4-11.0)
[2022-09-03 08:37] LABS: BNP,B-Type NATRIURETIC PEPTIDE 1902.8 pg/mL (0-100)
[2022-09-03 08:40] LABS: ALB/GLOB Ratio 0.3 RATIO (0.9-2.4); AST(SGOT) 40 U/L (15-37); Alanine Aminotransfer ALT/SGPT 12 U/L (16-61); Alkaline Phosphatase 86 U/L (45-117); Anion Gap 3 (5-15); BUN 21 mg/dL (7-18); BUN/Creat Ratio 19.6 RATIO (10-20); Calcium,Total 8.5 mg/dL (8.5-10.1); Chloride 92 mmol/L (98-107); Creatinine, Serum 1.07 mg/dL (0.70-1.30); EST Glomerular Filtration Rate 76 mL/min (>60); Est Glom Filt Rate - Afr Amer 92 mL/min (>60); Globulin 5.8 g/dL (2.2-4.2); Glucose 125 mg/dL (74-106); Potassium 4.1 mmol/L (3.5-5.1); Protein, Total 7.8 g/dL (6.4-8.2); Sodium Level 128 mmol/L (136-145)
--- NOTE | 2022-09-03 10:00 | PN.HOSP_ITS ---
Reason for Visit Reason for Visit: Diagnoses Disorder of urea cycle metabolism, unspecified (08/29/22) Hypo-osmolality and hyponatremia (08/29/22) Nicotine dependence, cigarettes, uncomplicated (08/29/22) Non-ST elevation (NSTEMI) myocardial infarction (08/29/22) Heart failure, unspecified (08/29/22) Abnormal levels of other serum enzymes (08/29/22) Personal history of other diseases of the circulatory system (08/29/22) Presence of aortocoronary bypass graft (08/29/22) Presence of xenogenic heart valve (08/29/22) Subjective Subjective Today up in chair, progressively feeling better. Still does have some swelling in his lower extremities and some shortness of breath but slowly improving Objective Data Objective Data Vital Signs: Vital Signs Temp Pulse Resp BP Pulse Ox O2 Del Method O2 Flow Rate 97.7 F L 91 18 92/70 97 Nasal Cannula 2 09/03/22 07:55 09/03/22 07:55 09/03/22 07:55 09/03/22 07:55 09/03/22 07:55 09/03/22 07:58 09/03/22 07:58 FiO2 21 08/30/22 02:00 Oxygen Flow Rate (L/min) 2 Oxygen Delivery Method Nasal Cannula Weight: 120.2 kg Body Mass Index (BMI) 36.9 Intake & Output: Intake and Output for Last 24 Hours 09/01/22 09/02/22 09/03/22 23:59 23:59 23:59 Intake Total 580 / 580 1240 / 1240 Output Total 2450 / 2450 2150 / 2150 150 / 150 Balance -1870 / -1870 -910 / -910 -150 / -150 Lab / Micro Data Result Diagrams: 09/03/22 08:10 09/03/22 08:10 Labs: Laboratory Results - last 24 hr 08/31/22 17:20: Haptoglobin < 10 L 09/01/22 11:30: Hep B Core Total Ab Positive H 09/02/22 10:00: Ammonia 61.0 H 09/03/22 08:10: WBC 6.3, RBC 3.89 L, Hgb 9.6 L, Hct 31.6 L, MCV 81.2, MCH 24.7 L , MCHC 30.4 L, RDW Std Deviation 54.5 H, RDW Coeff of John 19.4 H, Plt Count 118 L, MPV 10.3, Immature Gran % (Auto) 0.500, Neut % (Auto) 71.6 H, Lymph % (Auto) 19.7, Pepin % (Auto) 6.8, Eos % (Auto) 0.6, Baso % (Auto) 0.8, Absolute Neuts (auto) 4.5, Absolute Lymphs (auto) 1.24, Nucleated RBC % 0 09/03/22 08:10: Sodium 128 L, Potassium 4.1, Chloride 92 L, Carbon Dioxide 33.0 H, Anion Gap 3 L, BUN 21 H, Creatinine 1.07, Estim Creat Clear Calc 82.10, Est GFR (MDRD) Af Amer 92, Est GFR (MDRD) Non-Af 76, BUN/Creatinine Ratio 19.6, Glucose 125 H, Calcium 8.5, Total Bilirubin 1.40 H, AST 40 H, ALT 12 L, Alkaline Phosphatase 86, C-React Prot Ext Range 52.50 H, Total Protein 7.8, Albumin 2.0 L , Globulin 5.8 H, Albumin/Globulin Ratio 0.3 L 09/03/22 08:10: Ammonia 34.0 H 09/03/22 08:10: B-Natriuretic Peptide 1902.8 H Micro: Microbiology 08/31/22 17:25 Sputum, Expectorated/Coughed Gram Stain - Final 08/31/22 17:25 Sputum, Expectorated/Coughed Respiratory Culture - Final Streptococcus pneumoniae 08/31/22 17:20 Blood Culture (Wb) - Anticubital Right Bacteria Detection (PCR) - Final Streptococcus pneumoniae 08/31/22 17:20 Blood Culture (Wb) - Anticubital Right Blood Culture - Preliminary 09/01/22 05:00 Urine, Random Urine Culture - Final Mixed Gram Pos & Gram Neg Org 08/31/22 18:05 Blood Culture (Wb) - Right Hand Blood Culture - Preliminary 08/31/22 09:32 Mucosa - Nasopharyngeal Respiratory Panel (PCR) - Final 08/31/22 09:32 Nasal Secretion SARS-CoV-2 & FLU Antigen (Rapid) - Final Physical Exam Narrative General: More alert today, no acute distress HEENT: Atraumatic, normocephalic Eyes: Anicteric, normal conjunctiva, extraocular movements grossly intact Neck: Supple Respiratory: Respiratory effort improving, no wheezes but coarse at the bases Cardiovascular: Regular rate and rhythm GI: Soft, nontender, nondistended Extremities: Trace to 1+ lower extremity edema, does seem right greater than left Musculoskeletal: Moving all extremities Neuro: No overt focal neurological deficits Skin: No rashes appreciated Psych: Cooperative Assessment & Plan Assessment/Plan (1) Non-ST elevated myocardial infarction: (2) Congestive heart failure: PLAN: Plan #Acute on chronic hypoxic respiratory failure 2/2 acute fluid overload/pulmonary edema/streptococcal pneumonia -BNP on presentation over 1999, chest x-ray with effusions, patient edematous -Hypotensive, initially was going to get fluids but given picture was given 40 of IV Lasix -We will obtain limited echo to assess EF -Last echo 08/16/2022 with EF of 55%, bioprosthetic aortic valve appeared stable, unable to assess diastolic dysfunction -I's and O's, daily weights -Cardiology consulted 08/30: Continue 40 of IV Lasix daily and DuoNebs. O2 sats now 96% on room air, awaiting limited echo -08/31: O2 sat decreased and heart rate increased this a.m. and Lasix ordered early. Concern for PE versus coronary event versus aspiration versus flash pulmonary edema from untreated ESA. Patient for heart cath this morning. Discussed with motor vehicle lecturer, can consider CTA though given kidneys and that he is going for heart cath may consider treating with full dose anticoagulation empirically. -09/01: Heart cath without obstruction, EF unchanged though echo did show some mild inferior hypokinesis but presentation seems out of proportion to this. CTA with no PE but did have some effusions noted with bibasilar atelectasis and/or infiltration superimposed on CHF. Repeat a.m. chest x-ray pending. Did send off cultures but have not yet start empiric antibiotics, no fever, no white count. Will check Pro-Alexandre and repeat lactic acid. At this time can continue IV Lasix as he certainly does have overload -09/02: Concern for strep pneumonia causing bacteremia as sputum growing strep pneumo and both blood cultures positive for strep with 1 speciate and strep pneumonia. He has never been febrile, multiple lactic acid is within normal limits, no kidney dysfunction, no elevation white blood cell count, no s ignificant tachycardia, blood pressure has been low but consistent and MAP has been greater than 65. Intermittently has been slightly tachypneic and has been somewhat confused though his ammonia is elevated and fluid overload could account for his tachypnea and well it seems he is bacteremic I do not think that he met full criteria for sepsis during this admission. We will however treat him for the pneumonia and bacteremia with Levaquin and await sensitivities though suspect Levaquin will cover. Continue Lasix as this has been helping his breathing continue lactulose to help with his ammonia -09/03: Slowly improving with continued diuresis and antibiotics. Continue to wean O2. Repeat chest x-ray this a.m. stable #Streptococcal bacteremia and strep pneumoniae pneumonia -Likely present on admission -He has never been febrile, multiple lactic acid is within normal limits, no kidney dysfunction, no elevation white blood cell count, no significant tachycardia, blood pressure has been low but consistent and MAP has been greater than 65. Intermittently has been slightly tachypneic and has been somewhat confused though his ammonia is elevated and fluid overload could account for his tachypnea and well it seems he is bacteremic I do not think that he met full criteria for sepsis during this admission. -Sputum with Streptococcus pneumoniae, sensitivities resulted and he was changed to Rocephin -Of note both blood cultures grew gram-positive cocci in chains, initially the first blood culture said it was strep but not strep pneumonia and then amended that it was strep pneumoniae. In the morning of 09/03 it was read addended that is not streptococcal pneumoniae but it is strep species. Culture is not finalized. Still high suspicion it would be strep pneumoniae given this was p resent in his sputum and second blood culture is growing alphahemolytic gram- positive cocci in chains as well. We will continue Rocephin #Lower extremity edema -Likely secondary to overload that does seem to have slightly more swelling in right lower extremity compared to left as diuresis continues -We will obtain lower extremity duplex especially given high D-dimer on admission #Hypotension-improving -Improved slightly in the ED, patient not symptomatic at time of exam -Given Lasix, cardiology contacted in ED and at this time did not recommend dobutamine -However given blood pressure with need for diuresis but hypotensive he was admitted to ICU -c/s motor vehicle lecturer -Given improvement and lack of symptoms without tachycardia and does not appear to be septic or in shock at this time with normal lactic acid do not believe pressors are indicated but will monitor closely in ICU -One-time 40 IV Lasix given in ED -Holding beta-juan f and antihypertensives -08/30: SBP*90 and 79/62, gently diuresing, asymptomatic. Continue to monitor, orthostatic blood pressure to be checked -08/31: Echo roughly unchanged from previous, patient for heart cath today. May need evaluation for PE pending results -09/01: Elevated D-dimer but CTA negative, heart cath without need for intervention, afebrile and no white count but will check Pro-Alexandre. Sent cultures. D-dimer still elevated and CRP elevated. Low threshold to begin antibiotics given rest of work-up unrevealing. Echo with preserved EF and did not comment on any overt lab abnormalities. Did have ammonia elevated from baseline, will start lactulose -09/02: BP soft but stable and MAP has been consistently over 65. Was found to have strep pneumo in his sputum and thus far and 1 out of 2 blood cultures and was started on Levaquin. Given his fluid over load and respiratory distress that has been improving with Lasix we will continue with 40 IV Lasix daily while monitoring closely -09/03: Overall improving and mentation improving #Metabolic encephalopathy -Presumably due to infection as well as elevated ammonia -Improving on antibiotics and with lactulose and decrease in ammonia level #NSTEMI -Suspect type II secondary to exacerbation of heart failure -no chest pain but troponin is over 1400, trend -EKG normal sinus rhythm with PVCs -Cardiology consulted, given suspicion that this is a type II he has not been started on full dose anticoagulation, trend troponin -Continue aspirin and statin -Once blood pressure improves will resume beta-juan f -08/30: Second troponin at 1447and then down trended to 1394, no chest pain, cardiology following -08/31: Heart cath this a.m. 09/01: Heart cath with no need for intervention #History of coronary artery disease status post CABG and aortic valve repair -Continue aspirin, statin #History of substance use -UDS ordered -Unclear if he is actively taking Suboxone, will need to follow-up and once blood pressure improved resume if applicable #DVT ppx: Lovenox subcu Hannah Nance MD Time spent in the patient's overall evaluation,decision-making process, review of diagnostic data, adjustment of management, discussion with other providers, nursing nursing and ancillary staff involved in patient's care documentation, 30 minutes Charges/Coding Visit Charges Inpatient E&M: 65223 Subs Hosp L2
--- NOTE | 2022-09-03 10:58 | VDLE_ITS ---
Reason For Study: Elevated D-dimer RIGHT LEFT GSV is normal. GSV is normal. CFV is compressible, spontaneous, competent CFV is compressible, spontaneous, competent, and demonstrates pulsatile venous flow. and demonstrates pulsatile venous flow. FV is compressible, spontaneous, competent FV is compressible, spontaneous, competent and demonstrates pulsatile venous flow. and demonstrates pulsatile venous flow. POP V is compressible, spontaneous, competent POP V is compressible, spontaneous, competent and demonstrates pulsatile venous flow. and demonstrates pulsatile venous flow. T/P Trunk is compressible. T/P Trunk is compressible. PTV is compressible. PTV is compressible. RT PerV is compressible. LT PerV is compressible. Procedure This is a venous duplex using B-mode, color flow and spectral Doppler. Exam performed portable in patient room. A preliminary report was called and/or faxed to [facility]. VL/Venous Duplex US - Kulwinder Extrem Interpretation Summary Deep veins of the bilateral lower extremities are patent and compressible segme ntally. There is no evidence of bilateral lower extremity deep vein thrombosis. The bilateral great saphenous veins appear patent and compressible segmentally. Ordering Physician: Hannah Nance Referring Physician: MD Jojo Azael Performed By: Charmaine Mari RVT
[2022-09-03 12:44] LABS: Osmolality, Urine 264 mOsm/KG
[2022-09-03 12:51] LABS: Urea Nitrogen, Urine 307 mg/dL (NO RANGE EST.); Urine Chloride 66 mmol/L (Not Establ.); Urine Sodium 24 mmol/L (Not Establ.)
[2022-09-03 18:53] LABS: Bacteria 0 SEEN /hpf (None Seen); Mucous, Urine 0 SEEN /hpf (<or=2+); Squamous Epithelial Cells - UA 0 SEEN /hpf (0-5)
[2022-09-03 18:55] LABS: Color, Urine Amber (Yellow); Glucose, Dipstick Normal (Normal); Ketone-Dipstick Negative (Negative); Leukocyte Esterase-Dipstick 25 /ul (Negative); Nitrite-Dipstick Negative (Negative); Occult Blood-Urine 250 /ul (Negative); Protein-Dipstick 30 mg/dl (Negative); Urine Bilirubin Dipstick Negative (Negative); Urine Clarity Sl. Cloudy (Clear); Urine Urobilinogen Normal (Normal)
[2022-09-03 19:06] LABS: Red Blood Cells-Urine 25-50 SEEN /hpf (0-5)
[2022-09-03 19:07] LABS: White Blood Cells 0-5 SEEN /hpf (0-5)
[2022-09-03] MEDS: Atorvastatin Calcium 20 MG Tablet PO (20:40)
[2022-09-04] VITALS (16 sets, daily range): BP systolic 82–100; BP diastolic 54–77; PULSE 81–99; RESP 18–22; TEMP 36.3–36.7; O2SAT 93–98
[2022-09-04] MEDS: Ipratropium/Albuterol Sulfate 3 ML AMPUL.NEB INHALATION ×4 (01:45→20:19)
[2022-09-04] MEDS: Lactulose 20 GM/30 ML UDC PO ×3 (05:05→22:36)
[2022-09-04 06:23] LABS: Absolute Lymphocyte Count 1.16 X10^3/uL (0.83-4.51); Absolute Neutrophil Count 4.4 X10^3/uL (2.0-7.7); Basophil# 0.04 X10^3/uL; Basophil% 0.7 % (0-1); Eosinophil# 0.05 X10^3/uL; Eosinophils% 0.8 % (0-5); Hematocrit 30.3 % (40-54); Hemoglobin 9.2 g/dL (13.0-16.5); Lymphocyte # 1.16 X10^3/ul (0.83-4.51); Lymphocyte % 18.9 % (19-41); Mean Corp Hgb Conc 30.4 g/dL (32-36); Mean Corpuscular Hgb 24.7 pg (27.0-32.0); Mean Corpuscular Volume 81.2 fL (80-94); Monocyte# 0.46 X10^3/uL; Monocyte% 7.5 % (0-10); NRBC Flagged by Analyzer 0 % (0-5); Neutrophil # 4.41 X10^3/uL (2.7-7.7); Neutrophil % 71.8 % (47-70); Platelet Count 134 K/mm3 (150-450); RBC Distribution Width CV 19.3 % (11.6-14.6); RBC Distribution Width SD 55.7 fl (35.1-43.9); Red Blood Count 3.73 M/mm3 (4.6-6.2); White Blood Count 6.1 K/mm3 (4.4-11.0)
[2022-09-04 06:43] LABS: ALB/GLOB Ratio 0.4 RATIO (0.9-2.4); AST(SGOT) 44 U/L (15-37); Alanine Aminotransfer ALT/SGPT 13 U/L (16-61); Alkaline Phosphatase 89 U/L (45-117); Anion Gap 5 (5-15); BUN 20 mg/dL (7-18); BUN/Creat Ratio 20.3 RATIO (10-20); Calcium,Total 8.1 mg/dL (8.5-10.1); Chloride 92 mmol/L (98-107); Creatinine, Serum 0.98 mg/dL (0.70-1.30); EST Glomerular Filtration Rate 83 mL/min (>60); Est Glom Filt Rate - Afr Amer 101 mL/min (>60); Estimated Creatinine Clearance 89.64 ml/min; Globulin 5.7 g/dL (2.2-4.2); Glucose 123 mg/dL (74-106); Potassium 3.4 mmol/L (3.5-5.1); Protein, Total 7.7 g/dL (6.4-8.2); Sodium Level 129 mmol/L (136-145)
[2022-09-04] MEDS: Enoxaparin 40 MG/0.4 ML Syringe SC (09:43)
[2022-09-04] MEDS: Aspirin 81 MG TAB.CHEW PO (09:43)
[2022-09-04] MEDS: Pantoprazole Sodium 40 MG Tablet PO (09:43)
[2022-09-04] MEDS: Potassium Chloride Oral Tablet 20 MEQ 40 MEQ PO (09:43)
[2022-09-04] MEDS: Furosemide 40 MG/4 ML Vial IV (09:50)
--- NOTE | 2022-09-04 13:56 | CASEMGMT ---
Social Work SW spoke w/Daniela at [facility], she inquired if pt has suboxone he can bring over until he can get to [facility]. RN checked, he has 10 here that will go over with him. SW sent updates via [employer] and let Daniela know that pt has 10 pills here that can come over with him. SW to let her know when to start precert. MARQUIS Garcia
--- NOTE | 2022-09-04 14:45 | PN_ITS ---
Subjective Subjective Patient seen and examined. He had no active complaints today. He said he was feeling better. He had an uneventful night and review of systems otherwise negative. He has remained hemodynamically stable. Objective Data Objective Data Vital Signs: Vital Signs Temp Pulse Resp BP Pulse Ox O2 Del Method O2 Flow Rate 97.9 F 88 18 94/72 96 Nasal Cannula 2 09/04/22 09:45 09/04/22 09:45 09/04/22 09:45 09/04/22 09:45 09/04/22 10:27 09/04/22 09:45 09/04/22 10:27 FiO2 21 08/30/22 02:00 Oxygen Flow Rate (L/min) 2 Oxygen Delivery Method Nasal Cannula Weight: 264 lb 15.93 oz Body Mass Index (BMI) 36.9 Intake & Output: Intake and Output for Last 24 Hours 09/02/22 09/03/22 09/04/22 23:59 23:59 23:59 Intake Total 1240 / 1240 530 / 530 350 / 350 Output Total 2150 / 2150 1150 / 1150 800 / 800 Balance -910 / -910 -620 / -620 -450 / -450 Lab / Micro Data Result Diagrams: 09/04/22 05:48 09/04/22 05:48 Labs: Laboratory Results - last 24 hr 09/03/22 12:10: Urine Color Cathi, Urine Clarity Sl. Cloudy, Urine pH 6.0, Ur Specific [place] 1.010, Urine Protein 30 H, Urine Glucose (UA) Normal, Urine Ketones Negative, Urine Occult Blood 250 H, Urine Nitrite Negative, Urine Bilirubin Negative, Urine Urobilinogen Normal, Ur Leukocyte Esterase 25 H, Urine RBC 25-50 SEEN, Urine WBC 0-5 SEEN, Ur Squamous Epith Cells 0 SEEN, Urine Bacteria 0 SEEN, Urine Mucus 0 SEEN 09/04/22 05:48: Sodium 129 L, Potassium 3.4 L, Chloride 92 L, Carbon Dioxide 32.0, Anion Gap 5, BUN 20 H, Creatinine 0.98, Estim Creat Clear Calc 89.64, Est GFR (MDRD) Af Amer 101, Est GFR (MDRD) Non-Af 83, BUN/Creatinine Ratio 20.3 H, Glucose 123 H, Calcium 8.1 L, Total Bilirubin 1.00, AST 44 H, ALT 13 L, Alkaline Phosphatase 89, C-React Prot Ext Range 41.40 H, Total Protein 7.7, Albumin 2.0 L , Globulin 5.7 H, Albumin/Globulin Ratio 0.4 L 09/04/22 05:48: WBC 6.1, RBC 3.73 L, Hgb 9.2 L, Hct 30.3 L, MCV 81.2, MCH 24.7 L , MCHC 30.4 L, RDW Std Deviation 55.7 H, RDW Coeff of John 19.3 H, Plt Count 134 L, MPV 11.0, Immature Gran % (Auto) 0.300, Neut % (Auto) 71.8 H, Lymph % (Auto) 18.9 L, [place] % (Auto) 7.5, Eos % (Auto) 0.8, Baso % (Auto) 0.7, Absolute Neuts (auto) 4.4, Absolute Lymphs (auto) 1.16, Nucleated RBC % 0 Micro: Microbiology 08/31/22 17:20 Blood Culture (Wb) - Anticubital Right Bacteria Detection (PCR) - Final Strep not Strep pneumo 08/31/22 17:20 Blood Culture (Wb) - Anticubital Right Blood Culture - Final Streptococcus infantarius coli 08/31/22 18:05 Blood Culture (Wb) - Right Hand Blood Culture - Final Alpha Hemolytic Streptococcus 08/31/22 17:25 Sputum, Expectorated/Coughed Gram Stain - Final 08/31/22 17:25 Sputum, Expectorated/Coughed Respiratory Culture - Final Streptococcus pneumoniae 09/01/22 05:00 Urine, Random Urine Culture - Final Mixed Gram Pos & Gram Neg Org 08/31/22 09:32 Mucosa - Nasopharyngeal Respiratory Panel (PCR) - Final 08/31/22 09:32 Nasal Secretion SARS-CoV-2 & FLU Antigen (Rapid) - Final Physical Exam Const alert and oriented x3 HEENT normocephalic, head/scalp atraumatic and moist oral mucous membranes Eyes PERRL and EOMs intact bilaterally Neck no lymphadenopathy and supple Lymph Lymphatic: no lymphadenopathy noted Resp Resp Narrative: mildly diminished breath sounds bibasally, no wheezes or crackles On 2L of oxygen Cardio regular rate, regular rhythm, S1 normal heart sound, S2 normal heart sound and no murmurs GI normal to inspection, nondistended, normoactive bowel sounds, soft to palpation, non-tender and non-distended Extremity normal capillary refill, no clubbing, cyanosis or edema and no calf tenderness Skin General Skin Exam: no breakdown and turgor normal Neuro CN's II-XII intact bilaterally and no focal motor deficits Psych thought process normal and cooperative Assessment & Plan Assessment/Plan (1) Congestive heart failure: PLAN: Plan #Acute on chronic hypoxic respiratory failure due to strep pneumonia and acute fluid overload. * BNP was elevated at >2000 and CXR showed effusions * on IV lasix * 2D echo from August 2022 with EF of 55% and bioprosthetic valve appeared stable; unable to assess diastolic dysfunction * cardiology on board * cardiac cath showed no evidence of obstruction * on levaquin * feeliing much better * #Strep bacteremia nad pneumonia * currently on IV rocephin * blood cultures positive for Strep infantarius coli * * * #Hyponatremia: this is chronic. sodium is 129. Will monitor #Hypotension: improved. On lasix. BP remains soft but has been improving. Currently on Lasix. #Hypoammonemia: improving. trended downwards. On lactulose. #Elevated troponin * troponins were elevated, ekg showed no acute ST changes. * cardiac cath showed no evidence of blockage. * on aspirin and statin * #History fo CAD s/p CABG and aortic valve repair #History of substance abuse: on suboxone, but this was held as BP was running low. Will resume DVT prophylaxis: lovenox Charges/Coding Visit Charges Inpatient E&M: 47633 Subs Hosp L2
[2022-09-04] MEDS: Menthol/Lanolin/Calamine/Znox 113 GM Tube 1 APPLIC TOPICAL (22:35)
[2022-09-04] MEDS: Atorvastatin Calcium 20 MG Tablet PO (22:36)
[2022-09-05] VITALS (13 sets, daily range): BP systolic 86–105; BP diastolic 64–81; PULSE 89–102; RESP 16–28; TEMP 36.3–36.7; O2SAT 93–97; BMI 36.8
[2022-09-05] MEDS: Ipratropium/Albuterol Sulfate 3 ML AMPUL.NEB INHALATION ×3 (01:47→19:36)
[2022-09-05] MEDS: 0.9% Saline Lock 10 ML Syringe IV (04:39)
[2022-09-05 04:47] LABS: Absolute Lymphocyte Count 1.34 X10^3/uL (0.83-4.51); Absolute Neutrophil Count 4.9 X10^3/uL (2.0-7.7); Basophil# 0.05 X10^3/uL; Basophil% 0.7 % (0-1); Eosinophil# 0.04 X10^3/uL; Eosinophils% 0.6 % (0-5); Hematocrit 28.6 % (40-54); Hemoglobin 8.9 g/dL (13.0-16.5); Lymphocyte # 1.34 X10^3/ul (0.83-4.51); Lymphocyte % 19.6 % (19-41); Mean Corp Hgb Conc 31.1 g/dL (32-36); Mean Corpuscular Hgb 25.1 pg (27.0-32.0); Mean Corpuscular Volume 80.8 fL (80-94); Mean Platelet Vol. 10.2 fl (6.2-12.0); Monocyte# 0.48 X10^3/uL; NRBC Flagged by Analyzer 0 % (0-5); Neutrophil # 4.92 X10^3/uL (2.7-7.7); Neutrophil % 71.8 % (47-70); Platelet Count 128 K/mm3 (150-450); RBC Distribution Width CV 19.6 % (11.6-14.6); RBC Distribution Width SD 55.8 fl (35.1-43.9); Red Blood Count 3.54 M/mm3 (4.6-6.2); White Blood Count 6.9 K/mm3 (4.4-11.0)
[2022-09-05 05:19] LABS: Anion Gap 7 (5-15); BUN 20 mg/dL (7-18); Chloride 91 mmol/L (98-107); EST Glomerular Filtration Rate 82 mL/min (>60); Est Glom Filt Rate - Afr Amer 99 mL/min (>60); Estimated Creatinine Clearance 87.85 ml/min; Glucose 116 mg/dL (74-106); Potassium 3.6 mmol/L (3.5-5.1); Sodium Level 129 mmol/L (136-145)
[2022-09-05] MEDS: Lactulose 20 GM/30 ML UDC PO ×3 (06:22→21:19)
[2022-09-05] MEDS: Menthol/Lanolin/Calamine/Znox 113 GM Tube 1 APPLIC TOPICAL ×2 (09:17→21:19)
[2022-09-05] MEDS: Aspirin 81 MG TAB.CHEW PO (09:17)
[2022-09-05] MEDS: Pantoprazole Sodium 40 MG Tablet PO (09:17)
[2022-09-05] MEDS: Enoxaparin 40 MG/0.4 ML Syringe SC (09:17)
[2022-09-05] MEDS: Furosemide 40 MG/4 ML Vial IV (09:24)
--- NOTE | 2022-09-05 13:04 | PN_ITS ---
Subjective Subjective Patient seen and examined. HE had no active complaints and had an uneventful night. Review of systems is otherwise negative. He has remained hemodynamically stable. Objective Data Objective Data Vital Signs: Vital Signs Temp Pulse Resp BP Pulse Ox O2 Del Method O2 Flow Rate 97.3 F L 94 18 91/70 95 Nasal Cannula 2 09/05/22 11:00 09/05/22 11:00 09/05/22 11:00 09/05/22 11:00 09/05/22 11:00 09/05/22 11:00 09/05/22 11:00 FiO2 21 08/30/22 02:00 Oxygen Flow Rate (L/min) 2 Oxygen Delivery Method Nasal Cannula Weight: 264 lb 1.82 oz Body Mass Index (BMI) 36.8 Intake & Output: Intake and Output for Last 24 Hours 09/03/22 09/04/22 09/05/22 23:59 23:59 23:59 Intake Total 530 / 530 750 / 750 60 / 60 Output Total 1150 / 1150 1800 / 1800 400 / 400 Balance -620 / -620 -1050 / -1050 -340 / -340 Lab / Micro Data Result Diagrams: 09/05/22 04:06 09/05/22 04:06 Labs: Laboratory Results - last 24 hr 09/05/22 04:06: WBC 6.9, RBC 3.54 L, Hgb 8.9 L, Hct 28.6 L, MCV 80.8, MCH 25.1 L , MCHC 31.1 L, RDW Std Deviation 55.8 H, RDW Coeff of John 19.6 H, Plt Count 128 L, MPV 10.2, Immature Gran % (Auto) 0.300, Neut % (Auto) 71.8 H, Lymph % (Auto) 19.6, [place] % (Auto) 7.0, Eos % (Auto) 0.6, Baso % (Auto) 0.7, Absolute Neuts (auto) 4.9, Absolute Lymphs (auto) 1.34, Nucleated RBC % 0 09/05/22 04:06: Sodium 129 L, Potassium 3.6, Chloride 91 L, Carbon Dioxide 31.0, Anion Gap 7, BUN 20 H, Creatinine 1.00, Estim Creat Clear Calc 87.85, Est GFR (MDRD) Af Amer 99, Est GFR (MDRD) Non-Af 82, BUN/Creatinine Ratio 20.0, Glucose 116 H, Calcium 8.0 L Micro: Microbiology 08/31/22 17:20 Blood Culture (Wb) - Anticubital Right Bacteria Detection (PCR) - Final Strep not Strep pneumo 08/31/22 17:20 Blood Culture (Wb) - Anticubital Right Blood Culture - Final Streptococcus infantarius coli 08/31/22 18:05 Blood Culture (Wb) - Right Hand Blood Culture - Final Alpha Hemolytic Streptococcus 08/31/22 17:25 Sputum, Expectorated/Coughed Gram Stain - Final 08/31/22 17:25 Sputum, Expectorated/Coughed Respiratory Culture - Final Streptococcus pneumoniae 09/01/22 05:00 Urine, Random Urine Culture - Final Mixed Gram Pos & Gram Neg Org 08/31/22 09:32 Mucosa - Nasopharyngeal Respiratory Panel (PCR) - Final 08/31/22 09:32 Nasal Secretion SARS-CoV-2 & FLU Antigen (Rapid) - Final Radiography Diagnostic Testing: Radiology Impression Venous Doppler Study 09/03/22 10:58 Interpretation Summary Deep veins of the bilateral lower extremities are patent and compressible segmentally. There is no evidence of bilateral lower extremity deep vein thrombosis. The bilateral great saphenous veins appear patent and compressible segmentally. Ordering Physician: Hannah Nance Referring Physician: MD Jojo Azael Performed By: Charmaine Mari RVT Physical Exam Const alert and oriented x3 General Appearance: cooperative HEENT normocephalic, head/scalp atraumatic and moist oral mucous membranes Eyes PERRL and EOMs intact bilaterally Neck no lymphadenopathy, supple and no JVD Lymph Lymphatic: no lymphadenopathy noted Resp Resp Narrative: mildly diminished breath sounds bibasally, no wheezes or crackles On 2L of oxygen Cardio regular rate, regular rhythm, S1 normal heart sound, S2 normal heart sound and no murmurs GI normal to inspection, nondistended, normoactive bowel sounds, soft to palpation, non-tender and non-distended Extremity normal capillary refill, no clubbing, cyanosis or edema and no calf tenderness Skin General Skin Exam: no breakdown and turgor normal Neuro CN's II-XII intact bilaterally and no focal motor deficits Psych thought process normal and cooperative Assessment & Plan Assessment/Plan (1) Congestive heart failure: PLAN: Plan #Acute on chronic hypoxic respiratory failure due to strep pneumonia and acute fluid overload. * BNP was elevated at >2000 and CXR showed effusions * on IV lasix * 2D echo from August 2022 with EF of 55% and bioprosthetic valve appeared stable; unable to assess diastolic dysfunction * cardiology on board * cardiac cath showed no evidence of obstruction * on levaquin * feeliing much better * #Strep bacteremia nad pneumonia * currently on IV rocephin * blood cultures positive for Strep infantarius coli * get repeat blood cultures * consult ID * * #Hyponatremia: this is chronic. sodium is 129. Will monitor #Hypotension: improved. On lasix. BP remains soft but has been improving. Currently on Lasix. #Hyperammonemia: improving. trended downwards. On lactulose. #Elevated troponin * troponins were elevated, ekg showed no acute ST changes. * cardiac cath showed no evidence of blockage. * on aspirin and statin * #History fo CAD s/p CABG and aortic valve repair #History of substance abuse: on suboxone, but this was held as BP was running low. stable. BP still running low. DVT prophylaxis: lovenox Disposition: awaiting placement Charges/Coding Visit Charges Inpatient E&M: 80217 Subs Hosp L2
[2022-09-05] MEDS: Atorvastatin Calcium 20 MG Tablet PO (21:19)
--- NOTE | 2022-09-05 23:06 | CPS ---
patient unable to perform PEP therapy at this time due to weakness and feeling sick to stomach
[2022-09-06] VITALS (11 sets, daily range): BP systolic 81–91; BP diastolic 58–72; PULSE 84–101; RESP 18–28; TEMP 36.3–36.6; O2SAT 92–99; BMI 36.4
[2022-09-06] MEDS: Lactulose 20 GM/30 ML UDC PO ×2 (04:59→14:37)
[2022-09-06 06:43] LABS: Absolute Lymphocyte Count 1.46 X10^3/uL (0.83-4.51); Absolute Neutrophil Count 6.1 X10^3/uL (2.0-7.7); Basophil# 0.08 X10^3/uL; Eosinophil# 0.04 X10^3/uL; Eosinophils% 0.5 % (0-5); Hematocrit 30.5 % (40-54); Hemoglobin 9.5 g/dL (13.0-16.5); Lymphocyte # 1.46 X10^3/ul (0.83-4.51); Lymphocyte % 17.7 % (19-41); Mean Corp Hgb Conc 31.1 g/dL (32-36); Mean Corpuscular Volume 80.3 fL (80-94); Mean Platelet Vol. 10.8 fl (6.2-12.0); Monocyte# 0.56 X10^3/uL; Monocyte% 6.8 % (0-10); NRBC Flagged by Analyzer 0 % (0-5); Neutrophil # 6.08 X10^3/uL (2.7-7.7); Neutrophil % 73.6 % (47-70); Platelet Count 150 K/mm3 (150-450); RBC Distribution Width CV 19.8 % (11.6-14.6); RBC Distribution Width SD 55.8 fl (35.1-43.9); White Blood Count 8.3 K/mm3 (4.4-11.0)
[2022-09-06 07:08] LABS: Anion Gap 10 (5-15); BUN 23 mg/dL (7-18); BUN/Creat Ratio 20.9 RATIO (10-20); Calcium,Total 8.3 mg/dL (8.5-10.1); Chloride 89 mmol/L (98-107); EST Glomerular Filtration Rate 73 mL/min (>60); Est Glom Filt Rate - Afr Amer 89 mL/min (>60); Estimated Creatinine Clearance 79.86 ml/min; Glucose 111 mg/dL (74-106); Potassium 3.8 mmol/L (3.5-5.1); Sodium Level 127 mmol/L (136-145)
[2022-09-06] MEDS: Ipratropium/Albuterol Sulfate 3 ML AMPUL.NEB INHALATION ×2 (07:26→13:16)
--- NOTE | 2022-09-06 09:28 | CASEMGMT ---
Updates sent to [facility] and requested they start the precert. Kimberly Mar MANAGER DATABASE ADMINISTRATION, STANDARDS ANALYST
[2022-09-06] MEDS: Menthol/Lanolin/Calamine/Znox 113 GM Tube 1 APPLIC TOPICAL (09:39)
[2022-09-06] MEDS: Enoxaparin 40 MG/0.4 ML Syringe SC (09:39)
[2022-09-06] MEDS: Aspirin 81 MG TAB.CHEW PO (09:39)
[2022-09-06] MEDS: Pantoprazole Sodium 40 MG Tablet PO (09:39)
[2022-09-06] MEDS: Furosemide 40 MG Tablet PO (09:39)
--- NOTE | 2022-09-06 13:01 | PCM.CONS.GEN ---
Assessment & Plan Assessment/Plan (1) Bacteremia: PLAN: Unclear the significance of this positive blood culture from last week. I strongly suspect that this appears to be a skin pathogen. At this time we will discontinue ceftriaxone and observe off antibiotics, follow fever curve and any signs of infection. HPI Consult Data Date of Consult: 09/06/22 HPI Narrative Reason for Consultation: Bacteremia HPI Narrative: SOREN DE GUZMAN, is a 56 M who presents complicated past medical history of substance abuse, untreated chronic hepatitis C, aortic valve replacement roughly 3 years ago at [facility], chronic respiratory disease on home O2 2 L nasal cannula who was admitted little over a week ago with shortness of breath and failure to thrive. Patient has never had documented fever, and talking the patient he denies any fevers prior to come to the hospital. Patient was recently hospitalized in early August for concern of acute coronary syndrome. Hospital course on this admission reviewed. Patient did get a transthoracic echocardiogram, results reviewed. Chest x-ray shows bilateral pleural effusions and some vascular congestion. Blood culture data reviewed. Patient currently on ceftriaxone. No gastrointestinal distress. [facility] Medical History (Updated 09/06/22 @ 13:[address] Garrett Huizar MD) Acute non-ST elevation myocardial infarction (NSTEMI) Altered mental status Aortic valve endocarditis Aspiration into airway Asthma Atherosclerotic heart disease of [place] coronary artery without angina pectoris Cellulitis Cerebrovascular disease, unspecified Coronary artery disease Elevated troponin Esophageal reflux Former smoker Hepatitis Hepatitis C Hyperammonemia Hyperlipidemia Hyponatremia Nonrheumatic aortic (valve) insufficiency On home oxygen therapy ESA (obstructive sleep apnea) Overdose Sepsis Sleep apnea Substance abuse TIA (transient ischemic attack) Home Medications albuterol sulfate 90 mcg/actuation aerosol inhaler 2 puff inhalation Q4H PRN PRN Sob &/Or Wheezing 11/19/19 [History Last Taken 08/27/22] pantoprazole 40 mg tablet,delayed release 40 mg PO DAILY reflux 01/20/20 [History Last Taken 08/29/22] buprenorphine 8 mg-naloxone 2 mg sublingual tablet 1 tab sublingual BID Check with primary doctor 03/21/21 [History Last Taken 08/28/22] furosemide 20 mg tablet 20 mg PO QAM diuretic 09/05/21 [History Last Taken 08/29/22] metoprolol tartrate 25 mg tablet 25 mg PO BID blood pressure 09/05/21 [History Last Taken 08/29/22] amlodipine 5 mg tablet 5 mg PO DAILY #30 tabs 05/26/22 [Rx Last Taken 08/29/22] aspirin 81 mg chewable tablet (Aspirin Childrens) 81 mg PO BID heart health 07/27/22 [History Last Taken 08/29/22] atorvastatin 20 mg tablet 20 mg PO QHS 07/27/22 [History Last Taken 08/28/22] potassium chloride 20 mEq tablet,extended release 20 meq PO DAILY #30 tabs 07/28/22 [Rx Last Taken 08/29/22] Allergy/AdvReac Type Severity Reaction Status Date / Time Penicillins [PCN] Allergy Shortness Verified 08/29/22 14:35 of breath Family History Mother Hypertension Diabetes Father Cancer Grandmother Diabetes Surgical History History of aortic valve replacement with bioprosthetic valve (11/28/19) History of coronary artery bypass graft (11/28/19) History of foot surgery History of tonsillectomy and adenoidectomy Social History Smoking Status: Former smoker quit status: has quit before alcohol intake: never substance use type: former substance user Date of last use: November 19, 2019 now on suboxone, heroin and other details: fentanyl caffeine: Yes Type: carbonated beverages Number of servings: 2 and coffee Number of servings: 2 ROS ROS Narrative As stated in the history of present illness otherwise negative Physical Exam Narrative Alert chronically ill appearing male lungs with decreased breath sounds in the bases heart exam S1-S2 with soft systolic murmur. Abdomen is obese but soft. Lab / Micro Data Result Diagrams: 09/06/22 05:16 09/06/22 05:16 Labs: Laboratory Results - last 24 hr 09/06/22 05:16: WBC 8.3, RBC 3.80 L, Hgb 9.5 L, Hct 30.5 L, MCV 80.3, MCH 25.0 L, MCHC 31.1 L, RDW Std Deviation 55.8 H, RDW Coeff of John 19.8 H, Plt Count 150, MPV 10.8, Immature Gran % (Auto) 0.400, Neut % (Auto) 73.6 H, Lymph % (Auto) 17.7 L, [place] % (Auto) 6.8, Eos % (Auto) 0.5, Baso % (Auto) 1.0, Absolute Neuts (auto) 6.1, Absolute Lymphs (auto) 1.46, Nucleated RBC % 0 09/06/22 05:16: Sodium 127 L, Potassium 3.8, Chloride 89 L, Carbon Dioxide 28.0, Anion Gap 10, BUN 23 H, Creatinine 1.10, Estim Creat Clear Calc 79.86, Est GFR (MDRD) Af Amer 89, Est GFR (MDRD) Non-Af 73, BUN/Creatinine Ratio 20.9 H, Glucose 111 H, Calcium 8.3 L
--- NOTE | 2022-09-06 13:10 | CASEMGMT ---
Patient was approved to go to [facility]. SW notified physician. Saira WONG
--- NOTE | 2022-09-06 15:23 | TREXTCAR_ITS ---
Diet Diet Order/Speech Therapy: 08/30/22 07:21 Diet: Cardiac - Heart Healthy Food consistency:: Regular Liquid Consistency:: Regular/Thin Dietary Modifications:: Sodium Restricted Is pt able to select menu?: Yes Fluid restriction:: 1500 mL Routine Orders/Code Status Enema Type: Fleetz Enema Frequency: Daily PRN Suppository Type: Dulcolax 10mg Suppository Frequency: Daily PRN O2 Frequency: PRN Keep PO Greater than or Equal to (%): 90 Wound(s) ble: Wound Type: Abrasion RW: Wound Type: Puncture right buttocks: Wound Type: small open area Therapies Weight Bearing: Weight bearing as tolerated Physical Therapy: Eval and Treat Occupational Therapy: Eval and Treat Problem/Diagnosis (1) Bacteremia: Status: Acute Code(s): R78.81 - Bacteremia Plan #Acute on chronic hypoxic respiratory failure due to strep pneumonia and acute fluid overload. * BNP was elevated at >2000 and CXR showed effusions * on IV lasix * 2D echo from August 2022 with EF of 55% and bioprosthetic valve appeared stable; unable to assess diastolic dysfunction * cardiology on board * cardiac cath showed no evidence of obstruction * on levaquin * feeliing much better * #Strep bacteremia nad pneumonia * currently on IV rocephin * blood cultures positive for Strep infantarius coli * get repeat blood cultures * consult ID * * #Hyponatremia: this is chronic. sodium is 129. Will monitor #Hypotension: improved. On lasix. BP remains soft but has been improving. Currently on Lasix. #Hyperammonemia: improving. trended downwards. On lactulose. #Elevated troponin * troponins were elevated, ekg showed no acute ST changes. * cardiac cath showed no evidence of blockage. * on aspirin and statin * #History fo CAD s/p CABG and aortic valve repair #History of substance abuse: on suboxone, but this was held as BP was running low. stable. BP still running low. DVT prophylaxis: lovenox Disposition: awaiting placement Allergies/Procedures Done in Hospital Allergies Penicillins [PCN] Allergy (Verified 08/29/22 14:35) Shortness of breath Procedures: 2-D Echocardiogram Type of Care/Length of Stay Estimated LOS: Convalescent Care Less Than 30 days Type of Care Needed: Skilled Rehab Potential: Fair Prognosis: Fair Additional Orders/Day of Discharge Day of Discharge: 09/06/22 Dietary and Speech Recommendations Dietitian Recommendations/Changes: Continue cardiac/sodium-restricted diet with 1500 ml/day fluid restriction. Discharge Plan Admission Admit Date/Time: 08/29/22 17:33 Primary Reason for Your Visit: acute on chronic respiratory failure Attending Provider: Aleida Alcaraz Primary Care Provider: Azael Uribe Consulting Providers: Dallas Urbano ; Americo Padilla ; Aries Garcia ; Gulshan Connor ; Matthieu Marley ; Munira Lockhart NP ; Hannah Nance ; Garrett Huizar Discharge Orders/Prescriptions Prescriptions: New furosemide 40 mg Tablet 40 mg PO DAILY Qty: 30 2RF lactulose 20 gram/30 mL solution 20 g PO TID Qty: 3000 2RF Continued pantoprazole 40 mg tablet,delayed release (DR/EC) 40 mg PO DAILY aspirin [Aspirin Childrens] 81 mg tablet,chewable 81 mg PO BID buprenorphine-naloxone 8-2 mg tablet, sublingual 1 tab sublingual BID Label Comments: take 1 tablet under the tongue twice a day amlodipine 5 mg tablet 5 mg PO DAILY Qty: 30 11RF atorvastatin 20 mg tablet 20 mg PO QHS albuterol sulfate 18 GM HFA aerosol inhaler 2 puff inhalation Q4H PRN PRN (Reason: Sob &/Or Wheezing) metoprolol tartrate 25 mg tablet 25 mg PO BID potassium chloride 20 mEq tablet extended release 20 meq PO DAILY Qty: 30 11RF Discontinued furosemide 20 mg tablet 20 mg PO QAM Referrals / Follow Up: Dallas Urbano MD [Med Staff - Active Staff] - Within 2 Weeks Azael Uribe MD [Primary Care Provider] - Within 2 Weeks Gordo Frost DO [Med Staff - Active Staff] - Within 2 Weeks Disposition Disposition (needs filled in before D/C Order can be placed): [facility]
--- NOTE | 2022-09-06 15:24 | DS.PCM_ITS ---
Providers Date of Admission: 08/29/22 Date of Discharge: 09/06/22 Primary Care Physician: Dr. 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 Alcaraz Reason For Visit: ACUTE ON CHRONIC HYPOXIC RESPIRATORY FAILURE Diagnosis Discharge Diagnosis (1) Bacteremia: Status: Acute Code(s): R78.81 - Bacteremia Plan #Acute on chronic hypoxic respiratory failure due to strep pneumonia and acute fluid overload. * BNP was elevated at >2000 and CXR showed effusions * on IV lasix * 2D echo from August 2022 with EF of 55% and bioprosthetic valve appeared stable; unable to assess diastolic dysfunction * cardiology on board * cardiac cath showed no evidence of obstruction * on levaquin * feeliing much better * #Strep bacteremia nad pneumonia * currently on IV rocephin * blood cultures positive for Strep infantarius coli * get repeat blood cultures * consult ID * * #Hyponatremia: this is chronic. sodium is 129. Will monitor #Hypotension: improved. On lasix. BP remains soft but has been improving. Currently on Lasix. #Hyperammonemia: improving. trended downwards. On lactulose. #Elevated troponin * troponins were elevated, ekg showed no acute ST changes. * cardiac cath showed no evidence of blockage. * on aspirin and statin * #History fo CAD s/p CABG and aortic valve repair #History of substance abuse: on suboxone, but this was held as BP was running low. stable. BP still running low. DVT prophylaxis: lovenox Disposition: awaiting placement Medications at Discharge Home Medications albuterol sulfate 90 mcg/actuation aerosol inhaler 2 puff inhalation Q4H PRN PRN Sob &/Or Wheezing 11/19/19 pantoprazole 40 mg tablet,delayed release 40 mg PO DAILY reflux 01/20/20 buprenorphine 8 mg-naloxone 2 mg sublingual tablet 1 tab sublingual BID Check with primary doctor 03/21/21 metoprolol tartrate 25 mg tablet 25 mg PO BID blood pressure 09/05/21 amlodipine 5 mg tablet 5 mg PO DAILY #30 tabs 05/26/22 aspirin 81 mg chewable tablet (Aspirin Childrens) 81 mg PO BID heart health 07/27/22 atorvastatin 20 mg tablet 20 mg PO QHS 07/27/22 potassium chloride 20 mEq tablet,extended release 20 meq PO DAILY #30 tabs furosemide 40 mg tablet 40 mg PO DAILY #30 tabs 09/06/22 lactulose 20 gram/30 mL oral solution 20 g (30 mL) PO TID #3,000 mL 09/06/22 Hospital Course Operations None Procedures 2-D Echocardiogram Summary of Care Provided Minutes Spent on Discharge: 55 Hospital Course: Patient is a 56-year-old male with a past medical history as outlined who was admitted through the ED on 08/29/2022 with a complaint of confusion and worsening shortness of breath. On admission he was found to have markedly elevated troponin 12,400 and BNP was also elevated at 2686. ABG showed PO2 of 68. Was also hypotensive with blood pressure in the 80s with associated dizziness. He was admitted and managed for acute on chronic hypoxic respiratory failure due to acute fluid overload and pulmonary edema. He was started on diuresis. Cardiology was consulted. He was also managed for non-STEMI on account of markedly elevated troponins. He had heart cath. Blood cultures grew strep pneumonia and sputum also grew strep pneumonia. He was therefore started on IV antibiotics. 2D echo done showed EF still of 55% with stable bioprosthetic aortic valve. His shortness of breath gradually improved and his oxygen was weaned down. CTA showed no evidence of PE. His ammonia was elevated and so he was started on lactulose. Heart cath showed patent coronaries with no need for intervention. Infectious diseases was consulted on account of the positive blood cultures and thought this might be a skin pathogen and recommended discontinuation of antibiotics. Patient remained stable and was discharged to assisted facility on 09/06/2022. He is to follow-up with his primary care doctor and is follow-up with cardiology and was referred to gastroenterology as well. Patient seen and examined prior to discharge. He had no active complaints and had an uneventful night. Review of systems otherwise negative. Labs and vitals reviewed. Home medication reviewed and reconciled. Physical Exam Const alert, oriented x3 and no apparent distress General Appearance: cooperative and comfortable Orientation / Consciousness: awake HEENT normocephalic, head/scalp atraumatic, hearing grossly normal bilaterally and moist oral mucous membranes Mouth: oral and palatal mucosa normal Eyes PERRL and EOMs intact bilaterally Neck no lymphadenopathy, supple and no JVD Lymph Lymphatic: no lymphadenopathy noted Resp Resp Narrative: mildly diminished breath sounds bibasally, no wheezes or crackles On 2L of oxygen Cardio regular rate, regular rhythm, S1 normal heart sound, S2 normal heart sound and no murmurs GI normal to inspection, nondistended, normoactive bowel sounds, soft to palpation, non-tender and non-distended Extremity normal to inspection, full ROM, normal capillary refill, no clubbing, cyanosis or edema and no calf tenderness Skin no rashes or lesions noted General Skin Exam: no breakdown and turgor normal Neuro oriented x3, CN's II-XII intact bilaterally, moves all extremities and no focal motor deficits Psych thought process normal and cooperative Weight / BMI Weight Weight: 261 lb 7.492 oz Body Mass Index (BMI) 36.4 ABG / Lab / Microbiology Data Result Diagrams: 09/06/22 05:16 09/06/22 05:16 Laboratory: Laboratory Results - last 24 hr 09/06/22 05:16: WBC 8.3, RBC 3.80 L, Hgb 9.5 L, Hct 30.5 L, MCV 80.3, MCH 25.0 L , MCHC 31.1 L, RDW Std Deviation 55.8 H, RDW Coeff of John 19.8 H, Plt Count 150, MPV 10.8, Immature Gran % (Auto) 0.400, Neut % (Auto) 73.6 H, Lymph % (Auto) 17.7 L, [place] % (Auto) 6.8, Eos % (Auto) 0.5, Baso % (Auto) 1.0, Absolute Neuts (auto) 6.1, Absolute Lymphs (auto) 1.46, Nucleated RBC % 0 04/05/23 05:16: Sodium 127 L, Potassium 3.8, Chloride 89 L, Carbon Dioxide 28.0, Anion Gap 10, BUN 23 H, Creatinine 1.10, Estim Creat Clear Calc 79.86, Est GFR (MDRD) Af Amer 89, Est GFR (MDRD) Non-Af 73, BUN/Creatinine Ratio 20.9 H, Glucose 111 H, Calcium 8.3 L Microbiology: Microbiology 08/31/22 17:20 Blood Culture (Wb) - Anticubital Right Bacteria Detection (PCR) - Final Strep not Strep pneumo 08/31/22 17:20 Blood Culture (Wb) - Anticubital Right Blood Culture - Final Streptococcus infantarius coli 08/31/22 18:05 Blood Culture (Wb) - Right Hand Blood Culture - Final Alpha Hemolytic Streptococcus 08/31/22 17:25 Sputum, Expectorated/Coughed Gram Stain - Final 08/31/22 17:25 Sputum, Expectorated/Coughed Respiratory Culture - Final Streptococcus pneumoniae 09/01/22 05:00 Urine, Random Urine Culture - Final Mixed Gram Pos & Gram Neg Org 08/31/22 09:32 Mucosa - Nasopharyngeal Respiratory Panel (PCR) - Final 08/31/22 09:32 Nasal Secretion SARS-CoV-2 & FLU Antigen (Rapid) - Final D/C Instructions Discharge Diet: Low fat / Low cholesterol Discharge Activity: Return to Normal Activity Weight Bearing Status: Weight bearing as tolerated Call your doctor if you observe: Fever of 101 or Higher, Shortness of breath, Dizziness, Swelling in the ankles, Chest pain and Increased palpitations (irregular heartbeat) Meaningful Use Info Meaningful Use Diagnoses (Choose all that apply): AMI and CHF AMI/Post PCI/Angioplasty Aspirin given w/in 24hrs of arrival?: Yes ASA at discharge?: Yes Antiplatelet Therapy at Discharge:: Yes Statins at discharge?: Yes Stephen/ARB at discharge?: No Reason Stephen/ARB not ordered:: Not indicated Beta Olga at discharge?: Yes Done w/ Acute CO measure.: Yes Documented LVEF (%): 50 CHF STEPHEN/ARB ordered at discharge?: No Reason STEPHEN/ARB not ordered?: Not indicated Documented LVEF (%): 50 Discharge Plan Admission Admit Date/Time: 08/29/22 17:33 Primary Reason for Your Visit: acute on chronic respiratory failure Attending Provider: Aleida Alcaraz Primary Care Provider: Azael Uribe Consulting Providers: Dallas Urbano ; Americo Padilla ; Aries Garcia ; Gulshan Connor ; Matthieu Marley ; Munira Lockhart NP ; Hannah Nance ; Garrett Huizar Discharge Orders/Prescriptions Prescriptions: New furosemide 40 mg Tablet 40 mg PO DAILY Qty: 30 2RF lactulose 20 gram/30 mL solution 20 g PO TID Qty: 3000 2RF Continued pantoprazole 40 mg tablet,delayed release (DR/EC) 40 mg PO DAILY aspirin [Aspirin Childrens] 81 mg tablet,chewable 81 mg PO BID buprenorphine-naloxone 8-2 mg tablet, sublingual 1 tab sublingual BID Label Comments: take 1 tablet under the tongue twice a day amlodipine 5 mg tablet 5 mg PO DAILY Qty: 30 11RF atorvastatin 20 mg tablet 20 mg PO QHS albuterol sulfate 18 GM HFA aerosol inhaler 2 puff inhalation Q4H PRN PRN (Reason: Sob &/Or Wheezing) metoprolol tartrate 25 mg tablet 25 mg PO BID potassium chloride 20 mEq tablet extended release 20 meq PO DAILY Qty: 30 11RF Discontinued furosemide 20 mg tablet 20 mg PO QAM Referrals / Follow Up: Dallas Urbano MD [Med Staff - Active Staff] - Within 2 Weeks Azael Uribe MD [Primary Care Provider] - Within 2 Weeks Gordo Frost DO [Med Staff - Active Staff] - Within 2 Weeks Disposition Disposition (needs filled in before D/C Order can be placed): Care Home Facility Charges/Coding Visit Charges Inpatient E&M: 94740 Disch Hosp >30min
--- NOTE | 2022-09-06 16:06 | CASEMGMT ---
Patient is ready for discharge. RAÚL called [facility] as required by insurance to arrange transport. RAÚL spoke with Ita at [facility]. RAÚL asked Ita if she could call [facility] to arrange transport while SW waits. Ita talked with [facility] but got cut off. RAÚL called [facility] and spoke with Jan. Jan spoke with Ita at [facility]. RAÚL gave Jan the rest of the information he needed as well as the confirmation number from [facility]. The first available is 7p. RAÚL notified RN, secretary of police, and [facility]. Patient was sleeping both times when SW went into his room and he did not wake up for SW. 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 Plan: d/c to [facility] under intermediate level of care on a convalescent stay. [facility] will transport via wheelchair van. This was arranged through [facility]. Saira Mendoza [employer]
--- NOTE | 2022-09-06 18:27 | NURSING ---
Report called to RAMIRO Pedraza at 1818 at [facility].
--- NOTE | 2022-09-06 20:08 | NURSING ---
pt dc'd with ambulance personnel, all belongings given.
== END 2022-09-06 20:02 | disposition skilled nursing facility (03) | DRG 192 ==
LOC: ED 17:07 → ICU 17:37 → PCU 09-04 07:23
PROVIDERS: Internal Medicine; Internal Medicine Critical Care Medicine; Admitting Provider Internal Medicine; Emergency Provider Emergency Medicine; PCP Family Medicine; Visit Provider Student in an Organized Health Care Education/Training Program
DX: I11.0 Hypertensive heart disease with heart failure (principal); K72.00 Acute and subacute hepatic failure without coma; R78.81 Bacteremia; I21.A1 Myocardial infarction type 2; J13 Pneumonia due to Streptococcus pneumoniae; E87.1 Hypo-osmolality and hyponatremia; J96.11 Chronic respiratory failure with hypoxia; I95.9 Hypotension, unspecified; J44.0 Chronic obstructive pulmonary disease with (acute) lower respiratory infection; I50.33 Acute on chronic diastolic (congestive) heart failure; J84.9 Interstitial pulmonary disease, unspecified; I25.10 Atherosclerotic heart disease of native coronary artery without angina pectoris; E78.5 Hyperlipidemia, unspecified; I25.2 Old myocardial infarction; Z95.3 Presence of xenogenic heart valve; Z87.891 Personal history of nicotine dependence; Z79.82 Long term (current) use of aspirin; I49.3 Ventricular premature depolarization; B95.3 Streptococcus pneumoniae as the cause of diseases classified elsewhere; Z95.1 Presence of aortocoronary bypass graft
CPT/HCPCS: 36415; 36600; 71045; 71275; 80048; 80053; 80307; 81001; 82140; 82436; 82550; 82570; 82803; 83010; 83605; 83615; 83880; 83935; 84133; 84145; 84300; 84484; 84540; 85025; 85379; 85384; 85610; 85652; 85730; 86140; 86704; 86706; 86803; 87040; 87070; 87077; 87086; 87088; 87149; 87186; 87205; 87340; 87428; 87633; 93005; 93308; 93455; 93970; 94640; 94668; 94762; 97110; 97116; 97162; 97166; 97530; 97535; 99152; 99252; 99285; J7030; Q9957; Q9967; A4216; C1769; C1894; C8924; G0463; J0696; J1940

== ENCOUNTER → 2022-09-08 | Outpatient (REF) | payer MEDICAID, SELFPAY ==
[2022-09-08 07:28] LABS: Absolute Lymphocyte Count 1.92 X10^3/uL (0.83-4.51); Basophil% 1.1 % (0-1); Eosinophil# 0.07 X10^3/uL; Eosinophils% 0.8 % (0-5); Hematocrit 32.7 % (40-54); Hemoglobin 9.7 g/dL (13.0-16.5); Lymphocyte # 1.92 X10^3/ul (0.83-4.51); Lymphocyte % 21.8 % (19-41); Mean Corp Hgb Conc 29.7 g/dL (32-36); Mean Corpuscular Hgb 24.6 pg (27.0-32.0); Mean Platelet Vol. 10.7 fl (6.2-12.0); Monocyte# 0.64 X10^3/uL; Monocyte% 7.3 % (0-10); NRBC Flagged by Analyzer 0 % (0-5); Neutrophil # 6.01 X10^3/uL (2.7-7.7); Neutrophil % 68.4 % (47-70); Platelet Count 160 K/mm3 (150-450); RBC Distribution Width SD 59.1 fl (35.1-43.9); Red Blood Count 3.94 M/mm3 (4.6-6.2); White Blood Count 8.8 K/mm3 (4.4-11.0)
[2022-09-08 07:38] LABS: Anion Gap 6 (5-15); BUN 29 mg/dL (7-18); BUN/Creat Ratio 26.4 RATIO (10-20); Calcium,Total 8.3 mg/dL (8.5-10.1); Chloride 88 mmol/L (98-107); EST Glomerular Filtration Rate 73 mL/min (>60); Est Glom Filt Rate - Afr Amer 89 mL/min (>60); Glucose 111 mg/dL (74-106); Potassium 3.5 mmol/L (3.5-5.1); Sodium Level 126 mmol/L (136-145)
== END | disposition home or self-care (01) ==
LOC: OLS.SW 05:00
PROVIDERS: PCP Family Medicine; Visit Provider Internal Medicine
DX: Z13.228 Encounter for screening for other metabolic disorders (principal); R68.89 Other general symptoms and signs
CPT/HCPCS: 36415; 80048; 85025

== ENCOUNTER 2022-09-10 22:01 | Inpatient (IN) | payer MEDICAID, SELFPAY ==
[2022-09-10 22:01] VITALS: BP 90/76; PULSE 70; RESP 19; TEMP 36.3; O2SAT 81; O2SAT 87; BMI 37.0
[2022-09-10 22:08] VITALS: O2SAT 88
--- NOTE | 2022-09-10 22:08 | ED.RN ---
BIPAP APPLIED ON ARRIVAL, PT ADAMANTLY REFUSES TO WEAR. NON-REBREATHER APPLIED
[2022-09-10 22:17] VITALS: RESP 12
--- NOTE | 2022-09-10 22:17 | CPS ---
pt refused, stated he wanted to be intubated instead of wearing a bipap. bipap pressures lowered to attempt to get pt more comfortable, pt ripped mask off.
--- NOTE | 2022-09-10 22:25 | ED.VIS.DYS ---
HPI History of Present Illness Chief Complaint: Shortness of Breath Informant: patient and EMS Limited: other (Acuity) Narrative Narrative: Patient brought from halfway dyspnea, apparently found by nursing staff on 3 L, usually on 2 L previously, profoundly hypoxic 80% and insignificant dyspnea. Apparently Lasix had been held recently, unsure why. He was here about 1.5 weeks ago. That visit was reviewed briefly; it appears that he was discharged from this hospital 4 days ago, cardiology was following him for fluid overload and hypotension. Patient had a history of an NSTEMI relatively recently, he had an echocardiogram with an ejection fraction of 50%, he has a history of endocarditis and had an aortic valve replacement. Right now he is refusing BiPAP, states he cannot tolerate it but is okay with intubation if he should need it. He is feeling tired. His legs are swollen may be worse and definitely not better than usual. He states he really is just short of breath and denies any other complaints. [facility] Medical History Acute non-ST elevation myocardial infarction (NSTEMI) Altered mental status Aortic valve endocarditis Aspiration into airway Asthma Atherosclerotic heart disease of [place] coronary artery without angina pectoris Cellulitis Cerebrovascular disease, unspecified Coronary artery disease Elevated troponin Esophageal reflux Former smoker Hepatitis Hepatitis C Hyperammonemia Hyperlipidemia Hyponatremia Nonrheumatic aortic (valve) insufficiency On home oxygen therapy ESA (obstructive sleep apnea) Overdose Sepsis Sleep apnea Substance abuse TIA (transient ischemic attack) Home Medications albuterol sulfate 90 mcg/actuation aerosol inhaler 2 puff inhalation Q4H PRN PRN Sob &/Or Wheezing 11/19/19 [History Last Taken 08/27/22] pantoprazole 40 mg tablet,delayed release 40 mg PO DAILY reflux 01/20/20 [History Last Taken 08/29/22] buprenorphine 8 mg-naloxone 2 mg sublingual tablet 1 tab sublingual BID Check with primary doctor 03/21/21 [History Last Taken 08/28/22] metoprolol tartrate 25 mg tablet 25 mg PO BID blood pressure 09/05/21 [History Last Taken 08/29/22] amlodipine 5 mg tablet 5 mg PO DAILY #30 tabs 05/26/22 [Rx Last Taken 08/29/22] aspirin 81 mg chewable tablet (Aspirin Childrens) 81 mg PO BID [facility] 07/27/22 [History Last Taken 08/29/22] atorvastatin 20 mg tablet 20 mg PO QHS 07/27/22 [History Last Taken 08/28/22] potassium chloride 20 mEq tablet,extended release 20 meq PO DAILY #30 tabs 07/28/22 [Rx Last Taken 08/29/22] furosemide 40 mg tablet 40 mg PO DAILY #30 tabs 09/06/22 [Rx Last Taken Unknown] lactulose 20 gram/30 mL oral solution 20 g (30 mL) PO TID #3,000 mL 09/06/22 [Rx Last Taken Unknown] buprenorphine 0.7 mg-naloxone 0.18 mg sublingual tablet (Zubsolv) 1 tab sublingual DAILY 09/10/22 [History Last Taken Unknown] Allergy/AdvReac Type Severity Reaction Status Date / Time Penicillins [PCN] Allergy Shortness Verified 09/10/22 22:07 of breath Family History Mother Hypertension Diabetes Father Cancer Grandmother Diabetes Surgical History History of aortic valve replacement with bioprosthetic valve (11/28/19) History of coronary artery bypass graft (11/28/19) History of foot surgery History of tonsillectomy and adenoidectomy Social History Smoking Status: Former smoker quit status: has quit before alcohol intake: never substance use type: former substance user Date of last use: November 19, 2019 now on suboxone, heroin and other details: fentanyl caffeine: Yes Type: carbonated beverages Number of servings: 2 and coffee Number of servings: 2 ROS ROS ED Review of Systems ROS Unobtainable: other Details: Limited due to acuity and patient poor historian Constitutional Constitutional ED: Denies chills or fever(s) Eyes Eyes: Denies change in vision or diplopia ENT ENT ED: Denies rhinorrhea or sore throat Cardiovascular Cardiovascular: Reports leg edema; Denies chest pain or palpitations Respiratory/Chest Respiratory/Chest: Reports dyspnea; Denies cough Gastrointestinal Gastrointestinal: Denies abdominal pain or nausea Genitourinary Genitourinary ED: Reports other Details: Patient states he has been urinating Musculoskeletal Musculoskeletal: Denies back pain or neck pain Neurologic Neurologic: Denies headache(s) EXAM Physical Exam Const Vital Signs: 09/10/22 22:01 09/10/22 22:01 09/10/22 22:08 Temperature 97.4 F L Temperature Source Temporal Pulse Rate 70 Respiratory Rate 19 H Respiratory Effort Short of Breath Labored Accessory Muscle Use Head Bobbing Respiratory Depth Deep Respiratory Pattern Tachypnea Blood Pressure 90/76 Blood Pressure Mean 80 Pulse Ox 81 87 Oxygen Delivery Method Room Air Non-Rebreather Non-Rebreather Oxygen Flow Rate (L/min) 15 15 Fraction of Inspired Oxygen (FIO2) 09/10/22 22:17 09/10/22 22:54 09/10/22 23:15 Temperature Temperature Source Pulse Rate 73 71 Respiratory Rate 24 H 19 H Respiratory Effort Respiratory Depth Respiratory Pattern Tachypnea Blood Pressure 103/73 Blood Pressure Mean 83 Pulse Ox 92 Oxygen Delivery Method Non-Rebreather Oxygen Flow Rate (L/min) 15 Fraction of Inspired Oxygen (FIO2) 50 09/10/22 23:47 Temperature Temperature Source Pulse Rate 69 Respiratory Rate 19 H Respiratory Effort Respiratory Depth Respiratory Pattern Blood Pressure 92/62 Blood Pressure Mean 72 Pulse Ox 92 Oxygen Delivery Method Non-Rebreather Oxygen Flow Rate (L/min) 15 Fraction of Inspired Oxygen (FIO2) Positive well nourished and well developed Constitutional Narrative: Respiratory distress, appears ill General Appearance ED: well developed HEENT Reports moist mucous membranes normocephalic and atraumatic Eyes PERRL and EOMs intact bilaterally Neck full ROM, supple and no meningeal signs Neck Narrative: JVD present Resp Resp Narrative: Mild respiratory distress. Speaking in 3 word sentences. Bibasilar rhonchi. No significant wheezing. Cardio regular rate, regular rhythm and peripheral pulses 2+ throughout Heart Sounds: murmur systolic II/ crescendo-decrescendo GI non-tender and non-distended Auscultation: normoactive bowel sounds Palpation: soft Back/Spine no CVA tenderness General Back: other FROM Extremity normal to inspection General Extremety ED: Yes edema; Negative for pulses abnormal or tenderness General Extremity: edema bilateral lower extremity Details: severe; Negative for pulses abnormal Neuro CN's II-XII intact bilaterally and no sensory deficits noted Neuro Narrative: Moving all 4 extremities symmetrically, nonlateralizing neurologic exam, generally weak Sensorium / Orientation: awake, alert and oriented to person Motor Exam: general weakness Skin no rashes or lesions noted and no wounds MDM MDM MDM Narrative Medical decision making narrative: Patient had prior positive blood cultures, those were repeated in addition to the rest of the cardiopulmonary work-up. Patient is about 90% on a nonrebreather and fatigue. I asked him if he would want us to put him on a breathing machine if indicated and not only is he is okay with that, but he is requesting it. Discussed w/ respiratory; they already nghia an ABG, so I waited 10 minutes until those results were available, and it actually is unexpectedly very reassuring, showing a neutral pH and mild compensated hypercapnia. At this time he has oxygen saturations of 93% on a nonrebreather and blood pressure is 104 systolic, so I had respiratory go forward with an albuterol treatment. On reevaluation, he states it helped. His blood pressure is sustained in the 100-110 range, so he was then given Lasix 20 mg IV after seeing his troponin and BNP results, and portable chest x-ray 1 view showing acute CHF/pulmonary edema on my interpretation, with small pleural effusions bilaterally. On reevaluation, his blood pressure is holding, 92/62, and his respiratory status is holding but still on a nonrebreather. I think he should be admitted to the ICU but I think we can hold off on intubating him at this time. History & Record Review Discussion w/independent historian: EMS personnel and Patient Additional record(s) reviewed:: Prior inpatient record (DC summary), Prior ED visit and Prior labs Lab Data Attestation: I reviewed the patient's lab results. Labs: Laboratory Results - last 24 hr 09/10/22 09/10/22 09/10/22 22:09 22:09 22:09 WBC 12.8 H RBC 4.31 L Hgb 10.9 L Hct 36.6 L MCV 84.9 MCH 25.3 L MCHC 29.8 L RDW Std Deviation 61.2 H RDW Coeff of John 20.8 H Plt Count 237 MPV 10.5 Immature Gran % (Auto) 0.400 Neut % (Auto) 73.1 H Lymph % (Auto) 18.4 L [place] % (Auto) 7.3 Eos % (Auto) 0.2 Baso % (Auto) 0.6 Absolute Neuts (auto) 9.4 H Absolute Lymphs (auto) 2.36 Nucleated RBC % 0 Differential Comment SCANNED Polychromasia 1+ Anisocytosis 2+ Microcytosis 1+ Macrocytosis 1+ Sodium 129 L Potassium 4.4 Chloride 90 L Carbon Dioxide 33.0 H Anion Gap 6 BUN 49 H Creatinine 1.56 H Estim Creat Clear Calc 58.03 Est GFR (MDRD) Af Amer 59 L Est GFR (MDRD) Non-Af 49 L BUN/Creatinine Ratio 31.4 H Glucose 130 H Lactic Acid Calcium 8.7 Troponin I High Sens 178 H* B-Natriuretic Peptide 3425.8 H 09/10/22 22:09 WBC RBC Hgb Hct MCV MCH MCHC RDW Std Deviation RDW Coeff of John Plt Count MPV Immature Gran % (Auto) Neut % (Auto) Lymph % (Auto) [place] % (Auto) Eos % (Auto) Baso % (Auto) Absolute Neuts (auto) Absolute Lymphs (auto) Nucleated RBC % Differential Comment Polychromasia Anisocytosis Microcytosis Macrocytosis Sodium Potassium Chloride Carbon Dioxide Anion Gap BUN Creatinine Estim Creat Clear Calc Est GFR (MDRD) Af Amer Est GFR (MDRD) Non-Af BUN/Creatinine Ratio Glucose Lactic Acid 1.4 Calcium Troponin I High Sens B-Natriuretic Peptide ABG Data ABG results: ABG 09/10/22 22:44 Specimen Type ART Sample Site R Radial pH 7.39 Bicarbonate Actual 33.4 H Total CO2 35 Base Excess 8 H O2 Saturation 96 ABG pCO2 55.7 H ABG pO2 87 Moustapha Test Positive O2 Delivery Device NRB Liter Flow 15.0 Radiography Diagnostic Testing: Clinical Impression(s) from Imaging Studies Chest X-Ray 09/10/22 23:08 IMPRESSION: Large pleural effusions with diffuse pulmonary edema, likely indicating CHF. Electronically Signed: Tim Zhao MD at 23:28 EDT , Rhythm Strip Rhythm Strip: Sinus Rhythm Rate: 73 Ectopy: None EKG Initial EKG: Attestation: I personally reviewed and interpreted this EKG as follows: Interpretation: Sinus Rhythm, No Acute Injury Pattern and Inverted T-Waves (Septo-laterally) Comments: Probable U waves present Prior EKG tracings: available for review Prior: Unchanged Management Discussion w/another healthcare provider: Hospitalist Critical Care Time Critical Care Time: Yes Critical care time (excluding procedures): 30-74 minutes (40 min), Including time spent:, Discussing w/Patient &/or Family/Veterans Services Specialist, Discussing w/Consultants, Arranging Admission or Transfer and Performing Direct Patient Care at Bedside Discharge Plan Dx/Rx/DC Orders Clinical Impression: Acute on chronic respiratory failure with hypoxia, Acute exacerbation of CHF (congestive heart failure), Acute kidney injury, Elevated troponin, Bilateral pleural effusion Disposition Disposition: Acute Care Hospital [facility]
[2022-09-10 22:35] LABS: Absolute Lymphocyte Count 2.36 X10^3/uL (0.83-4.51); Absolute Neutrophil Count 9.4 X10^3/uL (2.0-7.7); Basophil# 0.08 X10^3/uL; Basophil% 0.6 % (0-1); Eosinophil# 0.03 X10^3/uL; Eosinophils% 0.2 % (0-5); Hematocrit 36.6 % (40-54); Hemoglobin 10.9 g/dL (13.0-16.5); Lymphocyte # 2.36 X10^3/ul (0.83-4.51); Lymphocyte % 18.4 % (19-41); Mean Corp Hgb Conc 29.8 g/dL (32-36); Mean Corpuscular Hgb 25.3 pg (27.0-32.0); Mean Corpuscular Volume 84.9 fL (80-94); Mean Platelet Vol. 10.5 fl (6.2-12.0); Monocyte# 0.94 X10^3/uL; Monocyte% 7.3 % (0-10); NRBC Flagged by Analyzer 0 % (0-5); Neutrophil # 9.38 X10^3/uL (2.7-7.7); Neutrophil % 73.1 % (47-70); POSITIVE MORPHOLOGY YES; Platelet Count 237 K/mm3 (150-450); RBC Distribution Width CV 20.8 % (11.6-14.6); RBC Distribution Width SD 61.2 fl (35.1-43.9); Red Blood Count 4.31 M/mm3 (4.6-6.2); White Blood Count 12.8 K/mm3 (4.4-11.0)
[2022-09-10 22:39] LABS: Differential Indicated SCAN CRITERIA MET
[2022-09-10 22:50] LABS: Allen Test Positive; Base Excess 8 mmol/L (-2 to +2); Bicarbonate 33.4 mmol/L (22-26); Blood Gas Specimen Type ART; O2 Delivery Device NRB; PO2 87 mmHG (75-100); SITE R Radial; SO2 96 % (95-99); Total Carbon Dioxide 35 mmol/L; pCO2 55.7 mmHg (35-45); pH 7.39 (7.35-7.45)
[2022-09-10 22:51] LABS: Lactic Acid 1.4 mmol/L (0.4-1.9)
[2022-09-10] MEDS: Ipratropium/Albuterol Sulfate 3 ML AMPUL.NEB INHALATION (22:53)
[2022-09-10 22:54] VITALS: PULSE 73; RESP 24
[2022-09-10 22:57] LABS: Anion Gap 6 (5-15); BUN 49 mg/dL (7-18); BUN/Creat Ratio 31.4 RATIO (10-20); Calcium,Total 8.7 mg/dL (8.5-10.1); Chloride 90 mmol/L (98-107); Creatinine, Serum 1.56 mg/dL (0.70-1.30); EST Glomerular Filtration Rate 49 mL/min (>60); Est Glom Filt Rate - Afr Amer 59 mL/min (>60); Estimated Creatinine Clearance 58.03 ml/min; Glucose 130 mg/dL (74-106); Potassium 4.4 mmol/L (3.5-5.1); Sodium Level 129 mmol/L (136-145); Troponin-I HS 178 pg/mL (3.0-78.0)
[2022-09-10 22:58] LABS: Differential Comment SCANNED; Polychromasia 1+
[2022-09-10 22:59] LABS: Anisocytosis 2+; Macrocytosis 1+; Microcytosis 1+
--- NOTE | 2022-09-10 23:08 | RAD_ITS ---
EXAM: XR CHEST, 1 VIEW CLINICAL INDICATION: dyspnea TECHNIQUE: Frontal view of the chest. This report was created using [email or web address] report generation technology. COMPARISON: 09/03/2022 FINDINGS: LUNGS AND PLEURAL SPACES: Large pleural effusions with diffuse pulmonary edema. Bibasilar atelectasis. No pneumothorax. HEART: Mild enlargement of the cardiac silhouette. MEDIASTINUM: Surgical changes of the mediastinum. BONES/JOINTS: Unremarkable. SOFT TISSUES: Unremarkable. RAD/Chest 1 View (Portable) IMPRESSION: Large pleural effusions with diffuse pulmonary edema, likely indicating CHF. Electronically Signed: Tim Zhao MD at 23:28 EDT ,
[2022-09-10 23:15] VITALS: BP 103/73; PULSE 71; RESP 19; O2SAT 92
[2022-09-10] MEDS: Furosemide 20 MG/2 ML VIAL IV (23:22)
[2022-09-10 23:47] VITALS: BP 92/62; PULSE 69; RESP 19; O2SAT 92
[2022-09-11] VITALS (34 sets, daily range): BP systolic 88–127; BP diastolic 56–91; PULSE 64–86; RESP 14–26; TEMP 36.1–37.2; O2SAT 88–97; BMI 41.8; BMI 41.5
[2022-09-11] MEDS: Bumetanide 25 MG in CONTAINER,EMPTY 1 BAG CONT INF (01:32)
[2022-09-11] MEDS: 0.9% Saline Lock 10 ML Syringe IV (01:33)
--- NOTE | 2022-09-11 01:51 | HP.PCM.HOS_ITS ---
HPI - General General Date of Admission: 09/11/22 Date of Service: 09/11/22 Chief Complaint: Shortness of breath HPI Narrative SOREN DE GUZMAN, is a 56 M who presented to the emergency department [facility] late in the evening on 09/10/2022 for shortness of breath. The patient was recently admitted here for an extensive stay from 08/29/2022 through 09/06/2022 at which time he had similar symptoms. [facility] on 2 L nasal cannula. Evidently this evening he was found by the nursing staff profoundly hypoxic on 3 L nasal cannula with oxygen saturations in the 80s and he was having significant dyspnea. He is on Lasix chronically however it was reported that this had recently been held however the reason was unclear. I suspect is related to his hypotension which appears to be chronic. With recent admission patient had an echocardiogram and a cardiac catheterization. Echocardiogram was overall unremarkable and had an EF of 50%. Cardiac catheterization revealed no obstructive disease and patent grafts from his previous CABG. His aortic valve looks stable. Patient denies any fever or chills but it is difficult to get him to participate in a history. It sounds as if he was fairly stable up until today. His legs are quite swollen he indicates this is chronic and they are no worse than they were when he was discharged. Vital signs on presentation demonstrated temperature of 97.4, heart rate 70, blood pressure 90/76, respiratory rate has been anywhere from 19-24 and his ox ygen saturation was 81% on 2 L nasal cannula. He was placed on a nonrebreather at 15 L/min his oxygen saturations slowly improved to 90 to 92%. They recommended BiPAP however the patient refused and stated he cannot breathe. His CBC shows a mild leukocytosis with a white count of 12.8 and a slight left shift with a 73.1% neutrophilia. Hemoglobin is 10.9 and stable. Platelets are normal. His ABG showed a pH of 7.39/PCO2 of 55.7/PO2 of 87 and an oxygen saturation of 96% on 15 L. His chemistry revealed hyponatremia which is chronic and a sodium of 129 which is his baseline, his BUN and serum creatinine are elevated compared to baseline at 49 and 1.56 respectively (baseline 0.9-1.1). His lactic acid was 1.4. Initial troponin was 178 which is down significantly from 08/29/2022 at which time it was 1394. His BNP is markedly elevated at 3425 which is the highest its been at any time he has had 1 drawn at this institution. Chest x-ray reveals moderate to large bilateral pleural effusions. His EKG shows sinus rhythm with normal intervals and no ST-T wave changes concerning for acute ischemia. [facility] Medical History Acute non-ST elevation myocardial infarction (NSTEMI) Altered mental status Aortic valve endocarditis Aspiration into airway Asthma Atherosclerotic heart disease of [place] coronary artery without angina pectoris Cellulitis Cerebrovascular disease, unspecified Coronary artery disease Elevated troponin Esophageal reflux Former smoker Hepatitis Hepatitis C Hyperammonemia Hyperlipidemia Hyponatremia Nonrheumatic aortic (valve) insufficiency On home oxygen therapy ESA (obstructive sleep apnea) Overdose Sepsis Sleep apnea Substance abuse TIA (transient ischemic attack) Home Medications albuterol sulfate 90 mcg/actuation aerosol inhaler 2 puff inhalation Q4H PRN PRN Sob &/Or Wheezing 11/19/19 [History Last Taken 08/27/22] pantoprazole 40 mg tablet,delayed release 40 mg PO DAILY reflux 01/20/20 [History Last Taken 08/29/22] buprenorphine 8 mg-naloxone 2 mg sublingual tablet 1 tab sublingual BID Check with primary doctor 03/21/21 [History Last Taken 08/28/22] metoprolol tartrate 25 mg tablet 25 mg PO BID blood pressure 09/05/21 [History Last Taken 08/29/22] amlodipine 5 mg tablet 5 mg PO DAILY #30 tabs 05/26/22 [Rx Last Taken 08/29/22] aspirin 81 mg chewable tablet (Aspirin Childrens) 81 mg PO BID heart health 07/27/22 [History Last Taken 08/29/22] atorvastatin 20 mg tablet 20 mg PO QHS 07/27/22 [History Last Taken 08/28/22] potassium chloride 20 mEq tablet,extended release 20 meq PO DAILY #30 tabs 07/28/22 [Rx Last Taken 08/29/22] furosemide 40 mg tablet 40 mg PO DAILY #30 tabs 09/06/22 [Rx Last Taken Unknown] lactulose 20 gram/30 mL oral solution 20 g (30 mL) PO TID #3,000 mL 09/06/22 [Rx Last Taken Unknown] buprenorphine 0.7 mg-naloxone 0.18 mg sublingual tablet (Zubsolv) 1 tab sublingu al DAILY 09/10/22 [History Last Taken Unknown] Allergy/AdvReac Type Severity Reaction Status Date / Time Penicillins [PCN] Allergy Shortness Verified 09/10/22 22:07 of breath Family History Mother Hypertension Diabetes Father Cancer Grandmother Diabetes Surgical History History of aortic valve replacement with bioprosthetic valve (11/28/19) History of coronary artery bypass graft (11/28/19) History of foot surgery History of tonsillectomy and adenoidectomy Social History Smoking Status: Former smoker quit status: has quit before alcohol intake: never substance use type: former substance user Date of last use: November 19, 2019 now on suboxone, heroin and other details: fentanyl caffeine: Yes Type: carbonated beverages Number of servings: 2 and coffee Number of servings: 2 ROS Review of Systems ROS Unobtainable: other Details: Patient was having respiratory difficulties and limited on the amount of information he could give Vital Signs Vital Signs Vital Signs: 09/10/22 22:01 09/10/22 22:01 09/10/22 22:08 Temperature 97.4 F L Temperature Source Temporal Pulse Rate 70 Respiratory Rate 19 H Respiratory Effort Short of Breath Labored Accessory Muscle Use Head [place] Respiratory Depth Deep Respiratory Pattern Tachypnea Blood Pressure 90/76 Blood Pressure Mean 80 Pulse Ox 81 87 Oxygen Delivery Method Room Air Non-Rebreather Non-Rebreather Oxygen Flow Rate (L/min) 15 15 Fraction of Inspired Oxygen (FIO2) 09/10/22 22:17 09/10/22 22:54 09/10/22 23:15 Temperature Temperature Source Pulse Rate 73 71 Respiratory Rate 24 H 19 H Respiratory Effort Respiratory Depth Respiratory Pattern Tachypnea Blood Pressure 103/73 Blood Pressure Mean 83 Pulse Ox 92 Oxygen Delivery Method Non-Rebreather Oxygen Flow Rate (L/min) 15 Fraction of Inspired Oxygen (FIO2) 50 09/10/22 23:47 09/11/22 00:22 09/11/22 00:57 Temperature 97 F L Temperature Source Temporal Pulse Rate 69 71 72 Respiratory Rate 19 H 19 H 19 H Respiratory Effort Respiratory Depth Respiratory Pattern Blood Pressure 92/62 91/61 127/87 H Blood Pressure Mean 72 71 100 Pulse Ox 92 91 91 Oxygen Delivery Method Non-Rebreather Non-Rebreather Non-Rebreather Oxygen Flow Rate (L/min) 15 15 15 Fraction of Inspired Oxygen (FIO2) Weight Weight: 117.5 kg Body Mass Index (BMI) 41.8 Physical Exam Const alert and oriented x3; Negative for no apparent distress, average body habitus, healthy appearing or well nourished Constitutional Narrative: Morbidly obese, ill-appearing, disheveled, middle-aged, white male who appears older than stated age, sitting up in bed upright with somewhat tripoding on nonrebreather (patient refused BiPAP) HEENT normocephalic, head/scalp atraumatic and hearing grossly normal bilaterally HEENT Narrative: Patient is poor, mucous membranes are moist, Mallampati is 2 Eyes PERRL, EOMs intact bilaterally and conjunctivae normal Eyes Narrative: No scleral icterus Neck no lymphadenopathy, supple and No no JVD Neck Narrative: Positive JVD, no carotid bruits Resp No normal respiratory effort, no retractions, No no use of accessory muscles and No clear to auscultation bilaterally Resp Narrative: Markedly diminished bilateral breath sounds from about the middle aspect of the lung field to the base, aeration was good at the apices, mild accessory muscle use but no retractions Auscultation: Negative for rales, rhonchi or wheezes Cardio regular rate, regular rhythm, S1 normal heart sound, S2 normal heart sound, no rub, no gallops and no clicks; Negative for no murmurs Cardio Narrative: 2 out of 6 systolic murmur loudest at the right upper sternal border GI normal to inspection, nondistended, normoactive bowel sounds, soft to palpation and non-tender Extremity Extremity Narrative: 2-3+ bilateral lower extremity doughy pitting edema, no cyanosis or clubbing Skin No no rashes or lesions noted, No no wounds, No skin turgor normal, no jaundice, no petechiae and no mottling Skin Narrative: Petechiae noted bilateral lower extremities, feet are extremely dry, bilateral lower extremity onychomycosis Neuro oriented x3, CN's II-XII intact bilaterally, moves all extremities and no focal motor deficits Neuro Narrative: Marked generalized weakness, speech is difficult for him secondary to dyspnea Psych Psych Narrative: Affect is flat and mood seems depressed Results Lab / Micro Data Result Diagrams: 09/10/22 22:09 09/10/22 22:09 Labs: Laboratory Results - last 24 hr 09/10/22 22:09: WBC 12.8 H, RBC 4.31 L, Hgb 10.9 L, Hct 36.6 L, MCV 84.9, MCH 25.3 L, MCHC 29.8 L, RDW Std Deviation 61.2 H, RDW Coeff of John 20.8 H, Plt Count 237, MPV 10.5, Immature Gran % (Auto) 0.400, Neut % (Auto) 73.1 H, Lymph % (Auto) 18.4 L, [place] % (Auto) 7.3, Eos % (Auto) 0.2, Baso % (Auto) 0.6, Absolute Neuts (auto) 9.4 H, Absolute Lymphs (auto) 2.36, Nucleated RBC % 0, Differential Comment SCANNED, Polychromasia 1+, Anisocytosis 2+, Microcytosis 1+, Macrocytosis 1+ 09/10/22 22:09: Sodium 129 L, Potassium 4.4, Chloride 90 L, Carbon Dioxide 33.0 H, Anion Gap 6, BUN 49 H, Creatinine 1.56 H, Estim Creat Clear Calc 58.03, Est GFR (MDRD) Af Amer 59 L, Est GFR (MDRD) Non-Af 49 L, BUN/Creatinine Ratio 31.4 H , Glucose 130 H, Calcium 8.7, Troponin I High Sens 178 H* 09/10/22 22:09: B-Natriuretic Peptide 3425.8 H 09/10/22 22:09: Lactic Acid 1.4 Micro: Microbiology 09/10/22 Unknown Nasal Secretion SARS-CoV-2 & FLU Antigen (Rapid) - Final ABG Data ABG results: ABG 09/10/22 22:44 Specimen Type ART Sample Site R Radial pH 7.39 Bicarbonate Actual 33.4 H Total CO2 35 Base Excess 8 H O2 Saturation 96 ABG pCO2 55.7 H ABG pO2 87 Moustapha Test Positive O2 Delivery Device NRB Liter Flow 15.0 Rhythm Strip Rhythm Strip: Sinus Rhythm Rate: 73 Ectopy: None Radiology Impression Chest X-Ray 09/10/22 23:08 IMPRESSION: Large pleural effusions with diffuse pulmonary edema, likely indicating CHF. Electronically Signed: Tim Zhao MD at 23:28 EDT , Assessment & Plan Assessment/Plan (1) Acute on chronic respiratory failure with hypoxia: (2) Acute exacerbation of CHF (congestive heart failure): (3) Acute kidney injury: (4) Elevated troponin: (5) Bilateral pleural effusion: (6) Chronic hypotension: PLAN: Plan Acute on chronic hypoxic respiratory failure secondary to decompensated HFrEF -For some reason it was reported that his Lasix was discontinued-I am guessing this is because his low blood pressure -Patient was?is on 09/06/2022 on 2 L continuous and is requiring 15 L with signs of respiratory distress at the time of admission-including tachypnea, tripoding, and significant anxiety -Start Bumex drip -Start metolazone 2.5 mg daily -Sodium restrict diet once initiated -Fluid restrict rate to 1500 cc once initiated -Check daily weights -Had recent echo at last admission that showed an EF of 53% with normal RV, stable bioprosthetic aortic valve and no other valvular abnormalities identified -Cath was also performed and found nonobstructive disease and medical management was recommended -We will make patient n.p.o. for now with ongoing respiratory issues -Trial BiPAP if patient will allow--> if not may need to try some air Vo--> at least he would get a little bit of PEEP with that -Maintain sat greater than 90% -I do not feel there is any infectious component to any of this at this time -Would recommend follow-up chest x-ray in a day or 2 to reevaluate pleural effusions but I suspect they should improve with diuresis -Pulmonary toilet -Consult pulmonary medicine Chronic hypotension -Upon review of previous blood pressures on several dates and occasions the patient rarely has a systolic pressure greater than 100 -We will discontinue metoprolol and amlodipine -Start midodrine 10 mg 3 times daily -I suspect hypotension is the reason why his diuretic was stopped at the facility at which she is residing Bilateral pleural effusions -Like related to acute heart failure -Follow-up chest x-ray in the next 24 to 48 hours and monitor for clinical improvement TRENT -Suspect related to decompensated heart failure as patient is likely off the [place] curve -Continue diuresis -Renal function should improve with diuresis if it is related to his heart failure -Avoid nephrotoxins as able -Repeat BMP in a.m. Chronic hyponatremia -Labs are relatively stable History of hyperammonemia -Continue home lactulose GERD -Continue home Protonix Troponin elevation -Troponin is actually trending down -Diagnosed with NSTEMI at his last visit however cardiac catheterization did not reveal any occlusion and only had mild luminal irregularities with patent grafts and ongoing medical management was recommended History of CABG/aortic valve replacement -Bioprosthetic valve in place -Valve replacement was required secondary to infective endocarditis related to previous drug use -No current acute issues -Continue aspirin -Hold metoprolol History of opiate abuse -Continue home buprenorphine/naloxone Morbid obesity -BMI is likely at 41.8 secondary to severe volume overload -Overall recommend weight loss DVT prophylaxis -Lovenox as ordered CODE STATUS -Full code Charges/Coding Visit Charges Inpatient E&M: 31007 Init Hosp L3
[2022-09-11 02:35] LABS: Troponin-I HS 167 pg/mL (3.0-78.0)
--- NOTE | 2022-09-11 04:09 | NURSING ---
Pt informed that JODI wraps are ordered for BLE, pt refuses to allow application.
[2022-09-11 04:21] LABS: Absolute Lymphocyte Count 1.84 X10^3/uL (0.83-4.51); Absolute Neutrophil Count 8.2 X10^3/uL (2.0-7.7); Basophil# 0.06 X10^3/uL; Basophil% 0.6 % (0-1); Eosinophil# 0.02 X10^3/uL; Eosinophils% 0.2 % (0-5); Hematocrit 32.7 % (40-54); Hemoglobin 9.7 g/dL (13.0-16.5); Lymphocyte # 1.84 X10^3/ul (0.83-4.51); Mean Corp Hgb Conc 29.7 g/dL (32-36); Mean Corpuscular Volume 84.3 fL (80-94); Mean Platelet Vol. 10.2 fl (6.2-12.0); Monocyte# 0.62 X10^3/uL; Monocyte% 5.7 % (0-10); NRBC Flagged by Analyzer 0 % (0-5); Neutrophil # 8.22 X10^3/uL (2.7-7.7); Neutrophil % 76.1 % (47-70); POSITIVE MORPHOLOGY YES; Platelet Count 183 K/mm3 (150-450); RBC Distribution Width CV 20.7 % (11.6-14.6); RBC Distribution Width SD 61.8 fl (35.1-43.9); Red Blood Count 3.88 M/mm3 (4.6-6.2); White Blood Count 10.8 K/mm3 (4.4-11.0)
[2022-09-11 04:27] LABS: Differential Indicated SCAN CRITERIA MET
[2022-09-11 04:45] LABS: Neutrophil-Band 7 % (0-5); Platelet Estimate ADEQUATE (ADEQ)
[2022-09-11 04:46] LABS: Anisocytosis 2+
[2022-09-11 04:54] LABS: ALB/GLOB Ratio 0.4 RATIO (0.9-2.4); AST(SGOT) 46 U/L (15-37); Alanine Aminotransfer ALT/SGPT 17 U/L (16-61); Albumin, Serum 2.4 g/dL (3.2-5.0); Alkaline Phosphatase 94 U/L (45-117); Anion Gap 5 (5-15); BUN 50 mg/dL (7-18); Calcium,Total 8.3 mg/dL (8.5-10.1); Chloride 93 mmol/L (98-107); Creatinine, Serum 1.43 mg/dL (0.70-1.30); EST Glomerular Filtration Rate 54 mL/min (>60); Est Glom Filt Rate - Afr Amer 66 mL/min (>60); Estimated Creatinine Clearance 52.05 ml/min; Globulin 6.2 g/dL (2.2-4.2); Glucose 121 mg/dL (74-106); Phosphorus 5.4 mg/dL (2.5-4.9); Potassium 4.1 mmol/L (3.5-5.1); Protein, Total 8.6 g/dL (6.4-8.2); Sodium Level 129 mmol/L (136-145); Troponin-I HS 141 pg/mL (3.0-78.0)
[2022-09-11 05:24] LABS: M R Staph aureus DNA By PCR Negative (Negative); Probe Check PASS; Specimen Processing Control PASS
[2022-09-11] MEDS: Pantoprazole Sodium 40 MG Tablet PO (07:41)
[2022-09-11] MEDS: Metolazone 2.5 MG Tablet PO (07:41)
[2022-09-11] MEDS: Midodrine HCl 5 MG Tablet 10 MG PO ×3 (07:41→15:52)
[2022-09-11] MEDS: Aspirin 81 MG TAB.CHEW PO ×2 (07:41→15:52)
[2022-09-11] MEDS: Enoxaparin 40 MG/0.4 ML Syringe SC (07:41)
[2022-09-11] MEDS: CHLORHEXIDINE GLUC 2% CLOTH 1 EACH TOWELETTE TOPICAL (07:41)
--- NOTE | 2022-09-11 09:11 | NURSING ---
Called [facility] to clarify patient's suboxone/zubsolv prescription. Nurse at [facility] stated Patient has called here several times over the weekend saying his current medication isn't working. Patient had been on suboxone 8mg/2mg BID, however was not getting those in hospital prior to D/C to detention. Therefore, Dr. Aguiar prescribed zubsolv 0.7mg daily. Eri at [facility] would discuss with Dr. Aguiar when she got in today and call this RN back for plan on which prescription to use.
--- NOTE | 2022-09-11 09:38 | NURSING ---
Annabel at [facility] called back, stated Dr. Aguiar would increase patient to Zubsolv 1.4-0.36mg daily. Notified Shaila in pharmacy who stated she will talk to Dr. Briseno.
--- NOTE | 2022-09-11 10:25 | EX.PCM.CONCC ---
Assessment & Plan Assessment/Plan (1) Congestive heart failure: PLAN: Plan RECOMMENDATIONS: 1. Continue Bumex drip 2. Recheck electrolytes this afternoon with supplementation as necessary 3. Continue to wean FiO2 to keep saturations between 90 and 94% 4. Doubt need for antibiotics 5. We will continue to follow for further recommendations IMPRESSIONS: 1. Acute on chronic hypoxic respiratory failure secondary to fluid overload Patient has responded well to diuretic therapy initially. Patient will likely require some potassium repletion. We will continue to hold antihypertensives. Failure to comply with BiPAP therapy increases risk for complications. Patient did have a recent heart cath that showed no interventions were required. Patient does have new large bilateral pleural effusions. Blood pressures have been improving. Cannot exclude the need for intubation given refusal of BiPAP moving forward. Outpatient work-up for concomitant COPD would be reasonable. 2. Hypotension Clinical suspicion for cardiac etiology. Patient did have a recent NSTEMI with decrease in EF. Patient does have a recent heart catheterization showing no intervention was required. Defer to cardiology on initiation of full anticoagulation. Patient is on hypertensive medications at baseline and these have been discontinued. Patient does not have significant renal dysfunction to suggest accumulation of antihypertensives as an etiology. 3. History of substance abuse/poor historian/history of tobacco abuse Complicates care, management, recovery and prognosis. Patient not willing to provide much additional information at this time. Patient will need to follow-up as an outpatient. Okay to give nicotine patches if requested. HPI Consult Data Date of Consult: 09/11/22 HPI Narrative Reason for Consultation: Respiratory failure HPI Narrative: SOREN DE GUZMAN is a 56 M, with past medical history listed below and known to me from recent hospitalization, who presents to [facility] from a assisted on 09/10/2022 secondary progressive hypoxia and dyspnea. Patient reportedly had had his Lasix held for unclear reasons. Patient was recently discharged 4 days previously from presentation where he was admitted for fluid overload and hypotension. Patient did have an NSTEMI recently with a last known ejection fraction of 50% and had a heart catheterization showing no intervention was required. Patient reportedly has not been able to tolerate BiPAP in the past and is asked for intubation if it is necessary. Patient subjectively thought that his legs were more swollen. In the ER, patient was afebrile, tachypneic and noted to have a blood pressure of 90/76 with a saturation of 81% on room air. Patient was placed on a nonrebreather with some improvements. Laboratory data showed a white blood cell count of 12.8, hemoglobin of 10.9 and platelets of 237. Chemistries showed a sodium of 129, chloride of 90 and a bicarb of 33. Creatinine was slightly elevated at 1.6 with a troponin of 178 and a BNP of almost 3500. Lactate was within normal limits. An ABG showed fully compensated hypercarbic respiratory acidosis with increased AA gradient. A chest x-ray showed the development of bilateral large pleural effusions and cephalization. EKG showed no significant T wave changes compared to previous. Since being admitted, patient feels somewhat improved. Patient has been requiring Airvo to maintain saturations. Patient has not been able to tolerate BiPAP therapy. Patient is not reporting any current chest pain, nausea or vomiting. Patient does report that he is thirsty, but from a respiratory standpoint feels much improved compared to previous. Patient had actually asked me to move his bed back more so he can lie more flat. Review of systems otherwise negative from a constitutional, HEENT, respiratory, cardiovascular, GI, genitourinary, musculoskeletal, skin, neurologic, psychiatric and hematologic system unless stated above. [facility] Medical History Acute non-ST elevation myocardial infarction (NSTEMI) Altered mental status Aortic valve endocarditis Aspiration into airway Asthma Atherosclerotic heart disease of [place] coronary artery without angina pectoris Cellulitis Cerebrovascular disease, unspecified Coronary artery disease Elevated troponin Esophageal reflux Former smoker Hepatitis Hepatitis C Hyperammonemia Hyperlipidemia Hyponatremia Nonrheumatic aortic (valve) insufficiency On home oxygen therapy ESA (obstructive sleep apnea) Overdose Sepsis Sleep apnea Substance abuse TIA (transient ischemic attack) Home Medications albuterol sulfate 90 mcg/actuation aerosol inhaler 2 puff inhalation Q4H PRN PRN Sob &/Or Wheezing 11/19/19 [History Last Taken 08/27/22] pantoprazole 40 mg tablet,delayed release 40 mg PO DAILY reflux 01/20/20 [History Last Taken 08/29/22] metoprolol tartrate 25 mg tablet 25 mg PO BID blood pressure 09/05/21 [History Last Taken 08/29/22] amlodipine 5 mg tablet 5 mg PO DAILY #30 tabs 05/26/22 [Rx Last Taken 08/29/22] aspirin 81 mg chewable tablet (Aspirin Childrens) 81 mg PO BID heart health 07/27/22 [History Last Taken 08/29/22] atorvastatin 20 mg tablet 20 mg PO QHS 07/27/22 [History Last Taken 08/28/22] potassium chloride 20 mEq tablet,extended release 20 meq PO DAILY #30 tabs 07/28/22 [Rx Last Taken 08/29/22] furosemide 40 mg tablet 40 mg PO DAILY #30 tabs 09/06/22 [Rx Last Taken Unknown] lactulose 20 gram/30 mL oral solution 20 g (30 mL) PO TID #3,000 mL 09/06/22 [Rx Last Taken Unknown] buprenorphine 1.4 mg-naloxone 0.36 mg sublingual tablet (Zubsolv) 1 tab sublingual DAILY Check with primary doctor 09/11/22 [History Last Taken Unknown] Allergy/AdvReac Type Severity Reaction Status Date / Time Penicillins [PCN] Allergy Shortness Verified 09/10/22 22:07 of breath Family History Mother Hypertension Diabetes Father Cancer Grandmother Diabetes Surgical History History of aortic valve replacement with bioprosthetic valve (11/28/19) History of coronary artery bypass graft (11/28/19) History of foot surgery History of tonsillectomy and adenoidectomy Social History Smoking Status: Former smoker quit status: has quit before alcohol intake: never substance use type: former substance user Date of last use: November 19, 2019 now on suboxone, heroin and other details: fentanyl caffeine: Yes Type: carbonated beverages Number of servings: 2 and coffee Number of servings: 2 ROS ROS Narrative See HPI Physical Exam Const alert and oriented x3; Negative for healthy appearing Constitutional Narrative: Appears older than stated age. Morbidly obese with mild conversational dyspnea HEENT normocephalic, head/scalp atraumatic and hearing grossly normal bilaterally HEENT Narrative: Mucous membranes are moist, Mallampati is 2 Eyes PERRL, EOMs intact bilaterally and conjunctivae normal Eyes Narrative: No scleral icterus Neck no lymphadenopathy and supple Neck Narrative: Positive JVD, no carotid bruits Resp No normal respiratory effort, no retractions, No no use of accessory muscles and No clear to auscultation bilaterally Auscultation: rales; Negative for rhonchi or wheezes Cardio regular rate, regular rhythm, S1 normal heart sound, S2 normal heart sound, no rub, no gallops and no clicks Cardio Narrative: 2 out of 6 systolic murmur loudest at the right upper sternal border GI normal to inspection, nondistended, normoactive bowel sounds, soft to palpation and non-tender Extremity General Extremity: edema; Negative for clubbing Skin No no rashes or lesions noted, No no wounds, No skin turgor normal, no jaundice, no petechiae and no mottling Skin Narrative: Petechiae noted bilateral lower extremities, feet are extremely dry, bilateral lower extremity onychomycosis Neuro oriented x3, CN's II-XII intact bilaterally, moves all extremities and no focal motor deficits Neuro Narrative: Marked generalized weakness Psych Mood & Affect: flat affect Medical Records Data Attestation: I reviewed the patient's medical records (Significant interval development of bilateral pleural effusions) Lab / Micro Data Attestation: I reviewed the patient's lab results. Result Diagrams: 09/11/22 04:05 09/11/22 04:05 Labs: Laboratory Results - last 24 hr 09/10/22 22:09: WBC 12.8 H, RBC 4.31 L, Hgb 10.9 L, Hct 36.6 L, MCV 84.9, MCH 25.3 L, MCHC 29.8 L, RDW Std Deviation 61.2 H, RDW Coeff of John 20.8 H, Plt Count 237, MPV 10.5, Immature Gran % (Auto) 0.400, Neut % (Auto) 73.1 H, Lymph % (Auto) 18.4 L, [place] % (Auto) 7.3, Eos % (Auto) 0.2, Baso % (Auto) 0.6, Absolute Neuts (auto) 9.4 H, Absolute Lymphs (auto) 2.36, Nucleated RBC % 0, Differential Comment SCANNED, Polychromasia 1+, Anisocytosis 2+, Microcytosis 1+, Macrocytosis 1+ 09/10/22 22:09: Sodium 129 L, Potassium 4.4, Chloride 90 L, Carbon Dioxide 33.0 H, Anion Gap 6, BUN 49 H, Creatinine 1.56 H, Estim Creat Clear Calc 58.03, Est GFR (MDRD) Af Amer 59 L, Est GFR (MDRD) Non-Af 49 L, BUN/Creatinine Ratio 31.4 H, Glucose 130 H, Calcium 8.7, Troponin I High Sens 178 H* 09/10/22 22:09: B-Natriuretic Peptide 3425.8 H 09/10/22 22:09: Lactic Acid 1.4 09/11/22 01:17: Troponin I High Sens 167 H* 09/11/22 01:23: MRSA (PCR) Negative 09/11/22 04:05: WBC 10.8, RBC 3.88 L, Hgb 9.7 L, Hct 32.7 L, MCV 84.3, MCH 25.0 L, MCHC 29.7 L, RDW Std Deviation 61.8 H, RDW Coeff of John 20.7 H, Plt Count 183, MPV 10.2, Immature Gran % (Auto) 0.400, Neut % (Auto) 76.1 H, Lymph % (Auto) 17.0 L, [place] % (Auto) 5.7, Eos % (Auto) 0.2, Baso % (Auto) 0.6, Absolute Neuts (auto) 8.2 H, Absolute Lymphs (auto) 1.84, Band Neutrophils % 7 H, Nucleated RBC % 0, Platelet Estimate ADEQUATE, Anisocytosis 2+ 09/11/22 04:05: Sodium 129 L, Potassium 4.1, Chloride 93 L, Carbon Dioxide 31.0, Anion Gap 5, BUN 50 H, Creatinine 1.43 H, Estim Creat Clear Calc 52.05, Est GFR (MDRD) Af Amer 66, Est GFR (MDRD) Non-Af 54 L, BUN/Creatinine Ratio 35.0 H, Glucose 121 H, Calcium 8.3 L, Phosphorus 5.4 H, Magnesium 2.0, Total Bilirubin 1.10 H, AST 46 H, ALT 17, Alkaline Phosphatase 94, Troponin I High Sens 141 H*, Total Protein 8.6 H, Albumin 2.4 L, Globulin 6.2 H, Albumin/Globulin Ratio 0.4 L Micro: Microbiology 09/10/22 Unknown Nasal Secretion SARS-CoV-2 & FLU Antigen (Rapid) - Final ABG Data ABG results: ABG 09/10/22 22:44 Specimen Type ART Sample Site R Radial pH 7.39 Bicarbonate Actual 33.4 H Total CO2 35 Base Excess 8 H O2 Saturation 96 ABG pCO2 55.7 H ABG pO2 87 Moustapha Test Positive O2 Delivery Device NRB Liter Flow 15.0 Attestation: I personally reviewed and interpreted this ABG as follows: (See HPI) Rhythm Strip Rhythm Strip: Sinus Rhythm Rate: 74 Ectopy: None Radiology Impression Chest X-Ray 09/10/22 23:08 IMPRESSION: Large pleural effusions with diffuse pulmonary edema, likely indicating CHF. Electronically Signed: Tim Zhao MD at 23:28 EDT , Charges/Coding Visit Charges Inpatient E&M: 89374 Init Hosp L3
[2022-09-11] MEDS: Buprenorphine HCl 2 MG TAB.SUBL SL (11:06)
[2022-09-11 13:57] LABS: Anion Gap 4 (5-15); BUN 50 mg/dL (7-18); BUN/Creat Ratio 34.2 RATIO (10-20); Calcium,Total 8.5 mg/dL (8.5-10.1); Chloride 91 mmol/L (98-107); Creatinine, Serum 1.46 mg/dL (0.70-1.30); EST Glomerular Filtration Rate 53 mL/min (>60); Est Glom Filt Rate - Afr Amer 64 mL/min (>60); Estimated Creatinine Clearance 50.98 ml/min; Glucose 161 mg/dL (74-106); Potassium 3.8 mmol/L (3.5-5.1); Sodium Level 130 mmol/L (136-145)
[2022-09-11 14:00] LABS: Phosphorus 5.2 mg/dL (2.5-4.9)
--- NOTE | 2022-09-11 15:12 | CHAPLAIN ---
Type of Pastoral Visit _x__ Initial Visit ___ Follow-up Visit ___ On-call Visit ___ General Patient Visit ___ Spiritual Assessment ___ Family Conference ___ Bereavement ___ Rapid Response ___ Code Blue ___ Other (describe below) Pastoral Care Referral From _x__ Patient ___ Family ___ Nurse ___ Physician ___ Station Agent ___ Sales Performance Manager ___ Other (describe below) Sacrament/Intervention _x__ Active listening ___ Anointing ___ Holiness ___ Bereavement ___ Communion ___ Malina exploration ___ _x__ Life review _x__ Prayer ___ Reconciliation ___ Sacrament of Sick ___ Supportive presence ___ Wedding ___ Other (describe below) Pastoral Comments patient is willing to talk but conversation moves slowly as pt takes lots of time to respond and continue talking; pt has breathing issues and states this is my fault due to stupid decisions in my life - drugs; pt says that he wants to get drugs off the streets; pt is asked about life and how he is handling/processing his 'regrets'; pt given some opportunity to talk about what helps him cope and deal with his decisions; 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
[2022-09-11 15:30] LABS: Base Excess 11 mmol/L (-2 to +2); Bicarbonate 36.9 mmol/L (22-26); Blood Gas Specimen Type ART; Comment AIRVO 60L 90%; PO2 58 mmHG (75-100); SITE L Brach; SO2 87 % (95-99); Total Carbon Dioxide 39 mmol/L; pCO2 67.6 mmHg (35-45); pH 7.35 (7.35-7.45)
[2022-09-11] MEDS: Potassium Chloride Oral Tablet 20 MEQ 40 MEQ PO (15:50)
--- NOTE | 2022-09-11 19:03 | PCM.PN.HOSP ---
Reason for Visit Reason for Visit: Diagnoses Heart failure, unspecified (09/11/22) Other hypotension (09/11/22) Pleural effusion, not elsewhere classified (09/11/22) Acute and chronic respiratory failure with hypoxia (09/11/22) Acute kidney failure, unspecified (09/11/22) Other specified abnormalities of plasma proteins (09/11/22) Subjective Subjective Patient was seen and examined today, currently he is on Airvo, he refuses to wear BiPAP and states he would rather be on the ventilator than where BiPAP according to nursing. I had pulmonary medicine see him today for further input on his care. Objective Data Objective Data Vital Signs: Vital Signs Temp Pulse Resp BP Pulse Ox O2 Del Method O2 Flow Rate 97.5 F L 81 20 H 102/63 90 Airvo 60 09/11/22 16:00 09/11/22 18:00 09/11/22 18:00 09/11/22 18:00 09/11/22 18:00 09/11/22 18:00 09/11/22 18:00 FiO2 93 09/11/22 18:00 Oxygen Flow Rate (L/min) 60 Oxygen Delivery Method Airvo Weight: 117.1 kg Body Mass Index (BMI) 41.5 Intake & Output: Intake and Output for Last 24 Hours 09/09/22 09/10/22 09/11/22 23:59 23:59 23:59 Intake Total 340 / 340 Output Total 2049 / 2049 Balance -1710 / -1710 Lab / Micro Data Result Diagrams: 09/11/22 04:05 09/11/22 13:30 Labs: Laboratory Results - last 24 hr 09/10/22 22:09: WBC 12.8 H, RBC 4.31 L, Hgb 10.9 L, Hct 36.6 L, MCV 84.9, MCH 25.3 L, MCHC 29.8 L, RDW Std Deviation 61.2 H, RDW Coeff of John 20.8 H, Plt Count 237, MPV 10.5, Immature Gran % (Auto) 0.400, Neut % (Auto) 73.1 H, Lymph % (Auto) 18.4 L, [place] % (Auto) 7.3, Eos % (Auto) 0.2, Baso % (Auto) 0.6, Absolute Neuts (auto) 9.4 H, Absolute Lymphs (auto) 2.36, Nucleated RBC % 0, Differential Comment SCANNED, Polychromasia 1+, Anisocytosis 2+, Microcytosis 1+, Macrocytosis 1+ 09/10/22 22:09: Sodium 129 L, Potassium 4.4, Chloride 90 L, Carbon Dioxide 33.0 H, Anion Gap 6, BUN 49 H, Creatinine 1.56 H, Estim Creat Clear Calc 58.03, Est GFR (MDRD) Af Amer 59 L, Est GFR (MDRD) Non-Af 49 L, BUN/Creatinine Ratio 31.4 H, Glucose 130 H, Calcium 8.7, Troponin I High Sens 178 H* 09/10/22 22:09: B-Natriuretic Peptide 3425.8 H 09/10/22 22:09: Lactic Acid 1.4 09/11/22 01:17: Troponin I High Sens 167 H* 09/11/22 01:23: MRSA (PCR) Negative 09/11/22 04:05: WBC 10.8, RBC 3.88 L, Hgb 9.7 L, Hct 32.7 L, MCV 84.3, MCH 25.0 L, MCHC 29.7 L, RDW Std Deviation 61.8 H, RDW Coeff of John 20.7 H, Plt Count 183, MPV 10.2, Immature Gran % (Auto) 0.400, Neut % (Auto) 76.1 H, Lymph % (Auto) 17.0 L, [place] % (Auto) 5.7, Eos % (Auto) 0.2, Baso % (Auto) 0.6, Absolute Neuts (auto) 8.2 H, Absolute Lymphs (auto) 1.84, Band Neutrophils % 7 H, Nucleated RBC % 0, Platelet Estimate ADEQUATE, Anisocytosis 2+ 09/11/22 04:05: Sodium 129 L, Potassium 4.1, Chloride 93 L, Carbon Dioxide 31.0, Anion Gap 5, BUN 50 H, Creatinine 1.43 H, Estim Creat Clear Calc 52.05, Est GFR (MDRD) Af Amer 66, Est GFR (MDRD) Non-Af 54 L, BUN/Creatinine Ratio 35.0 H, Glucose 121 H, Calcium 8.3 L, Phosphorus 5.4 H, Magnesium 2.0, Total Bilirubin 1.10 H, AST 46 H, ALT 17, Alkaline Phosphatase 94, Troponin I High Sens 141 H*, Total Protein 8.6 H, Albumin 2.4 L, Globulin 6.2 H, Albumin/Globulin Ratio 0.4 L 09/11/22 13:30: Sodium 130 L, Potassium 3.8, Chloride 91 L, Carbon Dioxide 35.0 H, Anion Gap 4 L, BUN 50 H, Creatinine 1.46 H, Estim Creat Clear Calc 50.98, Est GFR (MDRD) Af Amer 64, Est GFR (MDRD) Non-Af 53 L, BUN/Creatinine Ratio 34.2 H, Glucose 161 H, Calcium 8.5, Magnesium 2.0 09/11/22 13:30: Phosphorus 5.2 H Micro: Microbiology 09/10/22 Unknown Nasal Secretion SARS-CoV-2 & FLU Antigen (Rapid) - Final ABG Data ABG results: ABG 09/10/22 09/11/22 22:44 15:23 Specimen Type ART ART Sample Site R Radial L Brach pH 7.39 7.35 Bicarbonate Actual 33.4 H 36.9 H Total CO2 35 39 Base Excess 8 H 11 H O2 Saturation 96 87 L ABG pCO2 55.7 H 67.6 H* ABG pO2 87 58 L Moustapha Test Positive O2 Delivery Device NRB Liter Flow 15.0 Crit Call To/Read Back Yes Blood Gas Notified Whom ROSS Clinical Comments AIRVO 60L 90% Radiography Diagnostic Testing: Radiology Impression Chest X-Ray 09/10/22 23:08 IMPRESSION: Large pleural effusions with diffuse pulmonary edema, likely indicating CHF. Electronically Signed: Tim Zhao MD at 23:28 EDT , Rhythm Strip Rhythm Strip: Sinus Rhythm Rate: 74 Ectopy: None Physical Exam Const alert, oriented x3 and no apparent distress Constitutional Narrative: Patient is morbidly obese General Appearance: cooperative and well developed Orientation / Consciousness: awake, oriented to person and oriented to place HEENT normocephalic, head/scalp atraumatic and moist oral mucous membranes Eyes PERRL, EOMs intact bilaterally and conjunctivae normal Neck supple, no JVD, thyroid normal and no carotid bruits General: trachea midline Resp Resp Narrative: Patient has a respiratory rate of 20, he does not appear to be in severe respiratory distress at the time my examination, there is no accessory muscle usage currently. Breath sounds are distant bilaterally Auscultation: Negative for rales, rhonchi or wheezes Cardio regular rate, regular rhythm, S1 normal heart sound, S2 normal heart sound, no murmurs, no rub and no gallops GI normal to inspection, nondistended, normoactive bowel sounds, soft to palpation, non-tender and non-distended Extremity Extremity Narrative: Lymphedematous changes are noted over both lower legs, there is also generalized edema noted over both lower legs. Skin Skin Narrative: Chronic lymphedematous changes are noted over both lower leg Neuro oriented x3, CN's II-XII intact bilaterally, moves all extremities, no focal motor deficits and no sensory deficits noted Sensorium / Orientation: awake, alert, oriented to person and oriented to place Speech: speech normal Psych affect normal Assessment & Plan Assessment/Plan (1) Acute on chronic respiratory failure with hypoxia: PLAN: Plan 1. Acute on chronic hypoxic respiratory failure secondary to acute on chronic diastolic CHF-continue IV Bumex, I have added 1 dose of metolazone 10 mg now, patient received metolazone 2.5 mg daily currently. Patient refused to wear BiPAP, it may be necessary ultimately to place him on the ventilator. #2 acute on chronic diastolic congestive heart failure-again, patient will continue diuresis as his blood pressure permits #3 morbid obesity-complicates care, medical course, recovery, and prognosis #4 valvular heart disease with bioprosthetic aortic valve-complicates care, medical course, recovery, and prognosis #5 coronary artery disease-this appears stable at this time, patient's last catheterization on 08/31/2022 did not show any occlusive coronary disease, continue present medication Total clinical time spent by myself addressing the patient's medical issues, reviewing all of his data, and collaborating with patient's care team: 35 minutes Charges/Coding Visit Charges Inpatient E&M: 18817 Subs Hosp L2
--- NOTE | 2022-09-11 19:05 | NURSING ---
185 patient becoming restless, more SOB, dyspnea at rest, O2 sats dropping to 84% on maxed airvo 60L/95%, educated on the need for bipap vs intubation, patient agreed to trying bipap. Bipap placed on, increased to 100% respiratory therapy called to increase pressures. 1900 Brendon, RT at bedside, increased settings to 20/12, breathing treatment given, Dr. Gaffney notified.
[2022-09-11] MEDS: Albuterol 2.5 MG/3 ML VIAL.NEB. INHALATION (19:10)
[2022-09-11 21:05] LABS: Allen Test Positive; Base Excess 12 mmol/L (-2 to +2); Bicarbonate 38.1 mmol/L (22-26); Blood Gas Specimen Type ART; FI02 100; O2 Delivery Device BiPAP; PEEP 12; PO2 87 mmHG (75-100); RR 14; SITE L Radial; SO2 95 % (95-99); Total Carbon Dioxide 41 mmol/L; Vt 500; pCO2 79.8 mmHg (35-45); pH 7.29 (7.35-7.45)
[2022-09-11 23:01] LABS: Allen Test Positive; Base Excess 11 mmol/L (-2 to +2); Bicarbonate 38.5 mmol/L (22-26); Blood Gas Specimen Type ART; FI02 100; O2 Delivery Device BiPAP; PEEP 12; PO2 77 mmHG (75-100); RR 14; SITE R Radial; SO2 92 % (95-99); Total Carbon Dioxide 41 mmol/L; Vt 500; pCO2 88.2 mmHg (35-45); pH 7.25 (7.35-7.45)
[2022-09-11] MEDS: Etomidate 20 MG/10 ML Vial IV (23:38)
--- NOTE | 2022-09-11 23:41 | RAD_ITS ---
EXAM: XR CHEST, 1 VIEW CLINICAL INDICATION: ETT placement TECHNIQUE: Frontal view of the chest. This report was created using [employer] report generation technology. COMPARISON: 09/20/2022. FINDINGS: LUNGS AND PLEURAL SPACES: Prominence of the interstitial markings likely interstitial edema. Large bilateral pleural effusions. Pulmonary vascular congestion. No pneumothorax. HEART: Prosthetic aortic valve. Cardiac margins aren''t secured by the bilateral pleural effusions. MEDIASTINUM: Central airways and mediastinal contour are unremarkable. BONES/JOINTS: Unremarkable. SOFT TISSUES: Unremarkable. TUBES, LINES AND DEVICES: Endotracheal tube tip is in good position 5 cm above the milly. NG tube is in the stomach. RAD/Chest 1 View (Portable) IMPRESSION: 1. Prominence of the interstitial markings likely interstitial edema. 2. Endotracheal tube tip is in good position 5 cm above the milly. 3. Large bilateral pleural effusions. 4. Pulmonary vascular congestion. 5. NG tube is in the stomach. Electronically Signed: Bruno Edwards MD at 1:21 EDT ,
--- NOTE | 2022-09-11 23:44 | RAD_ITS ---
EXAM: XR ABDOMEN, 1 VIEW CLINICAL INDICATION: OG Placement TECHNIQUE: Frontal supine view of the abdomen/pelvis. This report was created using [employer] report generation technology. COMPARISON: None. FINDINGS: LOWER THORAX: Large bilateral pleural effusions. GASTROINTESTINAL TRACT: Unremarkable. Non-obstructive. No bowel or stomach distention. ORGANS: Unremarkable as visualized. No organomegaly. No abnormal calcifications. BONES/JOINTS: No acute pathology. SOFT TISSUES: No acute pathology. TUBES, LINES AND DEVICES: Orogastric tube tip is in the stomach. RAD/Abdomen Single View (Portable) IMPRESSION: 1. Orogastric tube tip is in the stomach. 2. Large bilateral pleural effusions. Electronically Signed: Bruno Edwards MD at 1:19 EDT ,
[2022-09-11] MEDS: Etomidate 20 MG/10 ML Vial 10 MG IV (23:48)
[2022-09-12] VITALS (48 sets, daily range): BP systolic 70–117; BP diastolic 40–73; PULSE 56–94; RESP 16–21; TEMP 34.7–39.7; O2SAT 88–100; BMI 41.0
--- NOTE | 2022-09-12 00:10 | PN.HOSP_ITS ---
Hospitalist Note Intubation Indication: Acute on chronic hypoxic and hypercapnic respiratory failure Consent was obtained from: Emergent The patient was placed in the appropriate sniffing position. Preoxygenated sedation via BiPAP was provided for a minimum of 3 minutes. The patient had continuous cardiac as well as pulse oximetry monitoring during the procedure. Procedure sedation was provided by the administration of etomidate 20 mg. Direct laryngoscopy was then performed using a number 3 MAC blade, which revealed a grade a view. A 8 mm endotracheal tube was visualized advancing between the cords to the level of 25 cm at the lip. The stylette was then removed and discarded. Tube placement was confirmed by fogging in the tube al adriana with equal and bilateral breath sounds. Colorimetric change was visualized on the CO2 meter. The cuff was then inflated and the tube secured using a commercially available device. A good pulse oximetry waveform was seen on the monitor throughout the procedure. A portable chest x-ray has been ordered to confirm appropriate placement. The patient tolerated the procedure well. Procedures Hospitalists Procedures: [id number] Insert Emergency Airway
[2022-09-12] MEDS: metOLazone 5 MG Tablet PO (00:44)
[2022-09-12] MEDS: Lactulose 20 GM/30 ML UDC PO (00:44)
[2022-09-12] MEDS: Atorvastatin Calcium 20 MG Tablet PO (00:45)
[2022-09-12 01:20] LABS: Allen Test Positive; Base Excess 11 mmol/L (-2 to +2); Blood Gas Specimen Type ART; FI02 100; Mode AC; O2 Delivery Device Adult Vent; PEEP 5; PO2 143 mmHG (75-100); RR 18; SITE R Radial; SO2 99 % (95-99); Total Carbon Dioxide 37 mmol/L; Vt 470; pCO2 54.2 mmHg (35-45); pH 7.42 (7.35-7.45)
[2022-09-12 03:43] LABS: Absolute Lymphocyte Count 2.83 X10^3/uL (0.83-4.51); Absolute Neutrophil Count 6.6 X10^3/uL (2.0-7.7); Eosinophil# 0.05 X10^3/uL; Eosinophils% 0.5 % (0-5); Hematocrit 31.9 % (40-54); Hemoglobin 9.4 g/dL (13.0-16.5); Lymphocyte # 2.83 X10^3/ul (0.83-4.51); Mean Corp Hgb Conc 29.5 g/dL (32-36); Mean Corpuscular Hgb 24.9 pg (27.0-32.0); Mean Corpuscular Volume 84.4 fL (80-94); Mean Platelet Vol. 10.6 fl (6.2-12.0); Monocyte# 0.81 X10^3/uL; Monocyte% 7.7 % (0-10); NRBC Flagged by Analyzer 0 % (0-5); Neutrophil # 6.63 X10^3/uL (2.7-7.7); Neutrophil % 63.3 % (47-70); POSITIVE MORPHOLOGY YES; Platelet Count 196 K/mm3 (150-450); RBC Distribution Width CV 20.9 % (11.6-14.6); RBC Distribution Width SD 61.1 fl (35.1-43.9); Red Blood Count 3.78 M/mm3 (4.6-6.2); White Blood Count 10.5 K/mm3 (4.4-11.0)
[2022-09-12 03:58] LABS: Differential Indicated SCAN CRITERIA MET
[2022-09-12 04:14] LABS: Anisocytosis 2+
[2022-09-12 04:42] LABS: ALB/GLOB Ratio 0.4 RATIO (0.9-2.4); AST(SGOT) 59 U/L (15-37); Alanine Aminotransfer ALT/SGPT 15 U/L (16-61); Albumin, Serum 2.5 g/dL (3.2-5.0); Alkaline Phosphatase 96 U/L (45-117); Anion Gap 5 (5-15); BUN 55 mg/dL (7-18); BUN/Creat Ratio 33.3 RATIO (10-20); Calcium,Total 8.7 mg/dL (8.5-10.1); Chloride 91 mmol/L (98-107); Creatinine, Serum 1.65 mg/dL (0.70-1.30); EST Glomerular Filtration Rate 46 mL/min (>60); Est Glom Filt Rate - Afr Amer 56 mL/min (>60); Estimated Creatinine Clearance 45.11 ml/min; Globulin 6.3 g/dL (2.2-4.2); Glucose 118 mg/dL (74-106); Protein, Total 8.8 g/dL (6.4-8.2); Sodium Level 131 mmol/L (136-145)
[2022-09-12] MEDS: Lactulose 20 GM/30 ML UDC GT ×3 (05:01→21:10)
[2022-09-12] MEDS: Lansoprazole 15 MG Capsule.DR 30 MG GT (07:41)
[2022-09-12] MEDS: Aspirin 81 MG TAB.CHEW GT (07:41)
[2022-09-12] MEDS: Midodrine HCl 5 MG Tablet 10 MG GT ×3 (07:41→17:27)
[2022-09-12] MEDS: Enoxaparin 40 MG/0.4 ML Syringe SC (07:42)
[2022-09-12] MEDS: Metolazone 2.5 MG Tablet GT (07:42)
--- NOTE | 2022-09-12 08:01 | PN.CC_ITS ---
Assessment & Plan Assessment/Plan (1) Congestive heart failure: PLAN: Plan RECOMMENDATIONS: 1. Continue Bumex drip 2. Recheck electrolytes this afternoon with supplementation as necessary 3. Continue to wean FiO2 to keep saturations between 90 and 94% 4. Obtain PICC line 5. Spontaneous breathing and awakening trials per protocol IMPRESSIONS: 1. Acute on chronic hypoxic respiratory failure secondary to fluid overload Patient has responded well to diuretic therapy initially. Patient will likely require some potassium repletion. We will continue to hold antihypertensives. Failure to comply with BiPAP therapy increases risk for complications. Patient did have a recent heart cath that showed no interventions were required. Patient does have new large bilateral pleural effusions. Blood pressures have been improving. Patient appears to have responded well to intubation. Will increase PEEP in an effort to decrease FiO2. 2. Hypotension Clinical suspicion for cardiac etiology. Patient did have a recent NSTEMI with decrease in EF. Patient does have a recent heart catheterization showing no intervention was required. Clinical suspicion is patient is off of his Starling curve leading to a cardiogenic shock. We will continue with diuretics. We will use pressors as necessary. 3. History of substance abuse/poor historian/history of tobacco abuse Complicates care, management, recovery and prognosis. Patient not willing to provide much additional information at this time. Patient will need to follow-up as an outpatient. Okay to give nicotine patches if requested. TIME: 37 minutes critical care time spent addressing patient's respiratory failure, congestive heart failure, cardiogenic shock, review of all data and collaboration with care team Subjective Subjective Overnight events were noted. Patient continued to refuse BiPAP despite Precedex and ultimately was intubated. Patient has had some hypotension following intubation requiring pressors peripherally. Patient currently sedated and intubated and unable to provide additional information. Objective Data Objective Data Vital Signs: Vital Signs Temp Pulse Resp BP Pulse Ox O2 Del Method O2 Flow Rate 37.2 C 57 L 19 H 84/51 L 93 Mechanical Ventilator 60 09/12/22 07:00 09/12/22 07:29 09/12/22 07:29 09/12/22 07:00 09/12/22 07:29 09/12/22 07:00 09/11/22 18:00 FiO2 100 09/12/22 07:29 Oxygen Flow Rate (L/min) 60 Oxygen Delivery Method Mechanical Ventilator Weight: 115.2 kg Body Mass Index (BMI) 41.0 Intake & Output: Intake and Output for Last 24 Hours 09/10/22 09/11/22 09/12/22 23:59 23:59 23:59 Intake Total 403.12 / 411.05 407.73 / 407.73 Output Total 2049 / 2049 650 / 650 Balance -1646.88 / -1638.95 -242.27 / -242.27 Lab / Micro Data Attestation: I reviewed the patient's lab results. Result Diagrams: 09/12/22 03:32 09/12/22 03:32 Labs: Laboratory Results - last 24 hr 09/11/22 13:30: Sodium 130 L, Potassium 3.8, Chloride 91 L, Carbon Dioxide 35.0 H, Anion Gap 4 L, BUN 50 H, Creatinine 1.46 H, Estim Creat Clear Calc 50.98, Est GFR (MDRD) Af Amer 64, Est GFR (MDRD) Non-Af 53 L, BUN/Creatinine Ratio 34.2 H, Glucose 161 H, Calcium 8.5, Magnesium 2.0 09/11/22 13:30: Phosphorus 5.2 H 09/12/22 03:32: WBC 10.5, RBC 3.78 L, Hgb 9.4 L, Hct 31.9 L, MCV 84.4, MCH 24.9 L, MCHC 29.5 L, RDW Std Deviation 61.1 H, RDW Coeff of Jhon 20.9 H, Plt Count 196, MPV 10.6, Immature Gran % (Auto) 0.500, Neut % (Auto) 63.3, Lymph % (Auto) 27.0, [place] % (Auto) 7.7, Eos % (Auto) 0.5, Baso % (Auto) 1.0, Absolute Neuts (auto) 6.6, Absolute Lymphs (auto) 2.83, Nucleated RBC % 0, Anisocytosis 2+ 09/12/22 03:32: Sodium 131 L, Potassium 4.0, Chloride 91 L, Carbon Dioxide 35.0 H, Anion Gap 5, BUN 55 H, Creatinine 1.65 H, Estim Creat Clear Calc 45.11, Est GFR (MDRD) Af Amer 56 L, Est GFR (MDRD) Non-Af 46 L, BUN/Creatinine Ratio 33.3 H , Glucose 118 H, Calcium 8.7, Total Bilirubin 1.40 H, AST 59 H, ALT 15 L, Alkaline Phosphatase 96, Total Protein 8.8 H, Albumin 2.5 L, Globulin 6.3 H, Albumin/Globulin Ratio 0.4 L Micro: Microbiology 09/10/22 Unknown Nasal Secretion SARS-CoV-2 & FLU Antigen (Rapid) - Final ABG Data ABG results: ABG 09/11/22 09/11/22 09/11/22 15:23 21:00 22:54 Specimen Type ART ART ART Sample Site L Brach L Radial R Radial pH 7.35 7.29 L 7.25 L Bicarbonate Actual 36.9 H 38.1 H 38.5 H Total CO2 39 41 41 Base Excess 11 H 12 H 11 H O2 Saturation 87 L 95 92 L O2 % 100 100 ABG pCO2 67.6 H* 79.8 H* 88.2 H* ABG pO2 58 L 87 77 Moustapha Test Positive Positive Respiration Rate 14 14 O2 Delivery Device BiPAP BiPAP Vent Mode Tidal Volume 500 500 POC PEEP 12 12 Crit Call To/Read Back Yes Yes Yes Blood Gas Notified Whom ROSS Gaffney Clinical Comments AIRVO 60L 90% 09/12/22 01:17 Specimen Type ART Sample Site R Radial pH 7.42 Bicarbonate Actual 35.0 H Total CO2 37 Base Excess 11 H O2 Saturation 99 O2 % 100 ABG pCO2 54.2 H ABG pO2 143 H Moustapha Test Positive Respiration Rate 18 O2 Delivery Device Adult Vent Vent Mode AC Tidal Volume 470 POC PEEP 5 Crit Call To/Read Back Blood Gas Notified Whom Clinical Comments Attestation: I personally reviewed and interpreted this ABG as follows: (Progressive respiratory acidosis that was resolved with intubation) Radiography Diagnostic Testing: Radiology Impression Chest X-Ray 09/11/22 23:41 IMPRESSION: 1. Prominence of the interstitial markings likely interstitial edema. 2. Endotracheal tube tip is in good position 5 cm above the milly. 3. Large bilateral pleural effusions. 4. Pulmonary vascular congestion. 5. NG tube is in the stomach. Electronically Signed: Bruno Edwards MD at 1:21 EDT , KUB X-Ray 09/11/22 23:44 IMPRESSION: 1. Orogastric tube tip is in the stomach. 2. Large bilateral pleural effusions. Electronically Signed: Bruno Edwards MD at 1:19 EDT , Rhythm Strip Rhythm Strip: Sinus Rhythm Rate: 74 Ectopy: None Physical Exam Const Negative for healthy appearing Constitutional Narrative: Appears older than stated age. Morbidly obese with mild conversational dyspnea. RASS -3. General Appearance: frail and patient mechanically ventilated HEENT normocephalic, head/scalp atraumatic and hearing grossly normal bilaterally Eyes PERRL, EOMs intact bilaterally and conjunctivae normal Eyes Narrative: No scleral icterus Neck no lymphadenopathy and supple Neck Narrative: Positive JVD, no carotid bruits Resp No normal respiratory effort, no retractions, No no use of accessory muscles and No clear to auscultation bilaterally Auscultation: rales; Negative for rhonchi or wheezes Cardio regular rate, regular rhythm, S1 normal heart sound, S2 normal heart sound, no rub, no gallops and no clicks Cardio Narrative: 2 out of 6 systolic murmur loudest at the right upper sternal border GI normal to inspection, nondistended, normoactive bowel sounds, soft to palpation and non-tender Extremity General Extremity: edema; Negative for clubbing Skin No no rashes or lesions noted, No no wounds, No skin turgor normal, no jaundice, no petechiae and no mottling Skin Narrative: Petechiae noted bilateral lower extremities, feet are extremely dry, bilateral lower extremity onychomycosis Neuro CN's II-XII intact bilaterally, moves all extremities and no focal motor deficits Neuro Narrative: Marked generalized weakness Psych Mood & Affect: flat affect Charges/Coding Procedures Hospitalists Procedures: 75201 Critial Care 1st Hr
[2022-09-12] MEDS: Acetaminophen 650 MG/20 ML UDC GT ×2 (11:24→21:10)
--- NOTE | 2022-09-12 11:36 | CASEMGMT ---
Addendum entered by Dionne Chicas 09/12/22 13:01: Social Work Pt's 19 yr old son is here, informed RN that pt's 16 yr old son is staying w/him at present. RN to get all of the older son's information at put it in the chart. MARQUIS Garcia Addendum entered by Dionne Chicas 09/12/22 12:16: Social Work Updates sent to [facility] via [employer]. MARQUIS Garcia Original Note: Social Work Pt's son who is 19 is coming in later today, as per RN, and will be showing RN his ID. At this time, he would be the decision maker as older son in [facility] and [place] is not old enough to make decisions. Pt is here from [facility], SW reviewed and pt was alert and oriented at last admission, SW worked w/pt. Pt is on ventilator at this time. SW will continue to follow, will send updates to [facility], and will need to confirm plan would be for pt to return when ready. MARQUIS Garcia
[2022-09-12] MEDS: Vital High Protein 1,000 ML 20 ML GT (12:26)
--- NOTE | 2022-09-12 15:30 | CASEMGMT ---
RAÚL met with patient's son, Jasson. SW introduced self and role at [facility]. Jasson said he is the middle child. Jasson's older brother is in [employer]. Jasson's younger brother is 16 years old. Jasson would prefer to get calls regarding medical care for patient. Jasson's phone number is [phone]. Saira WONG
[2022-09-12] MEDS: Bumetanide 25 MG in CONTAINER,EMPTY 1 BAG CONT INF (17:51)
--- NOTE | 2022-09-12 20:26 | PCM.PN.HOSP ---
Reason for Visit Reason for Visit: Diagnoses Heart failure, unspecified (09/11/22) Other hypotension (09/11/22) Pleural effusion, not elsewhere classified (09/11/22) Acute and chronic respiratory failure with hypoxia (09/11/22) Acute kidney failure, unspecified (09/11/22) Other specified abnormalities of plasma proteins (09/11/22) Subjective Subjective Patient was seen and examined today in the ICU, he remains sedated and on the ventilator at this time, I talked briefly with pulmonary medicine about his care. Patient is also on pressor agents today. Objective Data Objective Data Vital Signs: Vital Signs Temp Pulse Resp BP Pulse Ox O2 Del Method O2 Flow Rate 102.0 F H 74 18 113/62 98 Mechanical Ventilator 60 09/12/22 19:00 09/12/22 19:30 09/12/22 19:30 09/12/22 19:00 09/12/22 19:30 09/12/22 19:00 09/11/22 18:00 FiO2 70 09/12/22 19:30 Oxygen Flow Rate (L/min) 60 Oxygen Delivery Method Mechanical Ventilator Weight: 115.2 kg Body Mass Index (BMI) 41.0 Intake & Output: Intake and Output for Last 24 Hours 09/10/22 09/11/22 09/12/22 23:59 23:59 23:59 Intake Total 403.12 / 411.05 1433.32 / 1433.32 Output Total 2049 / 2049 2550 / 2550 Balance -1646.88 / -1638.95 -1116.68 / -1116.68 Lab / Micro Data Result Diagrams: 09/13/22 07:55 09/13/22 13:00 Labs: Laboratory Results - last 24 hr 09/12/22 03:32: WBC 10.5, RBC 3.78 L, Hgb 9.4 L, Hct 31.9 L, MCV 84.4, MCH 24.9 L, MCHC 29.5 L, RDW Std Deviation 61.1 H, RDW Coeff of John 20.9 H, Plt Count 196, MPV 10.6, Immature Gran % (Auto) 0.500, Neut % (Auto) 63.3, Lymph % (Auto) 27.0, [place] % (Auto) 7.7, Eos % (Auto) 0.5, Baso % (Auto) 1.0, Absolute Neuts (auto) 6.6, Absolute Lymphs (auto) 2.83, Nucleated RBC % 0, Anisocytosis 2+ 09/12/22 03:32: Sodium 131 L, Potassium 4.0, Chloride 91 L, Carbon Dioxide 35.0 H, Anion Gap 5, BUN 55 H, Creatinine 1.65 H, Estim Creat Clear Calc 45.11, Est GFR (MDRD) Af Amer 56 L, Est GFR (MDRD) Non-Af 46 L, BUN/Creatinine Ratio 33.3 H, Glucose 118 H, Calcium 8.7, Total Bilirubin 1.40 H, AST 59 H, ALT 15 L, Alkaline Phosphatase 96, Total Protein 8.8 H, Albumin 2.5 L, Globulin 6.3 H, Albumin/Globulin Ratio 0.4 L Micro: Microbiology 09/11/22 23:55 Sputum, Induced/Lukens Gram Stain - Final 09/10/22 Unknown Nasal Secretion SARS-CoV-2 & FLU Antigen (Rapid) - Final ABG Data ABG results: ABG 09/11/22 09/11/22 09/12/22 21:00 22:54 01:17 Specimen Type ART ART ART Sample Site L Radial R Radial R Radial pH 7.29 L 7.25 L 7.42 Bicarbonate Actual 38.1 H 38.5 H 35.0 H Total CO2 41 41 37 Base Excess 12 H 11 H 11 H O2 Saturation 95 92 L 99 O2 % 100 100 100 ABG pCO2 79.8 H* 88.2 H* 54.2 H ABG pO2 87 77 143 H Moustapha Test Positive Positive Positive Respiration Rate 14 14 18 O2 Delivery Device BiPAP BiPAP Adult Vent Vent Mode AC Tidal Volume 500 500 470 POC PEEP 12 12 5 Crit Call To/Read Back Yes Yes Blood Gas Notified Whom Dr. Gulshan Gaffney Clinical Comments Radiography Diagnostic Testing: Radiology Impression Chest X-Ray 09/11/22 23:41 IMPRESSION: 1. Prominence of the interstitial markings likely interstitial edema. 2. Endotracheal tube tip is in good position 5 cm above the milly. 3. Large bilateral pleural effusions. 4. Pulmonary vascular congestion. 5. NG tube is in the stomach. Electronically Signed: Bruno Edwards MD at 1:21 EDT , KUB X-Ray 09/11/22 23:44 IMPRESSION: 1. Orogastric tube tip is in the stomach. 2. Large bilateral pleural effusions. Electronically Signed: Bruno Edwards MD at 1:19 EDT , Rhythm Strip Rhythm Strip: Sinus Rhythm Rate: 74 Ectopy: None Physical Exam Const Constitutional Narrative: Patient is sedated on the ventilator at this time HEENT normocephalic, head/scalp atraumatic and moist oral mucous membranes Eyes PERRL, EOMs intact bilaterally and conjunctivae normal Neck supple, no JVD and thyroid normal General: trachea midline Resp normal respiratory effort, no retractions, no use of accessory muscles and clear to auscultation bilaterally Auscultation: Negative for rales, rhonchi or wheezes Cardio regular rate, regular rhythm, S1 normal heart sound, S2 normal heart sound, no rub and no gallops Cardio Narrative: There is a 2/6 stock murmur noted at the apex and left sternal border GI normal to inspection, nondistended, normoactive bowel sounds, soft to palpation, non-tender and non-distended Extremity Extremity Narrative: There is generalized edema noted over both lower legs, there is stasis dermatitis changes and lymphedematous changes noted over both lower legs Skin General Skin Exam: no breakdown Neuro Neuro Narrative: Patient is sedated and on the ventilator Psych Psych Narrative: Patient is sedated and on ventilator Assessment & Plan Assessment/Plan (1) Shock: PLAN: Plan 1. 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
[2022-09-12] MEDS: Atorvastatin Calcium 20 MG Tablet GT (21:10)
[2022-09-12 23:16] LABS: Absolute Neutrophil Count 13.4 X10^3/uL (2.0-7.7); Basophil# 0.18 X10^3/uL; Eosinophil# 0.05 X10^3/uL; Eosinophils% 0.3 % (0-5); Hemoglobin 9.6 g/dL (13.0-16.5); Lymphocyte % 14.5 % (19-41); Mean Corpuscular Hgb 25.1 pg (27.0-32.0); Mean Corpuscular Volume 83.6 fL (80-94); Mean Platelet Vol. 9.9 fl (6.2-12.0); Monocyte# 1.09 X10^3/uL; Monocyte% 6.3 % (0-10); NRBC Flagged by Analyzer 0 % (0-5); Neutrophil % 77.5 % (47-70); POSITIVE MORPHOLOGY YES; Platelet Count 185 K/mm3 (150-450); RBC Distribution Width CV 21.5 % (11.6-14.6); RBC Distribution Width SD 62.4 fl (35.1-43.9); Red Blood Count 3.83 M/mm3 (4.6-6.2); White Blood Count 17.3 K/mm3 (4.4-11.0)
[2022-09-12 23:18] LABS: Differential Indicated SCAN CRITERIA MET
[2022-09-12 23:27] LABS: International Normalized Ratio 1.3; Prothrombin Time (Protime)PT. 15.4 SECONDS (11.7-14.9)
[2022-09-12 23:28] LABS: Partial Thromboplast Time 41.7 Seconds (24.1-36.2)
--- NOTE | 2022-09-12 23:28 | RAD_ITS ---
INDICATION: Change in cardiac rhythm. Support lines and tubes. EXAMINATION/TECHNIQUE: X-RAY - XR Chest 1 View COMPARISON: Chest x-ray September 11, 2022 FINDINGS: Interval placement of a left PICC line, tip in the distal SVC at the cavoatrial junction. Endotracheal tube and nasogastric tube unchanged. Median sternotomy, CABG. Moderate-sized bilateral pleural effusions with midlung and basilar opacities again seen, not significantly changed. No pneumothorax. Remainder unchanged. RAD/Chest 1 View (Portable) IMPRESSION: Left PICC line placement, appropriately positioned. Electronically Signed: Emmanuel Bateman MD at 0:18 EDT ,
[2022-09-12 23:39] LABS: Procalcitonin 0.45 ng/mL (0.00-0.09)
[2022-09-12 23:49] LABS: Mucous, Urine 0 SEEN /hpf (<or=2+); Squamous Epithelial Cells - UA 0 SEEN /hpf (0-5); White Blood Cells 0 SEEN /hpf (0-5)
[2022-09-12 23:50] LABS: Color, Urine Yellow (Yellow); Glucose, Dipstick Normal (Normal); Ketone-Dipstick Negative (Negative); Leukocyte Esterase-Dipstick Negative /ul (Negative); Nitrite-Dipstick Negative (Negative); Occult Blood-Urine 250 /ul (Negative); Protein-Dipstick 30 mg/dl (Negative); Urine Bilirubin Dipstick Negative (Negative); Urine Clarity Clear (Clear); Urine Urobilinogen Normal (Normal)
[2022-09-12] MEDS: MILRINONE 20 MG/100 ML 8.6 MG IV (23:50)
[2022-09-13] VITALS (48 sets, daily range): BP systolic 58–134; BP diastolic 30–64; PULSE 72–113; RESP 14–22; TEMP 36.2–39.5; O2SAT 93–98; BMI 40.6
--- NOTE | 2022-09-13 00:01 | PCM.PN.BLA ---
Progress Note Called to the icu because patient was hypotensive with MAP of 58 while on Levophed. Also reportedly patient was having thready pulses. Patient was examined at bedside. Patient is on the vent. Murmur present on auscultation. Edematous from waist down. Impression Fever with Tmax of 102.7. Fluid overload likely acute on chronic heart failure with preserved ejection fraction Plan Discussed the case with cardiology on-call. Okay to continue Levophed. Okay to continue Bumex drip. Add midodrine drip starting at low-dose if MAP is less than 65. Continue Tylenol for fever. Check lactic acid. Blood cultures x2 ordered Check sputum culture. Get a stat chest x-ray. Get urinalysis and urine culture. Start patient on vancomycin and aztreonam. Of note the patient is allergic to penicillins (shortness of breath). Cardiology consult.
[2022-09-13 00:08] LABS: ALB/GLOB Ratio 0.4 RATIO (0.9-2.4); AST(SGOT) 69 U/L (15-37); Alanine Aminotransfer ALT/SGPT 14 U/L (16-61); Albumin, Serum 2.3 g/dL (3.2-5.0); Alkaline Phosphatase 93 U/L (45-117); Anion Gap 5 (5-15); BUN 59 mg/dL (7-18); BUN/Creat Ratio 29.4 RATIO (10-20); Calcium,Total 8.4 mg/dL (8.5-10.1); Chloride 91 mmol/L (98-107); Creatinine, Serum 2.01 mg/dL (0.70-1.30); EST Glomerular Filtration Rate 37 mL/min (>60); Est Glom Filt Rate - Afr Amer 44 mL/min (>60); Estimated Creatinine Clearance 37.03 ml/min; Globulin 6.1 g/dL (2.2-4.2); Glucose 124 mg/dL (74-106); Potassium 3.2 mmol/L (3.5-5.1); Protein, Total 8.4 g/dL (6.4-8.2); Sodium Level 131 mmol/L (136-145); Troponin-I HS 1088 pg/mL (3.0-78.0)
[2022-09-13 00:09] LABS: Lactic Acid 2.2 mmol/L (0.4-1.9)
[2022-09-13 00:28] LABS: Bacteria 1+ /hpf (None Seen); Hyaline Cast 5-10 SEEN /lpf (0-5); Red Blood Cells-Urine 25-50 SEEN /hpf (0-5)
--- NOTE | 2022-09-13 00:45 | SEPSIS_ITS ---
Sepsis Attestation Sepsis Attestation: Agree w/Sepsis Date exam was performed: 09/12/22 Time exam was performed: 23:45 Possible Source of Sepsis: Pulmonary Sepsis Organ Dysfunction Criteria Present: SBP < 90 mmHg or MAP < 65 mmHg Fluid Resuscitation Reason for lesser fluid bolus:: Heart failure Sepsis Note Response to fluids: Vasopressors started (Patient already on Levophed. Discussed case with application helper; milrinone will be started if MAP is < 65 while on Levophed.)
[2022-09-13 00:49] LABS: Magnesium 1.9 mg/dL (1.6-2.6)
[2022-09-13 01:27] LABS: Anisocytosis 1+; Differential Comment SCANNED
[2022-09-13] MEDS: HEPARIN/D5w 25,000 UNITS 25,000 UNITS/250 ML IV.SOLN. 10 UNITS CONT INF (01:56)
[2022-09-13] MEDS: Heparin Injection (Vial) 5,000 UNIT/ML VIAL 4000 UNIT IV (02:01)
[2022-09-13] MEDS: Aspirin 81 MG TAB.CHEW 162 MG GT (02:01)
[2022-09-13 02:36] LABS: Troponin-I HS 1226 pg/mL (3.0-78.0)
[2022-09-13 03:12] LABS: Reflex Lactate? Y
[2022-09-13] MEDS: levoFLOXacin IV 750 MG/150 ML BAG 100 MG IV (04:28)
--- NOTE | 2022-09-13 04:51 | PCM.RX.CS ---
Consult Pharmacy has been consulted to manage selected antiobiotic: Vancomycin Type of Consult: New start Labs: Sodium 131 mmol/L (136-145) L 09/12/22 23:00 Potassium 3.2 mmol/L (3.5-5.1) L 09/12/22 23:00 Chloride 91 mmol/L (98-107) L 09/12/22 23:00 Carbon Dioxide 35.0 mmol/L (21.0-32.0) H 09/12/22 23:00 Anion Gap 5 (5-15) 09/12/22 23:00 BUN 59 mg/dL (7-18) H 09/12/22 23:00 Creatinine 2.01 mg/dL (0.70-1.30) H 09/12/22 23:00 Est GFR (MDRD) Af Amer 44 mL/min (>60) L 09/12/22 23:00 Est GFR (MDRD) Non-Af 37 mL/min (>60) L 09/12/22 23:00 BUN/Creatinine Ratio 29.4 RATIO (10-20) H 09/12/22 23:00 Glucose 124 mg/dL (74-106) H 09/12/22 23:00 Microbiology: Microbiology 09/11/22 23:55 Sputum, Induced/Lukens Gram Stain - Final 09/10/22 Unknown Nasal Secretion SARS-CoV-2 & FLU Antigen (Rapid) - Final Goal Trough: 15-20 mcg/mL Pharmacy Plan for Drug Dosing: Pharmacy Service will continue to monitor and adjust dosing as required. Medications Vancomycin HCl (Vancomycin) 1,000 mg in 200 mls @ 200 mls/hr IV Q12H SMILEY Discontinued Medications Vancomycin HCl 2,000 mg/ (Sodium Chloride) 540 mls @ 250 mls/hr IV X1 ONE Stop: 09/13/22 01:39 Last Admin: 09/13/22 04:30 Dose: Infused Follow-Up Labs: Trough Vancomycin Labs to be done on [date and time ordered]: 09/14 @ 4832
[2022-09-13 05:01] LABS: Lactic Acid 1.6 mmol/L (0.4-1.9)
[2022-09-13 05:14] LABS: Troponin-I HS 1239 pg/mL (3.0-78.0)
[2022-09-13 05:48] LABS: Anion Gap 8 (5-15); BUN 60 mg/dL (7-18); Calcium,Total 8.2 mg/dL (8.5-10.1); Chloride 91 mmol/L (98-107); Creatinine, Serum 1.82 mg/dL (0.70-1.30); EST Glomerular Filtration Rate 41 mL/min (>60); Est Glom Filt Rate - Afr Amer 50 mL/min (>60); Glucose 150 mg/dL (74-106); Phosphorus 3.7 mg/dL (2.5-4.9); Potassium 2.8 mmol/L (3.5-5.1); Sodium Level 133 mmol/L (136-145)
--- NOTE | 2022-09-13 06:33 | ECHOCS_ITS ---
Reason For Study: ARRYTHMIA Procedure This was a 2D Doppler, Color Flow transthoracic echocardiogram. Technically difficult study due to patient being supine and on vent. Contrast injection was performed. Exam performed portable in ICU/CCU. Left Ventricle Normal size and thickness. The left ventricular ejection fraction is 55 %. Right Ventricle Normal RV size. Atria The left atrium is moderately enlarged. Normal right atrium. Mitral Valve Moderate mitral annular calcification. Mild-Moderate (1-2+) mitral valve insufficiency. Tricuspid Valve Trivial tricuspid valve insufficiency. Unable to estimate RV systolic pressure due to insufficient tricuspid regurgitant envelope. Aortic Valve The aortic valve is not well visualized. Moderate aortic stenosis. Mild-Moderate (1-2+) aortic valve insufficiency. Bioprosthetic aortic valve. Pulmonic Valve The pulmonic valve is not well visualized. Great Vessels The aortic root is not well visualized. Pericardium/Pleural No pericardial effusion. Ascites noted. Medication Diluted definity 2ml given slow IV push to enhance endocardial definition. MMode/2D Measurements & Calculations LVOT diam: 2.0 cm LAV(MOD-bp): 83.6 ml LVAd ap4: 46.6 cm2 LVOT area: 3.3 cm2 LAV(MOD-bp) Indexed: 38.0 ml/m2 LVLd ap4: 9.6 cm LAV(MOD-sp2): 81.9 ml EDV(MOD-sp4): 200.7 ml LAV(MOD-sp4): 83.0 ml EDV(sp4-el): 191.9 ml LVAs ap4: 27.4 cm2 LVLs ap4: 7.8 cm ESV(MOD-sp4): 81.4 ml ESV(sp4-el): 81.2 ml EF(MOD-sp4): 59.4 % EF(sp4-el): 57.7 % SV(MOD-sp4): 119.3 ml SV(sp4-el): 110.6 ml LA A4 area: 23.3 cm2 RA A4 area: 12.9 cm2 Time Measurements MV dec time: 0.16 sec Doppler Measurements & Calculations MV E max cameron: 128.2 cm/sec Lat Peak E' Cameron: 11.3 cm/sec Med Peak E' Cameron: 12.5 cm/sec MV A max cameron: 57.5 cm/sec E/E' lat: 11.3 E/E' med: 10.2 MV E/A: 2.2 MV V2 max: 129.4 cm/sec MV dec slope: 949.1 cm/sec2 Ao V2 max: 363.7 cm/sec MV max P.7 mmHg Ao max P.9 mmHg MV V2 mean: 69.5 cm/sec Ao V2 mean: 256.0 cm/sec MV mean P.4 mmHg Ao mean P.2 mmHg MV V2 VTI: 32.4 cm Ao V2 VTI: 71.9 cm MVA(VTI): 3.1 cm2 AV (velocity ratio): 0.43 HERMELINDO(I,D): 1.4 cm2 HERMELINDO(V,D): 1.2 cm2 LV V1 max: 137.3 cm/sec MR max cameron: 482.1 cm/sec SV(LVOT): 100.9 ml LV V1 max P.5 mmHg MR max P.0 mmHg LV V1 mean P.1 mmHg LV V1 mean: 93.6 cm/sec LV V1 VTI: 30.8 cm ECHO/Echo Complete W/ Contrast Interpretation Summary The left ventricular ejection fraction is 55 %. The left atrium is moderately enlarged. Mild-Moderate (1-2+) mitral valve insufficiency. Mild-Moderate (1-2+) aortic valve insufficiency. Moderate aortic stenosis. Ascites noted Ordering Physician: Americo Padilla Referring Physician: SERGE TANG Performed By: Huong Jones RCS
[2022-09-13] MEDS: Lactulose 20 GM/30 ML UDC GT ×2 (06:51→13:04)
--- NOTE | 2022-09-13 07:28 | PCM.PN.INT ---
Assessment & Plan Assessment/Plan (1) Congestive heart failure: PLAN: Plan RECOMMENDATIONS: 1. Continue Bumex drip 2. Aggressive electrolyte repletion. Recheck electrolytes this afternoon with supplementation as necessary 3. Continue to wean FiO2 to keep saturations between 90 and 94% 4. Obtain limited echo to evaluate valve function 5. Spontaneous breathing and awakening trials per protocol IMPRESSIONS: 1. Acute on chronic hypoxic respiratory failure secondary to fluid overload Patient has responded well to diuretic therapy initially. Patient will likely require some potassium repletion. We will continue to hold antihypertensives. Patient's oxygen requirements have significantly improved over the last 24 hours. Patient did have a recent heart cath that showed no interventions were required. Patient does appear to have significant improvement in bilateral large pleural effusions on overnight chest x-ray. Blood pressures have been marginal. Patient appears to have responded well to intubation. Potentially decrease PEEP if FiO2 can be weaned to 40% 2. Cardiogenic shock Clinical suspicion for cardiac etiology. Patient did have a recent NSTEMI with decrease in EF. Patient does have a recent heart catheterization showing no intervention was required. Clinical suspicion is patient is off of his [place] curve leading to a cardiogenic shock. We will continue with diuretics. Patient with significant pressor requirements overnight. Patient appears to have a much louder murmur today compared to previous. We will obtain an echo to see if there is acute valve insufficiency. Patient is currently on multiple antibiotics. We will attempt to narrow spectrum slightly. Arrhythmias may be secondary to hypokalemia, so this will be repleted and rechecked. Patient may be having drug fever related to Precedex, but given the amount of pressors we will hold off on transition to propofol. 3. History of substance abuse/poor historian/history of tobacco abuse Complicates care, management, recovery and prognosis. Patient not willing to provide much additional information at this time. Patient will need to follow-up as an outpatient. Okay to give nicotine patches if requested. TIME: 44 minutes critical care time spent addressing patient's respiratory failure, congestive heart failure, cardiogenic shock, review of all data and collaboration with care team Subjective Subjective Significant events overnight include fever and hypotension. Patient currently is on a Bumex, heparin, Precedex, fentanyl, milrinone, Levophed and vasopressin drips. Oxygenation status is slightly improved compared to yesterday. Patient is not able to provide any additional information. Objective Data Objective Data Vital Signs: Vital Signs Temp Pulse Resp BP Pulse Ox O2 Del Method O2 Flow Rate 37.6 C H 80 18 108/57 L 95 Mechanical Ventilator 60 09/13/22 07:00 09/13/22 07:00 09/13/22 07:00 09/13/22 07:00 09/13/22 07:00 09/13/22 07:00 09/11/22 18:00 FiO2 50 09/13/22 07:00 Oxygen Flow Rate (L/min) 60 Oxygen Delivery Method Mechanical Ventilator Weight: 114.2 kg Body Mass Index (BMI) 40.6 Intake & Output: Intake and Output for Last 24 Hours 09/11/22 09/12/22 09/13/22 23:59 23:59 23:59 Intake Total 403.12 / 411.05 1737.26 / 1868.28 1842.66 / 1842.66 Output Total 0 / 2049 2550 / 3300 2450 / 2450 Balance -1646.88 / -1638.95 -812.74 / -1431.72 -607.34 / -607.34 Lab / Micro Data Attestation: I reviewed the patient's lab results. Lab results narrative: Chest x-ray was completed overnight with issues. Significant improvement in bilateral pleural effusions noted Result Diagrams: 09/12/22 23:00 09/13/22 04:15 Labs: Laboratory Results - last 24 hr 09/12/22 23:00: WBC 17.3 H, RBC 3.83 L, Hgb 9.6 L, Hct 32.0 L, MCV 83.6, MCH 25.1 L, MCHC 30.0 L, RDW Std Deviation 62.4 H, RDW Coeff of John 21.5 H, Plt Count 185, MPV 9.9, Immature Gran % (Auto) 0.400, Neut % (Auto) 77.5 H, Lymph % (Auto) 14.5 L, [place] % (Auto) 6.3, Eos % (Auto) 0.3, Baso % (Auto) 1.0, Absolute Neuts (auto) 13.4 H, Absolute Lymphs (auto) 2.50, Nucleated RBC % 0, Differential Comment SCANNED, Anisocytosis 1+ 09/12/22 23:00: PT 15.4 H, INR 1.3, APTT 41.7 H 09/12/22 23:00: Sodium 131 L, Potassium 3.2 L, Chloride 91 L, Carbon Dioxide 35.0 H, Anion Gap 5, BUN 59 H, Creatinine 2.01 H, Estim Creat Clear Calc 37.03, Est GFR (MDRD) Af Amer 44 L, Est GFR (MDRD) Non-Af 37 L, BUN/Creatinine Ratio 29.4 H, Glucose 124 H, Calcium 8.4 L, Total Bilirubin 1.50 H, AST 69 H, ALT 14 L, Alkaline Phosphatase 93, Troponin I High Sens 1088 H*, Total Protein 8.4 H, Albumin 2.3 L, Globulin 6.1 H, Albumin/Globulin Ratio 0.4 L 09/12/22 23:00: Lactic Acid 2.2 H* 09/12/22 23:00: Procalcitonin 0.45 H 09/12/22 23:00: Magnesium 1.9 09/12/22 23:40: Urine Color Yellow, Urine Clarity Clear, Urine pH 6.0, Ur Specific [place] 1.010, Urine Protein 30 H, Urine Glucose (UA) Normal, Urine Ketones Negative, Urine Occult Blood 250 H, Urine Nitrite Negative, Urine Bilirubin Negative, Urine Urobilinogen Normal, Ur Leukocyte Esterase Negative, Urine RBC 25-50 SEEN, Urine WBC 0 SEEN, Ur Squamous Epith Cells 0 SEEN, Urine Bacteria 1+, Hyaline Casts 5-10 SEEN, Urine Mucus 0 SEEN 09/13/22 01:50: Troponin I High Sens 1226 H* 09/13/22 04:15: Sodium 133 L, Potassium 2.8 L, Chloride 91 L, Carbon Dioxide 34.0 H, Anion Gap 8, BUN 60 H, Creatinine 1.82 H, Estim Creat Clear Calc 40.90, Est GFR (MDRD) Af Amer 50 L, Est GFR (MDRD) Non-Af 41 L, BUN/Creatinine Ratio 33.0 H, Glucose 150 H, Calcium 8.2 L, Phosphorus 3.7, Magnesium 2.0 09/13/22 04:16: Troponin I High Sens 1239 H* 09/13/22 04:16: Lactic Acid 1.6 Micro: Microbiology 09/11/22 23:55 Sputum, Induced/Lukens Gram Stain - Final 09/10/22 Unknown Nasal Secretion SARS-CoV-2 & FLU Antigen (Rapid) - Final Radiography Diagnostic Testing: Radiology Impression Chest X-Ray 09/12/22 23:28 IMPRESSION: Left PICC line placement, appropriately positioned. Electronically Signed: Emmanuel Bateman MD at 0:18 EDT , Rhythm Strip Rhythm Strip: Sinus Rhythm Rate: 74 Ectopy: None Physical Exam Const Negative for healthy appearing Constitutional Narrative: Appears older than stated age. Morbidly obese with mild conversational dyspnea. RASS -3. General Appearance: frail and patient mechanically ventilated HEENT normocephalic, head/scalp atraumatic and hearing grossly normal bilaterally Eyes PERRL, EOMs intact bilaterally and conjunctivae normal Eyes Narrative: No scleral icterus Neck no lymphadenopathy and supple Neck Narrative: Positive JVD, no carotid bruits Resp No normal respiratory effort, no retractions, No no use of accessory muscles and No clear to auscultation bilaterally Auscultation: rales; Negative for rhonchi or wheezes Percussion: dullness Lower: right and left Cardio regular rate, regular rhythm, S1 normal heart sound, S2 normal heart sound, no rub, no gallops and no clicks Cardio Narrative: 4 out of 6 systolic murmur loudest at the right upper sternal border GI normal to inspection, nondistended, normoactive bowel sounds, soft to palpation and non-tender Extremity General Extremity: edema; Negative for clubbing Skin No no rashes or lesions noted, No no wounds, No skin turgor normal, no jaundice, no petechiae and no mottling Skin Narrative: Petechiae noted bilateral lower extremities, feet are extremely dry, bilateral lower extremity onychomycosis. Some mild mottling of the feet noted Neuro oriented x3, CN's II-XII intact bilaterally, moves all extremities and no focal motor deficits Neuro Narrative: Marked generalized weakness Psych Mood & Affect: flat affect Charges/Coding Procedures Hospitalists Procedures: 88872 Critial Care 1st Hr
[2022-09-13] MEDS: Potassium Chloride 20mEq/100mL 20 MEQ/100 ML IV.SOLN. 100 MEQ IV BOLUS ×4 (08:00→16:14)
[2022-09-13] MEDS: Lansoprazole 15 MG Capsule.DR 30 MG GT (08:04)
[2022-09-13] MEDS: Aspirin 81 MG TAB.CHEW GT (08:04)
[2022-09-13] MEDS: Metolazone 2.5 MG Tablet GT (08:04)
[2022-09-13 08:23] LABS: Absolute Lymphocyte Count 2.17 X10^3/uL (0.83-4.51); Absolute Neutrophil Count 11.3 X10^3/uL (2.0-7.7); Basophil# 0.15 X10^3/uL; Eosinophil# 0.02 X10^3/uL; Eosinophils% 0.1 % (0-5); Hematocrit 29.7 % (40-54); Lymphocyte # 2.17 X10^3/ul (0.83-4.51); Lymphocyte % 14.7 % (19-41); Mean Corp Hgb Conc 30.3 g/dL (32-36); Mean Corpuscular Hgb 25.1 pg (27.0-32.0); Mean Corpuscular Volume 82.7 fL (80-94); Mean Platelet Vol. 9.6 fl (6.2-12.0); Monocyte# 1.01 X10^3/uL; Monocyte% 6.8 % (0-10); NRBC Flagged by Analyzer 0 % (0-5); Neutrophil % 76.7 % (47-70); POSITIVE MORPHOLOGY YES; Platelet Count 147 K/mm3 (150-450); RBC Distribution Width CV 21.5 % (11.6-14.6); RBC Distribution Width SD 62.3 fl (35.1-43.9); Red Blood Count 3.59 M/mm3 (4.6-6.2); White Blood Count 14.8 K/mm3 (4.4-11.0)
[2022-09-13 08:24] LABS: Differential Indicated SCAN CRITERIA MET
[2022-09-13] MEDS: Potassium Chloride Oral Soln 20 MEQ/15 ML UDC 40 MEQ PO ×2 (08:44→14:59)
[2022-09-13 08:45] LABS: Anisocytosis 1+
[2022-09-13 08:49] LABS: Partial Thromboplast Time 79.7 Seconds (24.1-36.2)
--- NOTE | 2022-09-13 10:22 | US_ITS ---
STUDY: ABDOMINAL ULTRASOUND - RIGHT UPPER QUADRANT REASON FOR VISIT: Male, 56 years old diffuse abdominal pain, elevated LFTs TECHNIQUE: Ultrasound evaluation of the right upper quadrant was performed with real-time and static nicole-scale imaging. TECHNICAL QUALITY: Limited. Examination limited due to the patient?s condition. COMPARISON: None. FINDINGS: Liver: The liver measures 16 cm. There is a heterogeneous echogenicity of the liver. The bile ducts are within normal limits. There is hepatic color flow. The direction of portal flow is hepatopetal. There is no demonstrated mass lesion. Gallbladder: Distended gallbladder. The gallbladder wall measures 2 mm. There is a negative sonographic Shell''s sign. There is no pericholecystic fluid. There is hyperechoic nonshadowing 0.5 x 0.8 x 0.5 cm gallbladder sludge. Common Bile Duct (C.B.D.): The common bile duct measures 5.6 mm. Pancreas: Normal size of the head, body and tail of the pancreas. There is increased echogenicity of the pancreas. There is no demonstrated pancreatic mass or cyst. Right Kidney: Normal size of the right kidney. The right kidney measures 12.3 x 6.2 x 5.2 cm. Normal renal cortex. The right cortex measures 1.1 cm. There is no demonstrated renal mass or cyst. There is no right hydronephrosis. Kidney is echogenic suggesting underlying medical renal disease. Incidental note is made of a right pleural effusion and 4 quadrant ascites US/Liver IMPRESSION: Coarse heterogeneous echotexture within the liver consistent with fatty infiltration, there are some subtle nodular borders suggesting early cirrhotic changes well. Echogenic sludge within the gallbladder but no sonographic evidence of acute gallbladder disease Echogenic right kidney suggests underlying medical renal disease. Nonspecific echogenic pancreas Right pleural effusion and 4 quadrant ascites Electronically Signed: Kenyon Peterson MD at 12:45 EDT ,
--- NOTE | 2022-09-13 10:56 | PCM.CONS.C ---
Assessment & Plan Assessment/Plan (1) Respiratory failure requiring intubation: PLAN: Secondary to fluid volume overload with congestive heart failure. Continue diuresis. (2) Shock: PLAN: I doubt that it is pure cardiogenic shock. His LVEF is about 55% on echocardiogram. Consider sepsis. Check random cortisol. Continue vasopressor support as needed. (3) Congestive heart failure: PLAN: Heart failure with preserved ejection fraction. Continue diuresis. (4) History of CAD (coronary artery disease): PLAN: Troponin elevated but coronary angiography only less than 2 weeks ago revealed patent vein graft to the RCA and patent [place] left system. Likely type II elevation. Continue aspirin. (5) History of aortic valve replacement with bioprosthetic valve: PLAN: Bioprosthetic aortic valve gradient moderately elevated. Periodic surveillance. (6) Renal insufficiency: PLAN: As per critical care. HPI Consult Data Date of Consult: 09/13/22 HPI Narrative Reason for Consultation: Congestive heart failure HPI Narrative: The patient has a history of coronary artery disease status post single-vessel bypass to the RCA and aortic valve disease status post replacement with bioprosthetic aortic valve. He was transferred from an extended care facility with complaints of progressive dyspnea and hypoxia. For his respiratory failure, he has had to be intubated. Presently on the ventilator in the ICU. Patient was only recently discharged from the hospital where and he was admitted with congestive heart failure and elevated troponins. Coronary angiography was performed on August 31, 2022 where and patent graft to the RCA was noted. Patent major epicardial vessels. Patient was also noted to be hypotensive and has been started on vasopressor agents. He is also on diuretics. Making good urine. Patient is intubated and unable to provide any history. History was obtained from the chart. [facility] Medical History Acute non-ST elevation myocardial infarction (NSTEMI) Altered mental status Aortic valve endocarditis Aspiration into airway Asthma Atherosclerotic heart disease of [place] coronary artery without angina pectoris Cellulitis Cerebrovascular disease, unspecified Coronary artery disease Elevated troponin Esophageal reflux Former smoker Hepatitis Hepatitis C Hyperammonemia Hyperlipidemia Hyponatremia Nonrheumatic aortic (valve) insufficiency On home oxygen therapy ESA (obstructive sleep apnea) Overdose Sepsis Sleep apnea Substance abuse TIA (transient ischemic attack) Home Medications albuterol sulfate 90 mcg/actuation aerosol inhaler 2 puff inhalation Q4H PRN PRN Sob &/Or Wheezing 11/19/19 [History Last Taken 08/27/22] pantoprazole 40 mg tablet,delayed release 40 mg PO DAILY reflux 01/20/20 [History Last Taken 08/29/22] metoprolol tartrate 25 mg tablet 25 mg PO BID blood pressure 09/05/21 [History Last Taken 08/29/22] amlodipine 5 mg tablet 5 mg PO DAILY #30 tabs 05/26/22 [Rx Last Taken 08/29/22] aspirin 81 mg chewable tablet (Aspirin Childrens) 81 mg PO BID heart health 07/27/22 [History Last Taken 08/29/22] atorvastatin 20 mg tablet 20 mg PO QHS 07/27/22 [History Last Taken 08/28/22] potassium chloride 20 mEq tablet,extended release 20 meq PO DAILY #30 tabs 07/28/22 [Rx Last Taken 08/29/22] furosemide 40 mg tablet 40 mg PO DAILY #30 tabs 09/06/22 [Rx Last Taken Unknown] lactulose 20 gram/30 mL oral solution 20 g (30 mL) PO TID #3,000 mL 09/06/22 [Rx Last Taken Unknown] buprenorphine 1.4 mg-naloxone 0.36 mg sublingual tablet (Zubsolv) 1 tab sublingual DAILY Check with primary doctor 09/11/22 [History Last Taken Unknown] Allergy/AdvReac Type Severity Reaction Status Date / Time Penicillins [PCN] Allergy Shortness Verified 09/10/22 22:07 of breath Family History Mother Hypertension Diabetes Father Cancer Grandmother Diabetes Surgical History History of aortic valve replacement with bioprosthetic valve (11/28/19) History of coronary artery bypass graft (11/28/19) History of foot surgery History of tonsillectomy and adenoidectomy Social History Smoking Status: Former smoker quit status: has quit before alcohol intake: never substance use type: former substance user Date of last use: November 19, 2019 now on suboxone, heroin and other details: fentanyl caffeine: Yes Type: carbonated beverages Number of servings: 2 and coffee Number of servings: 2 Physical Exam Narrative Intubated, on ventilator. Awake however. Comfortable. No apparent distress. Heart sounds 1 and 2 are noted. 3/6 systolic murmur at base. Chest examination shows decreased breath sounds at bases. 3+ bilateral lower extremity edema is noted. Risk Stratification Risk Stratification Applicable: No Objective Data Vital Signs: Vital Signs Temp Pulse Resp BP Pulse Ox O2 Del Method O2 Flow Rate 99.0 F 74 21 H 103/56 L 95 Mechanical Ventilator 60 09/13/22 10:00 09/13/22 10:00 09/13/22 10:00 09/13/22 10:00 09/13/22 10:00 09/13/22 10:00 09/11/22 18:00 FiO2 50 09/13/22 10:00 Oxygen Flow Rate (L/min) 60 Oxygen Delivery Method Mechanical Ventilator Weight: 251 lb 12.286 oz Body Mass Index (BMI) 40.6 Intake & Output: Intake and Output for Last 24 Hours 09/11/22 09/12/22 09/13/22 23:59 23:59 23:59 Intake Total 403.12 / 411.05 1737.26 / 1868.28 2640.97 / 2640.97 Output Total 2049 / 2049 2550 / 3300 2450 / 2450 Balance -1646.88 / -1638.95 -812.74 / -1431.72 190.97 / 190.97 Lab / Micro Data Attestation: I reviewed the patient's lab results. Result Diagrams: 09/13/22 07:55 09/13/22 04:15 Labs: Laboratory Results - last 24 hr 09/12/22 23:00: WBC 17.3 H, RBC 3.83 L, Hgb 9.6 L, Hct 32.0 L, MCV 83.6, MCH 25.1 L, MCHC 30.0 L, RDW Std Deviation 62.4 H, RDW Coeff of John 21.5 H, Plt Count 185, MPV 9.9, Immature Gran % (Auto) 0.400, Neut % (Auto) 77.5 H, Lymph % (Auto) 14.5 L, [place] % (Auto) 6.3, Eos % (Auto) 0.3, Baso % (Auto) 1.0, Absolute Neuts (auto) 13.4 H, Absolute Lymphs (auto) 2.50, Nucleated RBC % 0, Differential Comment SCANNED, Anisocytosis 1+ 09/12/22 23:00: PT 15.4 H, INR 1.3, APTT 41.7 H 09/12/22 23:00: Sodium 131 L, Potassium 3.2 L, Chloride 91 L, Carbon Dioxide 35.0 H, Anion Gap 5, BUN 59 H, Creatinine 2.01 H, Estim Creat Clear Calc 37.03, Est GFR (MDRD) Af Amer 44 L, Est GFR (MDRD) Non-Af 37 L, BUN/Creatinine Ratio 29.4 H, Glucose 124 H, Calcium 8.4 L, Total Bilirubin 1.50 H, AST 69 H, ALT 14 L, Alkaline Phosphatase 93, Troponin I High Sens 1088 H*, Total Protein 8.4 H, Albumin 2.3 L, Globulin 6.1 H, Albumin/Globulin Ratio 0.4 L 09/12/22 23:00: Lactic Acid 2.2 H* 09/12/22 23:00: Procalcitonin 0.45 H 09/12/22 23:00: Magnesium 1.9 09/12/22 23:40: Urine Color Yellow, Urine Clarity Clear, Urine pH 6.0, Ur Specific [place] 1.010, Urine Protein 30 H, Urine Glucose (UA) Normal, Urine Ketones Negative, Urine Occult Blood 250 H, Urine Nitrite Negative, Urine Bilirubin Negative, Urine Urobilinogen Normal, Ur Leukocyte Esterase Negative, Urine RBC 25-50 SEEN, Urine WBC 0 SEEN, Ur Squamous Epith Cells 0 SEEN, Urine Bacteria 1+, Hyaline Casts 5-10 SEEN, Urine Mucus 0 SEEN 09/13/22 01:50: Troponin I High Sens 1226 H* 09/13/22 04:15: Sodium 133 L, Potassium 2.8 L, Chloride 91 L, Carbon Dioxide 34.0 H, Anion Gap 8, BUN 60 H, Creatinine 1.82 H, Estim Creat Clear Calc 40.90, Est GFR (MDRD) Af Amer 50 L, Est GFR (MDRD) Non-Af 41 L, BUN/Creatinine Ratio 33.0 H, Glucose 150 H, Calcium 8.2 L, Phosphorus 3.7, Magnesium 2.0 09/13/22 04:16: Troponin I High Sens 1239 H* 09/13/22 04:16: Lactic Acid 1.6 09/13/22 07:55: APTT 79.7 H 09/13/22 07:55: WBC 14.8 H, RBC 3.59 L, Hgb 9.0 L, Hct 29.7 L, MCV 82.7, MCH 25.1 L, MCHC 30.3 L, RDW Std Deviation 62.3 H, RDW Coeff of John 21.5 H, Plt Count 147 L, MPV 9.6, Immature Gran % (Auto) 0.700, Neut % (Auto) 76.7 H, Lymph % (Auto) 14.7 L, [place] % (Auto) 6.8, Eos % (Auto) 0.1, Baso % (Auto) 1.0, Absolute Neuts (auto) 11.3 H, Absolute Lymphs (auto) 2.17, Nucleated RBC % 0, Anisocytosis 1+ Micro: Microbiology 09/11/22 23:55 Sputum, Induced/Lukens Gram Stain - Final 09/11/22 23:55 Sputum, Induced/Lukens Respiratory Culture - Preliminary Appears to be normal respiratory josef. Further studies to follow. Rhythm Strip Rhythm Strip: Sinus Rhythm Rate: 74 Ectopy: None Cardiology Labs/Tests 09/12/22 23:00: WBC 17.3 H, RBC 3.83 L, Hgb 9.6 L, Hct 32.0 L, MCV 83.6, MCH 25.1 L, MCHC 30.0 L, Plt Count 185, MPV 9.9, Immature Gran % (Auto) 0.400, Neut % (Auto) 77.5 H, Lymph % (Auto) 14.5 L, [place] % (Auto) 6.3, Eos % (Auto) 0.3, Baso % (Auto) 1.0, Absolute Neuts (auto) 13.4 H, Nucleated RBC % 0 09/12/22 23:00: PT 15.4 H, INR 1.3, APTT 41.7 H 09/12/22 23:00: Sodium 131 L, Potassium 3.2 L, Chloride 91 L, Carbon Dioxide 35.0 H, Anion Gap 5, BUN 59 H, Creatinine 2.01 H, Est GFR (MDRD) Af Amer 44 L, Est GFR (MDRD) Non-Af 37 L, BUN/Creatinine Ratio 29.4 H, Glucose 124 H, Calcium 8.4 L, Total Bilirubin 1.50 H 09/12/22 23:00: Lactic Acid 2.2 H* 09/12/22 23:00: Magnesium 1.9 09/12/22 23:40: Urine Color Yellow, Urine Clarity Clear, Urine pH 6.0, Ur Specific [place] 1.010, Urine Protein 30 H, Urine Glucose (UA) Normal, Urine Ketones Negative, Urine Occult Blood 250 H, Urine Nitrite Negative, Urine Bilirubin Negative, Urine Urobilinogen Normal, Ur Leukocyte Esterase Negative, Urine RBC 25-50 SEEN, Urine WBC 0 SEEN 09/13/22 04:15: Sodium 133 L, Potassium 2.8 L, Chloride 91 L, Carbon Dioxide 34.0 H, Anion Gap 8, BUN 60 H, Creatinine 1.82 H, Est GFR (MDRD) Af Amer 50 L, Est GFR (MDRD) Non-Af 41 L, BUN/Creatinine Ratio 33.0 H, Glucose 150 H, Calcium 8.2 L, Phosphorus 3.7, Magnesium 2.0 09/13/22 04:16: Lactic Acid 1.6 09/13/22 07:55: APTT 79.7 H 09/13/22 07:55: WBC 14.8 H, RBC 3.59 L, Hgb 9.0 L, Hct 29.7 L, MCV 82.7, MCH 25.1 L, MCHC 30.3 L, Plt Count 147 L, MPV 9.6, Immature Gran % (Auto) 0.700, Neut % (Auto) 76.7 H, Lymph % (Auto) 14.7 L, [place] % (Auto) 6.8, Eos % (Auto) 0.1, Baso % (Auto) 1.0, Absolute Neuts (auto) 11.3 H, Nucleated RBC % 0 Rhythm: EKG: Incomplete right bundle branch block. Sinus rhythm. Nonspecific T wave changes. ECHO: Stress Test: Cardiac Cath: PCI: CT Surgery: Holter monitor: EPS: PPM: CXR: Chest CT Scan: Radiography Diagnostic Testing: Radiology Impression Chest X-Ray 09/12/22 23:28 IMPRESSION: Left PICC line placement, appropriately positioned. Electronically Signed: Emmanuel Bateman MD at 0:18 EDT , Echocardiogram 09/13/22 06:33 Interpretation Summary The left ventricular ejection fraction is 55 %. The left atrium is moderately enlarged. Mild-Moderate (1-2+) mitral valve insufficiency. Mild-Moderate (1-2+) aortic valve insufficiency. Moderate aortic stenosis. Ascites noted Ordering Physician: Americo Padilla Referring Physician: SERGE TANG Performed By: Huong Jones RCS
[2022-09-13] MEDS: CHLORHEXIDINE GLUC 2% CLOTH 1 EACH TOWELETTE TOPICAL (10:59)
[2022-09-13] MEDS: Vancomycin IV 1,000 MG/200 ML BAG 200 MG IV (13:23)
[2022-09-13 13:45] LABS: Anion Gap 4 (5-15); BUN 60 mg/dL (7-18); BUN/Creat Ratio 32.4 RATIO (10-20); Calcium,Total 8.6 mg/dL (8.5-10.1); Chloride 91 mmol/L (98-107); Creatinine, Serum 1.85 mg/dL (0.70-1.30); EST Glomerular Filtration Rate 40 mL/min (>60); Est Glom Filt Rate - Afr Amer 49 mL/min (>60); Estimated Creatinine Clearance 40.23 ml/min; Glucose 147 mg/dL (74-106); Potassium 3.1 mmol/L (3.5-5.1); Sodium Level 131 mmol/L (136-145)
[2022-09-13] MEDS: Vital High Protein 1,000 ML 50 ML GT (15:36)
[2022-09-13 15:43] LABS: Partial Thromboplast Time 62.5 Seconds (24.1-36.2)
--- NOTE | 2022-09-13 17:36 | PCM.PN.HOSP ---
Reason for Visit Reason for Visit: Diagnoses Heart failure, unspecified (09/11/22) Other hypotension (09/11/22) Pleural effusion, not elsewhere classified (09/11/22) Acute and chronic respiratory failure with hypoxia (09/11/22) Respiratory failure, unspecified, unspecified whether with hypoxia or hypercapnia (09/11/22) Acute kidney failure, unspecified (09/11/22) Disorder of kidney and ureter, unspecified (09/11/22) Shock, unspecified (09/11/22) Other specified abnormalities of plasma proteins (09/11/22) Personal history of other diseases of the circulatory system (09/11/22) Presence of xenogenic heart valve (09/11/22) Subjective Subjective Patient was seen and examined today, he remains on the ventilator at this time, he is still on pressor agents. Cardiology was consulted for their input, cardiology does not feel that it is cardiogenic shock, it was recommended that diuresis be continued. I talked briefly with cardiology and critical care about the patient's care. Objective Data Objective Data Vital Signs: Vital Signs Temp Pulse Resp BP Pulse Ox O2 Del Method O2 Flow Rate 99.5 F H 72 18 103/55 L 96 Mechanical Ventilator 60 09/13/22 16:00 09/13/22 17:18 09/13/22 17:18 09/13/22 16:15 09/13/22 17:18 09/13/22 16:00 09/11/22 18:00 FiO2 40 09/13/22 17:18 Oxygen Flow Rate (L/min) 60 Oxygen Delivery Method Mechanical Ventilator Weight: 114.2 kg Body Mass Index (BMI) 40.6 Intake & Output: Intake and Output for Last 24 Hours 09/11/22 09/12/22 09/13/22 23:59 23:59 23:59 Intake Total 403.12 / 411.05 1737.26 / 1868.28 4348.43 / 4348.43 Output Total 2049 / 2049 2550 / 3300 5350 / 5350 Balance -1646.88 / -1638.95 -812.74 / -1431.72 -1001.57 / -1001.57 Lab / Micro Data Result Diagrams: 09/13/22 07:55 09/13/22 13:00 Labs: Laboratory Results - last 24 hr 09/12/22 23:00: WBC 17.3 H, RBC 3.83 L, Hgb 9.6 L, Hct 32.0 L, MCV 83.6, MCH 25.1 L, MCHC 30.0 L, RDW Std Deviation 62.4 H, RDW Coeff of John 21.5 H, Plt Count 185, MPV 9.9, Immature Gran % (Auto) 0.400, Neut % (Auto) 77.5 H, Lymph % (Auto) 14.5 L, [place] % (Auto) 6.3, Eos % (Auto) 0.3, Baso % (Auto) 1.0, Absolute Neuts (auto) 13.4 H, Absolute Lymphs (auto) 2.50, Nucleated RBC % 0, Differential Comment SCANNED, Anisocytosis 1+ 09/12/22 23:00: PT 15.4 H, INR 1.3, APTT 41.7 H 09/12/22 23:00: Sodium 131 L, Potassium 3.2 L, Chloride 91 L, Carbon Dioxide 35.0 H, Anion Gap 5, BUN 59 H, Creatinine 2.01 H, Estim Creat Clear Calc 37.03, Est GFR (MDRD) Af Amer 44 L, Est GFR (MDRD) Non-Af 37 L, BUN/Creatinine Ratio 29.4 H, Glucose 124 H, Calcium 8.4 L, Total Bilirubin 1.50 H, AST 69 H, ALT 14 L, Alkaline Phosphatase 93, Troponin I High Sens 1088 H*, Total Protein 8.4 H, Albumin 2.3 L, Globulin 6.1 H, Albumin/Globulin Ratio 0.4 L 09/12/22 23:00: Lactic Acid 2.2 H* 09/12/22 23:00: Procalcitonin 0.45 H 09/12/22 23:00: Magnesium 1.9 09/12/22 23:40: Urine Color Yellow, Urine Clarity Clear, Urine pH 6.0, Ur Specific [place] 1.010, Urine Protein 30 H, Urine Glucose (UA) Normal, Urine Ketones Negative, Urine Occult Blood 250 H, Urine Nitrite Negative, Urine Bilirubin Negative, Urine Urobilinogen Normal, Ur Leukocyte Esterase Negative, Urine RBC 25-50 SEEN, Urine WBC 0 SEEN, Ur Squamous Epith Cells 0 SEEN, Urine Bacteria 1+, Hyaline Casts 5-10 SEEN, Urine Mucus 0 SEEN 04/12/23 01:50: Troponin I High Sens 1226 H* 09/13/22 04:15: Sodium 133 L, Potassium 2.8 L, Chloride 91 L, Carbon Dioxide 34.0 H, Anion Gap 8, BUN 60 H, Creatinine 1.82 H, Estim Creat Clear Calc 40.90, Est GFR (MDRD) Af Amer 50 L, Est GFR (MDRD) Non-Af 41 L, BUN/Creatinine Ratio 33.0 H, Glucose 150 H, Calcium 8.2 L, Phosphorus 3.7, Magnesium 2.0 09/13/22 04:16: Troponin I High Sens 1239 H* 09/13/22 04:16: Lactic Acid 1.6 09/13/22 07:55: APTT 79.7 H 09/13/22 07:55: WBC 14.8 H, RBC 3.59 L, Hgb 9.0 L, Hct 29.7 L, MCV 82.7, MCH 25.1 L, MCHC 30.3 L, RDW Std Deviation 62.3 H, RDW Coeff of John 21.5 H, Plt Count 147 L, MPV 9.6, Immature Gran % (Auto) 0.700, Neut % (Auto) 76.7 H, Lymph % (Auto) 14.7 L, Crockett % (Auto) 6.8, Eos % (Auto) 0.1, Baso % (Auto) 1.0, Absolute Neuts (auto) 11.3 H, Absolute Lymphs (auto) 2.17, Nucleated RBC % 0, Anisocytosis 1+ 09/13/22 13:00: Sodium 131 L, Potassium 3.1 L, Chloride 91 L, Carbon Dioxide 36.0 H, Anion Gap 4 L, BUN 60 H, Creatinine 1.85 H, Estim Creat Clear Calc 40.23, Est GFR (MDRD) Af Amer 49 L, Est GFR (MDRD) Non-Af 40 L, BUN/Creatinine Ratio 32.4 H, Glucose 147 H, Calcium 8.6 09/13/22 13:00: Cortisol 26.30 H 09/13/22 15:13: APTT 62.5 H Micro: Microbiology 09/10/22 23:02 Blood Culture (Wb) - Right Hand Blood Culture - Preliminary No growth in 48 hours. 09/10/22 22:09 Blood Culture (Wb) - Anticubital Left Blood Culture - Preliminary No growth in 48 hours. 09/11/22 23:55 Sputum, Induced/Lukens Gram Stain - Final 09/11/22 23:55 Sputum, Induced/Lukens Respiratory Culture - Preliminary Appears to be normal respiratory josef. Further studies to follow. 09/10/22 Unknown Nasal Secretion SARS-CoV-2 & FLU Antigen (Rapid) - Final Radiography Diagnostic Testing: Radiology Impression Chest X-Ray 09/12/22 23:28 IMPRESSION: Left PICC line placement, appropriately positioned. Electronically Signed: Emmanuel Bateman MD at 0:18 EDT , Echocardiogram 09/13/22 06:33 Interpretation Summary The left ventricular ejection fraction is 55 %. The left atrium is moderately enlarged. Mild-Moderate (1-2+) mitral valve insufficiency. Mild-Moderate (1-2+) aortic valve insufficiency. Moderate aortic stenosis. Ascites noted Ordering Physician: Americo Padilla Referring Physician: SERGE TANG Performed By: Huong Jones RCS Liver Ultrasound 09/13/22 10:22 IMPRESSION: Coarse heterogeneous echotexture within the liver consistent with fatty infiltration, there are some subtle nodular borders suggesting early cirrhotic changes well. Echogenic sludge within the gallbladder but no sonographic evidence of acute gallbladder disease Echogenic right kidney suggests underlying medical renal disease. Nonspecific echogenic pancreas Right pleural effusion and 4 quadrant ascites Electronically Signed: Kenyon Peterson MD at 12:45 EDT , Rhythm Strip Rhythm Strip: Sinus Rhythm Rate: 74 Ectopy: None Physical Exam Narrative Constitutional Narrative: Patient is sedated on the ventilator at this time HEENT normocephalic, head/scalp atraumatic and moist oral mucous membranes Eyes PERRL, EOMs intact bilaterally and conjunctivae normal Neck supple, no JVD and thyroid normal General: trachea midline Resp normal respiratory effort, no retractions, no use of accessory muscles and clear to auscultation bilaterally Auscultation: Negative for rales, rhonchi or wheezes Cardio regular rate, regular rhythm, S1 normal heart sound, S2 normal heart sound, no rub and no gallops Cardio Narrative: There is a 2/6 stock murmur noted at the apex and left sternal border GI normal to inspection, nondistended, normoactive bowel sounds, soft to palpation, non-tender and non-distended Extremity Extremity Narrative: There is generalized edema noted over both lower legs, there is stasis dermatitis changes and lymphedematous changes noted over both lower legs Skin General Skin Exam: no breakdown Neuro Neuro Narrative: Patient is sedated and on the ventilator Psych Psych Narrative: Patient is sedated and on ventilator Assessment & Plan Assessment/Plan (1) Shock: PLAN: Plan 1. 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 Total clinical time spent by myself addressing the patient's medical issues, reviewing all of his data, and collaborating with patient's care team: 38 minutes Charges/Coding Visit Charges Inpatient E&M: 46377 Subs Hosp L2
--- NOTE | 2022-09-13 19:59 | PCM.DEATH ---
Preliminary Cause of Preliminary Cause of Preliminary Cause of : Asystole secondary to pulseless electrical activity as a consequence of coronary artery disease with suspected myocardial infarction Date of Admission: 09/11/22 Date of : 09/13/22 Principle Diagnosis 1. 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 Marcos Lobato MD) Renal insufficiency (Acute) History of aortic valve replacement with bioprosthetic valve (Acute) Congestive heart failure (Acute) Shock (Acute) Respiratory failure requiring intubation (Acute) Acute kidney injury (Acute) Elevated troponin (Acute) Bilateral pleural effusion (Acute) Congestive heart failure (Acute) History of CAD (coronary artery disease) (Acute) Hospital Course This 56-year-old white male was seen in the emergency room at [facility] with a chief complaint of shortness of breath, patient had been admitted to [facility] for an extensive stay from 08/29/2021 through 09/06/2022 with similar symptoms of shortness of breath. He had been discharged to a intermediate facility on supplemental nasal cannula oxygen, he was found to be hypoxic at the residential and he was experiencing dyspnea. Examination of the patient revealed marked edema of the lower legs, he had to be placed on a nonrebreather at 15 L/min to improve his oxygen saturation. Patient refused to wear BiPAP stating he was unable to tolerate it, white blood cell count was elevated at 12.8 and an arterial blood gas on 15 L showed a pH of 7.39, PCO2 of 55, and a PO2 of 87. Chemistry revealed hyponatremia, his BUN and creatinine were elevated compared to his baseline. Initial troponin was 178, BNP was markedly elevated at 3425. EKG showed sinus rhythm with an incomplete right bundle branch block. Patient was admitted to ICU, he was seen in consultation by critical care and placed on IV diuretic drip. Despite aggressive treatment, patient had to be intubated when he would not tolerate BiPAP, he then over the next several hours became hypotensive and was placed on pressors, IV antibiotics, and cardiology was consulted. An echocardiogram was performed on the patient which showed a normal EF and no significant valvular heart disease. Cardiology did not feel the patient was in cardiogenic shock. On 09/13/2022 at approximately 6:35 PM, patient went into a malignant arrhythmia (V-fib), ACLS protocol was instituted and he was given IV amiodarone, underwent 2 defibrillations, and he was given IV epinephrine. Patient initially responded with return to a sinus tachycardia with a palpable pulse but his blood pressure was low in the 70s systolic. Patient was then given IV fluids and his IV diuretics were halted. Patient's blood pressure remained low and he eventually went into PEA approximately 7:30 PM on 09/13/2022, family members were present and urged full measures, CPR was again instituted and patient was given several doses of IV epinephrine without any return of circulation. CPR efforts continued. At 1945 on 09/13/2022, patient remained in PEA and resuscitation efforts were stopped, he was pronounced at that time. I talked with several family members who were present at the hospital. Cause of was felt to be PEA secondary to myocardial infarction. Visit Charges Inpatient E&M: 48830 Disch Hosp >30min
== END 2022-09-13 22:45 | DRG 194 ==
LOC: ED 23:11 → ICU 09-11 00:37
PROVIDERS: Hospitalist; Internal Medicine Cardiovascular Disease; Internal Medicine Critical Care Medicine; Admitting Provider Internal Medicine; Emergency Provider Emergency Medicine; PCP Internal Medicine; Visit Provider Internal Medicine
DX: I50.33 Acute on chronic diastolic (congestive) heart failure (principal); J96.21 Acute and chronic respiratory failure with hypoxia; I21.4 Non-ST elevation (NSTEMI) myocardial infarction; A41.9 Sepsis, unspecified organism; I49.01 Ventricular fibrillation; N17.9 Acute kidney failure, unspecified; J96.22 Acute and chronic respiratory failure with hypercapnia; I46.9 Cardiac arrest, cause unspecified; E66.01 Morbid (severe) obesity due to excess calories; Z68.41 Body mass index [BMI] 40.0-44.9, adult; I95.89 Other hypotension; E87.1 Hypo-osmolality and hyponatremia; I25.10 Atherosclerotic heart disease of native coronary artery without angina pectoris; E78.5 Hyperlipidemia, unspecified; K21.9 Gastro-esophageal reflux disease without esophagitis; I45.10 Unspecified right bundle-branch block; J90 Pleural effusion, not elsewhere classified; Z87.891 Personal history of nicotine dependence; Z79.891 Long term (current) use of opiate analgesic; Z79.82 Long term (current) use of aspirin
CPT/HCPCS: 31500; 31720; 36415; 36569; 36600; 71045; 74018; 76705; 80048; 80053; 81001; 82533; 82803; 83605; 83735; 83880; 84100; 84145; 84484; 85025; 85610; 85730; 87040; 87070; 87205; 87428; 87641; 92950; 93005; 93306; 94002; 94003; 94640; 94660; 94668; 94799; 97162; 97166; 97802; 99252; 99285; 99406; J7030; J7040; J7050; Q9957; A4216; C8929; G0463; J1940; J3010; J3475; J3490